=== PATIENT | female | born 1970 | race Caucasian/White ===

== ENCOUNTER 2023-01-17 09:27 | Emergency (ER) | payer OTHER, SELFPAY ==
--- NOTE | 2023-01-17 09:39 | ED_ITS ---
HPI - SOB/Dyspnea General Chief Complaint: Dyspnea Stated Complaint: SOB Time Seen by Provider: 01/17/23 09:38 Source: patient Mode of arrival: ambulatory Limitations: no limitations History of Present Illness HPI Narrative: Patient history of asthma ran out of her nebulizer medication and nebulizer is not working for last few days moved from [place] 4 months ago to [facility] does have a cat at home since she came to [place] she been having multiple episodes of asthma attacks last attack prior to coming to [place] was 1 year ago Related Data Previous Rx's Medication Instructions Recorded albuterol sulfate 2.5 mg/3 mL 2.5 mg (3 mL) inhalation Q4-6H PRN 01/17/23 (0.083 %) solution for nebulization shortness of breath or wheezing #90 mL albuterol sulfate 90 mcg/actuation 2 puff inhalation Q4-6H PRN 01/17/23 aerosol inhaler (ProAir HFA) shortness of breath or wheezing #8.5 grams benzonatate 200 mg capsule 200 mg PO TID PRN cough #30 caps 01/17/23 montelukast 10 mg tablet 10 mg PO BEDTIME #30 tabs 01/17/23 (Singulair) nebulizers (AeroEclipse II #1 ea 01/17/23 Nebulizer) prednisone 20 mg tablet 40 mg PO DAILY #10 tabs 01/17/23 Allergies Allergy/AdvReac Type Severity Reaction Status Date / Time naproxen AdvReac Vomiting Verified 01/17/23 09:34 Review of Systems Review of Systems: Yes all other systems are reviewed and are negative [facility] Past Medical History Medical History Asthma Social History Social History Advance Directives: No Advance Directives Information Provided: Yes Physical Exam Vital Signs: Vital Signs: Last Vital Signs Temp 97.6 F 01/17/23 09:50 Pulse 71 01/17/23 09:50 Resp 22 H 01/17/23 09:50 BP 139/77 01/17/23 09:50 Pulse Ox 99 01/17/23 09:50 O2 Del Method Room Air 01/17/23 09:50 BMI result Body Mass Index 31.2 Appearance: Alert. Oriented X3. No acute distress. Eyes: PERRLA, No Nystagmus ENT: Pharynx normal. Oral Mucosa moist Neck: Normal inspection. Neck supple. CVS: Normal heart rate and rhythm. Pulses normal. Respiratory: My respiratory distress. Equal air entry bilateral, bilateral wheezing and rhonchi with frequent dry cough Abdomen: Soft and nontender. Bowel sounds are present, no mass palpable, no CVA tenderness Skin: Skin warm and dry. Normal skin color. Normal skin turgor. Extremities: No lower extremity edema. No calf tenderness Neuro: Oriented X 3. No motor deficit. No sensory deficit.No cerebellar signs , cranial nerves II-XII intact Medications Administered Discontinued Medications Generic Name Dose Route Start Last Admin Trade Name Freq PRN Reason Stop Dose Admin Albuterol/Ipratropium 3 ml 01/17/23 09:40 01/17/23 09:53 Albuterol/Iprat 2.5/0.5mg 3 Ml Ampul.Neb INHALE 01/17/23 09:41 3 ml ONCE ONE Administration Benzonatate 200 mg 01/17/23 09:57 01/17/23 10:38 Benzonatate 100 Mg Capsule PO 01/17/23 09:58 200 mg ONCE ONE Administration Prednisone 60 mg 01/17/23 09:57 01/17/23 10:39 Prednisone 20 Mg Tablet PO 01/17/23 09:58 60 mg ONCE ONE Administration Medical Decision Making Medical Decision Making [facility] Narrative: Patient with asthma with increased attack likely from the cats at home and recent move from [place] to [facility]. Will discharge patient home on albuterol inhaler, steroids, Singulair patient is saturating 99% at room air Discharge Plan Discharge Clinical Impression: Asthma with exacerbation Patient Disposition: Home, Self-Care Instructions: Asthma (ED) Additional Instructions: Continue to use the inhaler/nebulizer treatment every 4-6 hours as needed Prednisone and Singulair as prescribed You might well allergic to Cats, take cautions as advised Prescriptions: New albuterol sulfate [ProAir HFA] 90 mcg/actuation HFA aerosol inhaler 2 puff inhalation Q4-6H PRN (Reason: shortness of breath or wheezing) Qty: 8.5 0RF prednisone 20 mg tablet 40 mg PO DAILY Qty: 10 0RF albuterol sulfate 2.5 mg /3 mL (0.083 %) solution for nebulization 2.5 mg inhalation Q4-6H PRN (Reason: shortness of breath or wheezing) Qty: 90 0RF montelukast [Singulair] 10 mg tablet 10 mg PO BEDTIME Qty: 30 0RF (DME) nebulizers [AeroEclipse II Nebulizer] Misc See Rx Instructions .Route Qty: 1 0RF Rx Instructions: As directed benzonatate 200 mg capsule 200 mg PO TID PRN (Reason: cough) Qty: 30 0RF Interventions: ED Discharge Assessment Last Done: 01/17/23 10:40 Discharge Date/Time: 01/17/23 10:40
[2023-01-17 09:50] VITALS: BP 139/77; PULSE 71; RESP 22; TEMP 36.4; O2SAT 99; BMI 31.2
[2023-01-17] MEDS: Albuterol/Iprat 2.5/0.5MG 3 ML AMPUL.NEB INHALE (09:53)
[2023-01-17] MEDS: Benzonatate 100 MG CAPSULE 200 MG PO (10:38)
[2023-01-17] MEDS: predniSONE 20 MG TABLET 60 MG PO (10:39)
--- NOTE | 2023-01-17 10:39 | PC.NURSE ---
meds not scanned, computer's down
== END 2023-01-17 10:40 | disposition home or self-care (01) ==
PROVIDERS: Emergency Provider Internal Medicine
DX: J45.901 Unspecified asthma with (acute) exacerbation (principal); Z79.899 Other long term (current) drug therapy
CPT/HCPCS: 99282; 99284

== ENCOUNTER 2023-01-19 12:09 | Emergency (ER) | payer OTHER, SELFPAY ==
--- NOTE | ~2023-01-19 | XR_ITS ---
EXAMINATION: XR KNEE, RIGHT CLINICAL INFORMATION: Fall COMPARISON: None available. TECHNIQUE: Four views of the right knee. FINDINGS: Bones and soft tissues are normal. No fracture or joint effusion. Alignment is anatomic. Joint spaces are well maintained. No abnormal soft tissue calcification. XR/XR knee RT 3V IMPRESSION: Normal right knee.
--- NOTE | ~2023-01-19 | XR_ITS ---
EXAMINATION: XR LUMBOSACRAL SPINE CLINICAL INFORMATION: Fall. Pain. COMPARISON: None available. TECHNIQUE: Three views of the lumbosacral spine. FINDINGS: The vertebral bodies and posterior elements are normal. The disc spaces are preserved and the vertebral alignment is normal. The paraspinal soft tissues are normal. XR/XR lumbar spine 2-3V IMPRESSION: Unremarkable examination.
--- NOTE | 2023-01-19 12:20 | ED.FALL ---
HPI - Fall General Chief Complaint: Fall Stated Complaint: Fall, R knee/hip pain per EMS Time Seen by Provider: 01/19/23 12:16 Source: patient, RN notes reviewed and old records reviewed Mode of arrival: EMS Limitations: no limitations History of Present Illness HPI Narrative: 52 year old female with a history of asthma, HTN, R hip bursitis presenting to the emergency department today via EMS complaining of R knee pain, R hip pain, and R lower back pain s/p slip and fall at [facility]. 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 States she has not been able to ambulate due to the knee pain. Denies head strike or LOC. Not on AC. Denies headache, fever, chills, neck pain, CP/SOB, N/V/D, numbness/ weakness/ tingling, saddle anesthesia. MD complaint: fall Related Data Previous Rx's Medication Instructions Recorded albuterol sulfate 2.5 mg/3 mL 2.5 mg (3 mL) inhalation Q4-6H PRN 01/17/23 (0.083 %) solution for nebulization shortness of breath or wheezing #90 mL albuterol sulfate 90 mcg/actuation 2 puff inhalation Q4-6H PRN 01/17/23 aerosol inhaler (ProAir HFA) shortness of breath or wheezing #8.5 grams benzonatate 200 mg capsule 200 mg PO TID PRN cough #30 caps 01/17/23 montelukast 10 mg tablet 10 mg PO BEDTIME #30 tabs 01/17/23 (Singulair) nebulizers (AeroEclipse II #1 ea 01/17/23 Nebulizer) prednisone 20 mg tablet 40 mg PO DAILY #10 tabs 01/17/23 acetaminophen 500 mg tablet 500 mg PO Q6H PRN fever or pain 01/19/23 (Tylenol Extra Strength) #14 tabs ketorolac 10 mg tablet 10 mg PO TID PRN pain 5 days #15 01/19/23 tabs Allergies Allergy/AdvReac Type Severity Reaction Status Date / Time naproxen AdvReac Vomiting Verified 01/17/23 09:34 Review of Systems Review of Systems: Constitutional: No Fever, No Chills ENT/Mouth: No Hearing loss, No Ear Pain, No Nasal Congestion Cardiovascular: No Chest Pain, No SOB, No Dyspnea on Exertion, No Orthopnea, No Edema, No Palpitations Respiratory: No Cough, No Sputum Gastrointestinal: No Nausea, No Vomiting,No Abdominal pain Genitourinary: No irregular bleeding, No Dysuria Musculoskeletal: + joint pain, + Myalgias, + Joint Swelling Skin: No Skin Lesions, No rash Neuro: No Weakness, No Numbness, No Paresthesias, No Loss of Consciousness, No Dizziness, No Headache Yes all other systems are reviewed and are negative Constitutional: Constitutional: Reports as per [facility] Past Medical History Attestation statement: The following information was validated with the patient. Source: old records reviewed Medical History Asthma Social History Social History Smoked in Last 30 Days: Yes Use of substances other than those prescribed or required for medical reasons: Yes Substance Use Type: Marijuana Substance Use Frequency: Occasionally Last Used Substance: Hours (ago) Advance Directives: No Advance Directives Information Provided: No Physical Exam Vital Signs: Vital Signs: Last Vital Signs Temp 98.2 F 01/19/23 12:25 Pulse 77 01/19/23 14:08 Resp 17 01/19/23 14:08 BP 140/77 H 01/19/23 14:08 Pulse Ox 98 01/19/23 14:08 O2 Del Method Room Air 01/19/23 14:08 BMI result Body Mass Index 36.9 Const: General: cooperative, healthy appearing and no acute distress Orientation/consciousness: patient oriented x3 Limitations: no limitations HEENT: Head: Yes normal to inspection and Yes atraumatic Ears: hearing grossly normal bilaterally General nose exam: Normal external nose present Face and sinus: Yes normal facial exam Eyes: General: appearance normal, both eyes and all related structures EOM: EOMs intact bilaterally Neck: Neck: Yes normal visual inspection and Yes no meningeal signs Resp: Effort & Inspection: normal respiratory effort and no respiratory distress Auscultation: clear to auscultation bilaterally Cardio: Rate: regular rate Heart sounds: S1 normal heart sound present and S2 normal heart sound present Peripheral pulses: Peripheral pulses 2+ throughout GI: Inspection: Yes normal to inspection Palpation (GI): Soft to palpation, nontender, no guarding and not rigid : General: Yes no CVA tenderness Back/Spine/Pelvis: Other: + right paraspinal lumbar and coccygeal tenderness. No midline spinous tenderness. No palpable step offs. Back: no CVA tenderness Thoracic/Lumbar Spine: thoracic and lumbar spine normal to inspection and straight leg raise negative bilaterally Sacrum: no ecchymosis and no erythema Coccyx: no swelling Skin: Rashes: no rashes Wounds: no wounds Neuro: Other: Strength intact throughout. No saddle anesthesia. Sensation intact to light touch. Neurovascular intact distally General: patient oriented x3, tone normal, moves all extremities, no meningeal signs and no focal motor deficits Motor exam (neuro): 5/5 motor strength present throughout Extrem: Other: + right knee with diffuse swelling, limited flexion 2/2 pain, pain with active flexion & extension, infrapatellar tenderness to palpation. NV intact distally, No erythema or warmth General: Yes normal to inspection Course Course Course Narrative: XR knee RT 3V IMPRESSION: Normal right knee. XR lumbar spine 2-3V IMPRESSION: Unremarkable examination. Results discussed with patient HF applied for comfort/ability, supplied with crutches as needed. Discussed worrisome signs and symptoms and strict return precautions, and when to return to the emergency department. They verbalized understanding and feel safe for discharge at this time. Medications Administered Discontinued Medications Generic Name Dose Route Start Last Admin Trade Name Freq PRN Reason Stop Dose Admin Cyclobenzaprine HCl 10 mg 01/19/23 12:20 01/19/23 13:34 Cyclobenzaprine Hcl 10 Mg Tablet PO 01/19/23 12:21 10 mg ONCE ONE Administration Ketorolac Tromethamine 30 mg 01/19/23 12:20 01/19/23 13:35 Ketorolac Tromethamine 30 Mg/Ml Vial IM 01/19/23 12:21 30 mg ONCE ONE Administration Medical Decision Making Medical Decision Making MDM Narrative: 52 year old female with a history of asthma, HTN, R hip bursitis presenting to the emergency department today via EMS complaining of R knee pain, R hip pain, and R lower back pain s/p slip and fall at [facility]. On exam VSS, NAD, physical exam significant for right paraspinal lumbar and coccygeal tenderness, right knee with diffuse swelling, pain with active flexion/extension, infrapatellar tenderness to palpation. Concern for sprain vs fx. Low suspicion for septic joint/arthritis or dislocation Plan: pain control, XR knee and L spine, reevaluate Please refer to course for remaining clinical decision making, interpretation of labs/imaging results, and discussions with consultants and/or family members. Differential Diagnosis Differential Diagnoses: The differential diagnosis associated with the presentation includes As above Admission/Observation Consideration of admission/observation: Escalation of care including admission/observation considered Lab Data MDM Lab Attestation statement: I reviewed the patient's lab results. Radiology Impression Discussion of test interpretation with radiology: I have reviewed the radiologist's reading. External Record Review External record reviewed: Inpatient record, Office record, Outpatient record, Prior outpatient labs, Prior outpatient radiology, Primary care record and Outside ED record Tests considered The following testing was considered but not selected: As above Discharge Plan Discharge Clinical Impression: Knee sprain, Low back pain Patient Disposition: Home, Self-Care Instructions: Knee Sprain (DC), Acute Low Back Pain (ED) Additional Instructions: Your x-rays are unremarkable Use Vikas wrap for comfort/stability, use crutches as needed Ice and elevate Follow-up with her doctor and Orthopedics as needed If symptoms persist or worsen, your unable to ambulate, develop weakness or numbness return to the ED Toradol as an anti-inflammatory/pain medication, take with food. In addition take Tylenol Prescriptions: New acetaminophen [Tylenol Extra Strength] 500 mg tablet 500 mg PO Q6H PRN (Reason: fever or pain) Qty: 14 0RF ketorolac 10 mg tablet 10 mg PO TID PRN (Reason: pain) 5 Days Qty: 15 0RF No Action albuterol sulfate [ProAir HFA] 90 mcg/actuation HFA aerosol inhaler 2 puff inhalation Q4-6H PRN (Reason: shortness of breath or wheezing) Qty: 8.5 0RF prednisone 20 mg tablet 40 mg PO DAILY Qty: 10 0RF albuterol sulfate 2.5 mg /3 mL (0.083 %) solution for nebulization 2.5 mg inhalation Q4-6H PRN (Reason: shortness of breath or wheezing) Qty: 90 0RF montelukast [Singulair] 10 mg tablet 10 mg PO BEDTIME Qty: 30 0RF (DME) nebulizers [AeroEclipse II Nebulizer] Misc See Rx Instructions .Route Qty: 1 0RF Rx Instructions: As directed benzonatate 200 mg capsule 200 mg PO TID PRN (Reason: cough) Qty: 30 0RF Referrals: [facility] [place] [facility] Orthopedic Surgeons [Provider Group] Physician,Unknown J [Primary Care Provider] - Interventions: ED Discharge Assessment Last Done: 01/19/23 14:08 Discharge Date/Time: 01/19/23 14:09
[2023-01-19 12:25] VITALS: BP 118/60; BP 149/77; PULSE 68; PULSE 72; RESP 16; TEMP 36.8; O2SAT 97; O2SAT 98; BMI 36.9
[2023-01-19] MEDS: Cyclobenzaprine HCl 10 MG TABLET PO (13:34)
[2023-01-19] MEDS: Ketorolac Tromethamine 30 MG/ML VIAL IM (13:35)
[2023-01-19 14:08] VITALS: BP 140/77; PULSE 77; RESP 17; O2SAT 98
== END 2023-01-19 14:09 | disposition home or self-care (01) ==
PROVIDERS: Emergency Provider Internal Medicine
DX: S83.91XA Sprain of unspecified site of right knee, initial encounter (principal); M54.50 Low back pain, unspecified; M25.561 Pain in right knee; W01.0XXA Fall on same level from slipping, tripping and stumbling without subsequent striking against object, initial encounter; Y93.9 Activity, unspecified; Y92.9 Unspecified place or not applicable; Y99.9 Unspecified external cause status; Z79.899 Other long term (current) drug therapy
CPT/HCPCS: 72100; 73562; 96372; 99284; J1885

== ENCOUNTER 2023-02-20 07:45 | Outpatient (AMB) | payer OTHER, SELFPAY ==
--- NOTE | 2023-02-20 08:11 | MHC.OFFVIS ---
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 Moran is a 52-year-old female who presents with complaints of progressively worsening right knee pain and giving way. The patient states that she injured her knee 2 years ago. She was evaluated by 2 orthopedic surgeons while living in [place]. The patient states that the 1st surgeon showed her an image from her right knee MRI and she states ?I could clearly see the tear in my knee?. That orthopedic surgeon told her that she should have arthroscopic surgery for her tear. She was then seen by another orthopedic surgeon who ?denied my surgery?. That surgeon gave her a cortisone shot and sent her to physical therapy, both of which gave her minimal relief. The patient states that she twisted her knee again approximately 1 month ago. Her symptoms have not improved over the last 2 years in spite of continued non operative treatments. She has done physical therapy which aggravated her pain. She has also tried Tylenol and anti-inflammatory medicines which gave her minimal relief. The cortisone injection gave her minimal relief. She states that her right knee will give out several times per day. Allergies naproxen Adverse Reaction (Verified 02/20/23 08:40) Vomiting Medication List - Last Reconciled 02/20/23 by Ricardo Root MD acetaminophen (Tylenol Extra Strength) 500 mg PO Q6H PRN albuterol sulfate 90 mcg/actuation (ProAir HFA) 2 puffs inhalation Q4-6H PRN albuterol sulfate 2.5 mg (3 mL) inhalation Q4-6H PRN ketorolac 10 mg PO TID PRN 5 days lisinopril 20 mg PO DAILY montelukast (Singulair) 10 mg PO BEDTIME nebulizers (AeroEclipse II Nebulizer) As directed nebulizers (AeroEclipse II Nebulizer) As directed [facility] Medical History Asthma Social History (Updated 02/20/23 @ 08:18 by Annabella Brewer CMA) Patient Tobacco Use Status: Current everyday Tobacco user Cigarettes Per Day: 3 Substance Use Type: Marijuana Physical Exam Const Other: Well-nourished well-developed very friendly female awake alert and oriented x3 in no acute distress Extrem Other: Bilateral lower extremity examination shows good capillary refill, no skin lesions noted, normal sensation light touch Right knee examination shows a minimal effusion, minimal crepitus with range of motion, tenderness along her medial joint line, positive Ketty's test, no instability Assessment & Plan Assessment & Plan (1) Right knee pain: Code(s): M25.561 - Pain in right knee Plan: Ms. Moran presents with progressively worsening right knee pain and mechanical symptoms most likely due to a medial meniscus tear which she has had since she lived in [place] 2 years ago. Thus, I will send her for an MRI of her right knee for further evaluation. I will see her back once the MRI is completed to discuss the findings and treatment options. The patient will continue with her activity modifications in the meantime. I spent 23 minutes in reviewing the patient's records and imaging studies, seeing the patient and documenting in the medical record. Orders: Orders XR knee RT 3V Today M17.11 - Unilateral primary osteoarthritis, right knee Coding Level of Care Code New Pt Level 2 (98647) Diagnoses Right knee pain M25.561
== END 2023-02-20 08:39 | disposition home or self-care (01) ==
PROVIDERS: Visit Provider Orthopaedic Surgery
DX: M25.561 Pain in right knee (principal)
CPT/HCPCS: 99202

== ENCOUNTER 2023-02-20 07:45 | Outpatient (REF) | payer OTHER, SELFPAY ==
--- NOTE | ~2023-02-20 | XR_ITS ---
EXAMINATION: XR KNEE, RIGHT CLINICAL INFORMATION: Primary osteoarthritis COMPARISON: 01/19/2023 TECHNIQUE: 3 of the right knee. FINDINGS: No significant joint effusion. Bones are normal anatomic alignment with no acute fracture or spondylolisthesis. Joint spaces are preserved with the most mild loss in the medial compartment. Surrounding soft tissues unremarkable XR/XR knee RT 3V IMPRESSION: Mild degenerative changes but no acute bony abnormality.
== END 2023-02-20 07:46 | disposition home or self-care (01) ==
LOC: HO.HOSX 07:45
PROVIDERS: Visit Provider Orthopaedic Surgery
DX: M25.561 Pain in right knee (principal)
CPT/HCPCS: 73562; 99202

== ENCOUNTER 2023-03-13 11:08 | Emergency (ER) | payer OTHER, SELFPAY ==
--- NOTE | 2023-03-13 | ECG_ITS ---
Test Reason : SYNCOPE Blood Pressure : / mmHG Vent. Rate : 064 BPM Atrial Rate : 064 BPM P-R Int : 146 ms QRS Dur : 094 ms QT Int : 430 ms P-R-T Axes : 071 068 034 degrees QTc Int : 443 ms Normal sinus rhythm Normal ECG When compared with ECG of 16-APR-2013 15:58, No significant change was found Referred By: Generic ED Physician Electronically Signed By:QUINCY CASTAÑEDA
[2023-03-13 11:36] VITALS: BP 160/72; PULSE 73; RESP 20; TEMP 36.6; O2SAT 98; BMI 31.2
[2023-03-13 11:59] LABS: MANUAL DIFF FLAG NO
[2023-03-13 12:05] LABS: Basophils Absolute Auto 0.1 X10*3/uL (0.0-0.2); Basophils Percent Auto 0.9 % (0-2); Eosinophils Absolute Auto 0.2 X10*3/uL (0.0-0.4); Eosinophils Percent Auto 2.7 % (0-4); Hematocrit 41.3 % (37.0-47.0); Hemoglobin 13.6 g/dl (12.0-16.0); Imm Gran Abs Auto 0.01 X10*3/uL (0.00-0.03); Imm Gran Pct Auto 0.2 % (0.0-0.4); Lymphocytes Absolute Auto 2.3 X10*3/uL (1.2-4.9); Lymphocytes Percent Auto 35.3 % (20-40); Mean Corpuscular HGB Conc 32.9 g/dl (31.0-35.0); Mean Corpuscular Hemoglobin 29.2 pg (27.0-33.0); Mean Corpuscular Volume 88.8 fL (80.0-98.0); Mean Platelet Volume 10.6 fL (9.4-12.3); Monocytes Absolute Auto 0.5 X10*3/uL (0.1-1.2); Monocytes Percent Auto 7.6 % (2-11); Neutrophils Absolute Auto 3.5 x10*3/uL (2.0-8.3); Neutrophils Percent Auto 53.3 % (45-73); Platelet Count 232 X10*3/uL (160-400); Red Blood Count 4.65 X10*6/uL (4.20-5.50); Red Cell Distribution Width 13.7 % (11.0-16.0); White Blood Count 6.6 X10*3/uL (4.8-10.8)
[2023-03-13 12:19] LABS: Anion Gap 16 (12-20); Blood Urea Nitrogen 17 mg/dL (9-16); Calcium 9.6 mg/dL (8.4-10.2); Carbon Dioxide 17 mmol/L (22-29); Chloride 109 mmol/L (96-108); Creatinine Clr Calc Pharmacy 86.4; Estimated Glomerular Filt Rate > 60; Glucose Random 98 mg/dL (60-115); Sodium 138 mmol/L (135-145)
[2023-03-13 12:20] LABS: COVID-19 Test Negative (Negative); IDNOW Serial# 08D9AD1C
[2023-03-13 12:21] LABS: Alanine Aminotransferase 14 U/L (0-31); Albumin Level 4.1 g/dL (3.5-5.0); Alkaline Phosphatase 79 U/L (39-117); Anion Gap 16 (12-20); Aspartate Amino Transferase 14 U/L (5-31); Bilirubin Total 0.2 mg/dL (0.0-1.0); Blood Urea Nitrogen 17 mg/dL (9-16); Calcium 9.8 mg/dL (8.4-10.2); Carbon Dioxide 18 mmol/L (22-29); Chloride 108 mmol/L (96-108); Creatinine Clr Calc Pharmacy 85.3; Estimated Glomerular Filt Rate > 60; Glucose Random 100 mg/dL (60-115); Potassium 4.3 mmol/L (3.3-5.1); Sodium 138 mmol/L (135-145); Total Protein 7.5 g/dL (6.5-8.0)
[2023-03-13 12:25] VITALS: BP 141/66; PULSE 66; RESP 16; O2SAT 98
[2023-03-13 12:27] LABS: Troponin-I High Sensitivity < 2.7 ng/L (<3.5-17.0)
[2023-03-13 12:40] LABS: Appearance Urine Hazy; Color Urine Yellow; Glucose Urine UA Negative (Negative); Leukocyte Esterase Urine Negative (Negative); Nitrite Urine Negative (Negative); UMIC TRIGGER UACC YES; Urine Blood Large (3+) (Negative); Urine Ketones Negative (Negative); Urine Protein Negative (Neg-Trace)
[2023-03-13 12:57] LABS: Bacteria Urine None Seen (None Seen); Hyaline Casts Urine 0-2 /LPF (0-2); RBC Urine >20 /HPF (0-2); Squamous Epithelial Cell Urine 0-2 /HPF (0-2); WBC Urine 0-5 /HPF (0-5)
[2023-03-13 13:42] LABS: Amphetamine Screen Urine Not Detected (Not Detect); Barbiturates, Urine Not Detected (Not Detect); Benzodiazepines Screen Urine Not Detected (Not Detect); Cannabinoid Screen Urine POSITIVE (Not Detect); Cocaine Screen Urine Not Detected (Not Detect); Fentanyl, urine Not Detected (Not Detect); Opiate Screen Urine Not Detected (Not Detect); Phencyclidine Screen Urine Not Detected (Not Detect)
--- NOTE | 2023-03-13 13:46 | ED_ITS ---
HPI - Syncope General Chief Complaint: Dizziness Stated Complaint: DIZZY W/SYNCOPAL EPISODE PER EMS Time Seen by Provider: 03/13/23 13:01 Source: patient and family Mode of arrival: EMS History of Present Illness HPI narrative: 52-year-old female with history of hypertension, anxiety, increased stressors in life and a current tactile can influence our with a large viewing audience presents via EMS for feeling very dizzy after bending over to empty the garbage and then standing up and feeling like she was going to pass out, she did not hit the ground as her significant other caught her and lowered her to the ground while calling 911. According to the significant other there were reduced number of respirations that prompted the pulverizing and sifting operator to instruct her to due to chest compressions. Patient states that she has had several episodes of feeling lightheaded and dizzy with tingling on bilateral upper extremities but denies any GI or symptoms and states that she otherwise feels very well. Her mother who is at bedside as well as significant other states that patient has had increased stressors due to a family member. Related Data Home Medications Medication Instructions Recorded Confirmed lisinopril 20 mg tablet 20 mg PO DAILY 02/20/23 02/20/23 Previous Rx's Medication Instructions Recorded albuterol sulfate 2.5 mg/3 mL 2.5 mg (3 mL) inhalation Q4-6H PRN 01/17/23 (0.083 %) solution for nebulization shortness of breath or wheezing #90 mL albuterol sulfate 90 mcg/actuation 2 puff inhalation Q4-6H PRN 01/17/23 aerosol inhaler (ProAir HFA) shortness of breath or wheezing #8.5 grams montelukast 10 mg tablet 10 mg PO BEDTIME #30 tabs 01/17/23 (Singulair) nebulizers (AeroEclipse II #1 ea 01/17/23 Nebulizer) acetaminophen 500 mg tablet 500 mg PO Q6H PRN fever or pain 01/19/23 (Tylenol Extra Strength) #14 tabs ketorolac 10 mg tablet 10 mg PO TID PRN pain 5 days #15 01/19/23 tabs nebulizers (AeroEclipse II #1 ea 02/08/23 Nebulizer) Allergies Allergy/AdvReac Type Severity Reaction Status Date / Time naproxen AdvReac Vomiting Verified 02/20/23 08:40 Review of Systems Review of Systems: Pertinent positives and negatives as stated in HPI [facility] Past Medical History Source: nursing notes reviewed Medical History Asthma Social History Social History Patient Tobacco Use Status: Current everyday Tobacco user Cigarettes Per Day: 3 Substance Use Type: Marijuana Advance Directives: No Advance Directives Information Provided: No Physical Exam 2 Vital Signs: Vital Signs: Last Vital Signs Temp 97.8 F 03/13/23 11:36 Pulse 68 03/13/23 13:55 Resp 16 03/13/23 12:25 BP 144/72 H 03/13/23 13:55 Pulse Ox 98 03/13/23 12:25 O2 Del Method Room Air 03/13/23 12:25 BMI result Body Mass Index 31.2 VITAL SIGNS: Reviewed. GENERAL: Well developed, well nourished, in no acute distress. HEAD: Normocephalic/atraumatic EYES: PERRLA, EOMI EARS: Ext canals without abnormality NOSE: Nares patent bilateral OROPHARYNX: no oral lesions noted, posterior pharynx clear NECK: Supple, no adenopathy LUNGS: Normal breath sounds. No adventitious sounds or accessory muscle use. SpO2<98> CARDIOVASCULAR: Regular rate and rhythm without noted murmurs ABDOMEN: Soft, non-tender, non-distended with bowel sounds. MUSCULOSKELETAL: No tenderness, deformities, or effusions noted on gross inspection. EXTREMITIES: No cyanosis, clubbing or edema. SKIN: Inspection of the skin reveals no rashes NEUROLOGIC: Alert and oriented x 4. Strength and sensation to light touch were grossly intact x 4, no facial asymmetry, no pronator drift, cranial nerves 2-12 are grossly intact.. Medical Decision Making Medical Decision Making MDM Narrative: 52-year-old female with history and clinical presentation, DDX: Infection, anemia, electrolyte abnormality, arrhythmia. 52-year-old female without focal symptoms I reviewed all investigations and hematologic indices are not significant for leukocytosis/left shift/anemia/thrombocytopenia. Chemistry indices are not significant for electrolytes derangements or liver enzyme abnormalities. There is no evidence of DARIO but patient does have a non-anion gap acidosis that despite patient's history stating that she drinks plenty of water I suspect may be a component of poor volume intake for the possibility of medication side effect, troponin is undetectable. On review of urinalysis there is hematuria noted however patient is currently perimenopausal and menstruating. She has no abdominal or flank pain to in any way suggest a renal colic etiology. UDS is significant for marijuana and counseled patient regarding the possible combination of various strains that may contribute to her symptoms. COVID-19 is negative. EKG is not significant for arrhythmia. Orthostatics are negative. My interpretation is that patient had a likely combination anxiety and vasovagal syncopal episode due to several external factors such as stress, anxiety, abrupt position change. Cautioned patient on remaining well hydrated, adjusting position change gradually and stress reduction. Differential Diagnosis Differential Diagnoses: The differential diagnosis associated with the presentation includes Please see the discussion above Admission/Observation Consideration of admission/observation: Escalation of care including admission/observation considered Please see discussion above Lab Data MDM Lab Attestation statement: I reviewed the patient's lab results. Please see discussion above 03/13/23 11:47 03/13/23 11:47 Labs: Lab Results 03/13/23 03/13/23 03/13/23 Range/Units 11:47 11:47 11:47 WBC 6.6 (4.8-10.8) X10*3/uL RBC 4.65 (4.20-5.50) X10*6/uL Hgb 13.6 (12.0-16.0) g/dl Hct 41.3 (37.0-47.0) % MCV 88.8 (80.0-98.0) fL MCH 29.2 (27.0-33.0) pg MCHC 32.9 (31.0-35.0) g/dl RDW 13.7 (11.0-16.0) % Plt Count 232 (160-400) X10*3/uL MPV 10.6 (9.4-12.3) fL Immature Gran % (Auto) 0.2 (0.0-0.4) % Neut % (Auto) 53.3 (45-73) % Lymph % (Auto) 35.3 (20-40) % [place] % (Auto) 7.6 (2-11) % Eos % (Auto) 2.7 (0-4) % Baso % (Auto) 0.9 (0-2) % Lymph # (Auto) 2.3 (1.2-4.9) X10*3/uL [place] # (Auto) 0.5 (0.1-1.2) X10*3/uL Eos # (Auto) 0.2 (0.0-0.4) X10*3/uL Baso # (Auto) 0.1 (0.0-0.2) X10*3/uL Abs Immat Gran (auto) 0.01 (0.00-0.03) X10*3/uL Absolute Neuts (auto) 3.5 (2.0-8.3) x10*3/uL Absolute Nucleated RBC 0.000 (0.0-0.012) X10*3/uL Nucleated RBC % (auto) 0.0 (0.0-0.2) /100WBC Sodium 138 (135-145) mmol/L Potassium 4.3 (3.3-5.1) mmol/L Chloride 108 (96-108) mmol/L Carbon Dioxide 18 L (22-29) mmol/L Anion Gap 16 (12-20) BUN 17 H (9-16) mg/dL Creatinine 0.81 (0.5-1.4) mg/dL Estim Creat Clear Calc 85.3 Estimated GFR > 60 Random Glucose 100 (60-115) mg/dL Calcium 9.8 (8.4-10.2) mg/dL Magnesium 2.0 (1.6-2.6) mg/dL Total Bilirubin 0.2 (0.0-1.0) mg/dL AST 14 (5-31) U/L ALT 14 (0-31) U/L Alkaline Phosphatase 79 (39-117) U/L Troponin I High Sens < 2.7 (<3.5-17.0) ng/L Total Protein 7.5 (6.5-8.0) g/dL Albumin 4.1 (3.5-5.0) g/dL Urine Color Urine Appearance Urine pH (5.0-9.0) Ur Specific [place] (1.005-1.025) Urine Protein (Neg-Trace) mg/dL Urine Glucose (UA) (Negative) mg/dL Urine Ketones (Negative) mg/dL Urine Blood (Negative) Urine Nitrite (Negative) Ur Leukocyte Esterase (Negative) Urine RBC (0-2) /HPF Urine WBC (0-5) /HPF Ur Squamous Epith Cells (0-2) /HPF Urine Bacteria (None Seen) Hyaline Casts (0-2) /LPF Urine Opiates Screen (Not Detect) Urine Fentanyl Screen (Not Detect) Ur Barbiturates Screen (Not Detect) Ur Phencyclidine Scrn (Not Detect) Ur Amphetamines Screen (Not Detect) U Benzodiazepines Scrn (Not Detect) Urine Cocaine Screen (Not Detect) U Marijuana (THC) Screen (Not Detect) COVID-19 (JOEY) (Negative) COVID-19 Clin Com 03/13/23 03/13/23 03/13/23 Range/Units 11:47 11:47 12:08 WBC (4.8-10.8) X10*3/uL RBC (4.20-5.50) X10*6/uL Hgb (12.0-16.0) g/dl Hct (37.0-47.0) % MCV (80.0-98.0) fL MCH (27.0-33.0) pg MCHC (31.0-35.0) g/dl RDW (11.0-16.0) % Plt Count (160-400) X10*3/uL MPV (9.4-12.3) fL Immature Gran % (Auto) (0.0-0.4) % Neut % (Auto) (45-73) % Lymph % (Auto) (20-40) % [place] % (Auto) (2-11) % Eos % (Auto) (0-4) % Baso % (Auto) (0-2) % Lymph # (Auto) (1.2-4.9) X10*3/uL [place] # (Auto) (0.1-1.2) X10*3/uL Eos # (Auto) (0.0-0.4) X10*3/uL Baso # (Auto) (0.0-0.2) X10*3/uL Abs Immat Gran (auto) (0.00-0.03) X10*3/uL Absolute Neuts (auto) (2.0-8.3) x10*3/uL Absolute Nucleated RBC (0.0-0.012) X10*3/uL Nucleated RBC % (auto) (0.0-0.2) /100WBC Sodium 138 (135-145) mmol/L Potassium 4.0 (3.3-5.1) mmol/L Chloride 109 H (96-108) mmol/L Carbon Dioxide 17 L (22-29) mmol/L Anion Gap 16 (12-20) BUN 17 H (9-16) mg/dL Creatinine 0.80 (0.5-1.4) mg/dL Estim Creat Clear Calc 86.4 Estimated GFR > 60 Random Glucose 98 (60-115) mg/dL Calcium 9.6 (8.4-10.2) mg/dL Magnesium (1.6-2.6) mg/dL Total Bilirubin (0.0-1.0) mg/dL AST (5-31) U/L ALT (0-31) U/L Alkaline Phosphatase (39-117) U/L Troponin I High Sens (<3.5-17.0) ng/L Total Protein (6.5-8.0) g/dL Albumin (3.5-5.0) g/dL Urine Color Yellow Urine Appearance Hazy Urine pH 7.0 (5.0-9.0) Ur Specific [place] 1.010 (1.005-1.025) Urine Protein Negative (Neg-Trace) mg/dL Urine Glucose (UA) Negative (Negative) mg/dL Urine Ketones Negative (Negative) mg/dL Urine Blood Large (3+) H (Negative) Urine Nitrite Negative (Negative) Ur Leukocyte Esterase Negative (Negative) Urine RBC >20 H (0-2) /HPF Urine WBC 0-5 (0-5) /HPF Ur Squamous Epith Cells 0-2 (0-2) /HPF Urine Bacteria None Seen (None Seen) Hyaline Casts 0-2 (0-2) /LPF Urine Opiates Screen (Not Detect) Urine Fentanyl Screen (Not Detect) Ur Barbiturates Screen (Not Detect) Ur Phencyclidine Scrn (Not Detect) Ur Amphetamines Screen (Not Detect) U Benzodiazepines Scrn (Not Detect) Urine Cocaine Screen (Not Detect) U Marijuana (THC) Screen (Not Detect) COVID-19 (JOEY) Negative (Negative) COVID-19 Clin Com See Note 08/01/23 Range/Units 12:08 WBC (4.8-10.8) X10*3/uL RBC (4.20-5.50) X10*6/uL Hgb (12.0-16.0) g/dl Hct (37.0-47.0) % MCV (80.0-98.0) fL MCH (27.0-33.0) pg MCHC (31.0-35.0) g/dl RDW (11.0-16.0) % Plt Count (160-400) X10*3/uL MPV (9.4-12.3) fL Immature Gran % (Auto) (0.0-0.4) % Neut % (Auto) (45-73) % Lymph % (Auto) (20-40) % [place] % (Auto) (2-11) % Eos % (Auto) (0-4) % Baso % (Auto) (0-2) % Lymph # (Auto) (1.2-4.9) X10*3/uL [place] # (Auto) (0.1-1.2) X10*3/uL Eos # (Auto) (0.0-0.4) X10*3/uL Baso # (Auto) (0.0-0.2) X10*3/uL Abs Immat Gran (auto) (0.00-0.03) X10*3/uL Absolute Neuts (auto) (2.0-8.3) x10*3/uL Absolute Nucleated RBC (0.0-0.012) X10*3/uL Nucleated RBC % (auto) (0.0-0.2) /100WBC Sodium (135-145) mmol/L Potassium (3.3-5.1) mmol/L Chloride (96-108) mmol/L Carbon Dioxide (22-29) mmol/L Anion Gap (12-20) BUN (9-16) mg/dL Creatinine (0.5-1.4) mg/dL Estim Creat Clear Calc Estimated GFR Random Glucose (60-115) mg/dL Calcium (8.4-10.2) mg/dL Magnesium (1.6-2.6) mg/dL Total Bilirubin (0.0-1.0) mg/dL AST (5-31) U/L ALT (0-31) U/L Alkaline Phosphatase (39-117) U/L Troponin I High Sens (<3.5-17.0) ng/L Total Protein (6.5-8.0) g/dL Albumin (3.5-5.0) g/dL Urine Color Urine Appearance Urine pH (5.0-9.0) Ur Specific [place] (1.005-1.025) Urine Protein (Neg-Trace) mg/dL Urine Glucose (UA) (Negative) mg/dL Urine Ketones (Negative) mg/dL Urine Blood (Negative) Urine Nitrite (Negative) Ur Leukocyte Esterase (Negative) Urine RBC (0-2) /HPF Urine WBC (0-5) /HPF Ur Squamous Epith Cells (0-2) /HPF Urine Bacteria (None Seen) Hyaline Casts (0-2) /LPF Urine Opiates Screen Not Detected (Not Detect) Urine Fentanyl Screen Not Detected (Not Detect) Ur Barbiturates Screen Not Detected (Not Detect) Ur Phencyclidine Scrn Not Detected (Not Detect) Ur Amphetamines Screen Not Detected (Not Detect) U Benzodiazepines Scrn Not Detected (Not Detect) Urine Cocaine Screen Not Detected (Not Detect) U Marijuana (THC) Screen POSITIVE H (Not Detect) COVID-19 (JOEY) (Negative) COVID-19 Clin Com Independent Interpretation I performed an independent interpretation of an: EKG Interpretation: Normal sinus rhythm, HR -64, no STEMI, FL/QRS/QTC is within normal limits. External Record Review External record reviewed: Outpatient record Chronic Conditions Patient?s care impacted by: Hypertension Discharge Plan Discharge Clinical Impression: Anxiety, Syncope, vasovagal, Stressful life event affecting family Patient Disposition: Home, Self-Care Instructions: Syncope (ED), Stress (ED), Anxiety (ED) Additional Instructions: 1. Please continue to take your blood pressure medication as prescribed. Please be aware that medications such as ibuprofen/Motrin/Aleve/Naprosyn can increase your blood pressure. 2. I feel that you suffered a vasovagal syncope episode today which can have several inciting factors such as volume status, stress, high emotions. 3. I am giving you a referral to follow-up with a primary care provider as well as Cardiology. Return to the ER for any worsening symptoms. Prescriptions: No Action albuterol sulfate [ProAir HFA] 90 mcg/actuation HFA aerosol inhaler 2 puff inhalation Q4-6H PRN (Reason: shortness of breath or wheezing) Qty: 8.5 0RF albuterol sulfate 2.5 mg /3 mL (0.083 %) solution for nebulization 2.5 mg inhalation Q4-6H PRN (Reason: shortness of breath or wheezing) Qty: 90 0RF montelukast [Singulair] 10 mg tablet 10 mg PO BEDTIME Qty: 30 0RF (DME) nebulizers [AeroEclipse II Nebulizer] Misc See Rx Instructions .Route Qty: 1 0RF Rx Instructions: As directed (DME) nebulizers [AeroEclipse II Nebulizer] Misc See Rx Instructions .Route Qty: 1 0RF Rx Instructions: As directed acetaminophen [Tylenol Extra Strength] 500 mg tablet 500 mg PO Q6H PRN (Reason: fever or pain) Qty: 14 0RF ketorolac 10 mg tablet 10 mg PO TID PRN (Reason: pain) 5 Days Qty: 15 0RF lisinopril 20 mg tablet 20 mg PO DAILY Referrals: Osorio Montiel MD [Physician] -
[2023-03-13 13:55] VITALS: BP 144/72; BP 153/75; BP 154/78; PULSE 68; PULSE 74
== END 2023-03-13 14:02 | disposition home or self-care (01) ==
PROVIDERS: Physician Assistant Medical; Emergency Provider Student in an Organized Health Care Education/Training Program
DX: R55 Syncope and collapse (principal); F41.9 Anxiety disorder, unspecified; Z20.822 Contact with and (suspected) exposure to COVID-19; I10 Essential (primary) hypertension; F17.210 Nicotine dependence, cigarettes, uncomplicated; F12.90 Cannabis use, unspecified, uncomplicated; Z72.89 Other problems related to lifestyle; Z63.79 Other stressful life events affecting family and household; Z79.899 Other long term (current) drug therapy
CPT/HCPCS: 36415; 80048; 80053; 80307; 81001; 83735; 84484; 85025; 87635; 93005; 99284

== ENCOUNTER → 2023-03-13 11:22 | Outpatient (BNV) | payer OTHER, SELFPAY | PROVIDERS: Emergency Provider Student in an Organized Health Care Education/Training Program; Visit Provider Internal Medicine | DX: R55 Syncope and collapse (principal) | CPT/HCPCS: 93010 ==

== ENCOUNTER 2023-04-17 08:35 | Outpatient (REF) | payer MEDICAID, SELFPAY ==
--- NOTE | ~2023-04-17 | MR_ITS ---
EXAMINATION: MR KNEE WITHOUT CONTRAST, RIGHT CLINICAL INFORMATION: Right knee pain and swelling. Meniscal tear. COMPARISON: Right knee radiographs dated 02/20/2023 and 01/19/2023. TECHNIQUE: MRI of the knee without contrast was performed using routine sequences on a high-field scanner. FINDINGS: MENISCI: Medial Meniscus: Intact Lateral Meniscus: Minimal inner margin fraying of the meniscal body. LIGAMENTS: Cruciate: Intact. Collateral: Intact. EXTENSOR MECHANISM: Intact. ARTICULAR CARTILAGE/BONE: Patellofemoral Compartment: Diffuse patellar articular cartilage signal heterogeneity with full-thickness fissuring at the lateral patellar facet. Inferomedial trochlea articular cartilage signal heterogeneity. Tiny marginal osteophytes. Medial Compartment: Weightbearing articular cartilage signal heterogeneity and surface irregularity with areas of [id number] fissuring at the medial femoral condyle. Tiny marginal osteophytes. Lateral Compartment: Intact articular cartilage. JOINT FLUID AND BURSAE: Trace joint effusion. MR/MR knee RT wo con IMPRESSION: 1. Minimal inner margin fraying of the lateral meniscal body. 2. Mild patellofemoral and medial compartment osteoarthritis. Trace joint effusion.
== END 2023-04-17 08:36 | disposition home or self-care (01) ==
LOC: HO.MRI 08:35
PROVIDERS: PCP General Practice; Visit Provider Orthopaedic Surgery
DX: S83.241A Other tear of medial meniscus, current injury, right knee, initial encounter (principal)
CPT/HCPCS: 73721

== ENCOUNTER 2023-04-18 08:22 | Outpatient (AMB) | payer MEDICAID, SELFPAY ==
--- NOTE | 2023-04-18 08:28 | A.OFFVIS_ITS ---
Intake Intake Visit Reasons: EP, MRI Review of R knee Intake Note: [place] a 52 year old female who presents today for an MRI review of right knee. She reports intermittent discomfort in both of her knees. She denies any locking or giving way. She has had cortisone injections in the past which gave her minimal relief. The patient states that she did do physical therapy in the past while living in [place]. She got fairly good relief from the therapy exercises. Allergies naproxen Adverse Reaction (Verified 04/18/23 08:30) Vomiting Medication List - Last Reconciled 04/18/23 by Ricardo Root MD acetaminophen (Tylenol Extra Strength) 500 mg PO Q6H PRN albuterol sulfate 90 mcg/actuation (ProAir HFA) 2 puffs inhalation Q4-6H PRN albuterol sulfate 2.5 mg (3 mL) inhalation Q4-6H PRN ketorolac 10 mg PO TID PRN 5 days lisinopril 20 mg PO DAILY montelukast (Singulair) 10 mg PO BEDTIME nebulizers (AeroEclipse II Nebulizer) As directed nebulizers (AeroEclipse II Nebulizer) As directed [facility] Medical History Asthma Social History Patient Tobacco Use Status: Current everyday Tobacco user Cigarettes Per Day: 3 Substance Use Type: Marijuana Physical Exam Const Other: Well-nourished well-developed very friendly female awake alert and oriented x3 in no acute distress Extrem Other: Bilateral lower extremity examination shows good capillary refill, no skin lesions noted, normal sensation light touch Bilateral knee examination shows minimal effusions, minimal crepitus with range of motion, negative Ketty's test, negative Brodie's test, mild tenderness to palpation over her iliotibial bands, no overlying skin lesions Results Reviewed Results Reviewed: MRI of the patient's right knee shows mild diffuse degenerative changes, no acute bony abnormalities, no meniscus tearing, no injury to her anterior cruciate ligament or posterior cruciate ligament Assessment & Plan Assessment & Plan (1) Iliotibial band syndrome affecting right lower leg: Code(s): M76.31 - Iliotibial band syndrome, right leg Plan: Ms. Moran presents with bilateral knee pains most likely due to iliotibial band syndrome and deconditioning. At this point she does not have any significant abnormality on her right knee MRI which would warrant surgical intervention. I had a lengthy discussion with the patient regarding the treatment options. I did put in a referral for formal physical therapy. She will follow-up as instructed. She will contact me should her symptoms not plateau at an acceptable level over the next few months. Feel free to call me at any time should questions regarding her orthopedic management arise. I spent 22 minutes in reviewing the patient's records and imaging studies, seeing the patient and documenting in the medical record. Orders: Orders PT Evaluation and Treatment Today M76.31 - Iliotibial band syndrome, right leg Coding Level of Care Code Est Pt Level 2 (92800) Diagnoses Iliotibial band syndrome affecting right lower leg M76.31
== END 2023-04-18 08:43 | disposition home or self-care (01) ==
PROVIDERS: PCP General Practice; Visit Provider Orthopaedic Surgery
DX: M76.31 Iliotibial band syndrome, right leg (principal)
CPT/HCPCS: 99212

== ENCOUNTER → 2023-04-18 08:22 | Outpatient (BNVA) | payer MEDICAID, SELFPAY | PROVIDERS: PCP General Practice; Visit Provider Orthopaedic Surgery | DX: M76.31 Iliotibial band syndrome, right leg (principal) | CPT/HCPCS: 99212 ==

== ENCOUNTER 2023-08-06 18:20 | Emergency (ER) | payer MEDICAID, SELFPAY ==
--- NOTE | ~2023-08-06 | XR_ITS ---
EXAMINATION: XR CHEST CLINICAL INFORMATION: Cough. COMPARISON: 09/30/2007. TECHNIQUE: Frontal view of the chest was obtained. FINDINGS: No significant abnormality is noted involving the heart, lungs, mediastinum, bony thorax or soft tissues. XR/XR chest 1V IMPRESSION: Unremarkable examination.
[2023-08-06 18:28] VITALS: BP 132/59; PULSE 76; RESP 22; TEMP 36.8; O2SAT 95; BMI 32.5
--- NOTE | 2023-08-06 18:30 | ED.URI ---
HPI - URI/Sore Throat General Chief Complaint: Upper Respiratory Symptoms Stated Complaint: Asthma Time Seen by Provider: 08/06/23 19:13 Source: patient, family, RN notes reviewed and old records reviewed Mode of arrival: ambulatory Limitations: no limitations History of Present Illness HPI Narrative: 52-year-old female with past medical history significant for asthma presents for evaluation of shortness of breath. Patient reports her symptoms started 5 days ago. She states that her 12-year-old son had symptoms prior to her She reports cough, body aches, congestion, weakness. She states that she has been coughing some worse that she has been vomiting Denies any chest pain No leg swelling or recent travel Related Data Home Medications Medication Instructions Recorded Confirmed lisinopril 20 mg tablet 20 mg PO DAILY 02/20/23 04/18/23 Previous Rx's Medication Instructions Recorded albuterol sulfate 2.5 mg/3 mL 2.5 mg (3 mL) inhalation Q4-6H PRN 01/17/23 (0.083 %) solution for nebulization shortness of breath or wheezing #90 mL albuterol sulfate 90 mcg/actuation 2 puff inhalation Q4-6H PRN 01/17/23 aerosol inhaler (ProAir HFA) shortness of breath or wheezing #8.5 grams montelukast 10 mg tablet 10 mg PO BEDTIME #30 tabs 01/17/23 (Singulair) nebulizers (AeroEclipse II #1 ea 01/17/23 Nebulizer) acetaminophen 500 mg tablet 500 mg PO Q6H PRN fever or pain 01/19/23 (Tylenol Extra Strength) #14 tabs ketorolac 10 mg tablet 10 mg PO TID PRN pain 5 days #15 01/19/23 tabs nebulizers (AeroEclipse II #1 ea 02/08/23 Nebulizer) Allergies Allergy/AdvReac Type Severity Reaction Status Date / Time naproxen AdvReac Vomiting Verified 08/06/23 18:27 Review of Systems Constitutional: Constitutional: Reports body ache(s), Reports chills, Reports fever(s), Reports malaise and Reports weakness Eyes: Eyes: Denies blurry vision ENT: Reports sore throat Cardiovascular: Cardiovascular: Denies chest pain, Denies palpitations and Reports dyspnea Respiratory: Respiratory: Reports cough and Reports dyspnea Gastrointestinal: Gastrointestinal: Denies abdominal pain, Denies nausea and Reports vomiting Musculoskeletal: Musculoskeletal: Denies back pain Integumentary/Breasts: Skin/Breast: Denies rash Neurologic: Reports weakness Endocrine: Endocrine: Denies palpitations PMF Past Medical History Medical History Asthma Social History Social History Patient Tobacco Use Status: Current everyday Tobacco user Cigarettes Per Day: 3 Substance Use Type: Marijuana Advance Directives: No Advance Directives Information Provided: Yes Physical Exam Vital Signs: Vital Signs: Last Vital Signs Temp 98.2 F 08/06/23 18:28 Pulse 76 08/06/23 18:28 Resp 22 H 08/06/23 18:28 BP 132/59 L 08/06/23 18:28 Pulse Ox 95 08/06/23 18:28 O2 Del Method Room Air 08/06/23 18:28 BMI result Body Mass Index 32.5 Const: General: healthy appearing, comfortable, no acute distress, alert and awake Nutritional Appearance: well nourished Orientation/consciousness: patient oriented x3 HEENT: Head: Yes normocephalic and Yes atraumatic Throat: Yes posterior oropharynx normal Eyes: Eyelids: Yes eyelids normal Conjunctivae: conjunctivae normal Sclerae: sclerae normal Corneas: corneas normal Pupils: Equal, round and reactive pupils present EOM: EOMs intact bilaterally Neck: Neck: Yes full ROM Resp: Effort & Inspection: normal respiratory effort, able to speak in complete sentences, no audible wheezes and not labored Auscultation: clear to auscultation bilaterally Cardio: Rate: regular rate Rhythm: regular rhythm GI: Inspection: No distended Palpation (GI): Soft to palpation, not firm, nontender, no guarding and not rigid Auscultation: normoactive bowel sounds Skin: General skin exam: no rashes or lesions noted and elasticity normal Neuro: General: patient oriented x3 Cranial nerves: Yes Equal, round and reactive pupils present and Yes Bilaterally intact EOM present Cognition (Neuro): normal cognition Course Course Course Narrative: This is an RME: Additional HPI, ROS, PE not included below will be deferred to primary provider. 52-year-old female presents with cough, fatigue, malaise, congestion, reports coughing fits are so bad she is having posttussive emesis. Reports sick contacts at home. Reports muscles are sore from coughing so badly Plan- labs, viral test Medical Decision Making Medical Decision Making [facility] Narrative: 52-year-old female presents for evaluation of shortness of breath, body aches. Her lungs are clear to auscultation, her vital signs are stable, she is not hypoxic or tachycardic. She tested positive for RSV which explains her symptoms. She was given return precautions and educated on symptomatic Differential Diagnosis Differential Diagnoses: The differential diagnosis associated with the presentation includes RSV Influenza COVID-19 Pneumonia Bronchitis Upper respiratory infection Lab Data Labs: Lab Results 08/06/23 Range/Units 18:42 Influenza Type A (PCR) NEGATIVE (Negative) Influenza Type B (PCR) NEGATIVE (Negative) RSV RNA Qual (PCR) POSITIVE A (Negative) SARS-CoV-2 RNA (RT-PCR) NEGATIVE (Negative) Discharge Plan Discharge Clinical Impression: RSV infection Patient Disposition: Home, Self-Care Instructions: Respiratory Syncytial Virus (ED) Additional Instructions: You tested positive for a virus called RSV The average period of possible transmission is 8-11 days. Use ibuprofen/Tylenol for fevers or body aches Drink lots of fluids Follow-up with your primary doctor Prescriptions: No Action albuterol sulfate [ProAir HFA] 90 mcg/actuation HFA aerosol inhaler 2 puff inhalation Q4-6H PRN (Reason: shortness of breath or wheezing) Qty: 8.5 0RF albuterol sulfate 2.5 mg /3 mL (0.083 %) solution for nebulization 2.5 mg inhalation Q4-6H PRN (Reason: shortness of breath or wheezing) Qty: 90 0RF montelukast [Singulair] 10 mg tablet 10 mg PO BEDTIME Qty: 30 0RF (DME) nebulizers [AeroEclipse II Nebulizer] Misc See Rx Instructions .Route Qty: 1 0RF Rx Instructions: As directed (DME) nebulizers [AeroEclipse II Nebulizer] Mis See Rx Instructions .Route Qty: 1 0RF Rx Instructions: As directed acetaminophen [Tylenol Extra Strength] 500 mg tablet 500 mg PO Q6H PRN (Reason: fever or pain) Qty: 14 0RF ketorolac 10 mg tablet 10 mg PO TID PRN (Reason: pain) 5 Days Qty: 15 0RF lisinopril 20 mg tablet 20 mg PO DAILY
--- NOTE | 2023-08-06 18:50 | MHC.EDTECH ---
This PCT attempted to draw this PT blood x1. PT states, I want to wait til im more calm . will reattempt later.
[2023-08-06 19:28] LABS: Influenza A PCR NEGATIVE (Negative); Influenza B PCR NEGATIVE (Negative); Resp Syncy Virus RNA Qual PCR POSITIVE (Negative); SARS COV2 PCR INHOUSE NEGATIVE (Negative)
[2023-08-06 20:24] VITALS: RESP 16
--- NOTE | 2023-08-06 20:25 | PC.NURSE ---
blood work not needed per PA, cancelled.
== END 2023-08-06 20:26 | disposition home or self-care (01) ==
PROVIDERS: Physician Assistant; Emergency Provider Emergency Medicine; PCP General Practice
DX: R06.02 Shortness of breath (principal); B97.4 Respiratory syncytial virus as the cause of diseases classified elsewhere; J45.909 Unspecified asthma, uncomplicated; Z20.822 Contact with and (suspected) exposure to COVID-19; Z20.828 Contact with and (suspected) exposure to other viral communicable diseases
CPT/HCPCS: 0241U; 71045; 99282; 99283

== ENCOUNTER 2023-09-03 16:49 | Outpatient (REF) | payer MEDICAID, SELFPAY ==
[2023-09-07 08:57] LABS: Alphahydroxymidazolam,GCMS Ur NEGATIVE; Alphahydroxytriazolam, GCMS Ur NEGATIVE; Alprazolam, GCMS Urine NEGATIVE; Flurazepam Metabolite,GCMS Ur NEGATIVE; Lorazepam GCMS Urine NEGATIVE; Nordiazepam, GCMS Urine NEGATIVE; Oxazepam, GCMS Urine NEGATIVE; Temazepam, GCMS Urine NEGATIVE
== END 2023-09-03 16:50 | disposition home or self-care (01) ==
LOC: HO.HHCLNP 16:49
PROVIDERS: Visit Provider General Practice
DX: F41.9 Anxiety disorder, unspecified (principal)
CPT/HCPCS: 80346

== ENCOUNTER 2024-04-21 09:23 | Inpatient (IN) | payer MEDICAID, SELFPAY ==
[2024-04-21] VITALS (10 sets, daily range): BP systolic 114–162; BP diastolic 47–109; PULSE 59–156; RESP 12–18; TEMP 36.4–36.8; O2SAT 97–100; BMI 32.7
--- NOTE | 2024-04-21 | ECG_ITS ---
Test Reason : TACHYCARDIA Blood Pressure : / mmHG Vent. Rate : 097 BPM Atrial Rate : 000 BPM P-R Int : 000 ms QRS Dur : 084 ms QT Int : 348 ms P-R-T Axes : 000 067 -03 degrees QTc Int : 441 ms Atrial fibrillation Abnormal QRS-T angle, consider primary T wave abnormality Abnormal ECG When compared with ECG of 21-APR-2024 21:42, No significant change was found Referred By: Angelita Mckenzie Electronically Signed By:JHONNY LÓPEZ
--- NOTE | ~2024-04-21 | CT_ITS ---
EXAMINATION: CT HEAD WITHOUT CONTRAST CLINICAL INFORMATION: Dizziness, headache. COMPARISON: None TECHNIQUE: Contiguous axial imaging was performed from the skull base to vertex without intravenous administration of contrast. This CT examination was performed using dose optimization techniques as appropriate, variously including the following: *Automated exposure control *Adjustment of mA and/or kV according to patient size (this includes techniques or standardized protocols for targeted exams where dose is matched to indication/reason for exam; i.e. extremities or head) *Use of iterative reconstruction technique DLP: 650 mGy-cm FINDINGS: There is no evidence of acute intracranial hemorrhage or edematous territorial infarction. There is no abnormal attenuation within the brain parenchyma. Merino-white matter differentiation is preserved. The ventricles are normal in size and configuration. No evidence for obstructive hydrocephalus. No abnormal mass effect or midline shift. No extra-axial fluid collections. Intermediate density mass measuring 3 x 2 cm abutting the right plumber gasfitter muscle, anterior to the right parotid gland (3:1). No acute osseous findings. The mastoid air cells and paranasal sinuses are clear. CT/CT head for stroke IMPRESSION: 1. No evidence of acute intracranial hemorrhage or edematous territorial infarction. 2. Indeterminate soft tissue density mass abutting the right plumber gasfitter muscle, anterior to the right parotid gland. Recommend further evaluation with an MR with and without intravenous contrast. A [employer] retail sales manager (Janie Bolden) confirmed receipt of these findings and recommendations with MARSHALL Damon MD, at 9:49 AM on 04/21/2024. Electronically signed by: Ines Felix MD 04/21/2024 09:55 AM EDT
--- NOTE | ~2024-04-21 | MR_ITS ---
EXAMINATION: MR BRAIN WITHOUT CONTRAST CLINICAL INFORMATION: Dizziness. Left-sided weakness. Stroke protocol. COMPARISON: CT angiogram of the head and neck 04/21/2024. TECHNIQUE: MRI of the brain was obtained using routine sequences without contrast. FINDINGS: There are a few scattered nonspecific foci of T2 FLAIR signal hyperintensity within the supratentorial white matter. No acute territorial infarct. No pathological magnetic susceptibility artifact. Intracranial vascular flow voids are maintained. There is no intracranial mass effect or midline shift. No abnormal extra-axial collection. Lateral and third ventricles are normal. No hydrocephalus. Midline structures including the cervicomedullary junction are normal. No acute bone marrow signal changes. There is a lobulated solid mass located within the right buccal tissues in the expected location of the accessory parotid tissue measuring 2.8 cm in axial transaxial dimension best visualized on axial image 4 of 28 series 11. 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 Visualized soft tissues are otherwise unremarkable. No mastoid or middle ear effusion. No active paranasal sinus disease. MR/MR head/brain wo con IMPRESSION: There is a 2.8 cm lobulated solid mass located within the right buccal tissues in the expected location of the accessory parotid tissue. 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 Surgical consultation with otolaryngology is recommended. Otherwise unremarkable examination. No evidence of acute territorial infarct or hemorrhage. Electronically signed by: Conrado Nolasco MD 04/21/2024 11:59 AM EDT
--- NOTE | ~2024-04-21 | CT_ITS ---
EXAMINATION: CT angio head neck stroke CLINICAL INFORMATION: Stroke protocol. Headache and dizziness. COMPARISON: CT head 05/01/2024. TECHNIQUE: Tying In Machine Operator images were obtained. A CT angiogram of the head and neck was performed in the arterial phase after the intravenous administration of 50 mL Omnipaque 350. Delayed postcontrast images of the head were also obtained. 3D images were processed on an independent workstation under concurrent supervision. Arterial stenoses are measured in accordance with NASCET criteria or similar method if applicable. This CT examination was performed using dose optimization techniques as appropriate, including one or more of the following: Automated exposure control, iterative reconstruction, and adjustment of technique factors (mA and/or kVp) according to patient size (this includes techniques or standardized protocols for targeted exams where dose is matched to indication/reason for exam). Fleischner Society criteria for the followup of incidental pulmonary nodules was implemented if appropriate. Total exam dose-length product 1409 mGy-cm FINDINGS: Head: Postcontrast images reveal no abnormal intracranial mass or enhancement. There is no intracranial mass effect or midline shift. Lateral and third ventricles are normal. No hydrocephalus. Merino-white matter differentiation is preserved and there is no evidence of an acute territorial infarct. The calvarium and skull base are intact. Mastoid air cells and middle ear cavities are well aerated. No active paranasal sinus disease. CT angiogram neck: The aortic arch apex is normal. Origins of the major aortic branches are patent. Common carotid arteries are normal.. Eccentric partially calcified atheromatous plaque at both carotid bifurcations. No stenosis of the extracranial internal carotid arteries. The cervical segments of the vertebral arteries are patent. CT angiogram head: The intracranial internal carotid arteries are patent. The intradural vertebral artery segments and basilar artery are patent. Anterior, middle, and posterior cerebral complexes are normal. No intracranial large vessel occlusion. No identifiable aneurysm or high flow vascular lesion. Other: Soft tissues of the neck including the thyroid gland are normal. No pathologically enlarged cervical lymph nodes. No mediastinal or axillary adenopathy is visualized within the [id number] of this examination. Lung apices are clear. No acute osseous finding. Specifically no worrisome lytic or blastic osseous lesion. CT/CT angio head neck stroke IMPRESSION: There is eccentric partially calcified atheromatous plaque at both carotid bifurcations. No stenosis of the cervical carotid or vertebral arteries. No intracranial large vessel occlusion. No evidence of acute territorial infarct or hemorrhage. No abnormal intracranial mass or enhancement. Electronically signed by: Conrado Nolasco MD 04/21/2024 11:00 AM EDT RP
--- NOTE | 2024-04-21 09:23 | ECG_ITS ---
Test Reason : STROKE Blood Pressure : / mmHG Vent. Rate : 062 BPM Atrial Rate : 062 BPM P-R Int : 138 ms QRS Dur : 094 ms QT Int : 412 ms P-R-T Axes : 057 060 032 degrees QTc Int : 418 ms Normal sinus rhythm Normal ECG When compared with ECG of 13-MAR-2023 11:22, No significant change was found Referred By: Zoie Khan Electronically Signed By:JHONNY LÓPEZ
--- NOTE | 2024-04-21 09:24 | ED_ITS ---
HPI - General Adult General Chief complaint: Stroke Stated complaint: ?STROKE,DIZZY,UNDERWOOD,L WEAK,PINS/NEEDLES PER EMS Time Seen by Provider: 04/21/24 09:23 Source: patient and EMS Mode of arrival: EMS Limitations: no limitations History of Present Illness ED Provider: Anurag EL HPI narrative: 53-year-old female history of iliotibial band syndrome, asthma, hypertension, axiety presents to the emergency department complaints of left-sided weakness, dizziness, blurred vision, headache ( diffuse) all of which started at approximately 08:45 this morning. She was at home, she went to get up she felt very dizzy like she was going to pass out, her family caught her. She reports her left side feels numb. Bilateral blurred vision described. She states she feels overall unwell. Denies any outdoor activities or camping or recent travel. She denies fevers, chills, nausea, , vomiting, abdominal pain, chest pain, shortness of breath Related Data Home Medications ?Medication ?Instructions ?Recorded ?Confirmed lisinopril 20 mg tablet 20 mg PO DAILY 02/20/23 04/18/23 Previous Rx's ?Medication ?Instructions ?Recorded albuterol sulfate 2.5 mg/3 mL 2.5 mg (3 mL) inhalation Q4-6H PRN 01/17/23 (0.083 %) solution for nebulization shortness of breath or wheezing #90 mL albuterol sulfate 90 mcg/actuation 2 puff inhalation Q4-6H PRN 01/17/23 aerosol inhaler (ProAir HFA) shortness of breath or wheezing #8.5 grams montelukast 10 mg tablet 10 mg PO BEDTIME #30 tabs 01/17/23 (Singulair) nebulizers (AeroEclipse II #1 ea 01/17/23 Nebulizer) acetaminophen 500 mg tablet 500 mg PO Q6H PRN fever or pain 01/19/23 (Tylenol Extra Strength) #14 tabs ketorolac 10 mg tablet 10 mg PO TID PRN pain 5 days #15 01/19/23 tabs nebulizers (AeroEclipse II #1 ea 02/08/23 Nebulizer) Allergies Allergy/AdvReac Type Severity Reaction Status Date / Time naproxen AdvReac Vomiting Verified 04/21/24 10:15 Review of Systems 2 Review of Systems: Yes all other systems are reviewed and are negative [facility] Past Medical History Attestation statement: The following information was validated with the patient. Source: old records reviewed and nursing notes reviewed Medical History Asthma Social History Social History Patient Tobacco Use Status: Current everyday Tobacco user Cigarettes Per Day: 3 Smoked in Last 30 Days: Yes Use of substances other than those prescribed or required for medical reasons: Yes Substance Use Type: Marijuana Substance Use Frequency: Occasionally Last Used Substance: Hours (ago) Advance Directives: No Advance Directives Information Provided: Yes Do you have a plan to hurt others: No Plan Patient : No Physical Exam ED Vital Signs: Vital Signs - 24 hr 04/21/24 11:22 04/21/24 11:49 04/21/24 11:50 Temperature 97.6 F Pulse Rate 62 63 59 Respiratory Rate 14 Blood Pressure 156/69 H 152/78 H 153/82 H Pulse Oximetry 97 Oxygen Delivery Method Room Air BMI result Body Mass Index 32.7 vss Appearance: Alert.? Oriented X3.? No acute distress.? Head: Normocephalic, atraumatic, no step-offs or deformities Eyes: Pupils equal, round and reactive to light.? CVS: Normal heart rate and rhythm.? Pulses normal.? Respiratory: No respiratory distress.? Breath sounds normal.? Abdomen: Soft and nontender.? Skin: Skin warm and dry.? Normal skin color.? Normal skin turgor.? Extremities: No lower extremity edema.? No calf ttp. Global weakness however L sided weakness to UE and LE 3/5 strength, RUE &RLE 5/5 strength Back: No midline tenderness, no C-spine tenderness, full range of motion, no CVA tenderness bilaterally Neuro: Oriented X 3.? No motor deficit.? No sensory deficit. CN 2-12 intact. Normal babinski b/l. Negative romberg and pronator drift. NIHSS-5 NIH Stroke Scale/Score (NIHSS) from [email or web address] on 04/21/2024 All calculations should be rechecked by clinician prior to use RESULT SUMMARY: 5 points NIH Stroke Scale INPUTS: 1A: Level of consciousness ?> 0 = Alert; keenly responsive 1B: Ask month and age ?> 0 = Both questions right 1C: 'Blink eyes' & 'squeeze hands' ?> 0 = Performs both tasks 2: Horizontal extraocular movements ?> 0 = Normal 3: Visual [place] ?> 0 = No visual loss 4: Facial palsy ?> 2 = Partial paralysis (lower face) 5A: Left arm motor drift ?> 1 = Drift, but doesn't hit bed 5B: Right arm motor drift ?> 0 = No drift for 10 seconds 6A: Left leg motor drift ?> 1 = Drift, but doesn't hit bed 6B: Right leg motor drift ?> 0 = No drift for 5 seconds 7: Limb Ataxia ?> 1 = Ataxia in 1 Limb 8: Sensation ?> 0 = Normal; no sensory loss 9: Language/aphasia ?> 0 = Normal; no aphasia 10: Dysarthria ?> 0 = Normal 11: Extinction/inattention ?> 0 = No abnormality Course Reevaluation(s) Reevaluation #1: Stroke protocol intiated NIHSS- 5 Discussed w/ Dr. Moore who agrees head MR w/o contrast Time: 09:44 Reevaluation #2: CBC unremarkable. Chemistry no acute findings meeting intervention. Coags unremarkable. CT head and neck with no acute bleeding or infarct. Brain MRI with no evidence of acute territorial infarct or hemorrhage. There is a 2.8 cm lobulated solid mass located within the renal buccal tissue patient made aware of this. Patient is still not feeling well still having left-sided weakness. I am concerned for conversion disorder versus complex migraine. Migraine cocktail given to patient. Pending re-evaluation and disposition. Sign out to Dr. Weber Time: 14:44 Reevaluation #3: DR. Weber's note, I assumed care for this patient at 15:00 from Mariella, patient is still feeling some weakness on the left side, tried to get her out of bed feeling very dizzy. Admitted to stress at home. Has negative MRI/CT/CT angio for acute stroke. Patient received treatment for migraine with no improvement of her dizziness, patient is complaining of a mild headache. TIA is also in the differential diagnosis, will admit the patient for further neurological evaluation. Time: 15:41 Medications Administered Discontinued Medications Generic Name Dose Route Start Last Admin Trade Name Freq PRN Reason Stop Dose Admin Diphenhydramine HCl 25 mg 04/21/24 14:16 04/21/24 15:24 Diphenhydramine Hcl 25 Mg Capsule PO 04/21/24 14:17 25 mg ONCE ONE Administration Iohexol 70 ml 04/21/24 09:41 04/21/24 09:41 Iohexol 350 Mg/Ml 75 Ml Infus..Btl IV 04/21/24 09:42 70 ml ONCE ONE Administration Lorazepam 0.5 mg 04/21/24 09:55 04/21/24 10:12 Lorazepam 2 Mg/Ml Vial IVPUSH 04/21/24 09:56 0.5 mg STAT STA Administration Metoclopramide HCl 10 mg 04/21/24 14:16 04/21/24 15:24 Metoclopramide Hcl 10 Mg/2 Ml Vial IVPUSH 04/21/24 14:17 10 mg ONCE ONE Administration Morphine Sulfate 2 mg 04/21/24 14:16 04/21/24 15:24 Morphine Sulfate 2 Mg/Ml Cartridge IVPUSH 04/21/24 14:17 2 mg ONCE ONE Administration Protocol Medical Decision Making Medical Decision Making [facility] Narrative: 929 53 year old female presents w/ sudden onset dizziness, headache, weakness to left side LKWT 0845 PE NISS- 5 Hx and pe concerning for BPPV vs Vertigo vs stroke. Will rule out orthostatic hypotension, electrolyte abnormalities, dysrhythmia Plan labs, imaging, neuro consult Differential Diagnosis Differential Diagnoses: The differential diagnosis associated with the presentation includes Hx and pe concerning for BPPV vs Vertigo vs stroke. Will rule out orthostatic hypotension, electrolyte abnormalities, dysrhythmia Admission/Observation Consideration of admission/observation: Escalation of care including admission/observation considered Likely Consult Healthcare Provider Management of the patient was discussed with: Electrician Deck (Neuro ) Lab Data [facility] Lab Attestation statement: I reviewed the patient's lab results. 04/21/24 11:08 04/21/24 11:08 Labs: Lab Results 04/21/24 04/21/24 04/21/24 Range/Units 09:56 09:57 11:08 WBC 6.5 (4.8-10.8) X10*3/uL RBC 4.20 (4.20-5.50) X10*6/uL Hgb 12.3 (12.0-16.0) g/dl Hct 37.7 (37.0-47.0) % MCV 89.8 (80.0-98.0) fL MCH 29.3 (27.0-33.0) pg MCHC 32.6 (31.0-35.0) g/dl RDW 12.9 (11.0-16.0) % Plt Count 240 (160-400) X10*3/uL MPV 10.5 (9.4-12.3) fL Immature Gran % (Auto) 0.2 (0.0-0.4) % Neut % (Auto) 56.0 (45-73) % Lymph % (Auto) 32.6 (20-40) % [place] % (Auto) 7.6 (2-11) % Eos % (Auto) 2.5 (0-4) % Baso % (Auto) 1.1 (0-2) % Lymph # (Auto) 2.1 (1.2-4.9) X10*3/uL [place] # (Auto) 0.5 (0.1-1.2) X10*3/uL Eos # (Auto) 0.2 (0.0-0.4) X10*3/uL Baso # (Auto) 0.1 (0.0-0.2) X10*3/uL Abs Immat Gran (auto) 0.01 (0.00-0.03) X10*3/uL Absolute Neuts (auto) 3.6 (2.0-8.3) x10*3/uL Absolute Nucleated RBC 0.000 (0.0-0.012) X10*3/uL Nucleated RBC % (auto) 0.0 (0.0-0.2) /100WBC PT 11.7 (11.1-13.3) SEC Whole Blood PT 12.9 (11.1-13.5) sec INR 1.0 (0.9-1.1) Whole Blood INR 1.1 (0.9-1.1) APTT 36.2 (26.0-36.8) SEC Sodium 139 (135-145) mmol/L Potassium 4.3 (3.3-5.1) mmol/L Chloride 108 (96-108) mmol/L Carbon Dioxide 24 (22-29) mmol/L Anion Gap 11 L (12-20) BUN 17 H (9-16) mg/dL Creatinine 0.82 (0.5-1.4) mg/dL Estim Creat Clear Calc 85.3 Estimated GFR > 60 POC Glucose 90 (60-115) mg/dL Random Glucose 88 (60-115) mg/dL Calcium 9.1 (8.4-10.2) mg/dL Troponin I High Sens < 2.7 (<3.5-17.0) ng/L Triglycerides 61 (<150) mg/dL Cholesterol 171 (<200) mg/dL LDL Cholesterol, Calc 110 H (<100) mg/dL HDL Cholesterol 49 (>40) mg/dL Independent Interpretation I performed an independent interpretation of an: CT Scan (CT/CT angio head neck stroke IMPRESSION: There is eccentric partially calcified atheromatous plaque at both carotid bifurcations. No stenosis of the cervical carotid or vertebral arteries. No intracranial large vessel occlusion. No evidence of acute territorial infarct or hemorrhage. No abnorma) Interpretation: MR/MR head/brain wo con IMPRESSION: There is a 2.8 cm lobulated solid mass located within the right buccal tissues in the expected location of the accessory parotid tissue. 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 Surgical consultation with otolaryngology is recommended. Otherwise unremarkable examination. No evidence of acute territorial infarct or hemorrhage. Radiology Impression Discussion of test interpretation with radiology: I have reviewed the radiologist's reading. Critical Care Time Critical Care Time Critical Care Time: Yes Total Critical Care Time: 45 Attestation: I attest to this time spent taking care of the patient, obtaining history, physical, reviewing labs, imaging, speaking to my attending, speaking to specialist. Discharge Plan Discharge Clinical Impression: Left-sided weakness, Parotid mass Patient Disposition: Admitted As Inpatient Print Language: Indonesian
--- NOTE | 2024-04-21 09:32 | ECG_ITS ---
Test Reason : weakness Blood Pressure : / mmHG Vent. Rate : 127 BPM Atrial Rate : 000 BPM P-R Int : 000 ms QRS Dur : 086 ms QT Int : 316 ms P-R-T Axes : 000 064 -42 degrees QTc Int : 459 ms Atrial fibrillation with rapid ventricular response Nonspecific ST abnormality Abnormal QRS-T angle, consider primary T wave abnormality Abnormal ECG When compared with ECG of 21-APR-2024 09:56, Atrial fibrillation has replaced Sinus rhythm Vent. rate has increased BY 65 BPM Non-specific change in ST segment in Lateral leads T wave inversion more evident in Inferior leads Referred By: Angelita Mckenzie Electronically Signed By:JHONNY LÓPEZ
[2024-04-21] MEDS: iohexoL 350 MG/ML 75 ML INFUS..BTL 70 ML IV (09:41)
[2024-04-21 10:07] LABS: Glucose, Whole Blood 90 mg/dL (60-115)
[2024-04-21] MEDS: LORazepam 2 MG/ML VIAL 0.5 MG IVPUSH (10:12)
[2024-04-21 10:16] LABS: Prothrombin Time Whole Bld POC 12.9 sec (11.1-13.5); ~PT, ~INR - Anti Coag Clinic 1.1 (0.9-1.1)
[2024-04-21 11:13] LABS: MANUAL DIFF FLAG NO
[2024-04-21 11:17] LABS: Basophils Absolute Auto 0.1 X10*3/uL (0.0-0.2); Basophils Percent Auto 1.1 % (0-2); Eosinophils Absolute Auto 0.2 X10*3/uL (0.0-0.4); Eosinophils Percent Auto 2.5 % (0-4); Hematocrit 37.7 % (37.0-47.0); Hemoglobin 12.3 g/dl (12.0-16.0); Imm Gran Abs Auto 0.01 X10*3/uL (0.00-0.03); Imm Gran Pct Auto 0.2 % (0.0-0.4); Lymphocytes Absolute Auto 2.1 X10*3/uL (1.2-4.9); Lymphocytes Percent Auto 32.6 % (20-40); Mean Corpuscular HGB Conc 32.6 g/dl (31.0-35.0); Mean Corpuscular Hemoglobin 29.3 pg (27.0-33.0); Mean Corpuscular Volume 89.8 fL (80.0-98.0); Mean Platelet Volume 10.5 fL (9.4-12.3); Monocytes Absolute Auto 0.5 X10*3/uL (0.1-1.2); Monocytes Percent Auto 7.6 % (2-11); Neutrophils Absolute Auto 3.6 x10*3/uL (2.0-8.3); Platelet Count 240 X10*3/uL (160-400); Red Cell Distribution Width 12.9 % (11.0-16.0); White Blood Count 6.5 X10*3/uL (4.8-10.8)
[2024-04-21 11:19] LABS: Prothrombin Time 11.7 SEC (11.1-13.3)
[2024-04-21 11:21] LABS: Partial Thromboplastin Time 36.2 SEC (26.0-36.8)
[2024-04-21 11:24] LABS: Stroke Lab Use COMPLETE
[2024-04-21 11:35] LABS: Anion Gap 11 (12-20); Blood Urea Nitrogen 17 mg/dL (9-16); Calcium 9.1 mg/dL (8.4-10.2); Carbon Dioxide 24 mmol/L (22-29); Chloride 108 mmol/L (96-108); Cholesterol 171 mg/dL (<200); Creatinine Clr Calc Pharmacy 85.3; Estimated Glomerular Filt Rate > 60; Glucose Random 88 mg/dL (60-115); HDL Cholesterol 49 mg/dL (>40); LDL Cholesterol Calculated 110 mg/dL (<100); Potassium 4.3 mmol/L (3.3-5.1); Sodium 139 mmol/L (135-145); Triglycerides 61 mg/dL (<150)
[2024-04-21 11:50] LABS: Troponin-I High Sensitivity < 2.7 ng/L (<3.5-17.0)
--- NOTE | 2024-04-21 11:50 | MHC.EDTECH ---
This pct attempted to do orthostatic vitals on patient but the patient states she is to dizzy to stand at this time will try again later. RN Aware
--- NOTE | 2024-04-21 12:13 | PC.NURSE ---
when doing the swallow test; this RN sat patient fully up and immed she got very dizzy.
[2024-04-21] MEDS: diphenhydrAMINE HCL 25 MG CAPSULE PO (15:24)
[2024-04-21] MEDS: Metoclopramide HCl 10 MG/2 ML VIAL IVPUSH (15:24)
[2024-04-21] MEDS: Morphine Sulfate 2 MG/ML CARTRIDGE IVPUSH (15:24)
--- NOTE | 2024-04-21 16:25 | P.HPHOSP_ITS ---
History of Present Illness Date of Service: 04/21/24 Chief Complaint: Weakness 53 year old woman with a history of asthma, hypertension presented to the ER with complaints of weakness and numbness to her left upper and lower extremity along with dizziness. She reports over the last year she has had these episodes of weakness and numbness to her left upper and lower extremity, these episodes last for few minutes and resolve. She was seen by her primary care doctor for this and she has been referred to Neurology but has yet to be seen. She reports that today she woke up around 830 and developed left upper and lower extremity weakness and numbness and her family called EMS. Patient denied any slurred speech, visual changes. She did report a headache and dizziness. In the ER, her vital signs have been fairly stable, labs all within acceptable limits, MRI was negative for infarction or hemorrhage incidental finding of parotid mass to the right cheek area which patient reports has been present for over 10 years. Plan will be to place the patient on observation for Neurology consultation. Review of Systems 2 Review of Systems: Denies any recent fever chills or decrease in appetite respiratory denies any shortness of breath coverage production cardiovascular is adjustment of any PND or edema gastrointestinal denies any dysphagia abdominal pain nausea vomiting or diarrhea genitourinary denies any dysuria frequency or hematuria musculoskeletal denies any joint pain or swelling neuropsych denies any weakness or seizures all other systems reviewed are negative [facility] Medical History Asthma Pertinent family history: no cardiac hx Social History Patient Tobacco Use Status: Current everyday Tobacco user Cigarettes Per Day: 3 Smoked in Last 30 Days: Yes Use of substances other than those prescribed or required for medical reasons: Yes Substance Use Type: Marijuana Substance Use Frequency: Occasionally Last Used Substance: Hours (ago) Advance Directives: No Advance Directives Information Provided: Yes Do you have a plan to hurt others: No Plan Patient : No Meds Allergies Allergy/AdvReac Type Severity Reaction Status Date / Time naproxen AdvReac Vomiting Verified 04/21/24 10:15 Home Medications ?Medication ?Instructions ?Recorded ?Confirmed ?Last Taken ?Type lisinopril 20 mg tablet 20 mg PO DAILY 02/20/23 04/21/24 04/21/24 History albuterol sulfate 90 mcg/actuation 2 puff inhalation Q4H PRN 04/21/24 04/21/24 Unknown History aerosol inhaler (Ventolin HFA) Shortness Of Breath Or Wheezing cholecalciferol (vitamin D3) 50 50 mcg PO DAILY 04/21/24 04/21/24 04/21/24 History mcg (2,000 unit) capsule (Vitamin D3) clonazepam 0.5 mg tablet 0.5 mg PO BEDTIME 04/21/24 04/21/24 04/20/24 History omeprazole 20 mg capsule,delayed 20 mg PO DAILY@0630 04/21/24 04/21/24 04/21/24 History release triamcinolone acetonide 0.1 % 1 appl topical BID PRN Rash 04/21/24 04/21/24 Unknown History topical cream Physical Exam 2 Vital Signs and Narrative: Vital Signs: Last Vital Signs Temp 97.6 F 04/21/24 11:22 Pulse 59 04/21/24 11:50 Resp 14 04/21/24 11:22 BP 153/82 H 04/21/24 11:50 Pulse Ox 97 04/21/24 11:22 O2 Del Method Room Air 04/21/24 11:22 BMI result Body Mass Index 32.7 Appearing in no acute distress head is normocephalic atraumatic eyes pupils are PERRLA sclera is anicteric mouth throat mucous membranes are intact and moist Right cheek hardened mass to parotid tissue neck is supple no lymphadenopathy, no JVD noted lung sounds are clear to auscultation heart regular rate rhythm, clear S1, S2 positive bowel sounds, abdomen is soft, nontender neuro patient is alert, 3-4/5 strength to left upper and lower extremity Results Labs 04/21/24 11:08 04/21/24 11:08 Labs: Laboratory Results - last 24 hr 04/21/24 04/21/24 04/21/24 09:56 09:57 11:08 MCV 89.8 MCH 29.3 MCHC 32.6 RDW 12.9 Plt Count 240 MPV 10.5 Immature Gran % (Auto) 0.2 Neut % (Auto) 56.0 Lymph % (Auto) 32.6 [place] % (Auto) 7.6 Eos % (Auto) 2.5 Baso % (Auto) 1.1 Lymph # (Auto) 2.1 [place] # (Auto) 0.5 Eos # (Auto) 0.2 Baso # (Auto) 0.1 Abs Immat Gran (auto) 0.01 Absolute Neuts (auto) 3.6 Absolute Nucleated RBC 0.000 Nucleated RBC % (auto) 0.0 PT 11.7 Whole Blood PT 12.9 INR 1.0 Whole Blood INR 1.1 APTT 36.2 Anion Gap 11 L Estim Creat Clear Calc 85.3 Estimated GFR > 60 POC Glucose 90 Random Glucose 88 Calcium 9.1 Troponin I High Sens < 2.7 Triglycerides 61 Cholesterol 171 LDL Cholesterol, Calc 110 H HDL Cholesterol 49 Imaging Radiologist's Impressions: Impressions Head CT 04/21/24 09:23 IMPRESSION: 1. No evidence of acute intracranial hemorrhage or edematous territorial infarction. 2. Indeterminate soft tissue density mass abutting the right patroller muscle, anterior to the right parotid gland. Recommend further evaluation with an MR with and without intravenous contrast. A [place] instructional facilitator (Janie Bolden) confirmed receipt of these findings and recommendations with MARSHALL Damon MD, at 9:49 AM on 04/21/2024. Electronically signed by: Ines Felix MD 04/21/2024 09:55 AM EDT Head/Neck CTA 04/21/24 09:29 IMPRESSION: There is eccentric partially calcified atheromatous plaque at both carotid bifurcations. No stenosis of the cervical carotid or vertebral arteries. No intracranial large vessel occlusion. No evidence of acute territorial infarct or hemorrhage. No abnormal intracranial mass or enhancement. Electronically signed by: Conrado Nolasco MD 04/21/2024 11:00 AM EDT Brain MRI 04/21/24 10:30 IMPRESSION: There is a 2.8 cm lobulated solid mass located within the right buccal tissues in the expected location of the accessory parotid tissue. 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 Surgical consultation with otolaryngology is recommended. Otherwise unremarkable examination. No evidence of acute territorial infarct or hemorrhage. 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 Blood pressure mildly elevated Continue lisinopril Asthma No exacerbation Continue inhalers as needed Anxiety Continue home medications GERD Continue PPI Morbid obesity class 1. BMI 32.7 Discussed importance of weight management as this may be contributing to worsening of other comorbidities DVT prophylaxis with Lovenox Full code Quality Stroke Does the patient have a stroke diagnosis?: No VTE Prior VTE?: No VTE Risk Level:: Medical - moderate - high VTE Device Contraindication: Treatment Not Indicated VTE Drug Contraindication: N/A - Med Ordered
--- NOTE | 2024-04-21 16:38 | PHA.MEDREC ---
Addendum entered by Aurelia Schroeder RPh 04/21/24 16:48: Med rec was reviewed by [facility]. Patient said she takes the clonazepam at bedtime due to drowsiness. Original Note: Pharmacy Consult ? Medication Reconciliation Pharmacy has completed the medication reconciliation. Spoke to patient to confirm med list. Patient was able to tell me what medications she takes. Patient stated she is no longer taking Tylenol 500 mg, and Escitalopram 20 mg.
[2024-04-21 16:47] LABS: Appearance Urine Clear; Color Urine Yellow; Glucose Urine UA Negative (Negative); Leukocyte Esterase Urine Negative (Negative); Nitrite Urine Negative (Negative); PH 5.5 (5.0-9.0); Specific Gravity - Urine >= 1.030 (1.005-1.025); Urine Blood Negative (Negative); Urine Ketones Negative (Negative); Urine Protein Negative (Neg-Trace)
[2024-04-21] MEDS: Enoxaparin Sodium 40 MG/0.4 ML SYRINGE SUBCUT (17:41)
--- NOTE | 2024-04-21 17:48 | MHC.EDTECH ---
Patient walked to bathroom
--- NOTE | 2024-04-21 18:35 | MHC.EDTECH ---
Patient given dinner tray
--- NOTE | 2024-04-21 20:36 | PC.NURSE ---
pt reporting she is feeling better. dizziness is at 25% , headache is gone, and pins/needles in arms and legs is gone. pt feels tired but better
[2024-04-21] MEDS: clonazePAM 0.5 MG TABLET PO (21:31)
--- NOTE | 2024-04-21 21:49 | PC.NURSE ---
HR elevated, rapidly fluctuating between 105-160. MD aware, EKG ordered. AFIB RVR
--- NOTE | 2024-04-21 21:51 | PM.EVENT ---
Event Note Date of Service: 04/21/24 Event Note: RN reported heart rate in the 140s. EKG with AFib with RVR, ?new onset. Obtaining TSH, echo and Cardiology consult. Chads Vasc score 2. Ordered IV rate controlling agents Time Spent With Patient Time: Total time managing care of this patient today ____ minutes.
[2024-04-21] MEDS: dilTIAZem HCL 50 MG/10 ML VIAL 10 MG IVPUSH (22:09)
--- NOTE | 2024-04-21 22:13 | PC.NURSE ---
medicated per OCT. HR now 100-120s. BP WNL
[2024-04-22] VITALS (16 sets, daily range): BP systolic 110–147; BP diastolic 64–97; PULSE 57–155; RESP 12–20; TEMP 36.5–37.1; O2SAT 97–99; BMI 32.7
[2024-04-22 04:51] LABS: MANUAL DIFF FLAG NO
[2024-04-22 04:53] LABS: Basophils Absolute Auto 0.1 X10*3/uL (0.0-0.2); Basophils Percent Auto 0.9 % (0-2); Eosinophils Absolute Auto 0.2 X10*3/uL (0.0-0.4); Eosinophils Percent Auto 2.7 % (0-4); Hematocrit 39.3 % (37.0-47.0); Hemoglobin 12.9 g/dl (12.0-16.0); Imm Gran Abs Auto 0.01 X10*3/uL (0.00-0.03); Imm Gran Pct Auto 0.1 % (0.0-0.4); Lymphocytes Absolute Auto 2.5 X10*3/uL (1.2-4.9); Lymphocytes Percent Auto 37.1 % (20-40); Mean Corpuscular HGB Conc 32.8 g/dl (31.0-35.0); Mean Corpuscular Hemoglobin 29.3 pg (27.0-33.0); Mean Corpuscular Volume 89.1 fL (80.0-98.0); Mean Platelet Volume 10.9 fL (9.4-12.3); Monocytes Absolute Auto 0.7 X10*3/uL (0.1-1.2); Monocytes Percent Auto 9.7 % (2-11); Neutrophils Absolute Auto 3.3 x10*3/uL (2.0-8.3); Neutrophils Percent Auto 49.5 % (45-73); Platelet Count 227 X10*3/uL (160-400); Red Blood Count 4.41 X10*6/uL (4.20-5.50); Red Cell Distribution Width 12.8 % (11.0-16.0); White Blood Count 6.7 X10*3/uL (4.8-10.8)
[2024-04-22 05:21] LABS: Alanine Aminotransferase 14 U/L (0-31); Albumin Level 3.7 g/dL (3.5-5.0); Alkaline Phosphatase 74 U/L (39-117); Anion Gap 12 (12-20); Aspartate Amino Transferase 14 U/L (5-31); Bilirubin Total 0.3 mg/dL (0.0-1.0); Blood Urea Nitrogen 15 mg/dL (9-16); Calcium 9.1 mg/dL (8.4-10.2); Carbon Dioxide 24 mmol/L (22-29); Chloride 108 mmol/L (96-108); Creatinine Clr Calc Pharmacy 77.8; Estimated Glomerular Filt Rate > 60; Glucose Random 91 mg/dL (60-115); Potassium 4.1 mmol/L (3.3-5.1); Sodium 140 mmol/L (135-145); Total Protein 6.8 g/dL (6.5-8.0)
[2024-04-22 05:36] LABS: Thyroid Stimulating Hormone 3.54 uIU/mL (0.32-4.0)
[2024-04-22] MEDS: Acetaminophen 325 MG TABLET 650 MG PO (06:49)
[2024-04-22] MEDS: Omeprazole 20 MG CAPSULE.DR PO (06:49)
--- NOTE | 2024-04-22 07:00 | CA_ITS ---
Transthoracic Echocardiogram Patient (Last, First, Middle): Socorro Moran L Gender: Female Date of : 1970 Age: 53 Procedure Date: 04/22/2024 Procedure Type: Transthoracic Echocardiogram Location: ER Height: 162.56 cm Weight: 86.18 kg BSA: 1.91 m2 Heart Rate: 108 bpm BP: 135 / 87 mmHg Television Engineering Teacher: PENNY Referring MD: Jaqueline Mckenzie MD Symptoms: afib with rvr Study Quality: Fair ECG Rhythm: Atrial Fibrillation Conclusions: - Normal left ventricular size and systolic function. There is mildly increased left ventricular wall thickness. The visually estimated ejection fraction is between 60-65%. - Normal right ventricular cavity size and systolic function. - There is mild to moderate aortic valve regurgitation. - There is mild dilatation of the ascending aorta measuring 3.60 cm. Findings Left Ventricle Normal left ventricular size and systolic function. There is mildly increased left ventricular wall thickness. The visually estimated ejection fraction is between 60-65%. There is no evidence of regional wall motion abnormalities. Diastolic function is indeterminate on the basis of available data. Right Ventricle Normal right ventricular cavity size and systolic function. Atria The left atrium is normal in size. The right atrium is normal in size. Aortic Valve Normal aortic valve structure and function. There is no aortic valve stenosis. There is mild to moderate aortic valve regurgitation. Mitral Valve The mitral valve appears normal. There is no mitral valve regurgitation. There is no mitral valve stenosis. Pulmonic Valve The pulmonic valve is likely normal. Tricuspid Valve Normal tricuspid valve structure. There is trace tricuspid valve regurgitation. Normal right atrial pressure. There is no evidence of pulmonary hypertension. Great Vessels There is mild dilatation of the ascending aorta measuring 3.60 cm. The visualized portions of the pulmonary artery and branches are normal. Venous The inferior vena cava is normal in size and collapses greater than 50% with inspiration. Pericardium/Pleural There is no evidence of pericardial effusion. Prior Study Comparison No prior study available for comparison. Measurements 2D Linear Measurements IVSd: 1.01 0.6-0.9/0.6-1.0 cm LVIDd: 3.75 3.9-5.3/4.2-5.9 cm LVIDd Index: 1.96 2.4-3.2/2.2-3.1 cm/m2 LVIDs: 2.04 2.0-3.6 cm LVPWd: 0.94 0.7-1.1 cm LA Diam: 3.30 2.7-3.8/3.0-4.0 cm LAIDs Index: 1.73 1.5-2.3 cm/m2 LV Mass: 137.45 67-162/88-224 g LV Mass Index: 71.96 43-95/49-115 g/m2 LVOT Diam: 1.80 3.0+(-)1.3 cm 2D Systolic Function EF 4C: 70.90 >55% EF 2C: 69.90 >55% EF BiP: 70.70 >55% Mitral Valve MV Pk E: 0.87 MV Decel Time: 120.00 E'Lateral: 14.10 E'Medial: 10.30 E/E' Med: 8.40 E/E' Lat: 6.10 PHT: 35.00 MVA PHT: 6.29 Decel Baxter: 8.87 Aortic Valve AoV Pk Sonny: 1.52 AoV Mn Sonny: 1.05 AoV VTI: 0.27 AoV Pk Grad: 9.00 Aov Mn Grad: 5.00 LIAM Cont.VTI: 1.69 LVOT LVOT Pk Sonny: 1.07 LVOT Mn Sonny: 0.71 LVOT VTI: 0.18 LVOT Pk Grad: 5.00 LVOT Mn Grad: 2.00 LVOT Diam: 1.80 LVOT Area: 2.54 Diastolic Function MV Pk E: 0.87 E'Medial: 10.30 E/E' Med: 8.40 E' Laterial: 14.10 E/E' Lat: 6.10 Right Ventricle TAPSE (mm): 18.80 TVS' Sonny: 13.85 Tricuspid Valve TR Pk Sonny: 2.33 TR Pk Grad: 22.00 RA Press: 3.00 RVSP: 25.00 Great Vessels Aorta Sinus of Valsalva: 2.70 2.0-3.5 cm Ao Asc: 3.60 2.1-3.4 cm Pulmonary Valve PV Pk Sonny: 1.02 Peak PV Grad: 4.00 Updated in Other Vendor System with Status of Final Ramos Ponce MD electronically signed on 04/22/2024 8:01:42 PM with status of Final
--- NOTE | 2024-04-22 07:06 | PC.NURSE ---
Addendum entered by Rosana Zhu 04/22/24 07:40: patient awake at this time, stating that every time her hr seems to elevate, she feels episodes of hot flashes and sweating and that this has been happening on and off since last night. denies any known history of afib. hr remains 110-150. denies any chest pain or shortness of breath. Original Note: upon report, hr noted to be between 120-160 afib. patient asleep in the room at this time, provider made aware.
[2024-04-22] MEDS: Cholecalciferol (Vitamin D3) 25 MCG TABLET 50 MCG PO (08:13)
[2024-04-22] MEDS: lisinopriL 20 MG TABLET PO (08:14)
[2024-04-22] MEDS: dilTIAZem HCL 30 MG TABLET PO ×5 (08:14→21:18)
[2024-04-22] MEDS: 0.9 % Sodium Chloride Flush 3 ML SYRINGE IVFLUSH ×2 (08:15→15:18)
--- NOTE | 2024-04-22 08:19 | PC.NURSE ---
patient sat up in bed to take medications, states her dizziness has improved from yesterday but is still present at this time. took pills whole with water. remains alert and oriented with the call walker within reach
--- NOTE | 2024-04-22 09:57 | P.PNIM_ITS ---
Subjective Subjective Date of Service: 04/22/24 Review of Systems Follow up weakness, afib rvr feeling better but now in afib rvr Physical Exam 2 Vital Signs: Vital Signs: Last Vital Signs Temp 98.7 F 04/22/24 08:00 Pulse 155 H 04/22/24 09:17 Resp 12 04/22/24 08:00 BP 135/87 04/22/24 09:17 Pulse Ox 98 04/22/24 08:00 O2 Del Method Room Air 04/22/24 08:00 BMI result Body Mass Index 32.7 Appearing in no acute distress lung sounds are clear to auscultation heart IRIR positive bowel sounds, abdomen is soft, nontender neuro patient is alert x3, no focal deficits Parotid mass to right cheek Objective Data Active Medications Acetaminophen (Acetaminophen 325 Mg Tablet) 650 mg PO Q6H PRN PRN Reason: Pain, Mild (Pain Scale 1-3), fever or headache Last Admin: 04/22/24 06:49 Dose: 650 mg Documented By: CINDY Albuterol Sulfate (Albuterol Sulfate (0.083%) 2.5 Mg/3 Ml Vial.Neb) 2.5 mg INHALE Q4H PRN PRN Reason: shortness of breath or wheezing Albuterol Sulfate (Albuterol Sulfate 90 Mcg 8 Gm Inhaler) 2 puff INHALE Q4H PRN PRN Reason: Shortness Of Breath Or Wheezing Calcium Carbonate (Calcium Carbonate 750 Mg Tab.Chew) 750 mg PO Q4H PRN PRN Reason: Heartburn Clonazepam (Clonazepam 0.5 Mg Tablet) 0.5 mg PO BEDTIME [facility] Last Admin: 04/21/24 21:31 Dose: 0.5 mg Documented By: CINDY Diltiazem HCl (Diltiazem Hcl 30 Mg Tablet) 30 mg PO QID [facility]; Protocol Last Admin: 04/22/24 09:17 Dose: 30 mg Documented By: MICK Enoxaparin Sodium (Enoxaparin Sodium 40 Mg/0.4 Ml Syringe) 40 mg SUBCUT Q24H [facility] Last Admin: 04/21/24 17:41 Dose: 40 mg Documented By: GIOVANNY Lisinopril (Lisinopril 20 Mg Tablet) 20 mg PO DAILY [facility]; Protocol Last Admin: 04/22/24 08:14 Dose: 20 mg Documented By: ABHIJEET Magnesium Hydroxide (Milk Of Magnesia 30 Ml Oral.Susp) 30 ml PO DAILY PRN PRN Reason: Constipation Melatonin (Melatonin 3 Mg Tablet) 6 mg PO BEDTIME PRN PRN Reason: Insomnia Nicotine Polacrilex (Nicotine Polacrilex Lozenge 2 Mg Lozenge) 2 mg BUCCAL Q2H PRN PRN Reason: Nicotine Cravings Omeprazole (Omeprazole 20 Mg Capsule.Dr) 20 mg PO DAILY@0630 [facility] Last Admin: 04/22/24 06:49 Dose: 20 mg Documented By: CINDY Sodium Chloride (0.9 % Sodium Chloride Flush 3 Ml Syringe) 3 ml IVFLUSH QSHIFT [facility] Last Admin: 04/22/24 08:15 Dose: 3 ml Documented By: ABHIJEET Vitamin D (Cholecalciferol (Vitamin D3) 25 Mcg Tablet) 50 mcg PO DAILY [facility] Last Admin: 04/22/24 08:13 Dose: 50 mcg Documented By: ABHIJEET Labs 04/22/24 04:20 04/22/24 04:20 Labs: Laboratory Results - last 24 hr 04/21/24 04/21/24 04/21/24 09:56 09:57 11:08 MCV 89.8 MCH 29.3 MCHC 32.6 RDW 12.9 Plt Count 240 MPV 10.5 Immature Gran % (Auto) 0.2 Neut % (Auto) 56.0 Lymph % (Auto) 32.6 [place] % (Auto) 7.6 Eos % (Auto) 2.5 Baso % (Auto) 1.1 Lymph # (Auto) 2.1 [place] # (Auto) 0.5 Eos # (Auto) 0.2 Baso # (Auto) 0.1 Abs Immat Gran (auto) 0.01 Absolute Neuts (auto) 3.6 Absolute Nucleated RBC 0.000 Nucleated RBC % (auto) 0.0 PT 11.7 Whole Blood PT 12.9 INR 1.0 Whole Blood INR 1.1 APTT 36.2 Anion Gap 11 L Estim Creat Clear Calc 85.3 Estimated GFR > 60 POC Glucose 90 Random Glucose 88 Calcium 9.1 Total Bilirubin AST ALT Alkaline Phosphatase Troponin I High Sens < 2.7 Total Protein Albumin Triglycerides 61 Cholesterol 171 LDL Cholesterol, Calc 110 H HDL Cholesterol 49 TSH Urine Color Urine Appearance Urine pH Ur Specific [place] Urine Protein Urine Glucose (UA) Urine Ketones Urine Blood Urine Nitrite Ur Leukocyte Esterase 04/21/24 04/22/24 16:39 04:20 MCV 89.1 MCH 29.3 MCHC 32.8 RDW 12.8 Plt Count 227 MPV 10.9 Immature Gran % (Auto) 0.1 Neut % (Auto) 49.5 Lymph % (Auto) 37.1 [place] % (Auto) 9.7 Eos % (Auto) 2.7 Baso % (Auto) 0.9 Lymph # (Auto) 2.5 [place] # (Auto) 0.7 Eos # (Auto) 0.2 Baso # (Auto) 0.1 Abs Immat Gran (auto) 0.01 Absolute Neuts (auto) 3.3 Absolute Nucleated RBC 0.000 Nucleated RBC % (auto) 0.0 PT Whole Blood PT INR Whole Blood INR APTT Anion Gap 12 Estim Creat Clear Calc 77.8 Estimated GFR > 60 POC Glucose Random Glucose 91 Calcium 9.1 Total Bilirubin 0.3 AST 14 ALT 14 Alkaline Phosphatase 74 Troponin I High Sens Total Protein 6.8 Albumin 3.7 Triglycerides Cholesterol LDL Cholesterol, Calc HDL Cholesterol TSH 3.54 Urine Color Yellow Urine Appearance Clear Urine pH 5.5 Ur Specific [place] >= 1.030 H Urine Protein Negative Urine Glucose (UA) Negative Urine Ketones Negative Urine Blood Negative Urine Nitrite Negative Ur Leukocyte Esterase Negative Assessment and Plan (1) PAF (paroxysmal atrial fibrillation): Status: Acute (2) Parotid mass: Status: Acute (3) Left-sided weakness: Status: Acute Plan 53-year-old woman admitted for weakness to her left upper lower extremity with dizziness upon standing Afib RVR, ? 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 Blood pressure mildly elevated Continue lisinopril Asthma No exacerbation Continue inhalers as needed Anxiety Continue home medications GERD Continue PPI Morbid obesity class 1. BMI 32.7 Discussed importance of weight management as this may be contributing to worsening of other comorbidities DVT prophylaxis with Lovenox Full code Quality Stroke Does the patient have a stroke diagnosis?: No VTE Prior VTE?: No VTE Risk Level:: Medical - moderate - high VTE Device Contraindication: Treatment Not Indicated VTE Drug Contraindication: N/A - Med Ordered
[2024-04-22] MEDS: dilTIAZem HCL 50 MG/10 ML VIAL 10 MG IVPUSH (10:11)
--- NOTE | 2024-04-22 11:03 | PM.NEUROCN ---
History of Present Illness Data of Consult Service Date: 04/22/24 Primary Care Provider: Emily Lang MD HPI This is a 53 year old woman with a history of asthma, hypertension presented to the ER with complaints of weakness and numbness of her left upper and lower extremity along with dizziness. She reports over the last year she has had these episodes of weakness and numbness to her left upper and lower extremity, Occurring 2/ wk for the last 6 months lasting for few minutes and resolve.Sometimes spots in vision as well, dizinessa nd confusion. Occasionally with [place]ER[place] She reports that she woke up around 830 and developed left upper and lower extremity weakness and numbness and her family called EMS. Patient denied any slurred speech, visual changes. She did report a headache and dizziness. In the ER, her vital signs were stable, labs all within acceptable limits, MRI was negative for infarction or hemorrhage incidental finding of parotid mass to the right cheek area which patient reports has been present for over 10 years. CTA of head and neck did not show any significant stenosis. [facility] Past Medical History Medical History Asthma Social History Social History Patient Tobacco Use Status: Current everyday Tobacco user Cigarettes Per Day: 3 Smoked in Last 30 Days: Yes Use of substances other than those prescribed or required for medical reasons: Yes Substance Use Type: Marijuana Substance Use Frequency: Occasionally Last Used Substance: Hours (ago) Advance Directives: No Advance Directives Information Provided: Yes Do you have a plan to hurt others: No Plan Patient : No service: No Meds Allergies Allergy/AdvReac Type Severity Reaction Status Date / Time naproxen AdvReac Vomiting Verified 04/21/24 10:15 Active Medications: Current Medications Acetaminophen (Acetaminophen 325 Mg Tablet) 650 mg PO Q6H PRN PRN Reason: Pain, Mild (Pain Scale 1-3), fever or headache Last Admin: 04/22/24 06:49 Dose: 650 mg Albuterol Sulfate (Albuterol Sulfate (0.083%) 2.5 Mg/3 Ml Vial.Neb) 2.5 mg INHALE Q4H PRN PRN Reason: shortness of breath or wheezing Albuterol Sulfate (Albuterol Sulfate 90 Mcg 8 Gm Inhaler) 2 puff INHALE Q4H PRN PRN Reason: Shortness Of Breath Or Wheezing Calcium Carbonate (Calcium Carbonate 750 Mg Tab.Chew) 750 mg PO Q4H PRN PRN Reason: Heartburn Clonazepam (Clonazepam 0.5 Mg Tablet) 0.5 mg PO BEDTIME [facility] Last Admin: 04/21/24 21:31 Dose: 0.5 mg Diltiazem HCl (Diltiazem Hcl 30 Mg Tablet) 30 mg PO QID [facility]; Protocol Last Admin: 04/22/24 09:17 Dose: 30 mg Enoxaparin Sodium (Enoxaparin Sodium 40 Mg/0.4 Ml Syringe) 40 mg SUBCUT Q24H [facility] Last Admin: 04/21/24 17:41 Dose: 40 mg Lisinopril (Lisinopril 20 Mg Tablet) 20 mg PO DAILY [facility]; Protocol Last Admin: 04/22/24 08:14 Dose: 20 mg Magnesium Hydroxide (Milk Of Magnesia 30 Ml Oral.Susp) 30 ml PO DAILY PRN PRN Reason: Constipation Melatonin (Melatonin 3 Mg Tablet) 6 mg PO BEDTIME PRN PRN Reason: Insomnia Nicotine Polacrilex (Nicotine Polacrilex Lozenge 2 Mg Lozenge) 2 mg BUCCAL Q2H PRN PRN Reason: Nicotine Cravings Omeprazole (Omeprazole 20 Mg Capsule.Dr) 20 mg PO DAILY@0630 [facility] Last Admin: 04/22/24 06:49 Dose: 20 mg Sodium Chloride (0.9 % Sodium Chloride Flush 3 Ml Syringe) 3 ml IVFLUSH QSHIFT [facility] Last Admin: 04/22/24 08:15 Dose: 3 ml Vitamin D (Cholecalciferol (Vitamin D3) 25 Mcg Tablet) 50 mcg PO DAILY [facility] Last Admin: 04/22/24 08:13 Dose: 50 mcg Home Medications ?Medication ?Instructions ?Recorded ?Confirmed ?Last Taken ?Type lisinopril 20 mg tablet 20 mg PO DAILY 02/20/23 04/21/24 04/21/24 History albuterol sulfate 90 mcg/actuation 2 puff inhalation Q4H PRN 04/21/24 04/21/24 Unknown History aerosol inhaler (Ventolin HFA) Shortness Of Breath Or Wheezing cholecalciferol (vitamin D3) 50 50 mcg PO DAILY 04/21/24 04/21/24 04/21/24 History mcg (2,000 unit) capsule (Vitamin D3) clonazepam 0.5 mg tablet 0.5 mg PO BEDTIME 04/21/24 04/21/24 04/20/24 History omeprazole 20 mg capsule,delayed 20 mg PO DAILY@0630 04/21/24 04/21/24 04/21/24 History release triamcinolone acetonide 0.1 % 1 appl topical BID PRN Rash 04/21/24 04/21/24 Unknown History topical cream Physical Exam Vital Signs: Vital Signs: Last Vital Signs Temp 98.7 F 04/22/24 08:00 Pulse 114 H 04/22/24 10:11 Resp 12 04/22/24 08:00 BP 135/87 04/22/24 10:11 Pulse Ox 98 04/22/24 08:00 O2 Del Method Room Air 04/22/24 08:00 BMI result Body Mass Index 32.7 Neuro: Other: Normal neurological examination Results Labs 04/22/24 04:20 04/22/24 04:20 Labs: Short CBC 04/21/24 04/22/24 Range/Units 11:08 04:20 WBC 6.5 6.7 (4.8-10.8) X10*3/uL Hgb 12.3 12.9 (12.0-16.0) g/dl Hct 37.7 39.3 (37.0-47.0) % Plt Count 240 227 (160-400) X10*3/uL BMP 04/21/24 04/22/24 11:08 04:20 Sodium 139 140 Potassium 4.3 4.1 Chloride 108 108 Carbon Dioxide 24 24 BUN 17 H 15 Creatinine 0.82 0.90 Calcium 9.1 9.1 Liver Function 04/22/24 Range/Units 04:20 Total Bilirubin 0.3 (0.0-1.0) mg/dL AST 14 (5-31) U/L ALT 14 (0-31) U/L Alkaline Phosphatase 74 (39-117) U/L Albumin 3.7 (3.5-5.0) g/dL Urine 04/21/24 Range/Units 16:39 Urine Color Yellow Urine Appearance Clear Urine pH 5.5 (5.0-9.0) Ur Specific [place] >= 1.030 H (1.005-1.025) Urine Protein Negative (Neg-Trace) mg/dL Urine Glucose (UA) Negative (Negative) mg/dL Assessment and Plan (1) Left-sided weakness: Status: Acute Weekly episodes of transient left-sided weakness, sometimes with visual disturbance most consistent with migraine equivalent occurring twice a week for the last 6 months. No evidence of vascular disease. Recommendation: Start migraine prophylaxis with topiramate 50 mg by mouth twice a day. Outpatient followup in a month Procedures Date of Service Date of Service: 04/22/24
--- NOTE | 2024-04-22 11:36 | P.CONCA_ITS ---
History of Present Illness History of Present Illness Date of Service: 04/22/24 Requesting physician: Eloina Small Chief complaint: weakness, Afib Narrative: [age] year female presenting for left-sided numbness off and on ongoing for 1 year. She randomly gets left-sided arm and leg numbness without significant weakness and continues to walk and mostly symptoms go away in 30 minutes. With these symptoms she presented to us and was noticed to be in AFib. She has no palpitations otherwise. No chest pain or shortness of breath. No symptoms/signs of heart failure. She has hypertension and has been on lisinopril previously. Chads Vasc is 2 for hypertension and female gender. [facility] Past Medical History Medical History Asthma Social History Social History Patient Tobacco Use Status: Current everyday Tobacco user Cigarettes Per Day: 3 Smoked in Last 30 Days: Yes Use of substances other than those prescribed or required for medical reasons: Yes Substance Use Type: Marijuana Substance Use Frequency: Occasionally Last Used Substance: Hours (ago) Advance Directives: No Advance Directives Information Provided: Yes Do you have a plan to hurt others: No Plan Patient : No Meds Allergies Allergy/AdvReac Type Severity Reaction Status Date / Time naproxen AdvReac Vomiting Verified 04/21/24 10:15 Active Medications: Current Medications Acetaminophen (Acetaminophen 325 Mg Tablet) 650 mg PO Q6H PRN PRN Reason: Pain, Mild (Pain Scale 1-3), fever or headache Last Admin: 04/22/24 06:49 Dose: 650 mg Albuterol Sulfate (Albuterol Sulfate (0.083%) 2.5 Mg/3 Ml Vial.Neb) 2.5 mg INHALE Q4H PRN PRN Reason: shortness of breath or wheezing Albuterol Sulfate (Albuterol Sulfate 90 Mcg 8 Gm Inhaler) 2 puff INHALE Q4H PRN PRN Reason: Shortness Of Breath Or Wheezing Calcium Carbonate (Calcium Carbonate 750 Mg Tab.Chew) 750 mg PO Q4H PRN PRN Reason: Heartburn Clonazepam (Clonazepam 0.5 Mg Tablet) 0.5 mg PO BEDTIME [facility] Last Admin: 04/21/24 21:31 Dose: 0.5 mg Diltiazem HCl (Diltiazem Hcl 30 Mg Tablet) 30 mg PO QID [facility]; Protocol Last Admin: 04/22/24 09:17 Dose: 30 mg Enoxaparin Sodium (Enoxaparin Sodium 40 Mg/0.4 Ml Syringe) 40 mg SUBCUT Q24H [facility] Last Admin: 04/21/24 17:41 Dose: 40 mg Lisinopril (Lisinopril 20 Mg Tablet) 20 mg PO DAILY [facility]; Protocol Last Admin: 04/22/24 08:14 Dose: 20 mg Magnesium Hydroxide (Milk Of Magnesia 30 Ml Oral.Susp) 30 ml PO DAILY PRN PRN Reason: Constipation Melatonin (Melatonin 3 Mg Tablet) 6 mg PO BEDTIME PRN PRN Reason: Insomnia Nicotine Polacrilex (Nicotine Polacrilex Lozenge 2 Mg Lozenge) 2 mg BUCCAL Q2H PRN PRN Reason: Nicotine Cravings Omeprazole (Omeprazole 20 Mg Capsule.Dr) 20 mg PO DAILY@06 [facility] Last Admin: 04/22/24 06:49 Dose: 20 mg Sodium Chloride (0.9 % Sodium Chloride Flush 3 Ml Syringe) 3 ml IVFLUSH QSHIFT [facility] Last Admin: 04/22/24 08:15 Dose: 3 ml Vitamin D (Cholecalciferol (Vitamin D3) 25 Mcg Tablet) 50 mcg PO DAILY [facility] Last Admin: 04/22/24 08:13 Dose: 50 mcg Home Medications ?Medication ?Instructions ?Recorded ?Confirmed ?Last Taken ?Type lisinopril 20 mg tablet 20 mg PO DAILY 02/20/23 04/21/24 04/21/24 History albuterol sulfate 90 mcg/actuation 2 puff inhalation Q4H PRN 04/21/24 04/21/24 Unknown History aerosol inhaler (Ventolin HFA) Shortness Of Breath Or Wheezing cholecalciferol (vitamin D3) 50 50 mcg PO DAILY 04/21/24 04/21/24 04/21/24 History mcg (2,000 unit) capsule (Vitamin D3) clonazepam 0.5 mg tablet 0.5 mg PO BEDTIME 04/21/24 04/21/24 04/20/24 History omeprazole 20 mg capsule,delayed 20 mg PO DAILY@0630 04/21/24 04/21/24 04/21/24 History release triamcinolone acetonide 0.1 % 1 appl topical BID PRN Rash 04/21/24 04/21/24 Unknown History topical cream Physical Exam 2 Vital Signs: Vital Signs: Last Vital Signs Temp 98.7 F 04/22/24 08:00 Pulse 114 H 04/22/24 10:11 Resp 12 04/22/24 08:00 BP 135/87 04/22/24 10:11 Pulse Ox 98 04/22/24 08:00 O2 Del Method Room Air 04/22/24 08:00 BMI result Body Mass Index 32.7 GENERAL APPEARANCE: in no acute distress, pleasant. NECK: no carotid bruit, no jugular venous distention. SKIN: no suspicious lesions, warm and dry. HEART: no murmurs, irregular rate and rhythm. LUNGS: clear to auscultation bilaterally. ABDOMEN: soft, nontender. EXTREMITIES: no edema. PERIPHERAL PULSES: equal. NEUROLOGIC: No gross deficits, AAO X 3 Objective Labs and Meds 04/22/24 04:20 04/22/24 04:20 Lab results: Laboratory Results - last 24 hr 04/21/24 04/21/24 04/22/24 11:08 16:39 04:20 WBC 6.7 RBC 4.41 Hgb 12.9 Hct 39.3 MCV 89.1 MCH 29.3 MCHC 32.8 RDW 12.8 Plt Count 227 MPV 10.9 Immature Gran % (Auto) 0.1 Neut % (Auto) 49.5 Lymph % (Auto) 37.1 [place] % (Auto) 9.7 Eos % (Auto) 2.7 Baso % (Auto) 0.9 Lymph # (Auto) 2.5 [place] # (Auto) 0.7 Eos # (Auto) 0.2 Baso # (Auto) 0.1 Abs Immat Gran (auto) 0.01 Absolute Neuts (auto) 3.3 Absolute Nucleated RBC 0.000 Nucleated RBC % (auto) 0.0 Sodium 140 Potassium 4.1 Chloride 108 Carbon Dioxide 24 Anion Gap 12 BUN 15 Creatinine 0.90 Estim Creat Clear Calc 77.8 Estimated GFR > 60 Random Glucose 91 Calcium 9.1 Total Bilirubin 0.3 AST 14 ALT 14 Alkaline Phosphatase 74 Troponin I High Sens < 2.7 Total Protein 6.8 Albumin 3.7 TSH 3.54 Urine Color Yellow Urine Appearance Clear Urine pH 5.5 Ur Specific [place] >= 1.030 H Urine Protein Negative Urine Glucose (UA) Negative Urine Ketones Negative Urine Blood Negative Urine Nitrite Negative Ur Leukocyte Esterase Negative Imaging Radiologist's impression: Impressions Head/Neck CTA 04/21/24 09:29 IMPRESSION: There is eccentric partially calcified atheromatous plaque at both carotid bifurcations. No stenosis of the cervical carotid or vertebral arteries. No intracranial large vessel occlusion. No evidence of acute territorial infarct or hemorrhage. No abnormal intracranial mass or enhancement. Electronically signed by: Conrado Nolasco MD 04/21/2024 11:00 AM EDT RP Brain MRI 04/21/24 10:30 IMPRESSION: There is a 2.8 cm lobulated solid mass located within the right buccal tissues in the expected location of the accessory parotid tissue. 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 Surgical consultation with otolaryngology is recommended. Otherwise unremarkable examination. No evidence of acute territorial infarct or hemorrhage. Electronically signed by: Conrado Nolasco MD 04/21/2024 11:59 AM EDT RP Assessment and Plan (1) Left-sided weakness: Status: Acute (2) PAF (paroxysmal atrial fibrillation): Status: Acute Plan [age] year female with off and on left-sided numbness going on for 1 year. She came to the ER for similar symptoms and was noted to have AFib. She had a brain MRI done which did not show any acute territorial infarct or hemorrhage but did show a right parotid lobulated mass 2.8 cm with concern of primary parotid neoplasm. She is asymptomatic from atrial fibrillation point of view. Her initial rhythm was sinus on presentation and she developed atrial fibrillation while she was in the emergency department. Would try rate control 1st with metoprolol 25 mg b.i.d.. Neurology input for symptoms. If Neurology is concerned that these symptoms are due to CVA then would consider anticoagulation with Eliquis or Xarelto. Otherwise would recommend baby aspirin. Thank you for allowing me to participate in the care of your patient. Please feel free to contact me if you have any questions. Procedures Date of Service Date of Service: 04/22/24
[2024-04-22] MEDS: Metoprolol Tartrate 25 MG TABLET PO ×2 (11:55→21:16)
--- NOTE | 2024-04-22 12:26 | MHC.CM.PN ---
CM met with Patient and her Partner at bedside, in the ED. Patient lives with her Partner in an apartment and she required no services nor DME [employer]. Home/self care is the goal and CM has initiated and will follow for dc planning. PCP is Dr. Emily Lang.
[2024-04-22] MEDS: Enoxaparin Sodium 40 MG/0.4 ML SYRINGE SUBCUT (16:20)
[2024-04-22] MEDS: Topiramate 25 MG TABLET 50 MG PO (21:18)
[2024-04-22] MEDS: clonazePAM 0.5 MG TABLET PO (21:18)
[2024-04-23] VITALS: BP 117/68; BP 125/72; PULSE 57; RESP 20; TEMP 36.5; O2SAT 97
[2024-04-23 00:01] VITALS: BP 120/64; PULSE 58
[2024-04-23 04:00] VITALS: BP 111/65; PULSE 59; RESP 20; TEMP 36.6; O2SAT 97
[2024-04-23 05:04] LABS: Lyme Abs Screen <0.90 index
[2024-04-23] MEDS: Omeprazole 20 MG CAPSULE.DR PO (05:36)
--- NOTE | 2024-04-23 07:29 | PM.DS ---
DS: Providers Provider Date of Service: 04/23/24 Date of admission: 04/22/24 08:55 Primary care physician: Emily Lang MD Consults: 04/21/24 16:40 Consult to Neurology Routine Consulting Provider: [facility] Reason for consultation: headache, weakness, dizziness 04/21/24 21:52 Consult to Cardiology Routine Consulting Provider: [facility] Reason for consultation: afib with rvr ?new onset Has provider been notified: Yes DS: Diagnosis Discharge Diagnosis (1) Left-sided weakness: Status: Acute DS: Summary Hospital Course Hospital Course: HP as per admitting provider. 53 year old woman with a history of asthma, hypertension presented to the ER with complaints of weakness and numbness to her left upper and lower extremity along with dizziness. She reports over the last year she has had these episodes of weakness and numbness to her left upper and lower extremity, these episodes last for few minutes and resolve. She was seen by her primary care doctor for this and she has been referred to Neurology but has yet to be seen. She reports that today she woke up around 830 and developed left upper and lower extremity weakness and numbness and her family called EMS. Patient denied any slurred speech, visual changes. She did report a headache and dizziness. In the ER, her vital signs have been fairly stable, labs all within acceptable limits, MRI was negative for infarction or hemorrhage incidental finding of parotid mass to the right cheek area which patient reports has been present for over 10 years. Plan will be to place the patient on observation for Neurology consultation. 53-year-old woman treated for left-sided weakness and atrial fibrillation with rapid ventricular response. Patient reports that she has been having this weakness off and on for over a year. She reports that she does get an aura prior with sometimes headache or a certain order. She has these episodes in the last a few minutes and resolve. She had an MRI which was negative for any infarction or abnormalities other than finding a parotid mass on her right cheek which has been present for 10 years. For that she needs to follow-up with an ear nose and throat provider. Regarding the weakness he was seen by Neurology who thought that her symptoms were related to migraines and recommended starting on Topamax 50 mg twice daily. She developed an episode of atrial fibrillation with rapid ventricular response, she has never been formally diagnosed but reports that for the last couple of years she has had palpitations flushing. She was started on metoprolol twice daily which has been effective in controlling her heart rate. She was seen and evaluated by Cardiology who recommended a baby aspirin daily. Echocardiogram showed normal EF with no evidence of regional wall motion abnormalities. Plan is for patient to be discharged home and she is in agreement with this. Time Attestation Discharge Coordination Time (in mins): 35 Quality: Safe Use of Opioids Does Pt have an Active Cancer Diagnosis on the Problem List?: No Quality: Stroke Does the patient have a stroke diagnosis?: No Physical Exam Vital Signs: Vital Signs: Last Vital Signs Temp 97.8 F 04/23/24 04:00 Pulse 59 04/23/24 04:00 Resp 20 04/23/24 04:00 BP 111/65 04/23/24 04:00 Pulse Ox 97 04/23/24 04:00 O2 Del Method Room Air 04/23/24 04:00 BMI result Body Mass Index 32.7 Appearing in no acute distress head is normocephalic atraumatic eyes pupils are PERRLA sclera is anicteric mouth throat mucous membranes are intact and moist neck is supple no lymphadenopathy, no JVD noted lung sounds are clear to auscultation heart regular rate rhythm, clear S1, S2 positive bowel sounds, abdomen is soft, nontender neuro patient is alert x3, no focal deficits DS: Data Data Completed and Pending Labs on day of discharge: Laboratory Results - last 24 hr 04/21/24 11:59 Lyme Screen IgG & IgM <0.90 Discharge Plan Discharge Anticipated Discharge Date/Time: 04/23/24 07:25 Patient Disposition: Home, Self-Care Discharge Diagnosis: Migraine headache Atrial fibrillation with rapid ventricular response Parotid mass Referrals: Emily Lang MD [Primary Care Provider] - 1 Week Myron Frey [Physician] - 1 Week (Parotid mass) Discharge Medications: New topiramate 25 mg Tablet 50 mg PO BID Qty: 120 0RF metoprolol tartrate 25 mg Tablet 25 mg PO BID Qty: 60 0RF Protocol: Hold for SBP/HR < HOLD for SBP < : 90 HOLD for HR < : 60 aspirin 81 mg tablet,chewable 81 mg PO DAILY Qty: 30 0RF Continued albuterol sulfate 2.5 mg /3 mL (0.083 %) solution for nebulization 2.5 mg inhalation Q4-6H PRN (Reason: shortness of breath or wheezing) Qty: 90 0RF (DME) nebulizers [AeroEclipse II Nebulizer] Misc See Rx Instructions .Route Qty: 1 0RF Rx Instructions: As directed (DME) nebulizers [AeroEclipse II Nebulizer] Mis See Rx Instructions .Route Qty: 1 0RF Rx Instructions: As directed clonazepam 0.5 mg tablet 0.5 mg PO BEDTIME triamcinolone acetonide 0.1 % cream 1 appl topical BID PRN (Reason: Rash) omeprazole 20 mg capsule,delayed release(DR/EC) 20 mg PO DAILY@0630 albuterol sulfate [Ventolin HFA] 90 mcg/actuation HFA aerosol inhaler 2 puff INHALATION Q4H PRN (Reason: Shortness Of Breath Or Wheezing) cholecalciferol (vitamin D3) [Vitamin D3] 50 mcg (2,000 unit) capsule 50 mcg PO DAILY lisinopril 20 mg tablet 20 mg PO DAILY Discharge Orders: Discharge Order (Routine); Ordered 04/23/24 Ordered By: Eloina Small Diet: Advance to usual diet Activity on Discharge: As tolerated Stand Alone Forms: Patient Portal Discharge page Print Language: [place] Care Plan Goals: You have been started on new medications -Topamax for migraines please take as prescribed -metoprolol for atrial fibrillation -aspirin for atrial fibrillation Health Concerns: Migraine headache Atrial fibrillation with rapid ventricular response Parotid mass Plan of Treatment: Follow-up with primary care provider as needed Follow-up with ENT provider for parotid mass Take all medications as prescribed Assessment: See discharge summary
[2024-04-23 07:53] VITALS: BP 138/88; PULSE 57; RESP 19; TEMP 36.3; O2SAT 95
[2024-04-23] MEDS: lisinopriL 20 MG TABLET PO (08:28)
[2024-04-23] MEDS: Metoprolol Tartrate 25 MG TABLET PO (08:29)
[2024-04-23] MEDS: Topiramate 25 MG TABLET 50 MG PO (08:29)
[2024-04-23] MEDS: dilTIAZem HCL 30 MG TABLET PO (08:29)
[2024-04-23] MEDS: 0.9 % Sodium Chloride Flush 3 ML SYRINGE IVFLUSH (08:29)
[2024-04-23] MEDS: Cholecalciferol (Vitamin D3) 25 MCG TABLET 50 MCG PO (08:29)
--- NOTE | 2024-04-23 10:12 | MHC.CM.PN ---
Pt is medically cleared for discharge home self-care today, pt has arranged her own transport home.
== END 2024-04-23 10:44 | disposition home or self-care (01) | DRG 201 ==
LOC: HO.ED 15:46 → HO.EDOVER 16:43 → HO.IMC 04-22 17:53
PROVIDERS: Physician Assistant; Admitting Provider Nurse Practitioner Acute Care; Emergency Provider Emergency Medicine Emergency Medical Services; PCP General Practice; Visit Provider Nurse Practitioner Acute Care
DX: I48.0 Paroxysmal atrial fibrillation (principal); G43.409 Hemiplegic migraine, not intractable, without status migrainosus; D37.030 Neoplasm of uncertain behavior of the parotid salivary glands; E66.01 Morbid (severe) obesity due to excess calories; Z68.32 Body mass index [BMI] 32.0-32.9, adult; J45.909 Unspecified asthma, uncomplicated; I10 Essential (primary) hypertension; K21.9 Gastro-esophageal reflux disease without esophagitis; Z71.3 Dietary counseling and surveillance; F17.210 Nicotine dependence, cigarettes, uncomplicated; Z71.6 Tobacco abuse counseling; Z79.82 Long term (current) use of aspirin; Z79.899 Other long term (current) drug therapy
CPT/HCPCS: 36415; 70450; 70496; 70498; 70551; 80048; 80053; 80061; 81003; 82947; 84443; 84484; 85025; 85610; 85730; 86617; 86618; 92950; 93005; 93306; 99285; J1650; J2060; J2270; J2765; Q9957; Q9967

== ENCOUNTER → 2024-04-21 16:40 | Outpatient (BNV) | payer MEDICAID, SELFPAY | PROVIDERS: Admitting Provider Nurse Practitioner Acute Care; Emergency Provider Emergency Medicine Emergency Medical Services; PCP General Practice; Visit Provider Nurse Practitioner Acute Care | DX: R53.1 Weakness (principal) | CPT/HCPCS: 99223; 99232; 99239 ==

== ENCOUNTER → 2024-04-22 08:55 | Outpatient (BNV) | payer MEDICAID, SELFPAY | PROVIDERS: Admitting Provider Nurse Practitioner Acute Care; Emergency Provider Emergency Medicine Emergency Medical Services; PCP General Practice; Visit Provider Internal Medicine Cardiovascular Disease | DX: I35.1 Nonrheumatic aortic (valve) insufficiency (principal); I48.0 Paroxysmal atrial fibrillation; R53.1 Weakness | CPT/HCPCS: 93306; 99223 ==

== ENCOUNTER → 2024-04-22 08:55 | Outpatient (BNV) | payer MEDICAID, SELFPAY | PROVIDERS: Admitting Provider Nurse Practitioner Acute Care; Emergency Provider Emergency Medicine Emergency Medical Services; PCP General Practice; Visit Provider Psychiatry & Neurology Neurology | DX: G81.94 Hemiplegia, unspecified affecting left nondominant side (principal) | CPT/HCPCS: 99222 ==

== ENCOUNTER 2024-05-13 07:40 | Outpatient (AMB) | payer MEDICAID, SELFPAY ==
[2024-05-13 08:16] VITALS: BP 154/80; PULSE 68; BMI 32.7
--- NOTE | 2024-05-13 08:16 | MHC.OFFVIS ---
Vital Signs 05/13/24 08:16 Height 5 ft 4 in Weight 190 lb 7.67 oz BMI 32.7 BP 154/80 H Blood Pressure Location Lt brachial Position Sitting Pulse 68 Pulse Source Monitor Intake Visit Reasons: follow up appt(KM) Learning Technologies Specialist: Learning Technologies Specialist Present Allergies naproxen Adverse Reaction (Verified 05/13/24 08:18) Vomiting Medication List - Last Reconciled 05/13/24 by KT Guthrie albuterol sulfate 90 mcg/actuation (Ventolin HFA) 2 puffs inhalation Q4H PRN albuterol sulfate 2.5 mg (3 mL) inhalation Q4-6H PRN aspirin 81 mg PO DAILY cholecalciferol (vitamin D3) (Vitamin D3) 50 mcg PO DAILY clonazepam 0.5 mg PO BID lisinopril 20 mg PO DAILY metoprolol tartrate 25 mg See Protocol PO BID nebulizers (AeroEclipse II Nebulizer) As directed nebulizers (AeroEclipse II Nebulizer) As directed omeprazole 20 mg PO DAILY@0630 triamcinolone acetonide 0.1% 1 appl topical BID PRN HPI HPI follow up appt(KM): Details: Socorro is a 53-year-old female with past medical history of hypertension, asthma who was recently admitted to [facility] with symptoms of left-sided weakness, headache, dizziness and blurred vision. CTA of the head and MRI of the brain showed no acute infarct or hemorrhage. She was evaluated by Neurology and thought to have migraine equivalent symptoms. EKG did show evidence of atrial fibrillation and she was started on metoprolol for heart rate control. An echocardiogram showed normal EF. She now presents for follow-up. Today she reports that she has not had issues with left-sided weakness since her hospital discharge. She has a mild headache today and is noticing some dizziness. She is anxious when she comes to office visits. She will feel occasional heart palpitations lasting seconds. No sustained rapid or irregular rates. No chest discomfort at rest or with activity. She does have some shortness of breath with exertion. No shortness of breath at rest, PND, orthopnea or edema. No presyncope, syncope, falls. No bleeding issues. Remains active each day. Is seeing the surgeon tomorrow for her parotid mass. She does not know if she will need a biopsy or surgery. [facility] Medical History PAF (paroxysmal atrial fibrillation) Asthma Social History Household Members: Significant Other and Children Housing: Apartment Do you presently have visiting nurse or other home services: No Patient Tobacco Use Status: Current everyday Tobacco user Tobacco use type: Cigarette Cigarettes Per Day: 0.5 Years Smoked: 20 e-Cigarette/Vaping Use: Never Used Second Hand Smoke Exposure: No Substance Use Type: Marijuana service: No Review of Systems Const All systems reviewed & are unremarkable except as noted in HPI and below ENT Reports dizziness Card Details: palpitation Denies chest pain, Denies chest pain at rest, Denies chest pain with activity, Denies rapid heart rate, Denies pedal edema, Denies edema, Denies leg edema, Denies lightheadedness, Denies palpitations, Denies dyspnea, Denies dyspnea on exertion and Denies orthopnea Resp Denies cough, Denies dyspnea and Denies dyspnea on exertion GI Denies hematochezia and Denies change in stool character Musc Denies abnormal gait, Denies limited range of motion, Denies muscle cramps, Denies muscle weakness, Denies numbness, Denies radiating pain into limb, Denies stiffness and Denies tingling Neuro Denies abnormal gait, Reports dizziness, Denies numbness and Denies tingling Endo Denies palpitations Physical Exam Vital Signs: Last Vital Signs Pulse 68 05/13/24 08:16 BP 154/80 H 05/13/24 08:16 BMI result Body Mass Index 32.7 Const General: cooperative, healthy appearing, comfortable and no acute distress Orientation/consciousness: patient oriented x3 Neck Neck: Yes normal visual inspection and Yes no JVD Resp Effort & Inspection: normal respiratory effort Auscultation: clear to auscultation bilaterally, no rales, no rhonchi and no wheezes Cardio Jugular venous distension: no JVD Rate: regular rate Rhythm: regular rhythm Heart sounds: S1 normal heart sound present, S2 normal heart sound present, no murmurs and no rubs Neuro General: patient oriented x3 Extrem General: Yes normal to inspection, No no pedal edema and No calf tenderness Psych Appearance: grossly normal Mental Status: mental status grossly normal Speech and movement: Normal speech and movement present Office Procedures EKG Details: Today, read by me, normal sinus rhythm, T-wave inversion lead 3, rate 68, QTC 433 milliseconds [id number], Complete Assessment & Plan Assessment & Plan (1) PAF (paroxysmal atrial fibrillation): Code(s): I48.0 - Paroxysmal atrial fibrillation Category: Medical Plan: Recent [facility] admit for symptoms of lightheadedness, blurred vision and left-sided weakness. She ruled out for CVA with no infarct or hemorrhage noted on head CT or brain MRI. She was seen by Neurology and thought to have symptoms of complex migraine. She was incidentally found to have paroxysmal atrial fibrillation during her hospital admission. She has no known history of PAF. She will feel occasional brief heart palpitations. She was put on metoprolol for heart rate control. EKG done today showing normal sinus rhythm, rate 68. Spent time reviewing the diagnosis of atrial fibrillation, treatment for AFib and stroke risk. Chads Vasc score of 2: Female, hypertension.. Anticoagulation would be indicated. No history of bleeding issues. Labs done 04/22/2024 showed hematocrit 39.3, creatinine 0.9. She is on daily aspirin, will have her stop. Will start Eliquis 5 mg b.i.d.. She will likely need a parotid mass biopsy and possible surgery in the near future. She is seeing the surgeon tomorrow. Instructed to not start Eliquis until treatment plan is known. For further cardiac evaluation will order a Holter monitor to assess for recurrent PAF and heart rate control. Will check a exercise nuclear stress test to evaluate for any ischemia. Cardiology follow-up 3 months, sooner if needed. (2) Left-sided weakness: Code(s): R53.1 - Weakness Category: Medical Plan: As above (3) Hospital discharge follow-up: Code(s): Z09 - Encounter for follow-up examination after completed treatment for conditions other than malignant neoplasm Category: Medical Plan: As above (4) Parotid mass: Code(s): K11.8 - Other diseases of salivary glands Category: Medical Plan: Incidental finding of a parotid mass during testing at recent admission. She tells me she has a visit with the surgeon tomorrow. She is currently on aspirin. Aspirin could be held and she can proceed with biopsy if it will be done in the next few weeks. If biopsy or surgery is going to be done in greater than 1 month I will have her stop the aspirin and start Eliquis. Eliquis could be held for 48 hours prior to her procedures. Nuclear stress test does not need to be completed prior to biopsy or surgery. She has known paroxysmal AFib and continues on metoprolol. She can proceed at present with a low to intermediate cardiac risk. Plan Time spent on chart review, documentation, interview and assessment Orders: Orders CA stress test Today I48.0 - Paroxysmal atrial fibrillation ECG 3 day holter monitor Today I48.0 - Paroxysmal atrial fibrillation NM cardiolite stress test Today I48.0 - Paroxysmal atrial fibrillation Coding Level of Care Code Est Pt Level 4 (69545) Diagnoses PAF (paroxysmal atrial fibrillation) I48.0 Left-sided weakness R53.1 Hospital discharge follow-up Z09 Parotid mass K11.8 CPT Codes EKG - CPT: 43955-[id number], Complete ([id number]) Time Spent (min) 36
== END 2024-05-13 08:57 | disposition home or self-care (01) ==
PROVIDERS: PCP General Practice; Visit Provider Nurse Practitioner Family
DX: I48.0 Paroxysmal atrial fibrillation (principal); R53.1 Weakness; Z09 Encounter for follow-up examination after completed treatment for conditions other than malignant neoplasm; K11.8 Other diseases of salivary glands
CPT/HCPCS: 93010; 99214

== ENCOUNTER → 2024-05-13 07:40 | Outpatient (BNVA) | payer MEDICAID, SELFPAY | PROVIDERS: PCP General Practice; Visit Provider Nurse Practitioner Family | DX: Z09 Encounter for follow-up examination after completed treatment for conditions other than malignant neoplasm (principal); I48.0 Paroxysmal atrial fibrillation; R53.1 Weakness; K11.8 Other diseases of salivary glands | CPT/HCPCS: 93005; 99212 ==

== ENCOUNTER 2024-05-14 08:18 | Outpatient (REF) | payer MEDICAID, SELFPAY | END 2024-05-14 08:19 | disposition home or self-care (01) | LOC: HO.LNP 08:18 | PROVIDERS: PCP General Practice; Visit Provider Surgery | DX: D11.7 Benign neoplasm of other major salivary glands (principal); K11.8 Other diseases of salivary glands; M79.89 Other specified soft tissue disorders | CPT/HCPCS: 10021; 88173; 88305; 99202 ==

== ENCOUNTER 2024-05-14 08:18 | Outpatient (AMB) | payer MEDICAID, SELFPAY ==
--- NOTE | 2024-05-14 08:46 | A.OFFVIS_ITS ---
Vital Signs 05/14/24 08:53 Height 5 ft 4 in Weight 191 lb BMI 32.8 BP 132/65 Blood Pressure Location Rt brachial Position Sitting Pulse 66 Intake Visit Reasons: Parotid mass Intake Note: Patient referred by Dr. Lang for mass on Rt cheek. Present for 10+yrs. Patient c/o: Painful with pressure. Enlarging. CT Head &neck: 04-21-2024. Air Sampling And Monitoring Required: No Accompanied by: Aunt Mena Raman Allergies naproxen Adverse Reaction (Verified 05/14/24 08:52) Vomiting Medication List - Last Reconciled 05/14/24 by Matt Lepe MD albuterol sulfate 90 mcg/actuation (Ventolin HFA) 2 puffs inhalation Q4H PRN albuterol sulfate 2.5 mg (3 mL) inhalation Q4-6H PRN apixaban (Eliquis) 5 mg PO BID cholecalciferol (vitamin D3) (Vitamin D3) 50 mcg PO DAILY clonazepam 0.5 mg PO BID escitalopram oxalate 20 mg PO QAM lisinopril 20 mg PO DAILY metoprolol tartrate 25 mg See Protocol PO BID nebulizers (AeroEclipse II Nebulizer) As directed nebulizers (AeroEclipse II Nebulizer) As directed omeprazole 20 mg PO DAILY@0630 triamcinolone acetonide 0.1% 1 appl topical BID PRN HPI Comments Details: Patient presents with her on. Patient has had a 10 year history of a soft tissue mass involving a right mid face. She had a workup for this finally and it is unclear whether this is of parotid etiology. She has no specific symptoms from this aside from it is increasing in size over the last few years. Denies any pain or other symptoms from this. She states that she was told this was from a dental source . She has not recall any trauma to the area. She has not had any dental issues that she recalls that would cause such a mass/swelling Patient has no other such lesions elsewhere. She has a collection of comorbidities including recently diagnosed atrial fibrillation. Patient was had a collection of brain and had CTs and MRIs. Chart was reviewed and patient evaluated [facility] Medical History PAF (paroxysmal atrial fibrillation) Asthma Social History (Updated 05/14/24 @ 08:53 by GLENNY Em) Household Members: Significant Other and Children Housing: Apartment Do you presently have visiting nurse or other home services: No Patient Tobacco Use Status: Current everyday Tobacco user Tobacco use type: Cigarette Cigarettes Per Day: 10 Years Smoked: 20 e-Cigarette/Vaping Use: Never Used Second Hand Smoke Exposure: No Substance Use Type: Marijuana service: No Physical Exam Vital Signs: Last Vital Signs Pulse 66 05/14/24 08:53 BP 132/65 05/14/24 08:53 BMI result Body Mass Index 32.8 HEENT Other: No obvious cervical periclavicular axillary adenopathy bilaterally. Patient has a soft tissue mass anterior to the right parotid gland measuring approximately 4 x 3 cm. Mass is firm, mobile, well-circumscribed, not attached to the overlying skin. Office Procedures FNA Biopsy FNA Biopsy Details: Under sterile technique 18 gauge needle was used to perform several passes of the right mid face soft tissue mass with good specimen retrieved. This was sent to pathology. Patient tolerated procedure well FNA Biopsy 1: [id number] Biopsy, 1st lesion w/o image All charges added?: Procedure code (CPT) selection complete Assessment & Plan Assessment & Plan (1) Mass of soft tissue of face: Code(s): M79.89 - Other specified soft tissue disorders Category: Surgical Plan The current recommendations for fine needle aspiration (FNA) of this process in the office. Risks, benefits, alternatives of procedure reviewed with the patient included but not limited to bleeding, infection, non diagnosis and the patient wished to proceed. All questions answered. Orders: Orders Surgical Today K11.8 - Other diseases of salivary glands Biopsy - Fine needle aspiration Today M79.89 - Other specified soft tissue disorders Patient Instructions: Patient was been given local instructions, and will see me as directed. This included Motrin and/or Tylenol p.r.n. pain, ice to the area, and no strenuous activities. Patient is to commence her anticoagulation tomorrow for recently diagnosed atrial fibrillation. Coding Level of Care Code New Pt Level 5 (98294) Diagnoses Mass of soft tissue of face M79.89 CPT Codes FNA Biopsy - FNA Biopsy 1: [id number] Biopsy, 1st lesion w/o image ([id number])
[2024-05-14 08:53] VITALS: BP 132/65; PULSE 66; BMI 32.8
== END 2024-05-14 09:03 | disposition home or self-care (01) ==
PROVIDERS: PCP General Practice; Visit Provider Surgery
DX: M79.89 Other specified soft tissue disorders (principal)
CPT/HCPCS: 10021; 99204

== ENCOUNTER 2024-05-20 08:47 | Outpatient (AMB) | payer MEDICAID, SELFPAY ==
--- NOTE | 2024-05-20 08:54 | A.OFFVIS_ITS ---
Vital Signs 05/20/24 08:55 Height 5 ft 4 in Weight 191 lb BMI 32.8 BP 145/64 H Blood Pressure Location Lt brachial Position Sitting Pulse 62 Intake Visit Reasons: s/p 1 wk FNA Intake Note: Patient here s/p 1wk FNA on Rt cheek. Reports bx site healing well. Patient c/o: no concerns. Vacuum Cleaner Operator Required: No Accompanied by: Friend Allergies naproxen Adverse Reaction (Verified 05/20/24 08:55) Vomiting HPI Comments Details: Patient presents with her friend. Status post FNA of right mid face mass consistent with parotid pleomorphic adenoma. These results were discussed with the patient. [facility] Medical History PAF (paroxysmal atrial fibrillation) Asthma Social History (Updated 05/14/24 @ 08:53 by GLENNY Em) Household Members: Significant Other and Children Housing: Apartment Do you presently have visiting nurse or other home services: No Patient Tobacco Use Status: Current everyday Tobacco user Tobacco use type: Cigarette Cigarettes Per Day: 10 Years Smoked: 20 e-Cigarette/Vaping Use: Never Used Second Hand Smoke Exposure: No Substance Use Type: Marijuana service: No Physical Exam Vital Signs: Last Vital Signs Pulse 62 05/20/24 08:55 BP 145/64 H 05/20/24 08:55 BMI result Body Mass Index 32.8 HEENT Other: Status quo Assessment & Plan Assessment & Plan (1) Pleomorphic adenoma of parotid gland: Code(s): D11.0 - Benign neoplasm of parotid gland Category: Surgical Plan Options are observation or excision. I personally recommend the latter since this parotid masses already of significant size and will only increase. I do not perform this type of surgery. I have discussed the case with Dr. Freddie Brothers of [facility] in [place] who has a surgical oncologist, who performed the surgeries and he is willing to accept the patient for evaluation and consideration for surgery. Patient understands and agrees with this. Arrangements were made for this. Coding Level of Care Code Est Pt Level 4 (51100) Diagnoses Pleomorphic adenoma of parotid gland D11.0
[2024-05-20 08:55] VITALS: BP 145/64; PULSE 62; BMI 32.8
== END 2024-05-20 09:21 | disposition home or self-care (01) ==
PROVIDERS: PCP General Practice; Referring Provider General Practice; Visit Provider Surgery
DX: D11.0 Benign neoplasm of parotid gland (principal)
CPT/HCPCS: 99214

== ENCOUNTER → 2024-05-20 08:47 | Outpatient (BNVA) | payer MEDICAID, SELFPAY | PROVIDERS: PCP General Practice; Visit Provider Surgery | DX: D11.0 Benign neoplasm of parotid gland (principal) | CPT/HCPCS: 99212 ==

== ENCOUNTER → 2024-05-27 07:07 | Outpatient (REF) | payer MEDICAID, SELFPAY ==
--- NOTE | 2024-05-27 07:10 | HM_ITS ---
* Total monitoring time 2 days. * Underlying rhythm is sinus with an average rate of 64/Min. * Rare supraventricular ectopy. * Rare ventricular ectopy. * No significant pauses or high-grade AV blocks. * Patient markers used in association with supraventricular ectopy. * Chest discomfort, sharp pain, dizziness correlates with sinus rhythm and supraventricular ectopy. MTDD
== END ==
LOC: HO.CARD 07:07
PROVIDERS: PCP General Practice; Visit Provider Nurse Practitioner Family
DX: I48.0 Paroxysmal atrial fibrillation (principal)
CPT/HCPCS: 93242

== ENCOUNTER 2024-05-27 21:31 | Emergency (ER) | payer MEDICAID, SELFPAY ==
--- NOTE | 2024-05-27 | ECG_ITS ---
Test Reason : DIZZINESS Blood Pressure : / mmHG Vent. Rate : 059 BPM Atrial Rate : 059 BPM P-R Int : 158 ms QRS Dur : 090 ms QT Int : 426 ms P-R-T Axes : 065 051 029 degrees QTc Int : 421 ms Sinus bradycardia Otherwise normal ECG When compared with ECG of 22-APR-2024 10:30, Sinus rhythm has replaced Atrial fibrillation Vent. rate has decreased BY 38 BPM Referred By: Generic ED Physician Electronically Signed By:QUINCY CASTAÑEDA
[2024-05-27 21:52] VITALS: BP 181/72; PULSE 86; RESP 18; TEMP 37; O2SAT 97; BMI 32.8
[2024-05-27 22:27] LABS: MANUAL DIFF FLAG NO
[2024-05-27 22:28] LABS: Basophils Absolute Auto 0.1 X10*3/uL (0.0-0.2); Basophils Percent Auto 1.1 % (0-2); Eosinophils Absolute Auto 0.3 X10*3/uL (0.0-0.4); Eosinophils Percent Auto 3.3 % (0-4); Hematocrit 39.2 % (37.0-47.0); Hemoglobin 13.1 g/dl (12.0-16.0); Imm Gran Abs Auto 0.02 X10*3/uL (0.00-0.03); Imm Gran Pct Auto 0.2 % (0.0-0.4); Lymphocytes Absolute Auto 3.4 X10*3/uL (1.2-4.9); Lymphocytes Percent Auto 41.3 % (20-40); Mean Corpuscular HGB Conc 33.4 g/dl (31.0-35.0); Mean Corpuscular Hemoglobin 29.8 pg (27.0-33.0); Mean Corpuscular Volume 89.3 fL (80.0-98.0); Mean Platelet Volume 10.3 fL (9.4-12.3); Monocytes Absolute Auto 0.6 X10*3/uL (0.1-1.2); Monocytes Percent Auto 7.7 % (2-11); Neutrophils Absolute Auto 3.8 x10*3/uL (2.0-8.3); Neutrophils Percent Auto 46.4 % (45-73); Platelet Count 242 X10*3/uL (160-400); Red Blood Count 4.39 X10*6/uL (4.20-5.50); Red Cell Distribution Width 13.3 % (11.0-16.0); White Blood Count 8.2 X10*3/uL (4.8-10.8)
[2024-05-27 22:43] LABS: Alanine Aminotransferase 25 U/L (0-31); Alkaline Phosphatase 82 U/L (39-117); Anion Gap 13 (12-20); Aspartate Amino Transferase 18 U/L (5-31); Bilirubin Total 0.2 mg/dL (0.0-1.0); Blood Urea Nitrogen 17 mg/dL (9-16); Calcium 9.2 mg/dL (8.4-10.2); Carbon Dioxide 21 mmol/L (22-29); Chloride 108 mmol/L (96-108); Creatinine Clr Calc Pharmacy 83.4; Estimated Glomerular Filt Rate > 60; Glucose Random 99 mg/dL (60-115); Sodium 138 mmol/L (135-145); Total Protein 6.9 g/dL (6.5-8.0)
[2024-05-27 22:52] LABS: Troponin-I High Sensitivity < 2.7 ng/L (<3.5-17.0)
[2024-05-28 00:20] VITALS: BP 156/53; PULSE 64; RESP 18; O2SAT 96
== END 2024-05-28 01:20 | disposition left against medical advice (07) ==
PROVIDERS: Emergency Provider Emergency Medicine; PCP General Practice
DX: R42 Dizziness and giddiness (principal); R00.1 Bradycardia, unspecified; Z79.899 Other long term (current) drug therapy
CPT/HCPCS: 36415; 80053; 84484; 85025; 93005; 99281; 99283

== ENCOUNTER → 2024-05-27 22:08 | Outpatient (BNV) | payer MEDICAID, SELFPAY | PROVIDERS: Emergency Provider Emergency Medicine; PCP General Practice; Visit Provider Internal Medicine | DX: I47.10 Supraventricular tachycardia, unspecified (principal) | CPT/HCPCS: 93010; 93227 ==

== ENCOUNTER 2024-06-16 16:57 | Outpatient (REF) | payer MEDICAID, SELFPAY ==
[2024-06-19 09:52] LABS: Alphahydroxymidazolam,GCMS Ur NEGATIVE; Alphahydroxytriazolam, GCMS Ur NEGATIVE; Alprazolam, GCMS Urine NEGATIVE; Aminoclonazepam, GCMS Urine 380 (H); Flurazepam Metabolite,GCMS Ur NEGATIVE; Lorazepam GCMS Urine NEGATIVE; Nordiazepam, GCMS Urine NEGATIVE; Oxazepam, GCMS Urine NEGATIVE; Temazepam, GCMS Urine NEGATIVE
== END 2024-06-16 16:58 | disposition home or self-care (01) ==
LOC: HO.HHCLNP 16:57
PROVIDERS: Visit Provider General Practice
DX: F41.9 Anxiety disorder, unspecified (principal)
CPT/HCPCS: 80346

== ENCOUNTER 2024-07-02 13:51 | Emergency (ER) | payer MEDICAID, SELFPAY ==
--- NOTE | ~2024-07-02 | CT_ITS ---
EXAMINATION: CT HEAD WITHOUT CONTRAST (STROKE PROTOCOL) CLINICAL INFORMATION: Stroke protocol. Left-sided deficit. On anticoagulation therapy. COMPARISON: CT dated April 21, 2024. TECHNIQUE: Contiguous axial imaging was performed from the skull base to vertex without intravenous administration of contrast. This CT examination was performed using dose optimization techniques as appropriate, variously including the following: *Automated exposure control *Adjustment of mA and/or kV according to patient size (this includes techniques or standardized protocols for targeted exams where dose is matched to indication/reason for exam; i.e. extremities or head) *Use of iterative reconstruction technique DLP: 642 mGy-cm FINDINGS: No acute intracranial hemorrhage, mass effect, midline shift, hydrocephalus or herniation. [place]-white matter differentiation is normal. Posterior cranial fossa contents demonstrated no acute intracranial hemorrhage or mass effect. Sellar/supersellar region demonstrated no gross masses. Craniocervical junction is intact. No air-fluid levels in the included paranasal sinuses. Unerupted tooth in the right maxilla. Tympanic cavities and mastoid cells are aerated CT/CT head for STROKE IMPRESSION: No acute intracranial hemorrhage or acute brain abnormality by CT. This critical result was discussed with Dr. Melissa Randolph at 2:55 PM hours on 07/02/2024. It was ascertained that the content and urgency of the report was understood at the time of direct communication. Electronically signed by: Shadi Pugh MD 07/02/2024 02:55 PM [facility]
--- NOTE | 2024-07-02 13:55 | ED_ITS ---
HPI - General Adult General Chief complaint: Stroke Stated complaint: l side numb-high bp Time Seen by Provider: 07/02/24 13:56 Source: patient, family and old records reviewed Mode of arrival: ambulatory Limitations: no limitations History of Present Illness ED Provider: WINSTON CAMARA narrative: 53 yo female with PMH of PAF on eliquis took dose this AM, asthma, R parotid mass pending excision, asthma, complex migraines just seen here for same complaint - L sided weakness, numbness, dizziness. This has been going on and off per one year. She just had CTA of head and neck - carotid plaques but no stenosis, MRI negative other than parotid mass - all this done for same illness and complaint on 04/21 with dx of complex migraines by Neurology. She presents again at 1pm started to feel her vision was fuzzy, dizziness and then L sided weakness and numbness this is the same complaint she just had full work up for. No trauma, has nausea, no recent fever or infection. MD complaint: L sided deficits, dizziness Onset (ago): hour(s) (1pm today) Location: head, left, upper extremity and lower extremity Radiation: non-radiation Severity: moderate Relieving factors: none Exacerbating factors: movement Associated symptoms: nausea/vomiting and other (dizziness) Treatments prior to arrival: none Related Data Home Medications ?Medication ?Instructions ?Recorded ?Confirmed lisinopril 20 mg tablet 20 mg PO DAILY 02/20/23 05/20/24 albuterol sulfate 90 mcg/actuation 2 puff inhalation Q4H PRN 04/21/24 05/20/24 aerosol inhaler (Ventolin HFA) Shortness Of Breath Or Wheezing cholecalciferol (vitamin D3) 50 50 mcg PO DAILY 04/21/24 05/20/24 mcg (2,000 unit) capsule (Vitamin D3) omeprazole 20 mg capsule,delayed 20 mg PO DAILY@0630 04/21/24 05/20/24 release triamcinolone acetonide 0.1 % 1 appl topical BID PRN Rash 04/21/24 05/20/24 topical cream clonazepam 0.5 mg tablet 0.5 mg PO BID 05/13/24 05/20/24 escitalopram oxalate 20 mg tablet 20 mg PO QAM 05/14/24 05/20/24 Previous Rx's ?Medication ?Instructions ?Recorded albuterol sulfate 2.5 mg/3 mL 2.5 mg (3 mL) inhalation Q4-6H PRN 01/17/23 (0.083 %) solution for nebulization shortness of breath or wheezing #90 mL nebulizers (AeroEclipse II #1 ea 01/17/23 Nebulizer) nebulizers (AeroEclipse II #1 ea 02/08/23 Nebulizer) metoprolol tartrate 25 mg tablet 25 mg PO BID #60 tabs 04/23/24 apixaban 5 mg tablet (Eliquis) 5 mg PO BID #60 tabs 05/13/24 [id number]-[id number] 1 cap PO Q8H PRN pain #14 caps 07/02/24 50 mg-300 mg-40 mg capsule (Fioricet) cyclobenzaprine 10 mg tablet 10 mg PO TID PRN muscle spasm #20 07/02/24 tabs Allergies Allergy/AdvReac Type Severity Reaction Status Date / Time naproxen AdvReac Vomiting Verified 07/02/24 14:01 Review of Systems 2 Review of Systems: Constitutional : No Fever, No Chills, No Fatigue ENT/Mouth : No sore throat, No Rhinorrhea Eyes: No Eye Pain, No Swelling, No Redness Cardiovascular : No Chest Pain, No SOB, No Dyspnea on Exertion Respiratory : No Cough, No Sputum Gastrointestinal : No Nausea, No Vomiting, No Diarrhea, No abdominal Pain Genitourinary : No Dysuria, No Urinary Frequency, No Hematuria, Musculoskeletal : No joint pain, No Myalgias, No Joint Swelling Skin : No Skin Lesions, No rash Neuro : pos Weakness, pos Numbness, pos Dizziness, no Headache Psych : No Anxiety/Panic, No Depression All other systems reviewed and are negative [facility] Past Medical History Attestation statement: The following information was validated with the patient. 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 Oriented X3. mild acute distress. flat affect Eyes: Pupils equal, round and reactive to light. ENT: Pharynx normal. Neck: Normal inspection. Neck supple. CVS: Normal heart rate and rhythm. Pulses normal. Respiratory: No respiratory distress. Breath sounds normal. Abdomen: Soft and nontender. Skin: Skin warm and dry. Normal skin color. Normal skin turgor. Extremities: No lower extremity edema. No calf ttp Neuro: Oriented X 3. no facial droop, speech normal, tongue midline, L arm 4/5, L leg 4/5 - reports numbness. very poor effort to move L side no compensatory feeling in R foot trying to raise L leg, she will not give full smile NIH Stroke Scale Internal: Initial- Upon Arrival Level of Consciousness: Alert Level of Consciousness Questions: Answers both questions correctly Level of Consciousness Commands: Performs both tasks correctly Best Gaze: Normal Visual: No visual loss Facial Palsy: Normal Motor Arm (Right): No drift Motor Arm (Left): Drift Motor Leg (Right): No drift Motor Leg (Left): Drift Limb Ataxia: Absent Sensory: Mild to moderate sensory loss Best Language: No aphasia Dysarthia: Normal Extinction and Inattention: No abnormality Score: 3 Medications Administered Discontinued Medications Generic Name Dose Route Start Last Admin Trade Name Tip PRN Reason Stop Dose Admin Lorazepam 1 mg 07/02/24 14:01 07/02/24 14:26 Lorazepam 2 Mg/Ml Vial IVPUSH 07/02/24 14:02 1 mg STAT STA Administration Ondansetron HCl 4 mg 07/02/24 14:01 07/02/24 14:26 Ondansetron Hcl 4 Mg/2 Ml Vial IVPUSH 07/02/24 14:02 4 mg ONCE ONE Administration Medical Decision Making Medical Decision Making [facility] Narrative: 53 yo female with PMH of PAF on eliquis took dose this AM, asthma, R parotid mass pending excision, asthma, complex migraines here with c/o L sided deficits - weakness/numbness and dizziness exact presentation as recent admit neg CTA and MRI - dx with complex migraines. At this time will repeat dry CT head for ICH, start labs and IV medications. I have low susp for stroke at this time given same presentation on and off for 1 year not a candidate for TNK on eliquis but also I suspect complex migraine Differential Diagnosis Differential Diagnoses: The differential diagnosis associated with the presentation includes stress reaction, complex migraine Admission/Observation Consideration of admission/observation: Escalation of care including admission/observation considered no acute findings back to baseline hx of same in past returning to baseline - this has been on and off x 1 year suspect complex migraine steady gait stable for DC Lab Data [facility] Lab Attestation statement: I reviewed the patient's lab results. 07/02/24 14:05 07/02/24 14:05 Labs: Lab Results 07/02/24 07/02/24 Range/Units 14:01 14:05 WBC 7.5 (4.8-10.8) X10*3/uL RBC 4.66 (4.20-5.50) X10*6/uL Hgb 14.1 (12.0-16.0) g/dl Hct 41.3 (37.0-47.0) % MCV 88.6 (80.0-98.0) fL MCH 30.3 (27.0-33.0) pg MCHC 34.1 (31.0-35.0) g/dl RDW 13.3 (11.0-16.0) % Plt Count 251 (160-400) X10*3/uL MPV 9.9 (9.4-12.3) fL Immature Gran % (Auto) 0.1 (0.0-0.4) % Neut % (Auto) 50.4 (45-73) % Lymph % (Auto) 39.5 (20-40) % [place] % (Auto) 6.8 (2-11) % Eos % (Auto) 2.3 (0-4) % Baso % (Auto) 0.9 (0-2) % Lymph # (Auto) 3.0 (1.2-4.9) X10*3/uL [place] # (Auto) 0.5 (0.1-1.2) X10*3/uL Eos # (Auto) 0.2 (0.0-0.4) X10*3/uL Baso # (Auto) 0.1 (0.0-0.2) X10*3/uL Abs Immat Gran (auto) 0.01 (0.00-0.03) X10*3/uL Absolute Neuts (auto) 3.8 (2.0-8.3) x10*3/uL Absolute Nucleated RBC 0.000 (0.0-0.012) X10*3/uL Nucleated RBC % (auto) 0.0 (0.0-0.2) /100WBC PT 13.4 H (10.9-12.4) SEC INR 1.2 H (0.9-1.1) Sodium 138 (135-145) mmol/L Potassium 4.0 (3.3-5.1) mmol/L Chloride 104 (96-108) mmol/L Carbon Dioxide 28 (22-29) mmol/L Anion Gap 10 L (12-20) BUN 13 (9-16) mg/dL Creatinine 0.81 (0.5-1.4) mg/dL Estim Creat Clear Calc 87.1 Estimated GFR > 60 POC Glucose 85 (60-115) mg/dL Random Glucose 92 (60-115) mg/dL Calcium 9.5 (8.4-10.2) mg/dL Magnesium 2.1 (1.6-2.6) mg/dL Total Bilirubin 0.3 (0.0-1.0) mg/dL Direct Bilirubin 0.1 (0.0-0.5) mg/dL AST 23 (5-31) U/L ALT 29 (0-31) U/L Alkaline Phosphatase 84 (39-117) U/L Troponin I High Sens < 2.7 (<3.5-17.0) ng/L Total Protein 7.6 (6.5-8.0) g/dL Albumin 4.3 (3.5-5.0) g/dL Lipase 11 (8-78) U/L Influenza Type A (PCR) NEGATIVE (Negative) Influenza Type B (PCR) NEGATIVE (Negative) RSV RNA Qual (PCR) NEGATIVE (Negative) SARS-CoV-2 RNA (RT-PCR) NEGATIVE (Negative) Independent Interpretation I performed an independent interpretation of an: EKG and CT Scan (no ICH) Interpretation: Rate: 58 Rhythm: sinus bradycardia [place]: normal Normal P waves. Normal NATALIE. Normal QRS complex. ST T wave : no SOHAIL inverted t waves V1 and III qTC:428 prior studies: no acute ischemia The study has been interpreted contemporaneously by me. . Radiology Impression Discussion of test interpretation with radiology: I have reviewed the radiologist's reading. Independent Historian Clinical information obtained from an independent historian. History obtained from or confirmed by: Spouse and Parent External Record Review External record reviewed: Inpatient record Prescription Management I considered prescription management with: Pain Medication and Other Discharge Plan Discharge Clinical Impression: Migraine aura without headache, Migraine equivalent syndrome Patient Disposition: Home, Self-Care Instructions: Migraine Headache (ED) Additional Instructions: labs reassuring, CT scan normal EKG reassuring given the chronicity and recurrence suspect complex migraines return for any worsening symptoms or change in feature talk to your doctor as we discussed about abortive migraine medications Prescriptions: New cyclobenzaprine 10 mg tablet 10 mg PO TID PRN (Reason: muscle spasm) Qty: 20 0RF iemtfekkba-tabflsppyjewz-ksem [Fioricet] 50-300-40 mg capsule 1 cap PO Q8H PRN (Reason: pain) Qty: 14 0RF No Action albuterol sulfate 2.5 mg /3 mL (0.083 %) solution for nebulization 2.5 mg inhalation Q4-6H PRN (Reason: shortness of breath or wheezing) Qty: 90 0RF (DME) nebulizers [AeroEclipse II Nebulizer] [facility] [place] See Rx Instructions .Route Qty: 1 0RF Rx Instructions: As directed (DME) nebulizers [AeroEclipse II Nebulizer] Misc See Rx Instructions .Route Qty: 1 0RF Rx Instructions: As directed triamcinolone acetonide 0.1 % cream 1 appl topical BID PRN (Reason: Rash) omeprazole 20 mg capsule,delayed release(DR/EC) 20 mg PO DAILY@0630 albuterol sulfate [Ventolin HFA] 90 mcg/actuation HFA aerosol inhaler 2 puff INHALATION Q4H PRN (Reason: Shortness Of Breath Or Wheezing) cholecalciferol (vitamin D3) [Vitamin D3] 50 mcg (2,000 unit) capsule 50 mcg PO DAILY metoprolol tartrate 25 mg Tablet 25 mg PO BID Qty: 60 0RF Protocol: Hold for SBP/HR < HOLD for SBP < : 90 HOLD for HR < : 60 clonazepam 0.5 mg tablet 0.5 mg PO BID lisinopril 20 mg tablet 20 mg PO DAILY Eliquis 5 mg tablet 5 mg PO BID Qty: 60 5RF Rx Instructions: Blood thinner escitalopram oxalate 20 mg tablet 20 mg PO QAM Print Language: Kiswahili
[2024-07-02 14:00] VITALS: BP 196/90; PULSE 70; RESP 16; TEMP 36.3; O2SAT 98; BMI 33.2
--- NOTE | 2024-07-02 14:01 | ECG_ITS ---
Test Reason : STROKE SYMPTOMS Blood Pressure : / mmHG Vent. Rate : 058 BPM Atrial Rate : 058 BPM P-R Int : 138 ms QRS Dur : 088 ms QT Int : 436 ms P-R-T Axes : 051 061 029 degrees QTc Int : 428 ms Sinus bradycardia Otherwise normal ECG When compared with ECG of 27-MAY-2024 22:08, No significant change was found Referred By: Melissa Randolph Electronically Signed By:HIMANSHU ZIMMERMAN MD
[2024-07-02 14:11] LABS: MANUAL DIFF FLAG NO
[2024-07-02 14:12] VITALS: BP 185/90; PULSE 66; RESP 20; O2SAT 98
[2024-07-02 14:12] LABS: Basophils Absolute Auto 0.1 X10*3/uL (0.0-0.2); Basophils Percent Auto 0.9 % (0-2); Eosinophils Absolute Auto 0.2 X10*3/uL (0.0-0.4); Eosinophils Percent Auto 2.3 % (0-4); Hematocrit 41.3 % (37.0-47.0); Hemoglobin 14.1 g/dl (12.0-16.0); Imm Gran Abs Auto 0.01 X10*3/uL (0.00-0.03); Imm Gran Pct Auto 0.1 % (0.0-0.4); Lymphocytes Percent Auto 39.5 % (20-40); Mean Corpuscular HGB Conc 34.1 g/dl (31.0-35.0); Mean Corpuscular Hemoglobin 30.3 pg (27.0-33.0); Mean Corpuscular Volume 88.6 fL (80.0-98.0); Mean Platelet Volume 9.9 fL (9.4-12.3); Monocytes Absolute Auto 0.5 X10*3/uL (0.1-1.2); Monocytes Percent Auto 6.8 % (2-11); Neutrophils Absolute Auto 3.8 x10*3/uL (2.0-8.3); Neutrophils Percent Auto 50.4 % (45-73); Platelet Count 251 X10*3/uL (160-400); Red Blood Count 4.66 X10*6/uL (4.20-5.50); Red Cell Distribution Width 13.3 % (11.0-16.0); White Blood Count 7.5 X10*3/uL (4.8-10.8)
[2024-07-02 14:15] LABS: Glucose, Whole Blood 85 mg/dL (60-115)
[2024-07-02 14:21] LABS: INTERNATIONAL NORM RATIO 1.2 (0.9-1.1); Prothrombin Time 13.4 SEC (10.9-12.4)
[2024-07-02 14:26] LABS: Alanine Aminotransferase 29 U/L (0-31); Albumin Level 4.3 g/dL (3.5-5.0); Alkaline Phosphatase 84 U/L (39-117); Anion Gap 10 (12-20); Aspartate Amino Transferase 23 U/L (5-31); Bilirubin Direct 0.1 mg/dL (0.0-0.5); Bilirubin Total 0.3 mg/dL (0.0-1.0); Blood Urea Nitrogen 13 mg/dL (9-16); Calcium 9.5 mg/dL (8.4-10.2); Carbon Dioxide 28 mmol/L (22-29); Chloride 104 mmol/L (96-108); Creatinine Clr Calc Pharmacy 87.1; Estimated Glomerular Filt Rate > 60; Glucose Random 92 mg/dL (60-115); Lipase 11 U/L (8-78); Magnesium 2.1 mg/dL (1.6-2.6); Sodium 138 mmol/L (135-145); Total Protein 7.6 g/dL (6.5-8.0)
[2024-07-02] MEDS: ondansetron HCL 4 MG/2 ML VIAL IVPUSH (14:26)
[2024-07-02] MEDS: LORazepam 2 MG/ML VIAL 1 MG IVPUSH (14:26)
[2024-07-02 14:34] LABS: Troponin-I High Sensitivity < 2.7 ng/L (<3.5-17.0)
[2024-07-02 14:53] LABS: Influenza A PCR NEGATIVE (Negative); Influenza B PCR NEGATIVE (Negative); Resp Syncy Virus RNA Qual PCR NEGATIVE (Negative); SARS COV2 PCR INHOUSE NEGATIVE (Negative)
[2024-07-02 16:07] VITALS: BP 144/75; PULSE 63; RESP 16; TEMP 36.5; O2SAT 97
--- NOTE | 2024-07-02 16:08 | PC.NURSE ---
Patient states feels much better can't wait to go home and take a nap.
== END 2024-07-02 16:15 | disposition home or self-care (01) ==
PROVIDERS: Emergency Provider Emergency Medicine; PCP General Practice
DX: G43.109 Migraine with aura, not intractable, without status migrainosus (principal); R29.703 NIHSS score 3; Z03.818 Encounter for observation for suspected exposure to other biological agents ruled out; J45.909 Unspecified asthma, uncomplicated; I48.0 Paroxysmal atrial fibrillation; Z79.01 Long term (current) use of anticoagulants
CPT/HCPCS: 0241U; 36415; 70450; 80048; 80076; 82947; 83690; 83735; 84484; 85025; 85610; 93005; 96374; 96375; 99284; 99285; J2060; J2405

== ENCOUNTER → 2024-07-02 14:01 | Outpatient (BNV) | payer MEDICAID, SELFPAY | PROVIDERS: Emergency Provider Emergency Medicine; PCP General Practice; Visit Provider Internal Medicine Cardiovascular Disease | DX: R00.1 Bradycardia, unspecified (principal) | CPT/HCPCS: 93010 ==

== ENCOUNTER → 2024-07-02 14:01 | Outpatient (BNV) | payer MEDICAID, SELFPAY | PROVIDERS: Emergency Provider Emergency Medicine; PCP General Practice; Visit Provider Radiology Diagnostic Radiology | DX: R53.1 Weakness (principal) | CPT/HCPCS: 70450 ==

== ENCOUNTER → 2024-07-15 07:42 | Outpatient (REF) | payer MEDICAID, SELFPAY ==
--- NOTE | ~2024-07-15 | NM_ITS ---
Lexiscan Myocardial perfusion study Indication: Paroxysmal atrial fibrillation to evaluate for myocardial ischemia Technique: The patient was brought in for a Lexiscan perfusion study on 07/15/2024 and was injected 0.4 mg of Lexiscan intravenously. Within a minute of this injection 30 mCi of sestamibi was given intravenously. Images were obtained using the SPECT gamma camera interlaced with the gating device. Images were obtained in supine position. Resting perfusion study was performed on 07/18/2024. Patient was administered 30 mCi of sestamibi intravenously at rest. Images were then obtained in supine position. Images obtained without without CT attenuation. Total DLP 97 mGy-cm. Images were processed with the software and compared side to side in short axis, horizontal long axis and vertical long axis views. Findings: The stress perfusion study showed nonattenuated images show minimal thinning of the anterior wall of the LV myocardium. Remainder of the LV myocardium is normally perfused. Attenuated corrected images show mildly reduced uptake in the distal anterior and apical wall of the LV myocardium.. The gated study shows normal LV systolic function with calculated LVEF of 60%. LV cavity is normal in size. The gated study shows normal systolic wall thickening and contraction of segments. Resting study shows no change in perfusion pattern compared to stress perfusion study. Gating at rest reveals normal systolic wall motion with ejection fraction at 67%. The findings are consistent with no clear reversible defect suggestive of ischemia.. NM/NM cardiolite stress test Impression: 1. Myocardial perfusion imaging study shows likely normal myocardial perfusion 2. Gated LVEF is 60% 3. Transient ischemic dilatation not present Nondiagnostic changes on EKG. Electronically signed by: Alex Holley MD 07/18/2024 01:22 PM [facility]
--- NOTE | 2024-07-15 07:46 | CA_ITS ---
Acquisition Time: 2024-07-15 08:09:24 Total Exercise Time: 00:02:58 Test Indications: Dyspnea Medications: Protocol: SHREYA Max HR: 114 BPM 67% of Pred: 168 BPM Max BP: 187/084 mmHG Max Work Load: 4.6 METS Exercise Stress Test with exercise 2 mins 58 secs of Shreya Protocol, achieving 67% MPHR, with strong cramping sensation abover the LUQ requesting to stop the test, without any arrythmias, with noromotensive response to exercise. Nondiagnostic EKG for ischemia. Test switched to Nuclear Pharm Stress. Pharmacologic Stress test with Lexiscan while pt kicks her legs in chair, with reports of dizziness, no chest discomfort, without any arrthmias, with normotensive response to injection. Nondiagnostic EKG for ischemia. In recovery, pt treated with IVP Aminophylline 75mg to reverse Lexiscan. After rest and IVF, feeling better. Nuclear images pending. Test reviewed with Dr. Ponce. Referred By: Erica Conklni Overread By: ERICA CONKLIN
== END ==
LOC: HO.CARD 07:42
PROVIDERS: PCP General Practice; Visit Provider Nurse Practitioner Family
DX: I48.0 Paroxysmal atrial fibrillation (principal)
CPT/HCPCS: 78452; 93017; A9500; J0280; J2785

== ENCOUNTER → 2024-07-15 07:46 | Outpatient (BNV) | payer MEDICAID, SELFPAY | PROVIDERS: PCP General Practice; Visit Provider Nurse Practitioner Family | DX: R07.2 Precordial pain (principal) | CPT/HCPCS: 78452; 93016; 93018 ==

== ENCOUNTER 2024-08-07 12:53 | Outpatient (AMB) | payer MEDICAID, SELFPAY ==
--- OUTSIDE RECORDS SUMMARY | 2024-08-07 12:55 | XMS_ITS | Continuity of Care Document ---
Author Organization [place] - [facility], [facility] Address [address] [place] [address] Care Team Providers Care Reclaimer Name Role Phone APOLONIA ANTON Referring Provider Assessment Encounter Date Assessment Date Assessment LastModified by Organization Details LastModified Time 06/12/2024 06/12/2024 Patient has a lesion of the parotid salivary gland. We have discussed treatment options including observation as well as surgical intervention to remove the lesion. Surgery is performed under general anesthesia at either [facility] or [facility]. The surgery is typically booked for approximately 3 hours but can take longer. Patient is expected to stay overnight and would likely be discharged the following morning. During the surgery special instrumentation to identify and protect the facial nerve will be used. Despite our best efforts there are risks to the surgery including temporary or permanent facial nerve paralysis. Gustatory sweating, first bite syndrome are also possible. I have outlined the surgical incision so the patient understands the size and location of the scar. As the incision is carried through the skin it is expected there will be some area of paresthesia that may improve somewhat over time. There is a risk of postoperative bleeding or sialocele which may require drainage. To help minimize this risk a surgical drain will be placed and removed in the office several days after surgery. I typically do not send the patient home with antibiotics but if they develop signs of infection they will contact the office for treatment. Previous tissue sampling with needle aspiration biopsy is helpful when planning the extent of surgery. Ultimately final pathology will determine if there is any additional treatment that is necessary such as further surgery or consultation with other parts of the care team such as radiation and medical oncology [email or web address] Not available 06/11/2024 17:11:43 Plan of Treatment Reminders Order Date Submit Date Provider Last Modified By Organization Details Last Modified Time Details Appointments SURGERY 210 2024 07:30A M KELSEY BURLESON MD Not available Not available Not available Post Op 2024 03:15P M ARBEN MCKEON PA-C Not available Not available Not available Post Op 2024 03:15P M APOLONIA ETIENNE PA-C Not available Not available Not available Post Op 2024 03:45P M KELSEY BURLESON MD Not available Not available Not available Lab None recorded. Referral None recorded. Procedures None recorded. Surgeries parotidec raul (SURG) 2023 024 [email or web address] Not available 06/12/2024 11:35:20 Imaging None recorded. Medication Orders None recorded. Patient TargetsNo targets recorded. Patient InstructionsNo instructions recorded. Reason for Referral None Reported. 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 Medical Equipment None Reported. Medications Name Sig Start Date Stop Date Status Note LastModified by Organization Details LastModified Time cerave moist crm 16oz MIX WITH triamcino lone AND APPLY TOPICALLY EVERY DAY NEEDED FOR RASH 06/12 completed Not Available Not Available Not Available albuterol sulfate 2.5 mg/3 mL (0.083 %) solution for nebulizatio n INHALE 1 AMPULE USING A NEBULIZER EVERY 4 HOURS NEEDED FOR WHEEZING OR SHORTNESS OF BREATH active Not Available Not Available No t Available lisinopril 20 mg tablet TAKE 1 TABLET BY MOUTH EVERY MORNING active Not Available Not Available No t Available prednisone 20 mg tablet TAKE 3 TABLETS BY MOUTH EVERY MORNING FOR 3 DAYS, THEN TAKE 2 TABLETS EVERY MORNING FOR 3 DAYS, THEN TAKE 1 TABLET EVERY MORNING FOR 2 DAYS 06/12 completed Not Available Not Available Not Available clonazepam 0.5 mg tablet TAKE 1 TABLET BY MOUTH TWICE DAILY 06/12 completed Not Available Not Available Not Available triamcinolo ne acetonide 0.1 % topical cream MIX WITH cerave AND APPLY TOPICALLY TWICE DAILY IN THE MORNING AND AT BEDTIME NEEDED FOR RASH 06/12 completed Not Available Not Available Not Available nortriptyli ne 25 mg capsule TAKE 1 CAPSULE BY MOUTH EVERY DAY AT BEDTIME 06/12 completed Not Available Not Available Not Available omeprazole 20 mg capsule,del ayed release TAKE 1 CAPSULE BY MOUTH EVERY DAY BEFORE BREAKFAST DO NOT BREAK, CRUSH, DISSOLVE OR CHEW active Not Available Not Available No t Available Ventolin HFA 90 mcg/actuati on aerosol inhaler INHALE 2 PUFFS BY MOUTH EVERY 4 HOURS NEEDED FOR WHEEZING OR SHORTNESS OF BREATH active Not Available Not Available No t Available escitalopra m 20 mg tablet TAKE 1 TABLET BY MOUTH DAILY IN THE MORNING 06/12 completed Not Available Not Available Not Available Vitamin D3 50 mcg (2,000 unit) capsule TAKE 1 CAPSULE BY MOUTH EVERY DAY IN THE MORNING active Not Available Not Available No t Available naloxone 4 mg/actuatio n nasal spray FOR SUSPECTED OPIOID OVERDOSE. SPRAY 0.1mL IN ONE NOSTRIL. REPEAT IN ALTERNATE NOSTRIL 2-3 MINUTES IF NEEDED. SEEK MEDICAL ATTENTION IMMEDIATE LY EVEN IF PATIENT RESPONDS. 06/12 completed Not Available Not Available Not Available Vitals Date Recorded Body height Body mass index (BMI) Body weight Provider Name and Address Organization Details Last Updated DateTime 06/12/2024 162.56 cm 31.9 kg/m2 37142.18 g Skyla Solis [place] - [facility] 06/12/2024 11:10:37 Social History None recorded. Functional Status None recorded. Mental Status None recorded. Family History Nothing Reported. Medical History No medical history recorded. Gynecological HistoryNo gynecological history recorded. 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 Health Concerns Section Related Observation LastModified by Organization Detai ls LastModified Time None Recorded Concern Status LastModified by Organization Details LastModified Time None Recorded Payers Encounter Date Sequence Insurance Name Policy Number Policy [place] Covered Member ID [place] Member ID Guarantor Name 06/12/2024 1 [place] Socorro Moran [id number] Socorro Moran Notes Date Note Type Note Provider Name and Address Organization Details Recorded Time 06/12/2024 text/html right parotid ma sshas been present over 10 yrs with progressive enlargementtender when lays on that spottobacco - stopped last month 04/21/2024 CTA head with and without contrast at [id number] mm lobulated solid mass within right buccal soft tissue, accessory parotid tissue 05/14/20[place] [facility] [facility] [facility], started on 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
[2024-08-07 13:05] VITALS: BP 134/72; PULSE 69; BMI 33.4
--- NOTE | 2024-08-07 13:05 | A.OFFVIS_ITS ---
Vital Signs 08/07/24 13:05 Height 5 ft 4 in Weight 194 lb 7.163 oz BMI 33.4 BP 134/72 Pulse 69 Pulse Source Pulse Oximeter Intake Visit Reasons: f/up stress holter pre-op Director Account Management Required: No Ecological Technical Officer: Ecological Technical Officer Present Allergies naproxen Adverse Reaction (Verified 08/07/24 13:07) Vomiting Medication List - Last Reconciled 08/07/24 by KT Guthrie albuterol sulfate 90 mcg/actuation (Ventolin HFA) 2 puffs inhalation Q4H PRN albuterol sulfate 2.5 mg (3 mL) inhalation Q4-6H PRN apixaban (Eliquis) 5 mg PO BID cholecalciferol (vitamin D3) (Vitamin D3) 50 mcg PO DAILY clonazepam 0.5 mg PO BID lisinopril 20 mg PO DAILY metoprolol tartrate 25 mg See Protocol PO BID nebulizers (AeroEclipse II Nebulizer) As directed nebulizers (AeroEclipse II Nebulizer) As directed nortriptyline 25 mg PO BEDTIME omeprazole 20 mg PO DAILY@0630 triamcinolone acetonide 0.1% 1 appl topical BID PRN HPI HPI f/up stress holter pre-op: Details: Socorro is a 53-year-old female with past medical history of hypertension, as thma who was admitted to [facility] 04/2024 with symptoms of left- sided weakness, headache, dizziness and blurred vision. CTA of the head and MRI of the brain showed no acute infarct or hemorrhage. She was evaluated by Neurology and thought to have migraine equivalent symptoms. EKG did show evidence of atrial fibrillation and she was started on metoprolol for heart rate control. An echocardiogram showed normal EF. On cardiology follow up she was started on Eliquis for anticoagulation for CHADSVASC 2. Today she reports that she has been noticing heart palpitations at times. She can feel her heart beating fast when she is walking. When she is sitting and resting at times she will notice brief fluttering. She is anxious about her condition and fearful of having a stroke. She is taking her Eliquis without interruption. No bleeding issues reported. No chest discomfort at rest or with activity. She does have some shortness of breath with exertion which is unchanged.. No shortness of breath at rest, PND, orthopnea or edema. No presyncope, syncope, falls. Remains active each day. Is scheduled to have her parotid mass removal surgery next month. [facility] Medical History PAF (paroxysmal atrial fibrillation) Asthma Social History Household Members: Significant Other and Children Housing: Apartment Do you presently have visiting nurse or other home services: No Patient Tobacco Use Status: Current everyday Tobacco user Tobacco use type: Cigarette Cigarettes Per Day: 10 Years Smoked: 20 e-Cigarette/Vaping Use: Never Used Second Hand Smoke Exposure: No Substance Use Type: Marijuana service: No Review of Systems Const All systems reviewed & are unremarkable except as noted in HPI and below ENT Denies dizziness Card Denies chest pain, Denies chest pain at rest, Denies chest pain with activity, Reports rapid heart rate, Denies pedal edema, Denies edema, Denies leg edema, Denies lightheadedness, Denies palpitations, Denies dyspnea, Denies dyspnea on exertion and Denies orthopnea Resp Denies cough, Denies dyspnea and Denies dyspnea on exertion GI Denies hematochezia and Denies change in stool character Musc Denies abnormal gait, Denies limited range of motion, Denies muscle cramps, Denies muscle weakness, Denies numbness, Denies radiating pain into limb, Denies stiffness and Denies tingling Neuro Denies abnormal gait, Denies dizziness, Denies numbness and Denies tingling Endo Denies palpitations Physical Exam Vital Signs: BMI result Body Mass Index 33.4 Const General: cooperative, healthy appearing, comfortable and no acute distress Orientation/consciousness: patient oriented x3 Neck Neck: Yes normal visual inspection and Yes no JVD Resp Effort & Inspection: normal respiratory effort Auscultation: clear to auscultation bilaterally, no rales, no rhonchi and no wheezes Cardio Jugular venous distension: no JVD Rate: regular rate Rhythm: regular rhythm Heart sounds: S1 normal heart sound present, S2 normal heart sound present, no murmurs and no rubs Neuro General: patient oriented x3 Extrem General: Yes normal to inspection, No no pedal edema and No calf tenderness Psych Appearance: grossly normal Mental Status: mental status grossly normal Speech and movement: Normal speech and movement present Assessment & Plan Assessment & Plan (1) PAF (paroxysmal atrial fibrillation): Code(s): I48.0 - Paroxysmal atrial fibrillation Category: Medical Plan: Recent [facility] [place] for symptoms of lightheadedness, blurred vision and left-sided weakness. She ruled out for CVA with no infarct or hemorrhage noted on head CT or brain MRI. She was seen by Neurology and thought to have symptoms of complex migraine. She was incidentally found to have paroxysmal atrial fibrillation during her hospital admission. She had no prior known history of PAF. She will feel occasional brief heart palpitations. She was put on metoprolol for heart rate control. Chads Vasc score of 2: Female, hypertension. She was put on Eliquis for anticoagulation. No bleeding issues reported. Labs done 07/02/2024 showed hematocrit 41.3, creatinine 0.81. Echocardiogram done 04/22/2024 showed EF 60-65%, [id number] aortic regurgitation. Pharmacological nuclear stress test done 07/15/2024 shows normal myocardial perfusion imaging. Holter monitor done 07/15/2024 shows sinus rhythm with average heart rate 64, heart rate range 49 to 87, no atrial fibrillation, brief atrial tachycardia, longest 25 beats, heart rate less than 60, 22.67% of time. Last EKG 07/02/2024 showing sinus bradycardia, rate 58. Today she does report intermittent heart palpitations lasting seconds. She continues to drink 2 or more caffeinated beverages per day. Instructed to decrease caffeine intake. Maintain good hydration, get adequate rest, no activity restrictions. For ease and compliance will change her metoprolol to XL. Continue Eliquis. Instructed to call if she has issues with increasing or prolonged palpitations. Emergency care if ever needed for symptoms. Cardiology follow-up 4 months, sooner if needed. (2) Left-sided weakness: Code(s): R53.1 - Weakness Category: Medical Plan: As above (3) Parotid mass: Code(s): K11.8 - Other diseases of salivary glands Category: Medical Plan: Surgical resection of parotid mass next month with Dr. Casper Ewing, ENT at [facility]. Patient is low cardiac risk. It is possible she has paroxysmal atrial fibrillation which can be treated with IV metoprolol or diltiazem as needed. Cardiac testing as above. Eliquis is being held 3 days prior to her surgery and can be restarted as soon as cleared by surgeon to do so. Call/consult Cardiology if needed Plan Time spent on chart review, documentation, interview and assessment Medications: New metoprolol succinate ER Changing to long-acting 25 mg PO DAILY 90 days 90 tabs 1RF Discontinued metoprolol tartrate Discontinued Reason: Doctor's Order 25 mg See Protocol PO BID 60 tabs 5RF Coding Level of Care Code Est Pt Level 4 (32426) Complex EM visit Add On G2211 Diagnoses PAF (paroxysmal atrial fibrillation) I48.0 Left-sided weakness R53.1 Parotid mass K11.8 Time Spent (min) 28
== END 2024-08-07 13:30 | disposition home or self-care (01) ==
PROVIDERS: PCP General Practice; Visit Provider Nurse Practitioner Family
DX: I48.0 Paroxysmal atrial fibrillation (principal); R53.1 Weakness; K11.8 Other diseases of salivary glands
CPT/HCPCS: 99214

== ENCOUNTER → 2024-08-07 12:53 | Outpatient (BNVA) | payer MEDICAID, SELFPAY | PROVIDERS: PCP General Practice; Visit Provider Nurse Practitioner Family | DX: I48.0 Paroxysmal atrial fibrillation (principal); I10 Essential (primary) hypertension; R00.2 Palpitations; R53.1 Weakness; K11.8 Other diseases of salivary glands; F17.210 Nicotine dependence, cigarettes, uncomplicated | CPT/HCPCS: 99212 ==

== ENCOUNTER 2024-08-27 12:02 | Emergency (ER) | payer MEDICAID, SELFPAY ==
--- NOTE | ~2024-08-27 | XR_ITS ---
CLINICAL HISTORY: chest pain 2 view chest x-ray Comparison: CR/SR - XR CHEST 1V - 08/06/23 18:33 EST Findings: There is central bronchial wall thickening. No consolidation, pleural effusion or pneumothorax. Normal size heart. No acute fracture. IMPRESSION: 1. Bronchial wall thickening, which can be seen with asthma, reactive airways process or viral illness. 2. No superimposed focal infiltrate or consolidation. This document has been electronically signed by: Rachell Eduardo DO on 08/27/2024 17:03:37
--- NOTE | 2024-08-27 12:04 | ECG_ITS ---
Test Reason : chest pain Blood Pressure : */* mmHG Vent. Rate : 58 BPM Atrial Rate : 58 BPM P-R Int : 156 ms QRS Dur : 86 ms QT Int : 414 ms P-R-T Axes : 59 48 30 degrees QTcB Int : 406 ms Sinus bradycardia Otherwise normal ECG When compared with ECG of 02-Jul-2024 14:15, No significant change was found Referred By: Casper Ta Electronically Signed By: Ramos Ponce
[2024-08-27 12:23] LABS: MANUAL DIFF FLAG NO
[2024-08-27 12:24] LABS: Basophils Absolute Auto 0.1 X10*3/uL (0.0-0.2); Basophils Percent Auto 0.9 % (0-2); Eosinophils Absolute Auto 0.2 X10*3/uL (0.0-0.4); Hematocrit 40.3 % (37.0-47.0); Hemoglobin 13.3 g/dl (12.0-16.0); Imm Gran Abs Auto 0.01 X10*3/uL (0.00-0.03); Imm Gran Pct Auto 0.2 % (0.0-0.4); Lymphocytes Absolute Auto 2.4 X10*3/uL (1.2-4.9); Lymphocytes Percent Auto 37.5 % (20-40); Mean Corpuscular Hemoglobin 29.7 pg (27.0-33.0); Mean Platelet Volume 10.6 fL (9.4-12.3); Monocytes Absolute Auto 0.4 X10*3/uL (0.1-1.2); Monocytes Percent Auto 6.8 % (2-11); Neutrophils Absolute Auto 3.3 x10*3/uL (2.0-8.3); Neutrophils Percent Auto 51.6 % (45-73); Platelet Count 217 X10*3/uL (160-400); Red Blood Count 4.48 X10*6/uL (4.20-5.50); Red Cell Distribution Width 12.6 % (11.0-16.0); White Blood Count 6.3 X10*3/uL (4.8-10.8)
[2024-08-27 12:37] LABS: Alanine Aminotransferase 24 U/L (0-31); Albumin Level 4.1 g/dL (3.5-5.0); Alkaline Phosphatase 83 U/L (39-117); Anion Gap 8 (12-20); Aspartate Amino Transferase 21 U/L (5-31); Bilirubin Total 0.2 mg/dL (0.0-1.0); Blood Urea Nitrogen 12 mg/dL (9-16); Calcium 9.1 mg/dL (8.4-10.2); Carbon Dioxide 25 mmol/L (22-29); Chloride 111 mmol/L (96-108); Estimated Glomerular Filt Rate > 60; Glucose Random 99 mg/dL (60-115); Lipase 11 U/L (8-78); Potassium 4.4 mmol/L (3.3-5.1); Sodium 140 mmol/L (135-145); Total Protein 7.3 g/dL (6.5-8.0)
[2024-08-27 12:38] VITALS: BP 146/59; PULSE 54; RESP 18; TEMP 36.8; O2SAT 98; BMI 31.2
[2024-08-27 12:44] LABS: Troponin-I High Sensitivity 9.4 ng/L (<3.5-17.0)
--- NOTE | 2024-08-27 12:45 | ED.CHESTPAIN ---
HPI - Chest Pain General Chief Complaint: Chest Pain Stated Complaint: Chest Pain Time Seen by Provider: 08/27/24 16:23 Source: patient Mode of arrival: ambulatory Limitations: no limitations History of Present Illness HPI narrative: This is a 53-year-old woman with a past medical history of asthma, hypertension, atrial fibrillation on Eliquis who presents for evaluation of chest pain. Patient states experiencing intermittent chest pain over the last day lasting minutes at a time. She states pain is not brought on with exertion and occurs only at rest. She states no associated vomiting, dyspnea or loss of consciousness. She states associated palpitations. She states no fevers, chills, cough or hemoptysis. She states no back pain or abdominal pain. She states no trauma. Related Data Home Medications ?Medication ?Instructions ?Recorded ?Confirmed lisinopril 20 mg tablet 20 mg PO DAILY 02/20/23 08/07/24 albuterol sulfate 90 mcg/actuation 2 puff inhalation Q4H PRN 04/21/24 08/07/24 aerosol inhaler (Ventolin HFA) Shortness Of Breath Or Wheezing cholecalciferol (vitamin D3) 50 50 mcg PO DAILY 04/21/24 08/07/24 mcg (2,000 unit) capsule (Vitamin D3) omeprazole 20 mg capsule,delayed 20 mg PO DAILY@0630 04/21/24 08/07/24 release triamcinolone acetonide 0.1 % 1 appl topical BID PRN Rash 04/21/24 08/07/24 topical cream clonazepam 0.5 mg tablet 0.5 mg PO BID 05/13/24 08/07/24 nortriptyline 25 mg capsule 25 mg PO BEDTIME 08/07/24 08/07/24 Previous Rx's ?Medication ?Instructions ?Recorded albuterol sulfate 2.5 mg/3 mL 2.5 mg (3 mL) inhalation Q4-6H PRN 01/17/23 (0.083 %) solution for nebulization shortness of breath or wheezing #90 mL nebulizers (AeroEclipse II #1 ea 01/17/23 Nebulizer) nebulizers (AeroEclipse II #1 ea 02/08/23 Nebulizer) apixaban 5 mg tablet (Eliquis) 5 mg PO BID #60 tabs 05/13/24 metoprolol succinate 25 mg 25 mg PO DAILY 90 days #90 tabs 08/07/24 tablet,extended release 24 hr Allergies Allergy/AdvReac Type Severity Reaction Status Date / Time naproxen AdvReac Vomiting Verified 08/27/24 12:40 Review of Systems Review of Systems: ROS as per HPI [facility] Past Medical History Medical History PAF (paroxysmal atrial fibrillation) Asthma Social History Social History Household Members: Significant Other and Children Housing: Apartment Do you presently have visiting nurse or other home services: No Patient Tobacco Use Status: Current everyday Tobacco user Tobacco use type: Cigarette Cigarettes Per Day: 10 Years Smoked: 20 e-Cigarette/Vaping Use: Never Used Second Hand Smoke Exposure: No Substance Use Type: Marijuana Advance Directives: No Advance Directives Information Provided: Yes Do you have a plan to hurt others: No Plan service: No Physical Exam Vital Signs: Vital Signs: Last Vital Signs Temp 97.7 F 08/27/24 17:13 Pulse 61 08/27/24 17:13 Resp 20 08/27/24 17:13 BP 148/72 H 08/27/24 17:13 Pulse Ox 96 08/27/24 17:13 O2 Del Method Room Air 08/27/24 17:13 BMI result Body Mass Index 31.2 Gen: NAD, AOx3 HEENT: NCAT, EOMI, normal conjunctiva CV: RRR Pulm: CTAB, no increased work of breathing GI: Soft, NTND, no rebound, guarding or rigidity Neuro: Grossly non focal Course Course Course Narrative: RME, this is a rapid medical exam performed by Kashif Ta please refer to primary provider for complete H&P- 53-year-old female presents for evaluation of chest pain and palpitations that started yesterday. Plan for labs, EKG already performed in triage. Medical Decision Making Medical Decision Making [facility] Narrative: Differential diagnosis includes, but is not limited to anxiety, palpitations, electrolyte abnormality, ACS, pneumothorax. Patient is afebrile and hemodynamically stable on room air. Exam is benign and reassuring. I reviewed the patient's labs, EKG and chest x-ray as below. Of note, Radiology read questions bronchial wall thickening, which can be seen with asthma, reactive airway process or viral illness. However, examined demonstrates no wheezing to suggest bronchospasm and so I do not suspect asthma exacerbation. Further, patient has no symptomatology suggestive of an viral illness such as an upper respiratory tract infection. So these etiologies are of very low clinical suspicion. On re-examination, patient is well-appearing and in no acute distress. ?Patient states symptoms have resolved. ?There is no indication for further emergent evaluation in this otherwise well-appearing patient as above. ?Patient is provided written and verbal instructions, educational materials, recommendations for outpatient follow-up, strict return precautions and teach back is performed. ?Patient states understanding and agreement with plan of care. ?Patient is discharged home in stable and improved condition. Admission/Observation Consideration of admission/observation: Escalation of care including admission/observation considered Lab Data MDM Lab Attestation statement: I reviewed the patient's lab results. I independently reviewed and interpreted patient's labs including CBC, metabolic panel, lipase and troponin, which are benign and reassuring. Troponin reassuring at 9.4 and 12.6 effectively ruling out ACS. 08/27/24 12:18 08/27/24 12:18 Labs: Lab Results 08/27/24 08/27/24 Range/Units 12:18 15:15 WBC 6.3 (4.8-10.8) X10*3/uL RBC 4.48 (4.20-5.50) X10*6/uL Hgb 13.3 (12.0-16.0) g/dl Hct 40.3 (37.0-47.0) % MCV 90.0 (80.0-98.0) fL MCH 29.7 (27.0-33.0) pg MCHC 33.0 (31.0-35.0) g/dl RDW 12.6 (11.0-16.0) % Plt Count 217 (160-400) X10*3/uL MPV 10.6 (9.4-12.3) fL Immature Gran % (Auto) 0.2 (0.0-0.4) % Neut % (Auto) 51.6 (45-73) % Lymph % (Auto) 37.5 (20-40) % Amelia % (Auto) 6.8 (2-11) % Eos % (Auto) 3.0 (0-4) % Baso % (Auto) 0.9 (0-2) % Lymph # (Auto) 2.4 (1.2-4.9) X10*3/uL Amelia # (Auto) 0.4 (0.1-1.2) X10*3/uL Eos # (Auto) 0.2 (0.0-0.4) X10*3/uL Baso # (Auto) 0.1 (0.0-0.2) X10*3/uL Abs Immat Gran (auto) 0.01 (0.00-0.03) X10*3/uL Absolute Neuts (auto) 3.3 (2.0-8.3) x10*3/uL Absolute Nucleated RBC 0.000 (0.0-0.012) X10*3/uL Nucleated RBC % (auto) 0.0 (0.0-0.2) /100WBC Sodium 140 (135-145) mmol/L Potassium 4.4 (3.3-5.1) mmol/L Chloride 111 H (96-108) mmol/L Carbon Dioxide 25 (22-29) mmol/L Anion Gap 8 L (12-20) BUN 12 (9-16) mg/dL Creatinine 0.76 (0.5-1.4) mg/dL Estim Creat Clear Calc TNP Estimated GFR > 60 Random Glucose 99 (60-115) mg/dL Calcium 9.1 (8.4-10.2) mg/dL Total Bilirubin 0.2 (0.0-1.0) mg/dL AST 21 (5-31) U/L ALT 24 (0-31) U/L Alkaline Phosphatase 83 (39-117) U/L Troponin I High Sens 9.4 D 12.6 (<3.5-17.0) ng/L Total Protein 7.3 (6.5-8.0) g/dL Albumin 4.1 (3.5-5.0) g/dL Lipase 11 (8-78) U/L Independent Interpretation I performed an independent interpretation of an: EKG and Plain X-Ray Interpretation: I independently reviewed and interpreted the patient's EKG, which demonstrates a sinus rhythm at 58 beats per minute, PA 156, QRS 86, QTC 4 6, no ST/T-wave changes, no STEMI (compared to prior EKG July 02, 2024 there are no diagnostic ischemic changes) I independently and interpreted the patient's chest x-ray, which demonstrates no focal consolidation, pleural effusion or pneumothorax. Radiology Impression Discussion of test interpretation with radiology: I have reviewed the radiologist's reading. Radiologist Impression: IMPRESSION: 1. Bronchial wall thickening, which can be seen with asthma, reactive airways process or viral illness. 2. No superimposed focal infiltrate or consolidation. This document has been electronically signed by: Rachell Eduardo DO on 08/27/2024 17:03:37 Dictated By: Rachell Eduardo MD Signed By: <Electronically signed by Rachell Eduardo MD in OV> 08/27/24 1704 External Record Review External record reviewed: Outpatient record I reviewed outside/non-ED record stress test July 15, 2024, which demonstrates patient had an exercise stress test without arrhythmia and nondiagnostic EKG for ischemia. Patient had pharmacologic stress test which demonstrates nondiagnostic EKG for ischemia. Discharge Plan Discharge Clinical Impression: Chest pain Patient Disposition: Home, Self-Care Instructions: Chest Pain (ED) Additional Instructions: You were seen and evaluated in the emergency room. Your vital signs were very reassuring. Your blood work, EKG and chest x-ray were normal. Please follow-up with your primary care doctor in the next 5-7 days. Please return to the emergency room if you develop any worsening symptoms. Prescriptions: No Action albuterol sulfate 2.5 mg /3 mL (0.083 %) solution for nebulization 2.5 mg inhalation Q4-6H PRN (Reason: shortness of breath or wheezing) Qty: 90 0RF (DME) nebulizers [AeroEclipse II Nebulizer] [facility] See Rx Instructions .Route Qty: 1 0RF Rx Instructions: As directed (DME) nebulizers [AeroEclipse II Nebulizer] [facility] See Rx Instructions .Route Qty: 1 0RF Rx Instructions: As directed triamcinolone acetonide 0.1 % cream 1 appl topical BID PRN (Reason: Rash) omeprazole 20 mg capsule,delayed release(DR/EC) 20 mg PO DAILY@0630 albuterol sulfate [Ventolin HFA] 90 mcg/actuation HFA aerosol inhaler 2 puff INHALATION Q4H PRN (Reason: Shortness Of Breath Or Wheezing) cholecalciferol (vitamin D3) [Vitamin D3] 50 mcg (2,000 unit) capsule 50 mcg PO DAILY clonazepam 0.5 mg tablet 0.5 mg PO BID lisinopril 20 mg tablet 20 mg PO DAILY Eliquis 5 mg tablet 5 mg PO BID Qty: 60 5RF Rx Instructions: Blood thinner nortriptyline 25 mg capsule 25 mg PO BEDTIME metoprolol succinate 25 mg tablet extended release 24 hr 25 mg PO DAILY 90 Days Qty: 90 1RF Rx Instructions: Changing to long-acting Print Language: Singaporean
--- OUTSIDE RECORDS SUMMARY | 2024-08-27 14:23 | XMS_ITS | Continuity of Care Document ---
Author Organization [place] - [facility], [facility] Address [address] [place] [address] Care Team Providers Care Commercial Manager Name Role Phone APOLONIA ANTON Referring Provider [phone] Assessment Encounter Date Assessment Date Assessment LastModified by Organization Details LastModified Time 06/12/2024 06/12/2024 Patient has a lesion of the parotid salivary gland. We have discussed treatment options including observation as well as surgical intervention to remove the lesion. Surgery is performed under general anesthesia at either [facility] or [facility]. The surgery is typically booked [...] recorded. Surgeries parotidec raul (SURG) 2023 024 [email or web address] Not available 06/12/2024 11:35:20 Imaging None recorded. Medication Orders None recorded. Patient TargetsNo targets recorded. Patient InstructionsNo instructions recorded. Reason for Referral None Reported. 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 Medical [...] Updated DateTime 06/12/2024 162.56 cm 31.9 kg/m2 81042.18 g Skyla Solis [place] - [facility] 06/12/2024 11:10:37 Social History None recorded. Functional Status None recorded. Mental Status None recorded. Family History Nothing Reported. Medical History No medical history recorded. Gynecological HistoryNo gynecological history recorded. 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 Discussed higher risk to the zygomatic branch of the facial nerve as well as salivary duct given the anterior location of the 3 cm lesion Health Concerns Section Related Observation LastModified by Organization Detai ls LastModified Time None Recorded Concern Status LastModified by Organization Details LastModified Time None Recorded Payers Encounter Date Sequence Insurance Name Policy Number Policy [place] Covered Member ID [place] Member ID Guarantor Name 06/12/2024 1 [place] Socorro Moran [id number] Socorro Moran Notes Date Note Type Note Provider Name and Address Organization Details Recorded Time 06/12/2024 text/html right parotid ma sshas been present over 10 yrs with progressive enlargementtender when lays on that spottobacco - stopped last month 04/21/2024 CTA head with and without contrast at [id number] mm lobulated solid mass within right buccal soft tissue, accessory parotid tissue 05/14/2024 [facility], 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
--- OUTSIDE RECORDS SUMMARY | 2024-08-27 14:23 | XMS_ITS | Data Portability ---
Author Organization [place] - [facility], Allergy Address [address] [address] Care Team Providers Care Groover Operator Name Role Phone APOLONIA ANTON Referring Provider Assessment Encounter Date Assessment Date Assessment LastModified by Organization Details LastModified Time 06/12/2024 06/12/2024 Patient has a lesion of the parotid salivary gland. We have discussed treatment options including observation as well as surgical intervention to remove the lesion. Surgery is performed under general anesthesia at either [facility] or [facility]. The surgery is typically booked for approximately [...] Time Details Appointments SURGERY 210 2024 07:30A Luis BURLESON MD Not available Not available Not [...] recorded. Surgeries parotidec raul (SURG) 2023 024 Not available 06/12/2024 11:35:20 Imaging None recorded. Medication Orders None recorded. Patient TargetsNo targets recorded. Patient InstructionsNo instructions recorded. Reason for Referral None Reported. Problems Name Problem SNOMED Code Status Onset Date Resolution Date Notes Provider Name and Address Organization Details Recorded Time Neoplasm of parotid gland 473847025 Active 024 KELSEY BURLESON MD [address] [place] [address],[place] [address], [place], [address] , [facility] 4 17:10:57 Benign neoplasm of parotid gland 84413363 Active 024 KELSEY BURLESON MD [address] [place] [address],[place] [address], [place], [address] , [facility] 4 17:11:15 Problem Notes None recorded. Medical [...] Updated DateTime 06/12/2024 162.56 cm 31.9 kg/m2 88121.18 g Skyla Solis [place] - [facility] 06/12/2024 11:10:37 Social History None recorded. Functional Status None recorded. Mental Status None recorded. Family History Nothing Reported. Medical History No medical history recorded. Gynecological HistoryNo gynecological history recorded. 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 Discussed higher risk to the zygomatic branch of the facial nerve as well as salivary duct given the anterior location of the 3 cm lesion Health Concerns Section Related Observation LastModified by Organization Detai ls LastModified Time None Recorded Concern Status LastModified by Organization Details LastModified Time None Recorded Advance Directives Directive None Recorded Payers Encounter Date Sequence Insurance Name Policy Number Policy [place] Covered Member ID [place] Member ID Guarantor Name 06/12/2024 1 [place] Socorro Moran [id number] Socorro Moran Notes Date Note Type Note Provider Name and Address Organization Details Recorded Time 06/12/2024 text/html right parotid ma sshas been present over 10 yrs with progressive enlargementtender when lays on that spottobacco - stopped last month 04/21/2024 CTA head with and without contrast at [id number] mm lobulated solid mass within right buccal soft tissue, accessory parotid tissue 05/14/2024 [facility], 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
[2024-08-27 15:42] LABS: Troponin-I High Sensitivity 12.6 ng/L (<3.5-17.0)
[2024-08-27 17:13] VITALS: BP 148/72; PULSE 61; RESP 20; TEMP 36.5; O2SAT 96
[2024-08-27 18:08] VITALS: BP 148/72; PULSE 61; RESP 20; TEMP 36.5; O2SAT 96
== END 2024-08-27 18:09 | disposition home or self-care (01) ==
PROVIDERS: Physician Assistant; Emergency Provider Emergency Medicine; PCP General Practice
DX: R07.89 Other chest pain (principal); I48.91 Unspecified atrial fibrillation; Z79.01 Long term (current) use of anticoagulants; Z79.899 Other long term (current) drug therapy
CPT/HCPCS: 36415; 71046; 80053; 83690; 84484; 85025; 93005; 99283; 99284

== ENCOUNTER → 2024-08-27 12:04 | Outpatient (BNV) | payer MEDICAID, SELFPAY | PROVIDERS: Emergency Provider Emergency Medicine; PCP General Practice; Visit Provider Internal Medicine Cardiovascular Disease | DX: R07.9 Chest pain, unspecified (principal) | CPT/HCPCS: 93010 ==

== ENCOUNTER → 2024-08-27 16:24 | Outpatient (BNV) | payer MEDICAID, SELFPAY | PROVIDERS: Emergency Provider Emergency Medicine; PCP General Practice; Visit Provider Radiology Diagnostic Radiology | DX: R07.9 Chest pain, unspecified (principal) | CPT/HCPCS: 71046 ==

== ENCOUNTER 2024-10-29 15:09 | Outpatient (REF) | payer MEDICAID, SELFPAY ==
[2024-11-04 10:59] LABS: Alphahydroxymidazolam,GCMS Ur NEGATIVE; Alphahydroxytriazolam, GCMS Ur NEGATIVE; Alprazolam, GCMS Urine NEGATIVE; Aminoclonazepam, GCMS Urine 514; Flurazepam Metabolite,GCMS Ur NEGATIVE; Lorazepam GCMS Urine NEGATIVE; Nordiazepam, GCMS Urine NEGATIVE; Oxazepam, GCMS Urine NEGATIVE; Temazepam, GCMS Urine NEGATIVE
== END 2024-10-29 15:10 | disposition home or self-care (01) ==
LOC: HO.HHCLNP 15:09
PROVIDERS: Visit Provider General Practice
DX: F41.1 Generalized anxiety disorder (principal)
CPT/HCPCS: 80346

== ENCOUNTER 2024-12-13 22:45 | Emergency (ER) | payer MEDICAID, SELFPAY ==
[2024-12-13 22:47] VITALS: BP 138/69; PULSE 81; RESP 18; TEMP 36.8; O2SAT 97; BMI 33.1
--- NOTE | 2024-12-13 22:55 | ECG_ITS ---
Test Reason : A-FIB Blood Pressure : */* mmHG Vent. Rate : 74 BPM Atrial Rate : 74 BPM P-R Int : 150 ms QRS Dur : 84 ms QT Int : 400 ms P-R-T Axes : 56 36 18 degrees QTcB Int : 444 ms Normal sinus rhythm Normal ECG When compared with ECG of 27-Aug-2024 12:13, No significant change was found Referred By: Generic ED Physician Electronically Signed By: QUINCY CASTAÑEDA
[2024-12-13 23:13] VITALS: BP 115/69; PULSE 75; RESP 20; TEMP 36.8; O2SAT 96
[2024-12-13 23:16] LABS: Basophils Absolute Auto 0.1 X10*3/uL (0.0-0.2); Basophils Percent Auto 0.7 % (0-2); Eosinophils Absolute Auto 0.3 X10*3/uL (0.0-0.4); Eosinophils Percent Auto 3.2 % (0-4); Hematocrit 37.5 % (37.0-47.0); Hemoglobin 12.8 g/dl (12.0-16.0); Imm Gran Abs Auto 0.01 X10*3/uL (0.00-0.03); Imm Gran Pct Auto 0.1 % (0.0-0.4); Lymphocytes Absolute Auto 3.1 X10*3/uL (1.2-4.9); Lymphocytes Percent Auto 37.7 % (20-40); MANUAL DIFF FLAG NO; Mean Corpuscular HGB Conc 34.1 g/dl (31.0-35.0); Mean Corpuscular Hemoglobin 30.2 pg (27.0-33.0); Mean Corpuscular Volume 88.4 fL (80.0-98.0); Mean Platelet Volume 10.4 fL (9.4-12.3); Monocytes Absolute Auto 0.5 X10*3/uL (0.1-1.2); Monocytes Percent Auto 5.9 % (2-11); Neutrophils Absolute Auto 4.3 x10*3/uL (2.0-8.3); Neutrophils Percent Auto 52.4 % (45-73); Platelet Count 247 X10*3/uL (160-400); Red Blood Count 4.24 X10*6/uL (4.20-5.50); Red Cell Distribution Width 13.2 % (11.0-16.0); White Blood Count 8.2 X10*3/uL (4.8-10.8)
[2024-12-13 23:22] LABS: INTERNATIONAL NORM RATIO 1.1 (0.9-1.1); Prothrombin Time 13.2 SEC (10.9-12.4)
[2024-12-13 23:26] VITALS: BP 109/60; PULSE 73; RESP 15; TEMP 36.7; O2SAT 96
[2024-12-13 23:31] LABS: Alanine Aminotransferase 28 U/L (0-31); Alkaline Phosphatase 98 U/L (39-117); Anion Gap 16 (12-20); Aspartate Amino Transferase 11 U/L (5-31); Bilirubin Total 0.2 mg/dL (0.0-1.0); Blood Urea Nitrogen 12 mg/dL (9-16); Calcium 8.8 mg/dL (8.4-10.2); Carbon Dioxide 21 mmol/L (22-29); Chloride 108 mmol/L (96-108); Creatinine Clr Calc Pharmacy 89.3; Estimated Glomerular Filt Rate > 60; Glucose Random 143 mg/dL (60-115); Potassium 3.9 mmol/L (3.3-5.1); Sodium 141 mmol/L (135-145)
[2024-12-13 23:35] LABS: B Type Natriuretic Peptide 17 pg/mL (<100)
--- NOTE | 2024-12-13 23:37 | ED_ITS ---
HPI - Arrhythmia/Palpitations General Chief Complaint: Arrhythmia/Palpitations Stated Complaint: elevated heart rate, nose bleed Time Seen by Provider: 12/13/24 23:29 Source: patient Mode of arrival: ambulatory Limitations: no limitations History of Present Illness ED Provider: DR. Weber HPI narrative: 54-year-old female history of paroxysmal atrial fibrillation on metoprolol and Eliquis to manage atrial fibrillation, patient had argument with her son this morning when she felt flutter on the left side of the heart, patient used her pulse oximetry and heart rate was 160s, no shortness of breath, no chest pain, then heart rate start to arrange from 70-90 shortly after and patient came to the emergency department for further evaluation. Currently no CP, no SOB, no palpitation. Related Data Home Medications ?Medication ?Instructions ?Recorded ?Confirmed lisinopril 20 mg tablet 20 mg PO DAILY 02/20/23 08/07/24 albuterol sulfate 90 mcg/actuation 2 puff inhalation Q4H PRN 04/21/24 08/07/24 aerosol inhaler (Ventolin HFA) Shortness Of Breath Or Wheezing cholecalciferol (vitamin D3) 50 50 mcg PO DAILY 04/21/24 08/07/24 mcg (2,000 unit) capsule (Vitamin D3) omeprazole 20 mg capsule,delayed 20 mg PO DAILY@0630 04/21/24 08/07/24 release triamcinolone acetonide 0.1 % 1 appl topical BID PRN Rash 04/21/24 08/07/24 topical cream clonazepam 0.5 mg tablet 0.5 mg PO BID 05/13/24 08/07/24 nortriptyline 25 mg capsule 25 mg PO BEDTIME 08/07/24 08/07/24 Previous Rx's ?Medication ?Instructions ?Recorded albuterol sulfate 2.5 mg/3 mL 2.5 mg (3 mL) inhalation Q4-6H PRN 01/17/23 (0.083 %) solution for nebulization shortness of breath or wheezing #90 mL nebulizers (AeroEclipse II #1 ea 01/17/23 Nebulizer) nebulizers (AeroEclipse II #1 ea 02/08/23 Nebulizer) metoprolol succinate 25 mg 25 mg PO DAILY #90 tabs 11/11/24 tablet,extended release 24 hr apixaban 5 mg tablet (Eliquis) 5 mg PO BID #60 tabs 11/13/24 Allergies Allergy/AdvReac Type Severity Reaction Status Date / Time naproxen AdvReac Vomiting Verified 12/13/24 22:50 Review of Systems 2 Review of Systems: All other systems are reviewed and are negative Constitutional: Reports as per HPI and Reports no additional constitutional complaints Eyes: Reports as per HPI and Reports no additional eye complaints Reports system reviewed and no additional complaints, except as documented Cardiovascular: Reports as per HPI and Reports no additional cardiovascular complaints Respiratory: Reports as per HPI and Reports no additional respiratory complaints Gastrointestinal: Reports as per HPI and Reports no additional gastrointestinal complaints Genitourinary: Reports no additional female genitourinary complaints Musculoskeletal: Reports no additional musculoskeletal complaints Skin/Breast: Reports system reviewed and no additional complaints, except as docu Psychiatric: Reports no additional psychiatric complaints Endocrine: Reports no additional endocrine complaints Hematologic/Lymphatic: Reports no additional hematologic/lymphatic complaints Allergic/Immunologic: Reports no additional allergic/immunologic complaints Reports system reviewed and no additional complaints, except as documented and Reports Abnormal speech present [facility] Past Medical History Medical History PAF (paroxysmal atrial fibrillation) Asthma Social History Social History Household Members: Significant Other and Children Housing: Apartment Do you presently have visiting nurse or other home services: No Patient Tobacco Use Status: Current everyday Tobacco user Tobacco use type: Cigarette Cigarettes Per Day: 10 Years Smoked: 20 e-Cigarette/Vaping Use: Never Used Second Hand Smoke Exposure: No Substance Use Type: Marijuana Do you have a plan to hurt others: No Plan service: No Physical Exam 2 Vital Signs: Vital Signs: Last Vital Signs Temp 98.1 F 12/13/24 23:26 Pulse 73 12/13/24 23:26 Resp 15 12/13/24 23:26 BP 109/60 12/13/24 23:26 Pulse Ox 96 12/13/24 23:26 O2 Del Method Room Air 12/13/24 23:26 BMI result Body Mass Index 33.1 Vital signs have been reviewed and appear to be correct. Blood pressure elevated. Heart rate normal. Respiratory rate normal. Temperature normal. Oxygen saturation normal. Appearance: Alert. Oriented X3. No acute distress. Head: Normal external exam. Normocephalic. Atraumatic. No Pickard signs noted. No raccoon eyes noted Eyes: PERRLA. EOMI. Conjunctiva and sclera normal. Eyelids normal. ENT: TM's Normal. Pharynx normal. Uvula midline. Moist mucous membranes. No trismus noted. No drooling noted. No muffled voice noted. Neck: Normal inspection. Neck supple. FROM. No adenopathy. Thyroid Normal. No meningeal signs. No neck mass noted. CVS: Normal heart rate and rhythm. Heart sound normal. No murmurs noted. Pulses normal throughout. Respiratory: No respiratory distress. Painless inspiration. Breath sounds normal. No wheezes/rales/rhonchi noted. Chest nontender. No accessory muscle usage noted or decreased air movement noted. Abdomen: Soft and nontender. Bowel sounds normal in all 4 quadrants. No distention noted. No organomegaly noted. No visible injury noted. Back: No CVA tenderness. Full range of motion noted. Skin: Skin warm and dry. Normal skin color. Normal skin turgor. No rashes/lesions/lacerations noted. Extremities: No lower extremity edema. Extremities exhibit normal range of motion. Extremities nontender. Neuro: Oriented X 3. Cranial nerve exam: II-XII are grossly intact No motor deficit. No sensory deficit. Reflexes normal. Course Reevaluation(s) Reevaluation #1: History of paroxysmal atrial fibrillation, currently patient is and normal sinus rhythm, no shortness of breath, no SOB. Labs are unremarkable. Time: 23:45 Medical Decision Making Differential Diagnosis Differential Diagnoses: The differential diagnosis associated with the presentation includes ( Paroxysmal atrial fibrillation, palpitation, dysrhythmia, ACS, CHF.) Admission/Observation Consideration of admission/observation: Escalation of care including admission/observation considered Lab Data MDM Lab Attestation statement: I reviewed the patient's lab results. 12/13/24 23:10 12/13/24 23:10 Labs: Lab Results 12/13/24 Range/Units 23:10 WBC 8.2 (4.8-10.8) X10*3/uL RBC 4.24 (4.20-5.50) X10*6/uL Hgb 12.8 (12.0-16.0) g/dl Hct 37.5 (37.0-47.0) % MCV 88.4 (80.0-98.0) fL MCH 30.2 (27.0-33.0) pg MCHC 34.1 (31.0-35.0) g/dl RDW 13.2 (11.0-16.0) % Plt Count 247 (160-400) X10*3/uL MPV 10.4 (9.4-12.3) fL Immature Gran % (Auto) 0.1 (0.0-0.4) % Neut % (Auto) 52.4 (45-73) % Lymph % (Auto) 37.7 (20-40) % [place] % (Auto) 5.9 (2-11) % Eos % (Auto) 3.2 (0-4) % Baso % (Auto) 0.7 (0-2) % Lymph # (Auto) 3.1 (1.2-4.9) X10*3/uL [place] # (Auto) 0.5 (0.1-1.2) X10*3/uL Eos # (Auto) 0.3 (0.0-0.4) X10*3/uL Baso # (Auto) 0.1 (0.0-0.2) X10*3/uL Abs Immat Gran (auto) 0.01 (0.00-0.03) X10*3/uL Absolute Neuts (auto) 4.3 (2.0-8.3) x10*3/uL Absolute Nucleated RBC 0.000 (0.0-0.012) X10*3/uL Nucleated RBC % (auto) 0.0 (0.0-0.2) /100WBC PT 13.2 H (10.9-12.4) SEC INR 1.1 (0.9-1.1) Sodium 141 (135-145) mmol/L Potassium 3.9 (3.3-5.1) mmol/L Chloride 108 (96-108) mmol/L Carbon Dioxide 21 L (22-29) mmol/L Anion Gap 16 (12-20) BUN 12 (9-16) mg/dL Creatinine 0.78 (0.5-1.4) mg/dL Estim Creat Clear Calc 89.3 Estimated GFR > 60 Random Glucose 143 H (60-115) mg/dL Calcium 8.8 (8.4-10.2) mg/dL Magnesium 2.0 (1.6-2.6) mg/dL Total Bilirubin 0.2 (0.0-1.0) mg/dL AST 11 (5-31) U/L ALT 28 (0-31) U/L Alkaline Phosphatase 98 (39-117) U/L B-Natriuretic Peptide 17 (<100) pg/mL Total Protein 7.0 (6.5-8.0) g/dL Albumin 4.0 (3.5-5.0) g/dL Independent Interpretation I performed an independent interpretation of an: EKG ( normal sinus rhythm at 74 beats per minutes, normal intervals, no ST-T changes) Radiology Impression Discussion of test interpretation with radiology: I have reviewed the radiologist's reading. Discharge Plan Discharge Clinical Impression: Palpitations Patient Disposition: Home, Self-Care Instructions: Heart Palpitations (ED) Prescriptions: No Action metoprolol succinate 25 mg tablet extended release 24 hr 25 mg PO DAILY Qty: 90 3RF Eliquis 5 mg tablet 5 mg PO BID Qty: 60 5RF albuterol sulfate 2.5 mg /3 mL (0.083 %) solution for nebulization 2.5 mg inhalation Q4-6H PRN (Reason: shortness of breath or wheezing) Qty: 90 0RF (DME) nebulizers [A[place]ul[place] [facility] [place] .Route Qty: 1 0RF Rx Instructions: As directed (DME) nebulizers [AeroEclipse II Nebulizer[place] [facility] [place] .Route Qty: 1 0RF Rx Instructions: As directed triamcinolone acetonide 0.1 % cream 1 appl topical BID PRN (Reason: Rash) omeprazole 20 mg capsule,delayed release(DR/EC) 20 mg PO DAILY@0630 albuterol sulfate [Ventolin HFA] 90 mcg/actuation HFA aerosol inhaler 2 puff INHALATION Q4H PRN (Reason: Shortness Of Breath Or Wheezing) cholecalciferol (vitamin D3) [Vitamin D3] 50 mcg (2,000 unit) capsule 50 mcg PO DAILY clonazepam 0.5 mg tablet 0.5 mg PO BID lisinopril 20 mg tablet 20 mg PO DAILY nortriptyline 25 mg capsule 25 mg PO BEDTIME Referrals: Emily Lang MD [Primary Care Provider] - Ramos Ponce MD [Physician] - Print Language: Egyptian
[2024-12-13 23:40] LABS: Troponin-I High Sensitivity < 2.7 ng/L (<3.5-17.0)
[2024-12-14 00:11] VITALS: BP 109/60; PULSE 73; RESP 15; TEMP 36.7; O2SAT 96
== END 2024-12-14 00:11 | disposition home or self-care (01) ==
LOC: HO.ED 23:58
PROVIDERS: Emergency Provider Emergency Medicine; PCP General Practice
DX: R00.2 Palpitations (principal); I48.0 Paroxysmal atrial fibrillation; J45.909 Unspecified asthma, uncomplicated; F17.210 Nicotine dependence, cigarettes, uncomplicated; Z79.899 Other long term (current) drug therapy; Z79.01 Long term (current) use of anticoagulants
CPT/HCPCS: 36415; 80053; 83735; 83880; 84484; 85025; 85610; 93005; 99283; 99284

== ENCOUNTER → 2024-12-13 22:55 | Outpatient (BNV) | payer MEDICAID, SELFPAY | PROVIDERS: Emergency Provider Emergency Medicine; PCP General Practice; Visit Provider Internal Medicine | DX: I48.91 Unspecified atrial fibrillation (principal) | CPT/HCPCS: 93010 ==

== ENCOUNTER 2025-01-02 08:00 | Outpatient (AMB) | payer MEDICAID, SELFPAY ==
--- OUTSIDE RECORDS SUMMARY | 2025-01-02 08:03 | XMS_ITS | Encounter Summary ---
Author Organization [employer] Address [address] [place] [address] Care Team Providers Care Photograph Enlarger Name Role Phone Emily Lang MD Primary Care Provider [phone] Reason for Referral * Consultation (Routine) - Authorized Specialty Diagnoses / Procedures Referred By Contac t Referred To Contact Pharmacy Diagnoses Tobacco dependence Emily Lang MD [address] [place] [address] Phone: tel: fax: Referral ID Status Reason Start Date Expiration Date Visits Requested Visits Authorized [id number] Authorized Consult and Treat 06/16/2024 06/16/2025 6 6 Encounter Details Date Type Department Care Team ([facility] st Contact Info) Description 06/16/2024 Orders Only [facility] [address] [place] [address] [phone] Emily Lang MD [address] [place] [address] [phone] Tobacco dependence (Primary Dx) Social History Tobacco Use Types Packs/Day Years Used Date Smoking Tobacco: Every Day Cigarettes Smokeless Tobacco: Never Alcohol Use Standard Drinks/Week Comments Never 0 (1 standard drink = 0.6 oz pur e alcohol) Depression Answer Date Recorded Patient Health Questionnaire-9 Score 17 04/30/2024 Patient Health Questionnaire-9 Score 17 04/30/2024 Last PHQ-9: Questionnaire Data Not on file 0 04/30/2024 Housing Stability Answer Date Recorded What is your housing situation today? I have margo freed 06/06/[address] you li ve. Do you have problems with any of the following? None of the above 06/06/2023 Food Insecurity Answer Date Recorded Within the past 12 months, y ou worried that your food would run out before you got money to buy more: Never True 06/06/2023 Within the past 12 months,th e food you bought just didn't last and you didn't have enough money to get more: Never True Transportation Answer Date Recorded In the past 12 months, has l ack of transportation kept you from medical appts, meetings, work or from getting things needed for daily living? Yes, it has kept me from medical appointments or getting medications. 12/24/2023 Utilities Answer Date Recorded In the past 12 months, has t he electric, gas, oil or water company threatened to shut off services in your home? No 06/06/2023 Depression Answer Date Recorded Patient Health Questionnaire-2 Score 6 04/30/2024 Comments Unknown Sex and Gender Information Value Date Recorded Sex Assigned at Female 03/19/2023 8:39 AM EDT Legal Sex Female 8:35 AM EDT Gender Identity Female 03/19/2023 8:39 AM EDT Sexual Orientation Lesbian 12/24/2023 8: 16 AM EDT documented as of this encounter Plan of Treatment Upcoming Encounters Date Type Department Care Team (Late st Contact Info) Description 02/02/2025 9:00 AM EDT Clinical Support [facility] [address] [place] [address] Bia Hopper RN Scheduled Referrals Name Type Priority Associated Diagnoses Orde r Schedule Referral to Pharmacy CDTM Outpatient Referral Routine Tobacco dependence Ordered: 06/16/2024 documented as of this encounter Visit Diagnoses Diagnosis Tobacco dependence- Primary Tobacco use disorder documented in this encounter Additional Health Concerns Assessment Noted Time PHQ-9 Depression Total Score: 17 024 9:55 AM EDT documented as of this encounter Care Teams Photograph Enlarger Relationship Specialty Start Date End Date Emily Lang MD [address] [place] [phone] PCP - General Family Medicine 03/23/23 documented as of this encounter
[2025-01-02 08:20] VITALS: BP 114/62; PULSE 75; BMI 33.2
--- NOTE | 2025-01-02 08:20 | MHC.OFFVIS ---
Vital Signs 01/02/25 08:20 Height 5 ft 4 in Weight 193 lb 9.054 oz BMI 33.2 BP 114/62 Blood Pressure Location Lt brachial Position Sitting Pulse 75 Pulse Source Pulse Oximeter Intake Visit Reasons: [facility] [place] Follow up- Nose Bleed Transportation Superintendent Required: No Ophthalmologist Retina Specialist: Ophthalmologist Retina Specialist Present Allergies naproxen Adverse Reaction (Verified 01/02/25 08:22) Vomiting Medication List - Last Reconciled 01/02/25 by KT Guthrie acetaminophen 500 - 1,000 mg PO Q6H PRN albuterol sulfate 90 mcg/actuation (Ventolin HFA) 2 puffs inhalation Q4H PRN albuterol sulfate 2.5 mg (3 mL) inhalation Q4-6H PRN apixaban (Eliquis) 5 mg PO BID cholecalciferol (vitamin D3) (Vitamin D3) 50 mcg PO DAILY clonazepam 0.5 mg PO BID lisinopril 20 mg PO DAILY metoprolol succinate ER 25 mg PO DAILY nebulizers (AeroEclipse II Nebulizer) As directed nebulizers (AeroEclipse II Nebulizer) As directed nortriptyline 25 mg PO BEDTIME omeprazole 20 mg PO DAILY@0630 triamcinolone acetonide 0.1% 1 appl topical BID PRN HPI HPI [facility] [place]- Follow up- Nose Bleed: Details: Socorro is a 54-year-old female with past medical history of hypertension, asthma who was admitted to [facility] 04/2024 with symptoms of left-sided weakness, headache, dizziness and blurred vision. CTA of the head and MRI of the brain showed no acute infarct or hemorrhage. She was evaluated by Neurology and thought to have migraine equivalent symptoms. EKG did show evidence of atrial fibrillation and she was started on metoprolol for heart rate control. An echocardiogram showed normal EF. On cardiology follow up she was started on Eliquis for anticoagulation for CHADSVASC 2. Today she reports that she has had 2 nosebleeds recently. The longest lasted for about 20 minutes before fully resolving. She has noticed only brief heart palpitations. No sustained rapid or irregular rates. No chest discomfort at rest or with activity. She does have some shortness of breath with exertion which is unchanged. No shortness of breath at rest, PND, orthopnea or edema. No presyncope, syncope, falls. Remains active each day. Underwent parotid mass removal without any complications. Mother is present. [facility] Medical History PAF (paroxysmal atrial fibrillation) Asthma Social History Household Members: Significant Other and Children Housing: Apartment Do you presently have visiting nurse or other home services: No Patient Tobacco Use Status: Current everyday Tobacco user Tobacco use type: Cigarette Cigarettes Per Day: 10 Years Smoked: 20 e-Cigarette/Vaping Use: Never Used Second Hand Smoke Exposure: No Substance Use Type: Marijuana service: No Review of Systems Const All systems reviewed & are unremarkable except as noted in HPI and below ENT Details: nose bleeds X2 Denies dizziness Card Denies chest pain, Denies chest pain at rest, Denies chest pain with activity, Denies rapid heart rate, Denies pedal edema, Denies edema, Denies leg edema, Denies lightheadedness, Denies palpitations, Denies dyspnea, Denies dyspnea on exertion and Denies orthopnea Resp Denies cough, Denies dyspnea and Denies dyspnea on exertion GI Denies hematochezia and Denies change in stool character Musc Denies abnormal gait, Denies limited range of motion, Denies muscle cramps, Denies muscle weakness, Denies numbness, Denies radiating pain into limb, Denies stiffness and Denies tingling Neuro Denies abnormal gait, Denies dizziness, Denies numbness and Denies tingling Endo Denies palpitations Physical Exam Vital Signs: Last Vital Signs Pulse 75 01/02/25 08:20 BP 114/62 01/02/25 08:20 BMI result Body Mass Index 33.2 Const General: cooperative, healthy appearing, comfortable and no acute distress Orientation/consciousness: patient oriented x3 Neck Neck: Yes normal visual inspection and Yes no JVD Resp Effort & Inspection: normal respiratory effort Auscultation: clear to auscultation bilaterally, no rales, no rhonchi and no wheezes Cardio Jugular venous distension: no JVD Rate: regular rate Rhythm: regular rhythm Heart sounds: S1 normal heart sound present, S2 normal heart sound present, no murmurs and no rubs Neuro General: patient oriented x3 Extrem General: Yes normal to inspection, No no pedal edema and No calf tenderness Psych Appearance: grossly normal Mental Status: mental status grossly normal Speech and movement: Normal speech and movement present Assessment & Plan Assessment & Plan (1) PAF (paroxysmal atrial fibrillation): Code(s): I48.0 - Paroxysmal atrial fibrillation Category: Medical Plan: Newer paroxysmal atrial fibrillation that is treated with rate control using metoprolol. She is on Eliquis for anticoagulation. Recent epistaxis, last episode 5 days ago. Instructed to notify her ENT provider and obtain an exam to see causes for epistaxis. Continue Eliquis as ordered unless bleeding requires ER evaluation then may need to hold. Echocardiogram done 04/22/2024 showed EF 60-65%, [id number] aortic regurgitation. Pharmacological nuclear stress test done 07/15/2024 shows normal myocardial perfusion imaging. Holter monitor done 07/15/2024 shows sinus rhythm with average heart rate 64, heart rate range 49 to 87, no atrial fibrillation, brief atrial tachycardia, longest 25 beats, heart rate less than 60, 22.67% of time. No med changes at this time. Cardiology follow-up 6 months, sooner if needed. (2) Left-sided weakness: Code(s): R53.1 - Weakness Category: Medical Plan: As above - thought to be migraine equivalent, no CVA. (3) Epistaxis: Code(s): R04.0 - Epistaxis Category: Medical Plan: As above, no bleeding at present. Plan Time spent on chart review, documentation, interview and assessment I explained the mechanism by which Eliquis contributes to prolonged bleeding, emphasizing its necessity for stroke prevention. The importance of addressing the underlying cause of epistaxis, such as using nasal saline sprays and consulting an ENT specialist, was noted. Continuous use of Eliquis was advised, unless severe uncontrollable bleeding occurs. I advised against drastic changes in existing medication without further consultation. For exertional dyspnea, I encouraged gradual physical exercise, discussing low-impact activities like swimming. I clarified that air travel poses no risk with her cardiac profile. Patient Instructions: - Continue taking Eliquis as prescribed. - Use saline nasal spray daily. - Follow up with ENT for nosebleeds. - Gradually increase physical activity. - Contact healthcare provider if nosebleeds last longer than usual. - No restrictions on air travel due to atrial fibrillation. - Return for evaluation in six months. Patient was informed and verbally consented to the use of an ambient scribe for clinic note documentation during this visit. Coding Level of Care Code Est Pt Level 4 (70427) Complex EM visit Add On G2211 Diagnoses PAF (paroxysmal atrial fibrillation) I48.0 Left-sided weakness R53.1 Epistaxis R04.0 Time Spent (min) 30
== END 2025-01-02 08:57 | disposition home or self-care (01) ==
LOC: HO.HCS 08:01
PROVIDERS: PCP General Practice; Visit Provider Nurse Practitioner Family
DX: I48.0 Paroxysmal atrial fibrillation (principal); R53.1 Weakness; R04.0 Epistaxis
CPT/HCPCS: 99214

== ENCOUNTER → 2025-01-02 08:00 | Outpatient (BNVA) | payer MEDICAID, SELFPAY | PROVIDERS: PCP General Practice; Visit Provider Nurse Practitioner Family | DX: I48.0 Paroxysmal atrial fibrillation (principal); R04.0 Epistaxis; R53.1 Weakness | CPT/HCPCS: 99212 ==

== ENCOUNTER 2025-01-29 10:38 | Emergency (ER) | payer MEDICAID, SELFPAY ==
--- NOTE | ~2025-01-29 | XR_ITS ---
EXAMINATION: XR CHEST CLINICAL INFORMATION: cp COMPARISON: 08/27/2024. TECHNIQUE: Frontal view of the chest was obtained. FINDINGS: The cardiac, hilar, and mediastinal contours are normal. The lungs are clear bilaterally. No pneumothorax or effusion. No focal osseous or soft tissue abnormality. XR/XR chest 1V IMPRESSION: No active pulmonary disease. Electronically signed by: Iker Riddle MD 01/29/2025 11:03 AM EDT
--- NOTE | 2025-01-29 10:41 | ECG_ITS ---
Test Reason : CHEST PAIN Blood Pressure : */* mmHG Vent. Rate : 65 BPM Atrial Rate : 65 BPM P-R Int : 140 ms QRS Dur : 96 ms QT Int : 424 ms P-R-T Axes : 59 63 34 degrees QTcB Int : 440 ms Normal sinus rhythm Normal ECG When compared with ECG of 13-Dec-2024 23:01, No significant change was found Referred By: Generic ED Physician Electronically Signed By: Ramos Ponce
[2025-01-29 10:42] VITALS: BP 115/75; PULSE 80
[2025-01-29 10:45] VITALS: BP 141/64; PULSE 65; RESP 10; TEMP 36.5; O2SAT 96; BMI 32.8
[2025-01-29 11:12] LABS: MANUAL DIFF FLAG NO
[2025-01-29 11:13] LABS: Basophils Absolute Auto 0.1 X10*3/uL (0.0-0.2); Basophils Percent Auto 1.2 % (0-2); Eosinophils Absolute Auto 0.2 X10*3/uL (0.0-0.4); Eosinophils Percent Auto 3.3 % (0-4); Hematocrit 39.1 % (37.0-47.0); Hemoglobin 13.1 g/dl (12.0-16.0); Imm Gran Abs Auto 0.02 X10*3/uL (0.00-0.03); Imm Gran Pct Auto 0.3 % (0.0-0.4); Lymphocytes Absolute Auto 2.4 X10*3/uL (1.2-4.9); Lymphocytes Percent Auto 35.8 % (20-40); Mean Corpuscular HGB Conc 33.5 g/dl (31.0-35.0); Mean Corpuscular Hemoglobin 29.8 pg (27.0-33.0); Mean Corpuscular Volume 89.1 fL (80.0-98.0); Mean Platelet Volume 10.1 fL (9.4-12.3); Monocytes Absolute Auto 0.5 X10*3/uL (0.1-1.2); Monocytes Percent Auto 7.3 % (2-11); Neutrophils Absolute Auto 3.5 x10*3/uL (2.0-8.3); Neutrophils Percent Auto 52.1 % (45-73); Platelet Count 236 X10*3/uL (160-400); Red Blood Count 4.39 X10*6/uL (4.20-5.50); Red Cell Distribution Width 13.1 % (11.0-16.0); White Blood Count 6.7 X10*3/uL (4.8-10.8)
--- NOTE | 2025-01-29 11:21 | ED.CHESTPAIN ---
HPI - Chest Pain General Chief Complaint: Chest Pain Stated Complaint: CHEST DISCOMFORT Time Seen by Provider: 01/29/25 11:08 Source: patient Mode of arrival: ambulatory Limitations: no limitations History of Present Illness ED Provider: DR. Weber HPI narrative: 54-year-old female history of anxiety, asthma, paroxysmal AFib on apixaban and metoprolol came in for evaluation of feeling palpitation started this morning. Patient woke up at 06:00 with feeling chest palpitation and chest pounding localized to the left side of the chest with no radiation, lasted for about 5 minutes then patient went back to sleep pain return in 2 hours as left-sided chest palpitation and bounding with no radiation, patient became anxious and hyperventilating when she had chest pain that lasted for about 10 minutes, no clear aggravating or relieving factor. Patient currently has no symptoms or complaints, no recent travel, no recent prolonged immobilization, no lower extremity swelling or tenderness, no shortness of breath. Related Data Home Medications ?Medication ?Instructions ?Recorded ?Confirmed lisinopril 20 mg tablet 20 mg PO DAILY 02/20/23 01/02/25 albuterol sulfate 90 mcg/actuation 2 puff inhalation Q4H PRN 04/21/24 01/02/25 aerosol inhaler (Ventolin HFA) Shortness Of Breath Or Wheezing cholecalciferol (vitamin D3) 50 50 mcg PO DAILY 04/21/24 01/02/25 mcg (2,000 unit) capsule (Vitamin D3) omeprazole 20 mg capsule,delayed 20 mg PO DAILY@0630 04/21/24 01/02/25 release triamcinolone acetonide 0.1 % 1 appl topical BID PRN Rash 04/21/24 01/02/25 topical cream clonazepam 0.5 mg tablet 0.5 mg PO BID 05/13/24 01/02/25 nortriptyline 25 mg capsule 25 mg PO BEDTIME 08/07/24 01/02/25 acetaminophen 500 mg tablet 500 - 1,000 mg PO Q6H PRN pain 01/02/25 01/02/25 Previous Rx's ?Medication ?Instructions ?Recorded albuterol sulfate 2.5 mg/3 mL 2.5 mg (3 mL) inhalation Q4-6H PRN 01/17/23 (0.083 %) solution for nebulization shortness of breath or wheezing #90 mL nebulizers (AeroEclipse II #1 ea 01/17/23 Nebulizer) nebulizers (AeroEclipse II #1 ea 02/08/23 Nebulizer) metoprolol succinate 25 mg 25 mg PO DAILY #90 tabs 11/11/24 tablet,extended release 24 hr apixaban 5 mg tablet (Eliquis) 5 mg PO BID #60 tabs 11/13/24 Allergies Allergy/AdvReac Type Severity Reaction Status Date / Time naproxen AdvReac Vomiting Verified 01/29/25 10:46 Review of Systems Review of Systems: All other systems are reviewed and are negative Constitutional: Reports as per HPI and Reports no additional constitutional complaints Eyes: Reports as per HPI and Reports no additional eye complaints Reports system reviewed and no additional complaints, except as documented Cardiovascular: Reports as per HPI and Reports no additional cardiovascular complaints Respiratory: Reports as per HPI and Reports no additional respiratory complaints Gastrointestinal: Reports as per HPI and Reports no additional gastrointestinal complaints Genitourinary: Reports no additional female genitourinary complaints Musculoskeletal: Reports no additional musculoskeletal complaints Skin/Breast: Reports system reviewed and no additional complaints, except as docu Psychiatric: Reports no additional psychiatric complaints Endocrine: Reports no additional endocrine complaints Hematologic/Lymphatic: Reports no additional hematologic/lymphatic complaints Allergic/Immunologic: Reports no additional allergic/immunologic complaints Reports system reviewed and no additional complaints, except as documented and Reports Abnormal speech present [facility] Past Medical History Medical History PAF (paroxysmal atrial fibrillation) Asthma Social History Social History Household Members: Significant Other and Children Housing: Apartment Do you presently have visiting nurse or other home services: No Patient Tobacco Use Status: Current everyday Tobacco user Tobacco use type: Cigarette Cigarettes Per Day: 10 Years Smoked: 20 Smoked in Last 30 Days: Yes e-Cigarette/Vaping Use: Never Used Second Hand Smoke Exposure: No Use of substances other than those prescribed or required for medical reasons: No Substance Use Type: Marijuana Advance Directives: No Advance Directives Information Provided: No Patient : No service: No Physical Exam Vital Signs: Vital Signs: Last Vital Signs Temp 97.7 F 01/29/25 10:45 Pulse 58 01/29/25 12:35 Resp 12 01/29/25 12:35 BP 130/68 01/29/25 12:35 Pulse Ox 97 01/29/25 12:35 O2 Del Method Room Air 01/29/25 12:35 BMI result Body Mass Index 32.8 Vital signs have been reviewed and appear to be correct. Blood pressure elevated. Heart rate normal. Respiratory rate normal. Temperature normal. Oxygen saturation normal. Appearance: Alert. Oriented X3. No acute distress. Head: Normal external exam. Normocephalic. Atraumatic. No Pickard signs noted. No raccoon eyes noted Eyes: PERRLA. EOMI. Conjunctiva and sclera normal. Eyelids normal. ENT: TM's Normal. Pharynx normal. Uvula midline. Moist mucous membranes. No trismus noted. No drooling noted. No muffled voice noted. Neck: Normal inspection. Neck supple. FROM. No adenopathy. Thyroid Normal. No meningeal signs. No neck mass noted. CVS: Normal heart rate and rhythm. Heart sound normal. No murmurs noted. Pulses normal throughout. Respiratory: No respiratory distress. Painless inspiration. Breath sounds normal. No wheezes/rales/rhonchi noted. Chest nontender. No accessory muscle usage noted or decreased air movement noted. Abdomen: Soft and nontender. Bowel sounds normal in all 4 quadrants. No distention noted. No organomegaly noted. No visible injury noted. Back: No CVA tenderness. Full range of motion noted. Skin: Skin warm and dry. Normal skin color. Normal skin turgor. No rashes/lesions/lacerations noted. Extremities: No lower extremity edema. Extremities exhibit normal range of motion. Extremities nontender. Neuro: Oriented X 3. Cranial nerve exam: II-XII are grossly intact No motor deficit. No sensory deficit. Reflexes normal. Course Reevaluation(s) Reevaluation #1: Chest pain-free now, EKG/high sensitivity troponin negative for ACS. No risk for DVT/pulmonary embolism, chest pain triggered patient's anxiety. Time: 14:04 Medical Decision Making Differential Diagnosis Differential Diagnoses: The differential diagnosis associated with the presentation includes (ACS, pulmonary embolism, pneumonia, pneumothorax, pleural effusion, electrolyte derangement, severe anemia.) Admission/Observation Consideration of admission/observation: Escalation of care including admission/observation considered Lab Data MDM Lab Attestation statement: I reviewed the patient's lab results. 01/29/25 11:07 01/29/25 11:07 Labs: Lab Results 01/29/25 01/29/25 Range/Units 11:07 13:07 WBC 6.7 (4.8-10.8) X10*3/uL RBC 4.39 (4.20-5.50) X10*6/uL Hgb 13.1 (12.0-16.0) g/dl Hct 39.1 (37.0-47.0) % MCV 89.1 (80.0-98.0) fL MCH 29.8 (27.0-33.0) pg MCHC 33.5 (31.0-35.0) g/dl RDW 13.1 (11.0-16.0) % Plt Count 236 (160-400) X10*3/uL MPV 10.1 (9.4-12.3) fL Immature Gran % (Auto) 0.3 (0.0-0.4) % Neut % (Auto) 52.1 (45-73) % Lymph % (Auto) 35.8 (20-40) % [place] % (Auto) 7.3 (2-11) % Eos % (Auto) 3.3 (0-4) % Baso % (Auto) 1.2 (0-2) % Lymph # (Auto) 2.4 (1.2-4.9) X10*3/uL [place] # (Auto) 0.5 (0.1-1.2) X10*3/uL Eos # (Auto) 0.2 (0.0-0.4) X10*3/uL Baso # (Auto) 0.1 (0.0-0.2) X10*3/uL Abs Immat Gran (auto) 0.02 (0.00-0.03) X10*3/uL Absolute Neuts (auto) 3.5 (2.0-8.3) x10*3/uL Absolute Nucleated RBC 0.000 (0.0-0.012) X10*3/uL Nucleated RBC % (auto) 0.0 (0.0-0.2) /100WBC Sodium 137 (135-145) mmol/L Potassium 4.0 (3.3-5.1) mmol/L Chloride 107 (96-108) mmol/L Carbon Dioxide 24 (22-29) mmol/L Anion Gap 10 L (12-20) BUN 17 H (9-16) mg/dL Creatinine 0.65 (0.5-1.4) mg/dL Estim Creat Clear Calc 106.7 Estimated GFR > 60 Random Glucose 101 (60-115) mg/dL Calcium 9.6 D (8.4-10.2) mg/dL Total Bilirubin 0.3 (0.0-1.0) mg/dL AST 18 (5-31) U/L ALT 17 (0-31) U/L Alkaline Phosphatase 80 (39-117) U/L Troponin I High Sens < 2.7 < 2.7 (<3.5-17.0) ng/L Total Protein 6.9 (6.5-8.0) g/dL Albumin 4.0 (3.5-5.0) g/dL Independent Interpretation I performed an independent interpretation of an: EKG (Normal sinus rhythm at 65 beats per minutes, normal intervals, no ST-T changes, no change from prior EKG.) and Plain X-Ray (Chest: No acute intrathoracic pathology.) Radiology Impression Discussion of test interpretation with radiology: I have reviewed the radiologist's reading. Discharge Plan Discharge Clinical Impression: Atypical chest pain Patient Disposition: Home, Self-Care Instructions: Chest Pain (ED) Prescriptions: No Action metoprolol succinate 25 mg tablet extended release 24 hr 25 mg PO DAILY Qty: 90 3RF Eliquis 5 mg tablet 5 mg PO BID Qty: 60 5RF albuterol sulfate 2.5 mg /3 mL (0.083 %) solution for nebulization 2.5 mg inhalation Q4-6H PRN (Reason: shortness of breath or wheezing) Qty: 90 0RF (DME) nebulizers [AeroEclipse II Nebulizer] Misc See Rx Instructions .Route Qty: 1 0RF Rx Instructions: As directed (DME) nebulizers [AeroEclipse II Nebulizer] Misc See Rx Instructions .Route Qty: 1 0RF Rx Instructions: As directed triamcinolone acetonide 0.1 % cream 1 appl topical BID PRN (Reason: Rash) omeprazole 20 mg capsule,delayed release(DR/EC) 20 mg PO DAILY@0630 albuterol sulfate [Ventolin HFA] 90 mcg/actuation HFA aerosol inhaler 2 puff INHALATION Q4H PRN (Reason: Shortness Of Breath Or Wheezing) cholecalciferol (vitamin D3) [Vitamin D3] 50 mcg (2,000 unit) capsule 50 mcg PO DAILY clonazepam 0.5 mg tablet 0.5 mg PO BID lisinopril 20 mg tablet 20 mg PO DAILY acetaminophen 500 mg tablet 500 - 1,000 mg PO Q6H PRN (Reason: pain) nortriptyline 25 mg capsule 25 mg PO BEDTIME Referrals: Emily Lang MD [Primary Care Provider, Internal Medicine] Print Language: Sinhala
[2025-01-29 11:27] LABS: Alanine Aminotransferase 17 U/L (0-31); Alkaline Phosphatase 80 U/L (39-117); Anion Gap 10 (12-20); Aspartate Amino Transferase 18 U/L (5-31); Bilirubin Total 0.3 mg/dL (0.0-1.0); Blood Urea Nitrogen 17 mg/dL (9-16); Calcium 9.6 mg/dL (8.4-10.2); Carbon Dioxide 24 mmol/L (22-29); Chloride 107 mmol/L (96-108); Creatinine Clr Calc Pharmacy 106.7; Estimated Glomerular Filt Rate > 60; Glucose Random 101 mg/dL (60-115); Sodium 137 mmol/L (135-145); Total Protein 6.9 g/dL (6.5-8.0)
[2025-01-29 11:32] LABS: Troponin-I High Sensitivity < 2.7 ng/L (<3.5-17.0)
[2025-01-29 12:35] VITALS: BP 130/68; PULSE 58; RESP 12; O2SAT 97
--- OUTSIDE RECORDS SUMMARY | 2025-01-29 12:44 | XMS_ITS | Encounter Summary ---
Author Organization [employer] Address [address] [facility] [address] [place] [address] Care Team Providers Care Solid Glass Rod Dowel Machine Operator Name Role Phone Emily Lang MD Primary Care Provider [phone] Reason for Referral * Consultation (Routine) - Authorized Specialty Diagnoses / Procedures Referred By Contac t Referred To Contact Pharmacy Diagnoses Tobacco dependence Emily Lang MD [address] [place] [address] Phone: tel: fax: Referral ID Status Reason Start Date Expiration Date Visits Requested Visits Authorized [id number] Authorized Consult and Treat 06/16/2024 06/16/2025 6 6 Encounter Details Date Type Department Care Team (Late st Contact Info) Description 06/16/2024 Orders Only [facility] [address] [place] [address] [phone] Emily Lang MD [address] [place] [address] [phone] Tobacco dependence (Primary Dx) Social History Tobacco [...] Description 02/02/2025 9:00 AM EDT Clinical Support [facility] [address] [place] [address] Bia Hopper RN Scheduled Referrals Name Type [...] documented as of this encounter Care Teams Solid Glass Rod Dowel Machine Operator Relationship Specialty Start Date End Date Emily Lang MD [address] [place] [id number] PCP - General Family Medicine 03/23/23 documented as of this encounter
[2025-01-29 13:49] LABS: Troponin-I High Sensitivity < 2.7 ng/L (<3.5-17.0)
[2025-01-29 14:16] VITALS: BP 139/70; PULSE 65; RESP 15; TEMP -17.7; TEMP 0; O2SAT 97
== END 2025-01-29 14:25 | disposition home or self-care (01) ==
PROVIDERS: Emergency Provider Emergency Medicine; PCP General Practice
DX: R07.89 Other chest pain (principal); I48.0 Paroxysmal atrial fibrillation; Z79.01 Long term (current) use of anticoagulants; Z79.899 Other long term (current) drug therapy
CPT/HCPCS: 36415; 71045; 80053; 84484; 85025; 93005; 99283; 99285

== ENCOUNTER → 2025-01-29 10:41 | Outpatient (BNV) | payer MEDICAID, SELFPAY | PROVIDERS: Emergency Provider Emergency Medicine; PCP General Practice; Visit Provider Internal Medicine Cardiovascular Disease | DX: R07.9 Chest pain, unspecified (principal) | CPT/HCPCS: 93010 ==

== ENCOUNTER → 2025-01-29 10:51 | Outpatient (BNV) | payer MEDICAID, SELFPAY | PROVIDERS: Emergency Provider Emergency Medicine; PCP General Practice; Visit Provider Radiology Diagnostic Radiology | DX: R52 Pain, unspecified (principal) | CPT/HCPCS: 71045 ==

== ENCOUNTER 2025-02-02 12:44 | Outpatient (REF) | payer MEDICAID, SELFPAY ==
--- OUTSIDE RECORDS SUMMARY | 2025-02-02 14:05 | XMS_ITS | Encounter Summary ---
Author Organization [employer] Address [address] [facility] [address] [place] [address] Care Team Providers Care Store Sales Manager Name Role Phone Emily Lang MD Primary Care Provider [phone] Reason for Referral * Consultation (Routine) - Authorized Specialty Diagnoses / Procedures Referred By Contac t Referred To Contact Pharmacy Diagnoses Tobacco dependence Emily Lang MD [address] [place] [address] Phone: tel: fax: Referral ID Status Reason Start Date Expiration Date Visits Requested Visits Authorized [id number] Authorized Consult and Treat 06/16/2024 06/16/2025 6 6 Encounter Details Date Type Department Care Team (Late st Contact Info) Description 06/16/[address] Orders [address] [facility] [address] [place] [address] [phone] Emily Lang MD [address] [place] [address] [phone] Tobacco dependence (Primary Dx) Social History Tobacco [...] Care Team (Late st Contact Info) Description 05/06/2025 9:00 AM EDT Clinical Support [facility] [address] [place] [address] Bia Hopper, IRASEMA Scheduled Referrals Name Type Priority Associated Diagnoses Orde r Schedule Referral to Pharmacy CDTM Outpatient Referral Routine Tobacco dependence Ordered: 06/16/2024 documented as of this encounter Visit Diagnoses Diagnosis Tobacco dependence- Primary Tobacco use disorder documented in this encounter Additional Health Concerns Assessment Noted Time PHQ-9 Depression Total Score: 17 024 9:55 AM EDT documented as of this encounter Care Teams Store Sales Manager Relationship Specialty Start Date End Date Emily Lang MD [address] [place] [phone] PCP - General Family Medicine 03/23/23 documented as of this encounter
[2025-02-05 11:29] LABS: Nordiazepam, GCMS Urine NEGATIVE; Oxazepam, GCMS Urine NEGATIVE
[2025-02-05 11:30] LABS: Lorazepam GCMS Urine NEGATIVE
[2025-02-05 11:31] LABS: Temazepam, GCMS Urine NEGATIVE
[2025-02-05 11:33] LABS: Aminoclonazepam, GCMS Urine 529
[2025-02-05 11:35] LABS: Alphahydroxymidazolam,GCMS Ur NEGATIVE; Alprazolam, GCMS Urine NEGATIVE
[2025-02-05 11:36] LABS: Alphahydroxytriazolam, GCMS Ur NEGATIVE; Flurazepam Metabolite,GCMS Ur NEGATIVE
== END 2025-02-02 12:45 | disposition home or self-care (01) ==
LOC: HO.HHCLNP 12:44
PROVIDERS: Visit Provider General Practice
DX: Z79.899 Other long term (current) drug therapy (principal)
CPT/HCPCS: 80346

== ENCOUNTER 2025-02-11 16:39 | Emergency (ER) | payer MEDICAID, SELFPAY ==
--- NOTE | 2025-02-11 16:50 | ECG_ITS ---
Test Reason : AFIB Blood Pressure : */* mmHG Vent. Rate : 135 BPM Atrial Rate : * BPM P-R Int : * ms QRS Dur : 92 ms QT Int : 306 ms P-R-T Axes : * 67 -66 degrees QTcB Int : 459 ms Atrial fibrillation with rapid ventricular response ST & T wave abnormality, consider inferolateral ischemia Abnormal ECG When compared with ECG of 29-Jan-2025 10:42, Atrial fibrillation has replaced Sinus rhythm Vent. rate has increased by [address] now depressed in Inferior leads ST now depressed in Anterolateral leads T wave inversion now evident in Inferior leads T wave inversion now evident in Anterolateral leads Referred By: Alisson Mix Electronically Signed By: HIMANSHU ZIMMERMAN MD
--- NOTE | 2025-02-11 16:55 | ED_ITS ---
HPI - Arrhythmia/Palpitations General Chief Complaint: Arrhythmia/Palpitations Stated Complaint: PER EMS PALPITATIONS, AFIB, HTN Time Seen by Provider: 02/11/25 16:55 Source: patient Mode of arrival: EMS Limitations: no limitations History of Present Illness ED Provider: HPI narrative: Patient's history of paroxysmal AFib last episode was 05/06 when she had left- sided weakness on Eliquis and metoprolol just 30 minutes prior to arrival patient noticed palpitation patient took extra metoprolol when EMS arrived patient's heart rate was 170 EMS gave her 69 cc of normal saline and 5 mg of IVP metoprolol and heart rate brought to 140 still AFib. Patient does smoke marijuana, no cocaine use Related Data Home Medications ?Medication ?Instructions ?Recorded ?Confirmed lisinopril 20 mg tablet 20 mg PO DAILY 02/20/2312/12 albuterol sulfate 90 mcg/actuation 2 puff inhalation Q 4H PRN 04/21/24 01/02/25 aerosol inhaler (Ventolin HFA) Shortness Of Breath Or Wheezing cholecalciferol (vitamin D3) 50 50 mcg PO DAILY 01/02/25 mcg (2,000 unit) capsule (Vitamin D3) omeprazole 20 mg capsule,delayed 20 mg PO DAILY@0630 0 04/21/24 01/02/25 release triamcinolone acetonide 0.1 % 1 appl topical BID PRN R wolfgang 04/21/24 01/02/25 topical cream clonazepam 0.5 mg tablet 0.5 mg PO BID 05/13/2401/02 nortriptyline 25 mg capsule 25 mg PO BEDTIME 08/07/24 01/02/25 acetaminophen 500 mg tablet 500 - 1,000 mg PO Q6H PRN pain 01/02/25 01/02/25 Previous Rx's ?Medication ?Instructions ?Recorded albuterol sulfate 2.5 mg/3 mL 2.5 mg (3 mL) inhalation Q4-6H PRN 01/17/23 (0.083 %) solution for nebulization shortness of breat h or wheezing #90 mL nebulizers (AeroEclipse II #1 ea 01/17/23 Nebulizer) nebulizers (AeroEclipse II #1 ea 02/08/23 Nebulizer) metoprolol succinate 25 mg 25 mg PO DAILY #90 tabs 09/06 tablet,extended release 24 hr apixaban 5 mg tablet (Eliquis) 5 mg PO BID #60 tabs Allergies Allergy/AdvReac Type Severity Reaction Status Date / Time naproxen AdvReac Vomiting Verified 02/11/25 17:13 Review of Systems 2 Review of Systems: Yes all other systems are reviewed and are negative [facility] Past Medical History Medical History PAF (paroxysmal atrial fibrillation) Asthma Social History Social History Household Members: Significant Other and Children Housing: Apartment Do you presently have visiting nurse or other home services: No Patient Tobacco Use Status: Current everyday Tobacco user Tobacco use type: Cigarette Cigarettes Per Day: 10 Years Smoked: 20 Smoked in Last 30 Days: Yes e-Cigarette/Vaping Use: Never Used Second Hand Smoke Exposure: No Use of substances other than those prescribed or required for medical reasons: Yes Substance Use Type: Marijuana Substance Use Frequency: Occasionally Last Used Substance: Unknown Any prior treatment program specific to substance use: No Advance Directives: No Advance Directives Information Provided: No Do you have a plan to hurt others: No Plan Patient : No service: No Physical Exam 2 Vital Signs: Vital Signs: Last Vital Signs Temp 98.0 F 02/11/25 22:15 Pulse 73 02/11/25 22:15 Resp 18 02/11/25 22:15 BP 152/62 H 02/11/25 22:15 Pulse Ox 98 02/11/25 22:15 O2 Del Method Room Air 02/11/25 22:15 BMI result Body Mass Index 32.4 Appearance: Alert. Oriented X3. No acute distress. Anxious Eyes: PERRLA, No Nystagmus ENT: Pharynx normal. Oral Mucosa moist Neck: Normal inspection. Neck supple. CVS: Irregularly irregular heart rate ranging in 140s-160 Pulses normal. Respiratory: No respiratory distress. Equal air entry bilateral, no wheezing/rales/rhonchi Abdomen: Soft and nontender. Bowel sounds are present, no mass palpable, no CVA tenderness Skin: Skin warm and dry. Normal skin color. Normal skin turgor. Extremities: No lower extremity edema. No calf tenderness Neuro: Oriented X 3. No motor deficit. Medications Administered Discontinued Medications Generic Name Dose Route Start Last Admin Trade Name Freq PRN Reason Stop Dose Admin Diltiazem HCl 20 mg 02/11/25 16:56 02/11/25 16:59 Diltiazem Hcl 50 Mg/10 Ml Vial IVPUSH 02/11/25 16:57 20 mg ONCE ONE Administration Flecainide Acetate 150 mg 02/11/25 17:54 02/11/25 18:18 Flecainide Acetate 50 Mg Tablet PO 02/11/25 17:55 150 mg ONCE ONE Administration Midazolam HCl 1 mg 02/11/25 17:54 02/11/25 18:02 Midazolam Hcl 2 Mg/2 Ml Vial IVPUSH 02/11/25 17:55 1 mg ONCE ONE Administration Ondansetron HCl 4 mg 02/11/25 18:08 02/11/25 18:18 Ondansetron Hcl 4 Mg/2 Ml Vial IVPUSH 02/11/25 18:09 4 mg ONCE ONE Administration Medical Decision Making Medical Decision Making [facility] Narrative: Patient has paroxysmal AFib on Eliquis metoprolol came with rapid RVR was given Cardizem 20 mg IV with partial response was given flecainide 150 mg patient responded to this and broken to normal sinus rhythm at 21:[address] Holley lockstitch pocket setter okay will discharge patient home follow up with lockstitch pocket setter Differential Diagnosis Differential Diagnoses: The differential diagnosis associated with the presentation includes Admission/Observation Consideration of admission/observation: Escalation of care including admission/observation considered Consult Healthcare Provider Management of the patient was discussed with: Conduit Worker Mechatronics Technologist Dr. Holley agreed to the plan Lab Data [facility] Lab Attestation statement: I reviewed the patient's lab results. 02/11/25 17:13 02/11/25 17:13 Labs: Lab Results 02/11/25 Range/Units 17:13 WBC 8.8 (4.8-10.8) X10*3/uL RBC 4.47 (4.20-5.50) X10*6/uL Hgb 13.1 (12.0-16.0) g/dl Hct 39.6 (37.0-47.0) % MCV 88.6 (80.0-98.0) fL MCH 29.3 (27.0-33.0) pg MCHC 33.1 (31.0-35.0) g/dl RDW 13.3 (11.0-16.0) % Plt Count 223 (160-400) X10*3/uL MPV 10.3 (9.4-12.3) fL Immature Gran % (Auto) 0.3 (0.0-0.4) % Neut % (Auto) 63.1 (45-73) % Lymph % (Auto) 26.2 (20-40) % [place] % (Auto) 7.8 (2-11) % Eos % (Auto) 2.0 (0-4) % Baso % (Auto) 0.6 (0-2) % Lymph # (Auto) 2.3 (1.2-4.9) X10*3/uL [place] # (Auto) 0.7 (0.1-1.2) X10*3/uL Eos # (Auto) 0.2 (0.0-0.4) X10*3/uL Baso # (Auto) 0.1 (0.0-0.2) X10*3/uL Abs Immat Gran (auto) 0.03 (0.00-0.03) X10*3/uL Absolute Neuts (auto) 5.5 (2.0-8.3) x10*3/uL Absolute Nucleated RBC 0.000 (0.0-0.012) X10*3/uL Nucleated RBC % (auto) 0.0 (0.0-0.2) /100WBC PT 13.6 H (10.9-12.4) SEC INR 1.2 H (0.9-1.1) APTT 41.2 H (26.0-36.8) SEC Sodium 140 (135-145) mmol/L Potassium 3.6 (3.3-5.1) mmol/L Chloride 109 H (96-108) mmol/L Carbon Dioxide 23 (22-29) mmol/L Anion Gap 12 (12-20) BUN 16 (9-16) mg/dL Creatinine 0.78 (0.5-1.4) mg/dL Estim Creat Clear Calc 88.3 Estimated GFR > 60 Random Glucose 134 H (60-115) mg/dL Calcium 8.9 D (8.4-10.2) mg/dL Magnesium 1.9 (1.6-2.6) mg/dL Total Bilirubin 0.3 (0.0-1.0) mg/dL AST 10 (5-31) U/L ALT 21 (0-31) U/L Alkaline Phosphatase 87 (39-117) U/L Troponin I High Sens < 2.7 (<3.5-17.0) ng/L Total Protein 7.4 (6.5-8.0) g/dL Albumin 4.4 (3.5-5.0) g/dL Independent Interpretation I performed an independent interpretation of an: EKG Interpretation: Atrial fibrillation with rapid ventricular rate of 135 beats per minute no acute STT wave changes no acute ST elevation no acute ischemia Repeat EKG at 2136 showed normal sinus rhythm heart rate of 71 beats per minute normal intervals normal axis no acute ST-T changes no acute ischemia External Record Review External record reviewed: Inpatient record Critical Care Time Critical Care Time Critical Care Time: Yes Total Critical Care Time: 60 Attestation: Time is exclusive of separately billable procedures. Time includes: direct patient care, patient reassessment, coordination of patient care, interpretation of data (laboratory data, pulse oximetry, arterial blood gases and chest xrays), review of patient's medical records, medical consultation and documentation of patient care. Procedures excluded from critical care time: central intravenous line placement and electrocardiography. Discharge Plan Discharge Clinical Impression: Atrial fibrillation Patient Disposition: Home, Self-Care Instructions: A-fib (Atrial Fibrillation) (ED) Additional Instructions: Continue take your medication as prescribed by your lockstitch pocket setter and follow up with them next week Prescriptions: No Action metoprolol succinate 25 mg tablet extended release 24 hr 25 mg PO DAILY Qty: 90 3RF Eliquis 5 mg tablet 5 mg PO BID Qty: 60 5RF albuterol sulfate 2.5 mg /3 mL (0.083 %) solution for nebulization 2.5 mg inhalation Q4-6H PRN (Reason: shortness of breath or wheezing) Qty: 90 0RF (DME) nebulizers [AeroEclipse II Nebulizer] Misc See Rx Instructions .Route Qty: 1 0RF Rx Instructions: As directed (DME) nebulizers [AeroEclipse II Nebulizer] Misc See Rx Instructions .Route Qty: 1 0RF Rx Instructions: As directed triamcinolone acetonide 0.1 % cream 1 appl topical BID PRN (Reason: Rash) omeprazole 20 mg capsule,delayed release(DR/EC) 20 mg PO DAILY@0630 albuterol sulfate [Ventolin HFA] 90 mcg/actuation HFA aerosol inhaler 2 puff INHALATION Q4H PRN (Reason: Shortness Of Breath Or Wheezing) cholecalciferol (vitamin D3) [Vitamin D3] 50 mcg (2,000 unit) capsule 50 mcg PO DAILY clonazepam 0.5 mg tablet 0.5 mg PO BID lisinopril 20 mg tablet 20 mg PO DAILY acetaminophen 500 mg tablet 500 - 1,000 mg PO Q6H PRN (Reason: pain) nortriptyline 25 mg capsule 25 mg PO BEDTIME Interventions: ED Discharge Assessment Last Done: 02/11/25 22:15 Discharge Date/Time: 02/11/25 22:16 Print Language: Estonian
[2025-02-11 16:59] VITALS: BP 139/84; PULSE 152
[2025-02-11 17:10] VITALS: BP 134/81; BP 139/84; PULSE 148; PULSE 157; RESP 19; TEMP 36.8; O2SAT 100; O2SAT 98; BMI 32.4
[2025-02-11 17:14] VITALS: BP 139/76; PULSE 105; RESP 16; TEMP 36.6; O2SAT 95
[2025-02-11 17:19] LABS: MANUAL DIFF FLAG NO
[2025-02-11 17:22] LABS: Hematocrit 39.6 % (37.0-47.0); Hemoglobin 13.1 g/dl (12.0-16.0); Imm Gran Abs Auto 0.03 X10*3/uL (0.00-0.03); Imm Gran Pct Auto 0.3 % (0.0-0.4); Lymphocytes Absolute Auto 2.3 X10*3/uL (1.2-4.9); Mean Corpuscular HGB Conc 33.1 g/dl (31.0-35.0); Mean Corpuscular Hemoglobin 29.3 pg (27.0-33.0); Mean Corpuscular Volume 88.6 fL (80.0-98.0); NRBC Abs Auto 0.000 X10*3/uL (0.0-0.012); NRBC Pct Auto 0.0 /100WBC (0.0-0.2); Platelet Count 223 X10*3/uL (160-400); Red Blood Count 4.47 X10*6/uL (4.20-5.50); White Blood Count 8.8 X10*3/uL (4.8-10.8)
[2025-02-11 17:25] LABS: INTERNATIONAL NORM RATIO 1.2 (0.9-1.1); Prothrombin Time 13.6 SEC (10.9-12.4)
[2025-02-11 17:28] LABS: Partial Thromboplastin Time 41.2 SEC (26.0-36.8)
[2025-02-11 17:33] LABS: Alanine Aminotransferase 21 U/L (0-31); Albumin Level 4.4 g/dL (3.5-5.0); Alkaline Phosphatase 87 U/L (39-117); Anion Gap 12 (12-20); Aspartate Amino Transferase 10 U/L (5-31); Blood Urea Nitrogen 16 mg/dL (9-16); Calcium 8.9 mg/dL (8.4-10.2); Carbon Dioxide 23 mmol/L (22-29); Chloride 109 mmol/L (96-108); Creatinine Clr Calc Pharmacy 88.3; Estimated Glomerular Filt Rate > 60; Magnesium 1.9 mg/dL (1.6-2.6); Potassium 3.6 mmol/L (3.3-5.1); Sodium 140 mmol/L (135-145); Total Protein 7.4 g/dL (6.5-8.0)
[2025-02-11 17:46] LABS: Troponin-I High Sensitivity < 2.7 ng/L (<3.5-17.0)
[2025-02-11 18:42] VITALS: BP 107/64; PULSE 96; RESP 16; TEMP 36.9; O2SAT 96
--- NOTE | 2025-02-11 19:53 | PC.NURSE ---
Pt is still in Afib. HR fluctuating from 90-140s. No chest pain no SOB. Dr. Marshall is aware. Will continue to monitor.
--- NOTE | 2025-02-11 20:30 | PC.NURSE ---
pts HR went into the 160s. Provider made aware.
--- NOTE | 2025-02-11 21:35 | ECG_ITS ---
Test Reason : RHYTHM CONFIRMATION Blood Pressure : */* mmHG Vent. Rate : 71 BPM Atrial Rate : 71 BPM P-R Int : 152 ms QRS Dur : 88 ms QT Int : 382 ms P-R-T Axes : 51 54 24 degrees QTcB Int : 415 ms Normal sinus rhythm Normal ECG When compared with ECG of 11-Feb-2025 16:55, Sinus rhythm has replaced Atrial fibrillation Vent. rate has decreased by [address] no longer depressed in Inferior leads ST no longer depressed in Anterolateral leads T wave inversion no longer evident in Inferior leads T wave inversion no longer evident in Anterolateral leads Referred By: Bert Tolbert Electronically Signed By: HIMANSHU ZIMMERMAN MD
--- NOTE | 2025-02-11 21:37 | PC.NURSE ---
pts HR is currently Normal sinus rhythm on traffic monitor specialist. Talked to provider Rolando at bedside. Per provider- stat EKG.
[2025-02-11 21:57] VITALS: BP 152/62; PULSE 73; RESP 18; TEMP 36.7; O2SAT 98
--- NOTE | 2025-02-11 22:00 | PC.NURSE ---
Pt ambulated with RN with the portable biazzi nitrator operator. Pts HR was stable in the 80s NSR.
[2025-02-11 22:15] VITALS: BP 152/62; PULSE 73; RESP 18; TEMP 36.7; O2SAT 98
== END 2025-02-11 22:16 | disposition home or self-care (01) ==
PROVIDERS: Physician Assistant Medical; Emergency Provider Internal Medicine
DX: I48.0 Paroxysmal atrial fibrillation (principal); R00.2 Palpitations; J45.909 Unspecified asthma, uncomplicated; F17.210 Nicotine dependence, cigarettes, uncomplicated; F12.90 Cannabis use, unspecified, uncomplicated; Z79.01 Long term (current) use of anticoagulants; Z79.899 Other long term (current) drug therapy
CPT/HCPCS: 36415; 80053; 83735; 84484; 85025; 85610; 85730; 93005; 96374; 96375; 99285; 99291; J1163; J2250; J2405

== ENCOUNTER → 2025-02-11 16:50 | Outpatient (BNV) | payer MEDICAID, SELFPAY | PROVIDERS: Emergency Provider Internal Medicine; Visit Provider Internal Medicine Cardiovascular Disease | DX: I48.91 Unspecified atrial fibrillation (principal) | CPT/HCPCS: 93010 ==

== ENCOUNTER 2025-02-14 10:51 | Emergency (ER) | payer MEDICAID, SELFPAY ==
--- NOTE | ~2025-02-14 | XR_ITS ---
CLINICAL HISTORY: chest p ain 2 view chest x-ray. Comparison: CR/SR - XR CHEST 1V - 01/29/25 10:52 EDT CR - XR CHEST 2V - 08/27/24 16:56 EST Findings: Normal lung volumes. Lungs are clear. No pneumothorax or pleural effusion. Heart size normal. No passive venous congestion. No midline shift or tracheal deviation. No acute fracture. Impression: 1. No acute cardiopulmonary disease. This document has been electronically signed by: Abdiaziz Carballo MD on 02/14/2025 11:34:56
--- NOTE | ~2025-02-14 | CT_ITS ---
CLINICAL HISTORY: headache, dizziness, blurred vision CT head without contrast. CT angiography head with IV contrast. 3-D postprocessing Comparison: CT/MT/SR - CT HEAD FOR STROKE - 07/02/24 14:06 EST Findings: CT head showed no space-occupying lesion. No midline shift or mass-effect. Ventricles and sulci are age appropriate. Calvarium intact. Imaged portion of the paranasal sinuses are clear. No mastoid effusions. Angiographic images of the head: The terminal portion of both internal carotid arteries are patent. The anterior and middle cerebral arteries are patent along their proximal aspects. Posteriorly within the head, the intradural vertebral arteries, basilar artery and machine heel builder are patent. PCOM circulation on the right no aneurysm or arteriovenous shunting lesion is appreciated. Impression: 1. Wide patency of the intracranial arterial circulation. 2. No intracranial aneurysm or AVM. 3. Unremarkable CT enhancement of the brain parenchyma. 4. Consider MRI correlation CT angiography neck with contrast. 3-D postprocessing Comparison: CT/MT/SR - CT HEAD FOR STROKE - 07/02/24 14:06 EST Findings: Angiographic images of the neck: The bilateral common carotid arteries are patent. Both carotid bulbs are widely patent. Both ICAs follow normal course and caliber through their distal cervical segments. Shallow calcified plaque proximal internal carotid arteries. Posteriorly within the neck, the vertebral arteries are codominant with patent origins. Both vessels follow normal course and caliber through their suboccipital segments. Mild mucoperiosteal thickening both maxillary sinuses. Unerupted tooth is seen floor of the right maxillary sinus. No mastoid effusions. Adenoids are not enlarged. Normal Fossa of Rosenmuller. Epiglottis and palatine tonsils are not enlarged. No subglottic masses. Normal thyroid gland. Osseous structures intact. Lung apices unremarkable. Impression: 1. There is less than 50% stenosis of the right common carotid artery bifurcation and proximal right internal carotid artery based on NASCET criteria. 2. There is less than 50% stenosis of the left common carotid artey bifurcation and proximal left internal carotid artery based on NASCET criteria. 3. Wide patency of the cervical vertebral arteries. This document has been electronically signed by: Abdiaziz Carballo MD on 02/14/2025 13:08:42
[2025-02-14 10:53] VITALS: BP 146/63; PULSE 72; RESP 18; TEMP 37.1; O2SAT 99; BMI 32.1
--- NOTE | 2025-02-14 10:56 | ECG_ITS ---
Test Reason : CHEST PAIN Blood Pressure : */* mmHG Vent. Rate : 65 BPM Atrial Rate : 65 BPM P-R Int : 154 ms QRS Dur : 82 ms QT Int : 418 ms P-R-T Axes : 66 48 24 degrees QTcB Int : 434 ms Normal sinus rhythm Normal ECG When compared with ECG of 11-Feb-2025 21:36, No significant change was found Referred By: Generic ED Physician Electronically Signed By: HIMANSHU ZIMMERMAN MD
--- NOTE | 2025-02-14 10:59 | ED.CHESTPAIN ---
HPI - Chest Pain General Chief Complaint: Chest Pain Stated Complaint: afib Time Seen by Provider: 02/14/25 10:58 Source: patient, RN notes reviewed and old records reviewed Mode of arrival: ambulatory Limitations: no limitations History of Present Illness ED Provider: Elda HPI narrative: Patient is a 54-year-old female with reported history of asthma, paroxysmal afib on Eliqus and metoprolol, HTN, parotid mass presenting to the emergency department with complaint of LUQ abdominal/L rib pain, dizziness, and an episode of palptations this morning. States I feel like how I did before I went into afib the other day. Seen in this ED for afib RVR on 02/11, treated with cardizem and flecainide and discharged home. Describes dizziness as similar to alcohol intoxication. Complains of headache and vision changes to both eyes which she describes as a white screen over her vision. States palpitations occurred around 9am and lasted approximately one minute. Related Data Home Medications ?Medication ?Instructions ?Recorded ?Confirmed lisinopril 20 mg tablet 20 mg PO DAILY 02/20/23 01/02/25 albuterol sulfate 90 mcg/actuation 2 puff inhalation Q4H PRN 04/21/24 01/02/25 aerosol inhaler (Ventolin HFA) Shortness Of Breath Or Wheezing cholecalciferol (vitamin D3) 50 50 mcg PO DAILY 04/21/24 01/02/25 mcg (2,000 unit) capsule (Vitamin D3) omeprazole 20 mg capsule,delayed 20 mg PO DAILY@0630 04/21/24 01/02/25 release triamcinolone acetonide 0.1 % 1 appl topical BID PRN Rash 04/21/24 01/02/25 topical cream clonazepam 0.5 mg tablet 0.5 mg PO BID 05/13/24 01/02/25 nortriptyline 25 mg capsule 25 mg PO BEDTIME 08/07/24 01/02/25 acetaminophen 500 mg tablet 500 - 1,000 mg PO Q6H PRN pain 01/02/25 01/02/25 Previous Rx's ?Medication ?Instructions ?Recorded albuterol sulfate 2.5 mg/3 mL 2.5 mg (3 mL) inhalation Q4-6H PRN 01/17/23 (0.083 %) solution for nebulization shortness of breath or wheezing #90 mL nebulizers (AeroEclipse II #1 ea 01/17/23 Nebulizer) nebulizers (AeroEclipse II #1 ea 02/08/23 Nebulizer) metoprolol succinate 25 mg 25 mg PO DAILY #90 tabs 11/11/24 tablet,extended release 24 hr apixaban 5 mg tablet (Eliquis) 5 mg PO BID #60 tabs 11/13/24 Allergies Allergy/AdvReac Type Severity Reaction Status Date / Time naproxen AdvReac Vomiting Verified 02/14/25 10:55 Review of Systems Review of Systems: As per HPI Yes all other systems are reviewed and are negative Constitutional: Constitutional: Reports as per HPI [facility] [place] Past Medical History Medical History PAF (paroxysmal atrial fibrillation) Asthma Social History Social History Household Members: Significant Other and Children Housing: Apartment Do you presently have visiting nurse or other home services: No Patient Tobacco Use Status: Current everyday Tobacco user Tobacco use type: Cigarette Cigarettes Per Day: 10 Years Smoked: 20 Smoked in Last 30 Days: No e-Cigarette/Vaping Use: Never Used Second Hand Smoke Exposure: No Use of substances other than those prescribed or required for medical reasons: No Substance Use Type: Marijuana Advance Directives: No Advance Directives Information Provided: No Patient : No service: No Physical Exam Vital Signs: Vital Signs: Last Vital Signs Temp 98.7 F 02/14/25 10:53 Pulse 60 02/14/25 13:13 Resp 12 02/14/25 13:13 BP 159/73 H 02/14/25 13:13 Pulse Ox 100 02/14/25 13:13 O2 Del Method Room Air 02/14/25 13:13 BMI result Body Mass Index 32.1 Vital signs have been reviewed and appear to be correct. Blood pressure normal. Heart rate normal. Respiratory rate normal. Temperature normal. Oxygen saturation normal. Const: General: cooperative, healthy appearing and no acute distress Orientation/consciousness: oriented to person, oriented to place, oriented to time and patient oriented x3 Limitations: no limitations HEENT: Head: Yes normocephalic and Yes atraumatic Ears: external ears normal General nose exam: Normal external nose present Face and sinus: Yes face symmetric Mouth: oropharynx normal and moist mucous membranes Throat: Yes uvula midline Eyes: Pupils: Equal, round and reactive pupils present EOM: EOMs intact bilaterally and No Nystagmus present Neck: Neck: Yes normal visual inspection and Yes supple Resp: Effort & Inspection: normal respiratory effort and able to speak in complete sentences Auscultation: clear to auscultation bilaterally Cardio: Rate: regular rate Rhythm: regular rhythm Heart sounds: S1 normal heart sound present and S2 normal heart sound present GI: Palpation (GI): Soft to palpation and nontender Auscultation: normoactive bowel sounds : General: Yes no CVA tenderness Back/Spine/Pelvis: Back: no CVA tenderness Skin: General skin exam: elasticity normal and turgor normal Neuro: General: oriented to person, oriented to place, oriented to time, patient oriented x3, gait normal, tone normal, moves all extremities, Normal light touch and pain sensation, no focal motor deficits, CN's II-XI intact bilaterally and deep tendon reflexes 2+ bilaterally Cranial nerves: Yes Equal, round and reactive pupils present and No Nystagmus present Cognition (Neuro): normal cognition Motor exam (neuro): 5/5 motor strength present throughout, Normal motor muscle tone present throughout and Motor abnormalities not present Coordination: [id number] test normal and Romberg test negative Extrem: General: Yes full ROM, Yes no pedal edema and Yes no calf tenderness Psych: Mental Status: mental status grossly normal Affect: normal affect Thought process: Normal thought process present NIH Stroke Scale Internal: Initial- Upon Arrival Time: 11:18 Level of Consciousness: Alert Level of Consciousness Questions: Answers both questions correctly Level of Consciousness Commands: Performs both tasks correctly Best Gaze: Normal Visual: No visual loss Facial Palsy: Normal Motor Arm (Right): No drift Motor Arm (Left): No drift Motor Leg (Right): No drift Motor Leg (Left): No drift Limb Ataxia: Absent Sensory: Normal Best Language: No aphasia Dysarthia: Normal Extinction and Inattention: No abnormality Score: 0 Medications Administered Discontinued Medications Generic Name Dose Route Start Last Admin Trade Name Freq PRN Reason Stop Dose Admin Diphenhydramine HCl 25 mg 02/14/25 11:12 02/14/25 11:21 Diphenhydramine Hcl 50 Mg/Ml Vial IVPUSH 02/14/25 11:13 25 mg ONCE ONE Administration Sodium Chloride 1,000 mls @ 999 mls/hr 02/14/25 11:15 02/14/25 12:59 Ns IV 02/14/25 12:15 Infused .Q1H1M NICOLE Infusion Iohexol 70 ml 02/14/25 12:28 02/14/25 12:29 Iohexol 350 Mg/Ml 100 Ml Infus..Btl IV 02/14/25 12:29 70 ml ONCE ONE Administration Metoclopramide HCl 10 mg 02/14/25 11:12 02/14/25 11:21 Metoclopramide Hcl 10 Mg/2 Ml Vial IVPUSH 02/14/25 11:13 10 mg ONCE ONE Administration Medical Decision Making Medical Decision Making MDM Narrative: Patient is a 54-year-old female with reported history of asthma, paroxysmal afib on Eliqus and metoprolol, HTN, parotid mass presenting to the emergency department with complaint of LUQ abdominal/L rib pain, dizziness, and an episode of palptations this morning. On exam patient is awake, A+Ox3, VS WNL, afebrile, normal neurological exam without focal deficits, physical exam findings as above. Given reported symptoms and physical exam findings, initial differential includes but is not limited to cardiac arrhythmia, CVA/ICH, migraine, electrolyte abnormality, pancreatitis, anemia. Labs notable for no leukocytosis, no anemia, negative troponin, normal transaminases. EKG shows normal sinus rhythm. X-ray chest notable for no pneumothorax or pneumonia. CTA head and neck without evidence of ICH, mass, LVO My interpretation is in agreement with the radiologist's interpretation. Patient abruptly stating that she is going to leave, removed monitoring specialist herself and removed IV. Attempted to discuss results with patient, would have repeated troponin. Patient walked out of the department without discharge paperwork, refusign to sign AMA paperwork. The patient has decided to leave against medical advice because she did not want to wait any longer. They have normal mental status and adequate capacity to make medical decisions. The patient refuses full ED evaluation and wants to be discharged. The risks have been explained to the patient, including cardiac arrhythmia, stroke, worsening illness, chronic pain, permanent disability and . The benefits of ED evaluation have also been explained, including the availability and proximity of nurses, physicians, monitoring, diagnostic testing, treatment and pain control. The patient was able to understand and state the risks and benefits of ED evaluation. This was witnessed by nurse Emily and me. They had the opportunity to ask questions about their medical condition. The patient was treated to the extent that they would allow and knows that they may return for care at any time. Differential Diagnosis Differential Diagnoses: The differential diagnosis associated with the presentation includes as per [facility] Admission/Observation Consideration of admission/observation: Escalation of care including admission/observation considered Patient would have been admitted to the hospital had their work up had any findings where hospital admission was appropriate and their clinical presentation warranted hospital admission. Lab Data [facility] Lab Attestation statement: I reviewed the patient's lab results. as per [facility] 02/14/25 11:17 02/14/25 11:17 Labs: Lab Results 02/14/25 Range/Units 11:17 WBC 7.0 (4.8-10.8) X10*3/uL RBC 4.64 (4.20-5.50) X10*6/uL Hgb 13.7 (12.0-16.0) g/dl Hct 40.6 (37.0-47.0) % MCV 87.5 (80.0-98.0) fL MCH 29.5 (27.0-33.0) pg MCHC 33.7 (31.0-35.0) g/dl RDW 13.2 (11.0-16.0) % Plt Count 252 (160-400) X10*3/uL MPV 10.2 (9.4-12.3) fL Immature Gran % (Auto) 0.3 (0.0-0.4) % Neut % (Auto) 56.1 (45-73) % Lymph % (Auto) 33.2 (20-40) % [place] % (Auto) 7.8 (2-11) % Eos % (Auto) 1.7 (0-4) % Baso % (Auto) 0.9 (0-2) % Lymph # (Auto) 2.3 (1.2-4.9) X10*3/uL [place] # (Auto) 0.6 (0.1-1.2) X10*3/uL Eos # (Auto) 0.1 (0.0-0.4) X10*3/uL Baso # (Auto) 0.1 (0.0-0.2) X10*3/uL Abs Immat Gran (auto) 0.02 (0.00-0.03) X10*3/uL Absolute Neuts (auto) 4.0 (2.0-8.3) x10*3/uL Absolute Nucleated RBC 0.000 (0.0-0.012) X10*3/uL Nucleated RBC % (auto) 0.0 (0.0-0.2) /100WBC PT 13.8 H (10.9-12.4) SEC INR 1.2 H (0.9-1.1) Sodium 140 (135-145) mmol/L Potassium 4.1 (3.3-5.1) mmol/L Chloride 107 (96-108) mmol/L Carbon Dioxide 24 (22-29) mmol/L Anion Gap 13 (12-20) BUN 11 (9-16) mg/dL Creatinine 0.73 (0.5-1.4) mg/dL Estim Creat Clear Calc 93.8 Estimated GFR > 60 Random Glucose 98 (60-115) mg/dL Calcium 9.3 (8.4-10.2) mg/dL Magnesium 2.0 (1.6-2.6) mg/dL Total Bilirubin 0.3 (0.0-1.0) mg/dL AST 18 (5-31) U/L ALT 20 (0-31) U/L Alkaline Phosphatase 85 (39-117) U/L Troponin I High Sens < 2.7 (<3.5-17.0) ng/L B-Natriuretic Peptide 69 (<100) pg/mL Total Protein 7.6 (6.5-8.0) g/dL Albumin 4.6 (3.5-5.0) g/dL Triglycerides 98 (<150) mg/dL Independent Interpretation I performed an independent interpretation of an: EKG (normal sinus rhythm, rate 65 bpm, normal OH interval and QTc, no ST elevation), Plain X-Ray and CT Scan Interpretation: X-ray chest notable for no pneumothorax or pneumonia. CTA head and neck without evidence of ICH, mass, LVO Radiology Impression Discussion of test interpretation with radiology: I have reviewed the radiologist's reading. Radiologist Impression: 2 view chest x-ray. Comparison: CR/SR - XR CHEST 1V - 6/19/25 10:52 EDT CR - XR CHEST 2V - 08/27/24 16:56 EST Findings: Normal lung volumes. Lungs are clear. No pneumothorax or pleural effusion. Heart size normal. No passive venous congestion. No midline shift or tracheal deviation. No acute fracture. Impression: 1. No acute cardiopulmonary disease. Impression: 1. Wide patency of the intracranial arterial circulation. 2. No intracranial aneurysm or AVM. 3. Unremarkable CT enhancement of the brain parenchyma. 4. Consider MRI correlation Impression: 1. There is less than 50% stenosis of the right common carotid artery bifurcation and proximal right internal carotid artery based on NASCET criteria. 2. There is less than 50% stenosis of the left common carotid artey bifurcation and proximal left internal carotid artery based on NASCET criteria. 3. Wide patency of the cervical vertebral arteries. External Record Review External record reviewed: Inpatient record, Office record and Outpatient record Discharge Plan Discharge Clinical Impression: Heart palpitations, Chest pain Patient Disposition: Left Against Medical Advice Instructions: Chest Pain (DC), Heart Palpitations (DC), A-fib (Atrial Fibrillation) (ED) Additional Instructions: You were evaluated in the emergency department today for chest pain and palpitations. You chose to leave against medical advice prior to completion of your evaluation. You can return to this or any other emergency department if you should change your mind. We recommend that you follow up with your primary care provider and client technical professional as soon as possible for further evaluation of your symptoms. Prescriptions: No Action metoprolol succinate 25 mg tablet extended release 24 hr 25 mg PO DAILY Qty: 90 3RF Eliquis 5 mg tablet 5 mg PO BID Qty: 60 5RF albuterol sulfate 2.5 mg /3 mL (0.083 %) solution for nebulization 2.5 mg inhalation Q4-6H PRN (Reason: shortness of breath or wheezing) Qty: 90 0RF (DME) nebulizers [AeroEclipse II Nebulizer[place] [facility] [place] .Route Qty: 1 0RF Rx Instructions: As directed (DME) nebulizers [AeroEclipse II Nebulizer[place] [facility] [place] .Route Qty: 1 0RF Rx Instructions: As directed triamcinolone acetonide 0.1 % cream 1 appl topical BID PRN (Reason: Rash) omeprazole 20 mg capsule,delayed release(DR/EC) 20 mg PO DAILY@0630 albuterol sulfate [Ventolin HFA] 90 mcg/actuation HFA aerosol inhaler 2 puff INHALATION Q4H PRN (Reason: Shortness Of Breath Or Wheezing) cholecalciferol (vitamin D3) [Vitamin D3] 50 mcg (2,000 unit) capsule 50 mcg PO DAILY clonazepam 0.5 mg tablet 0.5 mg PO BID lisinopril 20 mg tablet 20 mg PO DAILY acetaminophen 500 mg tablet 500 - 1,000 mg PO Q6H PRN (Reason: pain) nortriptyline 25 mg capsule 25 mg PO BEDTIME Stand Alone Forms: Against Medical Advice Print Language: Luxembourgish
--- NOTE | 2025-02-14 11:20 | PC.NURSE ---
a&ox4. vss and up to date. nsr on the groundwater monitoring technician. pt represents to the ED after coming in on 02/11 for afib RVR. pt verbalizing increase in chest palpitations/dizziness. pt placed on groundwater monitoring technician - nsr. vitals otherwise stable/up to date. on RA w/o difficulty. no sob/wob noted. respirations even/unlabored. 20gIV placed in the right AC - labs obtained/sent to lab. medication/IVF administered per provider order. pt waiting for CXR/CT to be completed at this time. family bedside for support. plan of care ongoing. call walker placed within reach.
[2025-02-14 11:21] LABS: MANUAL DIFF FLAG NO
[2025-02-14 11:23] LABS: Hematocrit 40.6 % (37.0-47.0); Hemoglobin 13.7 g/dl (12.0-16.0); Imm Gran Abs Auto 0.02 X10*3/uL (0.00-0.03); Imm Gran Pct Auto 0.3 % (0.0-0.4); Lymphocytes Absolute Auto 2.3 X10*3/uL (1.2-4.9); Mean Corpuscular HGB Conc 33.7 g/dl (31.0-35.0); Mean Corpuscular Hemoglobin 29.5 pg (27.0-33.0); Mean Corpuscular Volume 87.5 fL (80.0-98.0); NRBC Abs Auto 0.000 X10*3/uL (0.0-0.012); NRBC Pct Auto 0.0 /100WBC (0.0-0.2); Platelet Count 252 X10*3/uL (160-400); Red Blood Count 4.64 X10*6/uL (4.20-5.50); White Blood Count 7.0 X10*3/uL (4.8-10.8)
[2025-02-14 11:32] LABS: Triglycerides 98 mg/dL (<150)
[2025-02-14 11:33] LABS: INTERNATIONAL NORM RATIO 1.2 (0.9-1.1); Prothrombin Time 13.8 SEC (10.9-12.4)
[2025-02-14 11:38] LABS: Alanine Aminotransferase 20 U/L (0-31); Albumin Level 4.6 g/dL (3.5-5.0); Alkaline Phosphatase 85 U/L (39-117); Anion Gap 13 (12-20); Aspartate Amino Transferase 18 U/L (5-31); Blood Urea Nitrogen 11 mg/dL (9-16); Calcium 9.3 mg/dL (8.4-10.2); Carbon Dioxide 24 mmol/L (22-29); Chloride 107 mmol/L (96-108); Creatinine Clr Calc Pharmacy 93.8; Estimated Glomerular Filt Rate > 60; Magnesium 2.0 mg/dL (1.6-2.6); Potassium 4.1 mmol/L (3.3-5.1); Sodium 140 mmol/L (135-145); Total Protein 7.6 g/dL (6.5-8.0)
[2025-02-14 11:43] LABS: B Type Natriuretic Peptide 69 pg/mL (<100)
[2025-02-14 11:46] LABS: Troponin-I High Sensitivity < 2.7 ng/L (<3.5-17.0)
[2025-02-14] MEDS: iohexoL 350 MG/ML 100 ML INFUS..BTL 70 ML IV (12:29)
[2025-02-14 13:13] VITALS: BP 159/73; PULSE 60; RESP 12; O2SAT 100
--- NOTE | 2025-02-14 13:30 | PC.NURSE ---
patient noted to become increasingly agitated/upset about scan results not being completed/waiting for provider to go over results. patient reassured that updates will be provided shortly/when available.
--- NOTE | 2025-02-14 15:25 | PC.NURSE ---
patient remains agitated/requesting to leave despite cardiac workup not being completed. provider notified/aware. patient asking for IV access to be discontinued. IV access removed. patient removed herself from monitor technician/hospital attire. patient left AMA.
[2025-02-14 15:26] VITALS: BP 0/0; PULSE 0; RESP 0; TEMP -17.7; TEMP 0; O2SAT 0
== END 2025-02-14 15:27 | disposition left against medical advice (07) ==
PROVIDERS: Registered Nurse Emergency; Emergency Provider Emergency Medicine; PCP General Practice
DX: R00.2 Palpitations (principal); R07.9 Chest pain, unspecified; I48.0 Paroxysmal atrial fibrillation; Z79.01 Long term (current) use of anticoagulants; I10 Essential (primary) hypertension; R10.12 Left upper quadrant pain
CPT/HCPCS: 36415; 70496; 70498; 71046; 80053; 83735; 83880; 84478; 84484; 85025; 85610; 93005; 96361; 96374; 96375; 99284; 99285; J1200; J2765; Q9967

== ENCOUNTER → 2025-02-14 10:56 | Outpatient (BNV) | payer MEDICAID, SELFPAY | PROVIDERS: Emergency Provider Emergency Medicine; PCP General Practice; Visit Provider Internal Medicine Cardiovascular Disease | DX: R07.9 Chest pain, unspecified (principal) | CPT/HCPCS: 93010 ==

== ENCOUNTER → 2025-02-14 11:00 | Outpatient (BNV) | payer MEDICAID, SELFPAY | PROVIDERS: Emergency Provider Emergency Medicine; PCP General Practice; Visit Provider Radiology Diagnostic Radiology | DX: R42 Dizziness and giddiness (principal); R07.9 Chest pain, unspecified | CPT/HCPCS: 70496; 70498; 71046 ==

== ENCOUNTER 2025-02-23 13:37 | Outpatient (AMB) | payer MEDICAID, SELFPAY ==
--- NOTE | 2025-02-23 13:50 | MHC.OFFVIS ---
Vital Signs 02/23/25 13:54 Height 5 ft 4 in Weight 191 lb 5.78 oz BMI 32.8 BP 130/70 Blood Pressure Location Lt brachial Position Sitting Pulse 62 Pulse Source Monitor Intake Visit Reasons: [facility] Community Administrator Required: No Accompanied by: Self / Same As Patient Allergies naproxen Adverse Reaction (Verified 02/14/25 10:55) Vomiting Medication List - Last Reconciled 02/23/25 by Ramos Ponce MD acetaminophen 500 - 1,000 mg PO Q6H PRN albuterol sulfate 90 mcg/actuation (Ventolin HFA) 2 puffs inhalation Q4H PRN albuterol sulfate 2.5 mg (3 mL) inhalation Q4-6H PRN apixaban (Eliquis) 5 mg PO BID cholecalciferol (vitamin D3) (Vitamin D3) 50 mcg PO DAILY clonazepam 0.5 mg PO ONCE lisinopril 20 mg PO DAILY metoprolol succinate ER 25 mg PO DAILY nebulizers (AeroEclipse II Nebulizer) As directed nebulizers (AeroEclipse II Nebulizer) As directed nortriptyline 25 mg PO BEDTIME omeprazole 20 mg PO DAILY@0630 triamcinolone acetonide 0.1% 1 appl topical BID PRN HPI Comments Details: 54-year-old female who is here for follow-up. She was seen in April 2024 in the hospital when she presented with atrial fibrillation and left-sided weakness. This was thought to be a complex migraine. She reverted to sinus rhythm and was doing fine until recently when she had significant palpitations and atypical chest pains. She called EMS and was noted to be in AFib and was given IV metoprolol and taken to emergency department. It appears in the ER she went back into sinus rhythm. She is very anxious and quite distressed by this event. She thinks that she is going to . She was reassured. She is smoking currently which is a trigger for atrial fibrillation. She does not drink , she does smoke marijuana. [facility] Medical History PAF (paroxysmal atrial fibrillation) Asthma Social History Household Members: Significant Other and Children Housing: Apartment Do you presently have visiting nurse or other home services: No Patient Tobacco Use Status: Current everyday Tobacco user Tobacco use type: Cigarette Cigarettes Per Day: 10 Years Smoked: 20 e-Cigarette/Vaping Use: Never Used Second Hand Smoke Exposure: No Substance Use Type: Marijuana service: No Review of Systems Const Denies chills, Denies fatigue, Denies fever(s), Denies frequent falls, Denies weakness, Denies weight gain and Denies weight loss ENT Denies dizziness Card Reports chest pain, Reports chest pain at rest, Reports chest pain with activity, Denies leg edema, Denies lightheadedness, Denies palpitations, Denies dyspnea and Denies dyspnea on exertion Resp Denies cough, Denies dyspnea and Denies dyspnea on exertion GI Denies hematochezia Musc Denies abnormal gait, Denies muscle weakness, Denies numbness, Denies radiating pain into limb and Denies tingling Neuro Denies abnormal gait, Denies dizziness, Denies frequent falls, Denies numbness, Denies tingling and Denies weakness Endo Denies fatigue and Denies palpitations Physical Exam Vital Signs: Last Vital Signs Pulse 62 02/23/25 13:54 BP 130/70 02/23/25 13:54 BMI result Body Mass Index 32.8 GENERAL APPEARANCE: in no acute distress, anxious appearing. NECK: no carotid bruit, no jugular venous distention. SKIN: no suspicious lesions, warm and dry. HEART: no murmurs, regular rate and rhythm. LUNGS: clear to auscultation bilaterally. ABDOMEN: soft, nontender. EXTREMITIES: no edema. PERIPHERAL PULSES: equal. NEUROLOGIC: No gross deficits, AAO X 3 Office Procedures EKG Details: Sinus rhythm 62 beats per minute, normal axis, inferior T-wave inversions, QTC 434 milliseconds. 19705-Yoxztjlfmedjbctum, Complete Assessment & Plan Assessment & Plan (1) PAF (paroxysmal atrial fibrillation): Code(s): I48.0 - Paroxysmal atrial fibrillation Category: Medical Plan 54-year-old lady who is here for follow-up. She had episode of atrial fibrillation in April 2024. Recent episode of AFib for which she went to emergency department. Extremely anxious and has been distress since this event. She is saying she has stopped going out of the house. We discussed in detail about atrial fibrillation. I have advised her to stop smoking because there is a link between nicotine use and atrial fibrillation. Continue metoprolol and lisinopril. Continue apixaban 5 mg twice a day. No more nosebleeds since December. Adding dronedarone 400 mg twice a day. She will check the cost to see if she can afford it long-term. Referring her for electrophysiology assessment with Dr. Maixmo Calix. I have sent him a message to see her soon because she is very anxious. Thank you for allowing me to participate in the care of your patient. Please feel free to contact me if you have any questions. Medications: New dronedarone must administer with a meal/food 400 mg PO BID 60 tabs 3RF I48.0 - Paroxysmal atrial fibrillation Coding Level of Care Code Est Pt Level 4 (24085) Diagnoses PAF (paroxysmal atrial fibrillation) I48.0 CPT Codes EKG - CPT: 66568-Uajmbksbgxjyoqqyw, Complete ([id number])
[2025-02-23 13:54] VITALS: BP 130/70; PULSE 62; BMI 32.8
--- OUTSIDE RECORDS SUMMARY | 2025-02-23 14:48 | XMS_ITS | Data Portability ---
Author Organization [place] - [facility], Allergy Address [address] [address] Care Team Providers Care International Sales Representative Name Role Phone APOLONIA ANTON Referring Provider [phone] Assessment Encounter Date Assessment Date Assessment LastModified by Organization Details LastModified Time 06/12/2024 06/12/2024 Patient has a lesion of the parotid salivary gland. We have discussed treatment options including observation as well as surgical intervention to remove the lesion. Surgery is performed under general anesthesia at either [facility] or [facility]. The surgery is typically booked for [...] medical oncology [email or web address] Not available 06/11/2024 17:11:43 10/10/2024 10/10/2024 53-year-old fema le presents following right parotidectomy. On examination Steri-Strips remain intact and incision seems to be healing well. Given there is been less than 10 cc of drainage from the VICENTE drain this was removed today without difficulty. The neck is flat without sign of seroma or hematoma. She will call for reevaluation if she has any swelling or redness. Otherwise follow-up next week for wound check and review of pathology which is not available as of today. All questions were answered. [email or web address] Not available 10/10/2024 14:59:45 10/16/2024 10/16/2024 The patient continues to do well following parotidectomy. Pathology consistent with pleomorphic adenoma. Follow up 1 month post operatively for reevaluation, or sooner with concerns. Patient with right sided ear popping and hearing loss since surgery. Dried blood gently removed from right EAC. Right TM with dried bloody scab that was unable to be debrided. Lai lateralized to the left and Rinne AC>BC on the left and BC>AC on the right. Recommended audiometric testing today, which patient declined. Patient subjectively reports hearing felt improved following debridement. Patient will call back for audiometric testing if no improvement in a few days. [email or web address] Not available 10/16/2024 15:07:35 11/03/2024 11/03/2024 Patient is heale d well from her right parotidectomy. Facial nerve is intact. Discussed the numbness will gradually decrease in area over time. She may now follow-up as needed [email or web address] Not available 11/03/2024 15:44:18 12/04/2024 12/04/2024 54yo female is healed well from her right parotidectomy. Facial nerve is intact. Physical exam reveals no identifiable source of aural pressure involving the auricle, external auditory canal, or tympanic membrane. Examination was positive for tenderness and popping of the jaw joint and jose-TMJ musculature bilaterally. Audiometry demonstrated. normal hearing and tympanometry. The patient's auricular discomfort is most likely consistent with intermittent inflammation of the jaw joint or spasm of the surrounding musculature. I recommended the patient use light massage, warm compresses and anti-inflammatorie s for symptomatic management. Stressed chewing evenly on both sides of the mouth to keep from overworking the jaw joint. Use soft food diet as needed. Jaw Joint Program information sheet was shared. Recommend considering medical-grade mouth guard through their dentist if symptoms persist despite supportive management. [email or web address] Not available 12/04/2024 09:51:11 Plan of Treatment Reminders Order Date Submit Date Provider Last Modified By Organization Details Last Modified Time Details Appointments None recorded. Lab None recorded. Referral None recorded. Procedures None recorded. Surgeries parotidecto my (SURG) 2023 024 [email or web address] Not available 11:35:20 Imaging None recorded. Medication Orders None recorded. Patient TargetsNo targets recorded. Patient InstructionsNo instructions recorded. Reason for Referral None Reported. Results Created Date Observation Date Name Description Value Unit Range Abnormal Flag Note LastModifiedBy Organization Detail LastModifiedTime 12/05/19 25 audio gram No observ ation record ed. BARCODE Not Available 2024 11:51:04 Result Notes None recorded. 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 Active 2023 KELSEY BURLESON MD [address] [place] [address], [address], [facility] - [facility] 4 17:11:15 Hearing loss 89043191 Active 2024 APOLONIA ETIENNE PA-C [address] [place] [address], [address], [facility] 5 15:08:17 Abnormal auditory perception 31297904 Active 2024 ZENAIDA SCHUSTER [address], [address], [facility] - [facility] 5 09:15:49 Bilateral referred otalgia of ears 2389523258490 106 Active 2024 AICHA ROSE PA-C [address] [place] [address], [place], [address], [facility] - [facility] 09:43:07 Bilateral temporomand ibular joint pain 7245382636978 9105 Active 2024 AICHA ROSE PA-C [address] [address], [place], [address], [facility] 09:43:17 Problem Notes None recorded. Procedures Surgical History Date Name Laterality Status Provider Name and Address Organization Details Recorded Time 12/05/19 25 Comp Audio with Tymps - 98107 & 05064 completed ZENAIDA SCHUSTER [address], [address], [facility] 12/04/2024 09:15:42 10/08/19 25 Excise parotid gland/lesion completed KELSEY BURLESON MD [address], [address], [facility] 10/08/2024 14:42:15 10/08/19 25 PAROTIDECTOMY (SURG) completed Rocky Nunn [facility] 10/13/2024 13:22:50 Imaging Results None recorded. Procedure Notes None recorded. Medical Equipment None Reported. Allergies Allergen ID Allergen Name Allergen Category Reaction Reaction Severity Criticality Documentation Date Start Date Code Code System Note Provider Name and Address Organization Details Recorded Time 350225 naproxen medicatio n Not available Not available Not available 11/03/2024 7258 RxNorm MELVIN singleton [facility] 15:37:27 Medications Name Sig Start Date Stop Date [...] tablet TAKE 1 TABLET BY MOUTH EVERY DAY IF NEEDED FOR ANXIETY active Not Available Not Available No t Available acetaminoph en 500 mg tablet TAKE 1 TO 2 TABLETS BY MOUTH EVERY 6 HOURS NEEDED FOR PAIN active Not Available Not Available No t Available triamcinolo ne acetonide 0.1 % topical cream MIX WITH cerave AND APPLY TOPICALLY TWICE DAILY IN THE MORNING AND AT BEDTIME NEEDED FOR RASH 06/12 completed Not Available Not Available Not Available nortriptyli ne 25 mg capsule TAKE 1 CAPSULE BY MOUTH EVERY DAY AT BEDTIME active Not Available Not Available No t Available omeprazole 20 mg capsule,del ayed release [...] completed Not Available Not Available Not Available metoprolol succinate active Not Available Not Available No t Available Vitamin D3 50 mcg (2,000 unit) capsule TAKE 1 CAPSULE BY MOUTH EVERY MORNING active Not Available Not Available No t Available Eliquis active Not Available Not Avail able Not Available naloxone 4 mg/actuatio n nasal spray FOR SUSPECTED OPIOID OVERDOSE. SPRAY 0.1mL IN ONE NOSTRIL. REPEAT IN ALTERNATE NOSTRIL 2-3 MINUTES IF NEEDED. SEEK MEDICAL ATTENTION IMMEDIATE LY EVEN IF PATIENT RESPONDS. 06/12 completed Not Available Not Available Not Available Vitals Date Recorded Body height Body mass index (BMI) Body weight Provider Name and Address Organization Details Last Updated DateTime 10/10/2024 162.56 cm 33.3 kg/m2 81386.92 g Randi Dennison [place] - [facility] 10/10/2024 14:36:54 Date Recorded Body height Body mass index (BMI) Body weight Provider Name and Address Organization Details Last Updated DateTime 10/16/2024 162.56 cm 33.6 kg/m2 73675.1 g Randi Samuelkalebmaryana [place] - [facility] 10/16/2024 14:33:23 Date Recorded Body height Provider Name an d Address Organization Details Last Updated DateTime 11/03/2024 162.56 cm MELVIN COMI [place] - [facility] 11/03/2024 15:34:50 Date Recorded Body height Provider Name an d Address Organization Details Last Updated DateTime 12/04/2024 162.56 cm MELVIN COMI [place] - [facility] 12/04/2024 09:09:15 Date Recorded Body height Body mass index (BMI) Body weight Provider Name and Address Organization Details Last Updated DateTime 06/12/2024 162.56 cm 31.9 kg/m2 73074.18 g Skyla Irma [place] - [facility] 06/12/2024 11:10:37 Social History None recorded. Functional Status None recorded. Mental Status None recorded. Family History Nothing Reported. Medical History No medical history recorded. Gynecological HistoryNo gynecological history recorded. Obstetrics History GPAL:G 0 P 0 0 0 0 Past Encounters Encounter ID Performer Location Encounter Start Date Encounter Closed Date Diagnosis/Indication Diagnosis SNOMED-CT Code Diagnosis ICD10 Code Diagnosis Note [id number] KELSEY BURLESON MD [facility] [address] [address] 06/12/2024 10:28:16 06/12/2024 11:31:11 Benign neoplasm of parotid gland 11769894 D11.0 right accessory parotid mass, 28mm pleomorphi c adenoma. Discussed higher risk to the zygomatic branch of the facial nerve as well as salivary duct given the anterior location of the 3 cm lesion [id number] ARBEN MCKEON PA-C [facility] [address] [address] 10/10/2024 14:27:50 10/13/2024 07:06:40 Benign neoplasm of parotid gland 87387352 D11.0 [id number] APOLONIA ETIENNE PA-C [facility] [address] [address] 10/16/2024 14:26:01 10/16/2024 14:57:24 Benign neoplasm of parotid gland 99338795 D11.0 Hearing loss 85836005 H9 1.91 [id number] KELSEY BURLESON MD [facility] [address] [address] 11/03/2024 14:33:29 11/03/2024 16:26:20 Benign neoplasm of parotid gland 85722973 D11.0 [id number] AICHA ROSE PA-C [facility] [address] [address] 12/04/2024 09:04:41 12/04/2024 12:32:25 Abnormal auditory perception 71868414 H93.299 Right Ear:Normal hearing with excellent speech discrimina tion.Type As tympanogra m, rounded.Le ft Ear:Normal hearing with excellent speech discrimina tion.Type As tympanogra m, rounded. Bilateral temporomandibular joint pain 8277737426 2565873 M26.623 Health Concerns Section Related Observation LastModified by Organization Detai ls LastModified Time None Recorded Concern Status LastModified by Organization Details LastModified Time None Recorded Advance Directives Directive None Recorded Payers Insurance Date Sequence Insurance Name Policy Number Policy [place] Covered Member ID Igllette Member ID Guarantor Name 12/25/2024 1 [place] [facility] PL[facility] Socorro L Moran [id number] Socorro L Moran Notes Date Note Type Note Provider Name and Address Organization Details Recorded Time 06/12/2024 text/html right parotid ma sshas been present over 10 yrs with progressive enlargementtender when lays on that spottobacco - stopped last month 04/21/2024 CTA head with and without contrast at [facility] mm lobulated solid mass within right buccal soft tissue, accessory parotid tissue 05/14/20[place] [facility], started on 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 She is sore but recovering well. Has had less than 10 cc of output on her VICENTE drain in the last 24 hours. KELSEY BURLESON MD [address] [facility] [place], [address], [place] - [facility] 10/10/2024 16:37:40 10/16/2024 text/html 53-year-old anupama olivia presents for second postop visit status post right parotidectomy with Dr. Burleson on 10/08/2024. VICENTE drain was removed 2 days following the surgery. She has been doing well postoperatively. Continues to have numbness and pain that is improving. Has been alternating Tylenol and Ibuprofen. Reports decreased hearing and popping sensation in the right ear that is gradually improving. Denies tinnitus. KELSEY BURLESON MD 100 [facility],[address], [address], [place] - [facility] 10/16/2024 16:44:33 11/03/2024 text/html 10/08/24 [facility], Ana keller, Right parotidectomy. 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 This started 2 weeks ago with associated aural pressure. She describes occasional 'thumping' sound. She continues to have pain that radiates down her parotid scar and neck as well as sensation that she is sweating since surgery. Minimal improvement with ibuprofen. No recent illness. No history of seasonal allergies or migraine. Denies prior ear infections or ear surgeries. No history of loud noise exposure. JHONNY LINCOLN MD [address] [facility] [facility] [place], [address], [place] - [facility] 12/04/2024 10:29:10 OBGyn Episode No OBEpisode recorded.
--- OUTSIDE RECORDS SUMMARY | 2025-02-23 14:48 | XMS_ITS | Encounter Summary ---
Author Organization [employer] Address [address] [facility] [address] [place] [address] Care Team Providers Care Actuarial Assistant Name Role Phone Emily Lang MD Primary Care Provider [phone] Reason for Referral * Consultation (Routine) - Authorized Specialty Diagnoses / Procedures Referred By Contac t Referred To Contact Pharmacy Diagnoses Tobacco dependence Emily Lang MD [address] [place] [address] Phone: tel: fax: Referral ID Status Reason Start Date Expiration Date Visits Requested Visits Authorized [id number] Authorized Consult and Treat 06/16/2024 06/16/2025 6 6 Encounter Details Date Type Department Care Team (Late st Contact Info) Description 06/16/2024 Orders Only [facility] [address] [place] [address] [phone] Emily Lang MD [address] [place] [address] [phone] Tobacco dependence (Primary Dx) Social History Tobacco [...] Description 05/06/2025 9:00 AM EDT Clinical Support [facility] [address] [place] [address] Bia Hopper, IRASEMA Scheduled Referrals Name Type [...] documented as of this encounter Care Teams Actuarial Assistant Relationship Specialty Start Date End Date Emily Lang MD [address] [place] [id number] PCP - General Family Medicine 03/23/23 documented as of this encounter
== END 2025-02-23 14:21 | disposition home or self-care (01) ==
LOC: HO.HCS 13:37
PROVIDERS: PCP General Practice; Visit Provider Internal Medicine Cardiovascular Disease
DX: I48.0 Paroxysmal atrial fibrillation (principal)
CPT/HCPCS: 93010; 99214

== ENCOUNTER → 2025-02-23 13:37 | Outpatient (BNVA) | payer MEDICAID, SELFPAY | PROVIDERS: PCP General Practice; Visit Provider Internal Medicine Cardiovascular Disease | DX: I48.0 Paroxysmal atrial fibrillation (principal) | CPT/HCPCS: 93005; 99212 ==

== ENCOUNTER 2025-03-01 22:48 | Emergency (ER) | payer MEDICAID, SELFPAY ==
--- NOTE | 2025-03-01 | ECG_ITS ---
Test Reason : afib Blood Pressure : */* mmHG Vent. Rate : 83 BPM Atrial Rate : 83 BPM P-R Int : 152 ms QRS Dur : 86 ms QT Int : 384 ms P-R-T Axes : 64 40 -15 degrees QTcB Int : 451 ms Normal sinus rhythm [address] & T wave abnormality, consider inferior ischemia Abnormal ECG When compared with ECG of 14-Feb-2025 10:56, Nonspecific T wave abnormality now evident in Lateral leads Referred By: Generic ED Physician Electronically Signed By: Ramos Ponce
[2025-03-01 23:01] VITALS: BP 147/75; PULSE 74; RESP 18; TEMP 36.6; O2SAT 97; BMI 32.4
[2025-03-01 23:06] LABS: MANUAL DIFF FLAG NO
[2025-03-01 23:07] LABS: Hematocrit 40.0 % (37.0-47.0); Hemoglobin 13.2 g/dl (12.0-16.0); Imm Gran Abs Auto 0.01 X10*3/uL (0.00-0.03); Imm Gran Pct Auto 0.1 % (0.0-0.4); Lymphocytes Absolute Auto 3.5 X10*3/uL (1.2-4.9); Mean Corpuscular HGB Conc 33.0 g/dl (31.0-35.0); Mean Corpuscular Hemoglobin 29.9 pg (27.0-33.0); Mean Corpuscular Volume 90.5 fL (80.0-98.0); NRBC Abs Auto 0.000 X10*3/uL (0.0-0.012); NRBC Pct Auto 0.0 /100WBC (0.0-0.2); Platelet Count 264 X10*3/uL (160-400); Red Blood Count 4.42 X10*6/uL (4.20-5.50); White Blood Count 9.1 X10*3/uL (4.8-10.8)
[2025-03-01 23:30] LABS: Alanine Aminotransferase 18 U/L (0-31); Albumin Level 4.3 g/dL (3.5-5.0); Alkaline Phosphatase 83 U/L (39-117); Anion Gap 12 (12-20); Aspartate Amino Transferase 10 U/L (5-31); Blood Urea Nitrogen 17 mg/dL (9-16); Calcium 8.8 mg/dL (8.4-10.2); Carbon Dioxide 23 mmol/L (22-29); Chloride 108 mmol/L (96-108); Creatinine Clr Calc Pharmacy 76.6; Estimated Glomerular Filt Rate > 60; Potassium 3.8 mmol/L (3.3-5.1); Sodium 139 mmol/L (135-145); Total Protein 7.4 g/dL (6.5-8.0); Troponin-I High Sensitivity < 2.7 ng/L (<3.5-17.0)
--- NOTE | 2025-03-02 00:06 | PC.NURSE ---
Pt reported to registration that she was going to move her car. Attempt made to contact patient cellphone, no answer x 2, t/w left Voicemail. Pt LWBS.
== END 2025-03-02 00:10 | disposition left against medical advice (07) ==
PROVIDERS: Emergency Provider Emergency Medicine; PCP General Practice
DX: I48.91 Unspecified atrial fibrillation (principal); Z79.899 Other long term (current) drug therapy
CPT/HCPCS: 36415; 80053; 84484; 84702; 85025; 93005; 99281; 99283

== ENCOUNTER → 2025-03-01 22:50 | Outpatient (BNV) | payer MEDICAID, SELFPAY | PROVIDERS: Emergency Provider Emergency Medicine; PCP General Practice; Visit Provider Internal Medicine Cardiovascular Disease | DX: R94.31 Abnormal electrocardiogram [ECG] [EKG] (principal); I48.91 Unspecified atrial fibrillation | CPT/HCPCS: 93010 ==

== ENCOUNTER → 2025-05-11 10:40 | Outpatient (REF) | payer MEDICAID, SELFPAY ==
--- OUTSIDE RECORDS SUMMARY | 2025-05-06 14:30 | XMS_ITS | Encounter Summary ---
Author Organization [employer] Address [address] [facility] [address] [place] [address] Care Team Providers Care Director Learning Services Name Role Phone Emily Lang MD Primary Care Provider Reason for Visit * Reason Comments [facility] Encounter Details Date Type Department Care Team (Latest Contact Info) Description 05/06/2025 2:30 PM EDT Telemedicine [facility] MEDICINE [address] [place] [address] Bia Hopper RN Long-term current use of benzodiazepine Social History Tobacco Use Types Packs/Day Years [...] AM EDT documented as of this encounter Functional Status * Over the last 2 weeks, how often have you been bothered by any of the following problems? Question Answer Date of Assessment Author Feeling nervous, anxious, or on edge 2 04/14 12:01 PM EDT Bia Hopper RN Not being able to stop or co ntrol worrying 2 05/06/2025 12:01 PM EDT Bia Hopper R N Worrying too much about diff erent things 3 05/06/2025 12:01 PM EDT Bia Hopper R N Trouble relaxing 2 05/06/2025 12:01 PM EDT Bia Hopper RN Being so restless that it is hard to sit still 3 05/06/2025 12:01 PM EDT Bia Hopper R N Becoming easily annoyed or irritable 0 04/14 12:01 PM EDT Bia Hopper RN Feeling afraid as if somethi ng awful might happen 3 05/06/2025 12:01 PM EDT Bia Hopper R N MOISES-7 Total Score 15 05/06/2025 12:01 PM EDT Bia Hopper RN documented as of this encounter Progress Notes * Bia Hopper RN - 05/06/2025 2:30 PM EDT SUBJECTIVE: Socorro Moran is a 54 y.o. year old female who presents for [facility] Preferred language for medical information: Vincentian Socorro Moran does report adherence to Clonazepam (Klonopin) 0.5 mg, take 1 tablet every 24 hours PRN, last refilled 04/06/2025. States she doesn't use it every day, she takes between 0-1 doses a day. The patient last took Clonazepam (Klonopin) on: 05/04/2025 Medication effective: Yes Sleep habits: ok Therapist: Yes Pt stated she's currently having an Afib episode, heart rate in 120's. She is working with her electric motor control assembler actively about this and taking Metoprolol Q3hr. Stated her electric motor control assembler also recommended she use her Clonazepam for her anxiety feelings. She further stated cardiology advised her not to makechanges to her Clonazepam until her cardiac issue is resolved. Pt stated she's expecting to have tohave an ablation done for her Afib. She said she feels quite anxious about her afib. She recently needed her partner and her partners child move out to help lessen her stress. Per conversation with PCP, ok for patient to have a Tele [facility] appointment today. OBJECTIVE: PATTERNATOR checked: 05/06/2025 Pill count completed for Clonazepam (Klonopin), count today is 2 , anticipated count should be 0, this is as expected. Last PCP visit: 04/30/2024 MOISES-7 Total Score: 15 (05/06/2025 12:01 PM) Previous MOISES-7 done: , score: 7 Controlled substance agreement signed: Controlled Substance Agreement 10/29/2024 MICA BUILDER Tier: 2 Current Medications[1] Smoking status: No. Stated she quit 1.5 months ago. ETOH use: Denies Illicit substances: Denies Marijuana use: No. Stated she's trying to 'clean up' her body before she has to have surgery Lab Results Component Value Date POCTHC Positive 02/02/2025 POCCOCAINEUR Negative 02/02/2025 POCOPIATEUR Negative 02/02/2025 DOAUR Negative 02/02/2025 POCAMPHETAMI Negative 02/02/2025 POCBENZODIUR Negative 02/02/2025 POCBARBSCRN Negative 02/02/2025 POCMETHADOUR Negative 02/02/2025 POCBUPSCRN Negative 02/02/2025 POCTCAUR Positive 02/02/2025 POCMDMAUR Negative 02/02/2025 POCOXYCODONE Negative 02/02/2025 POCPHENCYCUR Negative 02/02/2025 PROPOXUR Negative 02/02/2025 FENTANYLURIN Negative 02/02/2025 ASSESSMENT: Encounter Diagnosis Name Primary? Long-term current use of benzodiazepine PLAN: Information on acupuncture given: Previously discussed Narcan education provided: Previously discussed Narcan prescription: active Will update PCP on MOISES scoring, pts feelings of needing to continue with Clonazepam as is. Clonazepam refill request was sent to PCP. Socorro Moran will continue taking medication as prescribed and follow up at the next MICA BUILDER visitor sooner if needed. Socorro Moran has verbalized understanding of care plan. Future Appointments Date Time Provider Department Center 05/06/2025 2:30 PM Bia Hopper RN MEDICINE [facility] 08/10/2025 9:00 AM Bia Hopper RN MEDICINE [facility] Bia Hopper RN [1] Current Outpatient Medications: clonazePAM (KlonoPIN) 0.5 MG tablet, Take 1 tablet (0.5 mg) by mouth if needed each day for anxietyfor up to 28 days. Do not start before April 06, 2025., Disp: 28 tablet, Rfl: 0 acetaminophen (Tylenol Extra Strength) 500 MG tablet, Take 1-2 tablets every 6 hours as needed for pain, Disp: 90 tablet, Rfl: 0 albuterol (2.5 MG/3ML) 0.083% nebulizer solution, Take 3 mL (2.5 mg) by nebulization every 4 (four)hours if needed for wheezing or shortness of breath., Disp: 150 mL, Rfl: 1 albuterol 108 (90 Base) MCG/ACT inhaler, INHALE 2 PUFFS BY MOUTH EVERY 4 HOURS IF NEEDED FOR SHORTNESS OF BREATH OR WHEEZING, Disp: 18 g, Rfl: 11 apixaban (Eliquis) 5 MG tablet, Take 5 mg by mouth., Disp: , Rfl: ceramides (CeraVe) moisturizing cream, Apply 1 Application. topically if needed (rash). Mix with triamcinolone and apply together, Disp: 340 g, Rfl: 3 cholecalciferol (Vitamin D-3) 50 MCG (2000 UT) capsule, TAKE 1 CAPSULE BY MOUTH EVERY MORNING, Disp: 90 capsule, Rfl: 3 escitalopram (Lexapro) 20 MG tablet, TAKE 1 TABLET BY MOUTH DAILY IN THE MORNING, Disp: 90 tablet, Rfl: 3 ibuprofen 400 MG tablet, TAKE 1 TABLET BY MOUTH EVERY 6 HOURS NEEDED FOR MODERATE PAIN OR FOR FEVER, Disp: 90 tablet, Rfl: 0 lisinopril 20 MG tablet, TAKE 1 TABLET BY MOUTH DAILY IN THE MORNING, Disp: 90 tablet, Rfl: 3 metoprolol succinate XL (Toprol-XL) 25 MG 24 hr tablet, Take 25 mg by mouth., Disp: , Rfl: nortriptyline (Pamelor) 25 MG capsule, Take 1 capsule (25 mg) by mouth at bedtime., Disp: 90 capsule, Rfl: 3 omeprazole (PriLOSEC) [address] capsule, TAKE 1 CAPSULE BY MOUTH EVERY DAY BEFORE BREAKFAST DO NOT BREAK, CRUSH, DISSOLVE OR CHEW, Disp: , Rfl: triamcinolone (Kenalog) 0.1 % cream, Apply topically if needed in the morning and at bedtime for rash (pain and swelling). Mix in with cerave and apply all together, Disp: 80 g, Rfl: 3 documented in this encounter Plan of Treatment Upcoming Encounters Date Type Department Care Team (Late st Contact Info) Description 08/10/2025 9:00 AM EST Clinical Support [facility] MEDICINE [address] [place] [address] Bia Hopper, RN documented as of this encounter Visit Diagnoses Diagnosis Long-term current use of benzodiazepine documented in this encounter Additional Health Concerns Assessment Noted Time PHQ-9 Depression Total Score: 17 024 9:55 AM EDT documented as of this encounter Care Teams Director Learning Services Relationship Specialty Start Date End Date Emily Lang MD [address] [place] [phone] PCP - General Family Medicine 03/23/23 documented as of this encounter
--- NOTE | 2025-05-11 10:43 | HM_ITS ---
Cardiac event monitor Indication: Paroxysmal atrial fibrillation Technique: Patient was hooked up to cardiac event monitor from 05/11/2025 to 06/15/2025 although this was discontinued early. Total wear time was 6.7 days. Findings: Baseline was normal sinus rhythm 99.83% of the time. Average heart rate in sinus rhythm is 73 beats per minute. Lowest heart rate of 51 beats per minute in sinus bradycardia and maximum heart rate 120 beats per minute sinus tachycardia. There were no significant pauses or av conduction abnormality noted Rare PACs noted. One episode of short run of SVE, lasting about 9 beats at 180 beats per minute noted. No ventricular arrhythmias noted. Patient triggered 12 strip with 1 symptom of fast heart rate correlating with sinus tachycardia. The other symptoms not specified correlated with sinus rhythm of PACs. Conclusion: 1. Baseline was normal sinus rhythm with no pauses 2. Rare PACs noted 3. No episodes of atrial fibrillation, sustained were noted 4. Most of the patient reported symptoms correlated with sinus rhythm. [facility]
--- OUTSIDE RECORDS SUMMARY | 2025-05-11 11:59 | XMS_ITS | Encounter Summary ---
Author Organization [employer] Address [address] [facility] [address] [place] [address] Care Team Providers Care Proteomics Scientist Name Role Phone Emily Lang MD Primary Care Provider [phone] Reason for Visit * Reason Onset Date Comments Med Refill 05/27/2024 Encounter Details Date Type Department Care Team ([facility] st Contact Info) Description 05/27/2024 Refill [facility] MEDICINE [address] [place] [phone] Emily Lang MD [address] [place] [address] Social History Tobacco Use Types Packs/Day Years [...] is your housing situation today? I have mrago freed 06/06/[address] you [...] Description 08/10/2025 9:00 AM EST Clinical Support [facility] MEDICINE [address] [place] [address] Bia Hopper RN documented as of this encounter Visit Diagnoses Not on filedocumented in this encounter Additional Health Concerns Assessment Noted Time PHQ-9 Depression Total Score: 17 024 9:55 AM EDT documented as of this encounter Care Teams Proteomics Scientist Relationship Specialty Start Date End Date Emily Lang MD [address] [place] [address] PCP - General Family Medicine 03/23/23 documented as of this encounter
--- OUTSIDE RECORDS SUMMARY | 2025-05-11 11:59 | XMS_ITS | Encounter Summary ---
Author Organization [employer] Address [address] [facility] [address] [place] [address] Care Team Providers Care Weight Control Lecturer Name Role Phone Emily Lang MD Primary Care Provider [phone] Reason for Visit * Reason Comments Med Change Request Encounter Details Date Type Department Care Team (Late Contact Info) Description 03/26/2023 Refill [facility] MEDICINE [address] [place] [address] [phone] Emily Lang MD [address] [place] [address] [phone] Neurogenic pruritus Social History Tobacco Use Types Packs/Day Years Used Date Smoking Tobacco: Every Day Cigarettes Smokeless Tobacco: Never Alcohol Use Standard Drinks/Week Comments Never 0 (1 standard drink = 0.6 oz pur e alcohol) Depression Answer Date Recorded Patient Health Questionnaire-2 Score 2 03/23/2023 Comments Unknown Sex and Gender Information Value Date Recorded Sex Assigned at Female 03/19/2023 8:39 AM EDT Legal Sex Female 8:35 AM EDT Gender Identity Female 03/19/2023 8:39 AM EDT Sexual Orientation Lesbian 12/24/2023 8: 16 AM EDT documented as of this encounter Plan of Treatment Upcoming Encounters Date Type Department Care Team (Late Contact Info) Description 08/10/2025 9:00 AM EST Clinical Support [facility] MEDICINE [address] [place] [address] [phone] Bia Hopper RN documented as of this encounter Visit Diagnoses Diagnosis Neurogenic pruritus documented in this encounter Care Teams Weight Control Lecturer Relationship Specialty Start Date End Date Emily Lang MD [address] [place] [address] PCP - General Family Medicine 03/23/23 documented as of this encounter
--- OUTSIDE RECORDS SUMMARY | 2025-05-11 11:59 | XMS_ITS | Clinical Summary ---
Author Organization [employer] Address [address] [place] [address] Care Team Providers Care Child Protective Investigator Name Role Phone Emily Lang MD Primary Care Provider [phone] Allergies Active Allergy Reactions Criticality Noted Date Comments Naproxen Other 03/19/2023 Vomiting Medications * This document contains information received from the source organization and may not represent a complete record from that organization. ceramides (CeraVe) moisturizing cream Apply 1 Application. topically if needed (rash). Mix with triamcinolone and apply together 340 g 3 023 Active triamcinolone (Kenalog) 0.1 % cream Apply topically if needed in the morning and at bedtime for rash (pain and swelling). Mix in with cerave and apply all together 80 g 3 023 Active albuterol (2.5 MG/3ML) 0.083% nebulizer solution Take 3 mL (2.5 mg) by nebulization every 4 (four) hours if needed for wheezing or shortness of breath. 150 mL 1 023 Active albuterol 108 (90 Base) MCG/ACT inhaler INHALE 2 PUFFS BY MOUTH EVERY 4 HOURS IF NEEDED FOR SHORTNESS OF BREATH OR WHEEZING 18 g 11 024 Active omeprazole (PriLOSEC) [address] capsule TAKE 1 CAPSULE BY MOUTH EVERY DAY BEFORE BREAKFAST DO NOT BREAK, CRUSH, DISSOLVE OR CHEW 024 Active nortriptyline (Pamelor) 25 MG capsule Take 1 capsule (25 mg) by mouth at bedtime. 90 capsule 3 024 Active lisinopril 20 MG tablet TAKE 1 TABLET BY MOUTH DAILY IN THE MORNING 90 tablet 3 024 Active escitalopram (Lexapro) 20 MG tablet TAKE 1 TABLET BY MOUTH DAILY IN THE MORNING 90 tablet 3 024 Active ibuprofen 400 MG tablet TAKE 1 TABLET BY MOUTH EVERY 6 HOURS NEEDED FOR MODERATE PAIN OR FOR FEVER 90 tablet Active cholecalciferol (Vitamin D-3) 50 MCG (2000 UT) capsule TAKE 1 CAPSULE BY MOUTH EVERY MORNING 90 capsule 3 Active acetaminophen (Tylenol Extra Strength) 500 MG tablet Take 1-2 tablets every 6 hours as needed for pain 90 tablet 025 Active metoprolol succinate XL (Toprol-XL) 25 MG 24 hr tablet Take 25 mg by mouth. Active apixaban (Eliquis) 5 MG tablet Take 5 mg by mouth. Active clonazePAM (KlonoPIN) 0.5 MG tabletIndicatio ns:Anxiety Take 1 tablet (0.5 mg) by mouth if needed each day for anxiety for up to 28 days. 28 tablet 025 2024 Active omeprazole OTC (PriLOSEC OTC) 20 MG EC tablet Take 1 tablet (20 mg) by mouth before breakfast. Do not crush, chew, or split. 90 tablet 3 023 2024 Discontinued(D uplicate order (will not trigger notification to Pharmacy)) clonazePAM (KlonoPIN) 0.5 MG tabletIndicatio ns:Anxiety Take 1 tablet (0.5 mg) by mouth if needed each day for anxiety for up to 28 days. Do not start before April 06, 2025. 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 Surgical consultation with otolaryngology is recommended. 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 Assessment & Plan (12/24/2023 2:11 PM EDT): Stable, on steroid cream Assessment & Plan (08/01/2023 8:49 AM EST): Steroid cream and Cerave STOP Minocycline 100mg BID and Niacin 100mg BID, could not tolerate Assessment & Plan (03/26/2023 6:39 AM EDT): Steroid cream and Cerave Minocycline 100mg BID Niacin 100mg BID All for 1-3 months Adult general medical exam 03/26/2023 HTN (hypertension) 03/19/2023 Assessment & Plan (12/24/2023 2:11 PM EDT): Maintenance: Lisinopril 20mg BMP: Cr normal, eGFR> 60 Lipid Panel: today ASCVD Risk: Calculate pending updated labs EKG: Obtain baseline at f/u - Aerobic exercise to reduce BP. Initial goal of 30 min walk 3-5x/week. Increase as tolerated. - low-sodium diet (goal: <2g/day) and heart healthy diet such as DASH to reduce BP and prevent ASCVD. - Home BP monitoring 1-2 x day with goal of <140/90. - Seek immediate medical attention for chest pain, palpitations, SOB, syncope, or sudden changes in mental status. - Do not change or discontinue current prescriptions without first consulting health care provider Assessment & Plan (03/26/2023 6:35 AM EDT): Maintenance: Lisinopril 20mg BMP: Cr normal, eGFR> 60 Lipid Panel: ASCVD Risk: Calculate pending updated labs EKG: Obtain baseline at f/u - Aerobic exercise to reduce BP. Initial goal of 30 min walk 3-5x/week. Increase as tolerated. - low-sodium diet (goal: <2g/day) and heart healthy diet such as DASH to reduce BP and prevent ASCVD. - Home BP monitoring 1-2 x day with goal of <140/90. - Seek immediate medical attention for chest pain, palpitations, SOB, syncope, or sudden changes in mental status. - Do not change or discontinue current prescriptions without first consulting health care provider Severe episode of recurrent major depressive disorder, without psychotic features ([facility]) 03/19/2023 Assessment & Plan (03/30/2023 9:54 AM EDT): Assessment: Patient with Depression (depressed mood, decreased interest in activities, increased sleeping, increased appetite, guilt, trouble concentrating, fatigue, increased fidgeting,) and Anxiety (difficult to control worry, nervousness, fearfulness, restlessness, irritability, and difficulty relaxing ). Symptoms are in the context biopsychosocial stressors of a recent move and family conflicts. Patient will benefit from OP therapy, boundary setting (phone on do not disturb 2 hours a day, locked door), and family communication. At this time Socorro Moran meets criteria for Visit Diagnoses: Problem List Items Addressed This Visit None Patient ready to address current needs Yes Fish Quintanilla has a supportive partner and is in the preparation stage of change. PLAN: 1. Follow up with [facility]: Recommended for follow-up: As needed 2. Patient goal is to work towards placing boundaries so that she can engage in therapy and explore coping mechanisms 3. Behavioral Recommendations a. [place] setting b. Lock door/do not disturb on phone c. OP therapy Assessment & Plan (03/26/2023 6:36 AM EDT): Continue Lexapro BHN referral in place for OP therapy MOISES (generalized anxiety disorder) 03/19/2023 Assessment & Plan (04/30/2024 12:46 PM EDT): Will continue Klonopin 0.5mg at BID for the time being, reevaluate in one month Assessment & Plan (12/24/2023 2:14 PM EDT): Continue Klonopin 0.5mg daily prn Continue therapy at [facility] [address] Assessment & Plan (03/30/2023 9:54 AM EDT): Assessment: Patient with Depression (depressed mood, decreased interest in activities, increased sleeping, increased appetite, guilt, trouble concentrating, fatigue, increased fidgeting,) and Anxiety (difficult to control worry, nervousness, fearfulness, restlessness, irritability, and difficulty relaxing ). Symptoms are in the context biopsychosocial stressors of a recent move and family conflicts. Patient will benefit from OP therapy, boundary setting (phone on do not disturb 2 hours a day, locked door), and family communication. At this time Socorro Moran meets criteria for Visit Diagnoses: Problem List Items Addressed This Visit None Patient ready to address current needs Yes Fish Quintanilla has a supportive partner and is in the preparation stage of change. PLAN: 1. Follow up with [facility]: Recommended for follow-up: As needed 2. Patient goal is to work towards placing boundaries so that she can engage in therapy and explore coping mechanisms 3. Behavioral Recommendations a. [place] setting b. Lock door/do not disturb on phone c. OP therapy Assessment & Plan (03/26/2023 6:36 AM EDT): Continue Klonopin 0.5mg daily Goal is to wean this year, per pt Chronic pain of both knees 03/19/2023 Assessment & Plan (12/24/2023 2:12 PM EDT): PT referral Assessment & Plan (03/26/2023 6:36 AM EDT): Referral to [facility] Ortho in place Known meniscal tear from previous PCP Gastroesophageal reflux disease 03/19/2023 Assessment & Plan (03/26/2023 6:35 AM EDT): hold Prilosec for 2 weeks, take Famotadine H pylori testing Vitamin D deficiency 03/19/2023 Mild intermittent asthma without complication Assessment & Plan (12/24/2023 2:11 PM EDT): Stable currently Continue Montelukast and CULLEN prn Assessment & Plan (08/15/2023 10:21 AM EST): Her RSV infection has given her an asthma exacerbation Steroid taper CULLEN continued prn If not improving in 1-2 days with steroids to ER Continue quarantine, masking at home, hand washing Focus on drinking fluids Resolved Problems Problem Noted Date Diagnosed Date Resolved Date RSV bronchiolitis 08/15/2023 04/30/2024 Screening mammogram for breast cancer 03/26/2023 12/16/2024 Assessment & Plan (12/24/2023 2:10 PM EDT): Needs to call [facility] and schedule mammo Tobacco dependence 03/19/2023 Assessment & Plan (03/26/2023 6:37 AM EDT): Quitting with patches She has strange dreams with them on at night, recommend daytime use only Encounters Date Type Department Care Team Description 05/06/2025 2:30 PM EDT Telemedicine [facility] [address] [place] [address] Bia Hopper, RN Long-term current use of benzodiazepine 05/06/2025 Travel 05/05/2025 Refill [facility] [address] [place] [address] Emily Lang MD Anxiety 05/01/2025 Telephone [facility] [address] [place] [address] Emily Lang MD Appointment Request 04/21/2025 Telephone [facility] [address] [place] [address] Autumn Palafox PharmD 04/21/2025 Travel 04/01/2025 Refill [facility] [address] [place] [address] Emily Lang MD Anxiety 03/05/2025 Telephone [facility] [address] [place], [place] [phone] Domi Coto, TACTICAL [employer] PARTY MANAGER Follow-up 03/04/2025 Refill [facility] [address] [place] [address] Name, MD Tremayne Anxiety 03/01/2025 Orders Only GENERIC EXTERNAL DATA DEPARTMENT Provider, Generic External Data 02/14/2025 Orders Only [facility] External Provider, [facility] from Last 3 Months Immunizations Immunization Administration Dates Next Due Hep B, adult 03/23/2023 Influenza injectable quadrivalent preservative f ree 05/22/2023 Influenza, IIV3, injectable 08/15/2013 Influenza, seasonal, injectable, preservative fr ee 04/23/2016 Moderna Covid-19 Vaccine 6+ Bivalent 03/23/2023 Pfizer Covid-19 Vaccine 12+ 05/22/2023 Pneumococcal Conjugate PCV 13 09/09/2013 Pneumococcal Conjugate PCV 20 12/24/2023 Td (adult) 08/13/2018 Social History Tobacco Use Types Packs/Day Years Used Date Smoking Tobacco: Every Day Cigarettes Smokeless Tobacco: Never Tobacco Cessation:Ready to Q uit: Not Asked; Counseling Given: Not Answered Alcohol Use Standard Drinks/Week Comments Never 0 [...] Orientation Lesbian 12/24/2023 8: 16 AM EDT Last Filed Vital Signs Vital Sign Reading Time Taken Comments Blood Pressure 119/74 04/30/2024 8:59 AM EDT Pulse 54 04/30/2024 8:59 AM EDT Temperature 36.5 C (97.7 F) 04/30/2024 8:59 AM EDT Respiratory Rate 20 04/30/2024 8:59 AM EDT Oxygen Saturation 99% 04/30/2024 8:59 AM EDT Inhaled Oxygen Concentration - - Weight 84.5 kg (186 lb 3.2 oz) 04/30/2024 8:59 A M EDT Height 162.6 cm (5' 4 ) 04/30/2024 8:59 AM EDT Body Mass Index 31.96 04/30/2024 8:59 AM EDT Plan of Treatment Upcoming Encounters Date Type Department Care Team (Late st Contact Info) Description 08/10/2025 9:00 AM EST Clinical Support [facility] [address] [place] [address] Bia Hopper, RN Health Maintenance Due Date Last Done Comments CT Colonography 1970 Colonoscopy 1971 Colorectal Cancer Screening 1970 FIT DNA/Cologuard 1971 FIT 1971 FOBT 1970 HIV Screening 1970 Lipid Panel 1970 Sigmoidoscopy 1971 Alcohol/Substance Use Screening 1983 Hepatitis C Screening 11/28/1989 Pap Smear 11/28/1992 Cervical Cancer Screening 11/28/2001 HPV/Cotest 11/28/2001 Mammogram 2011 Zoster Vaccines (1 of 2) 11/28/2021 Hepatitis B Vaccines (2 of 3 - 19+ 3-dose series) 04/20/2023 03/23/2023 Depression Monitoring 10/28/2024 04/30/2024 , 04/30/2024 SDOH Screening 12/23/2024 12/24/2023 COVID-19 Vaccine (3 - 2024-2 6 season) 2025 05/22/2023, 03/23/2023 Influenza Vaccine (#1) 2025 , 04/23/2016, 08/15/2013 Tobacco Screening 04/30/2025 04/30/2024 Disability Screening 04/21/2026 04/21/2025 DTaP/Tdap/Td Vaccines (1 - Tdap) 08/13/2028 08/13/2018 Postponed from 08/14 (Other Medical Reasons) RSV Patients and Patients Aged 60 years or older (1 - 1-dose 75+ series) 11/28/2046 Pneumococcal Vaccine: 50+ Years Completed 12/24/2023, 09/09/2013 HIB Vaccines Aged Out No longer eligi ble based on patient's age to complete this topic HPV Vaccines Aged Out No longer eligi ble based on patient's age to complete this topic Hepatitis A Vaccines Aged Out No long er eligible based on patient's age to complete this topic IPV Vaccines Aged Out No longer eligi ble based on patient's age to complete this topic Meningococcal B Vaccine Aged Out No l onger eligible based on patient's age to complete this topic Meningococcal Vaccine Aged Out No esteban marcelo eligible based on patient's age to complete this topic RSV under 20 months Aged Out No longe r eligible based on patient's age to complete this topic Rotavirus Vaccines Aged Out No longer eligible based on patient's age to complete this topic Procedures Procedure Name Priority Date/Time Associated Diagnosis Comments HIGH SENSITIVITY TROPONIN I Routine 03/01/2025 11:00 PM EDT HCG, TOTAL, QN Routine 03/01/2025 11:00 PM EDT COMPREHENSIVE METABOLIC PANEL Routine 03/01/2025 11:00 PM EDT CBC WITH AUTO DIFFERENTIAL Routine 03/01/2025 11:00 PM EDT CTA HEAD NECK W AND WO CONTRAST Routine 02/14/2025 1:08 PM EDT XR CHEST 2 VIEWS Routine 02/14/2025 11:3 4 AM EDT from Last 3 Months Results * High Sensitivity Troponin I (03/01/2025 11:00 PM EDT) TROPONIN I HIGH SENSITIVITY <2.7 <3.5 - 17.0 ng/L [facility] Comment:The Maria high sens itivity Troponin-I results should beused in conjunction with other diagnostic information suchas ECG, clinical observations and information, and patientsymptoms to aid in the diagnosis of MO. 03/01/2025 11:0 0 PM EDT 03/01/2025 11:05 PM EDT us Generic External Data Provider LAB BLOOD ORDERAB LES Final Result [facility] [address] [place] [phone] * CBC auto differential (03/01/2025 11:00 PM EDT) White Blood Count 9.1 4.8 - 10.8 X10*3/uL [facility] Red Blood Count 4.42 4.20 - 5.50 X10*6/uL [facility] Hemoglobin 13.2 12.0 - 16.0 g/dl [facility] Hematocrit 40.0 37.0 - 47.0 % [facility] Mean Corpuscular Volume 90.5 80.0 - 98.0 fL [facility] Mean Corpuscular Hemoglobin 29.9 27.0 - 33.0 pg [facility] Mean Corpuscular HGB Conc 33.0 31.0 - 35.0 g/dl [facility] Red Cell Distribution Width 13.6 11.0 - 16.0 % [facility] Platelet Count 264 160 - 400 X10*3/uL [facility] Mean Platelet Volume 10.5 9.4 - 12.3 fL [facility] Neutrophils Percent Auto 51.4 45 - 73 % [facility] Imm Gran Pct Auto 0.1 0.0 - 0.4 % [facility] Lymphocytes Percent Auto 38.5 20 - 40 % [facility] Monocytes Percent Auto 7.4 2 - 11 % [facility] Eosinophils Percent Auto 1.9 0 - 4 % [facility] Basophils Percent Auto 0.7 0 - 2 % [facility] NRBC Pct Auto 0.0 0.0 - 0.2 /100WBC [facility] Neutrophils Absolute Auto 4.7 2.0 - 8.3 x10*3/uL [facility] Imm Gran Abs Auto 0.01 0.00 - 0.03 X10*3/uL [facility] Lymphocytes Absolute Auto 3.5 1.2 - 4.9 X10*3/uL [facility] Monocytes Absolute Auto 0.7 0.1 - 1.2 X10*3/uL [facility] Eosinophils Absolute Auto 0.2 0.0 - 0.4 X10*3/uL [facility] Basophils Absolute Auto 0.1 0.0 - 0.2 X10*3/uL [facility] NRBC Abs Auto 0.000 0.0 - 0.012 X10*3/uL [facility] 03/01/2025 11:0 0 PM EDT 03/01/2025 11:05 PM EDT Generic External Data Provider LAB BLOOD ORDERAB LES Final Result Performing Organization Address [facility] Co de Phone Number [facility] [address] [place] [phone] * hCG, Total, Quantitative (03/01/2025 11:00 PM EDT) HCG Quantitative <2 mIU/mL [facility] Comment:Weeks post LMP Appro ximate hCG(Last Menstrual Period) Range (mIU/ml)3 - 4 weeks 9 - 1304 - 5 weeks 75 - 2,6005 - 6 weeks 850 - 20,8006 - 7 weeks 4000 - 100,2007 - 12 weeks 11,500 - 289,70289 - 16 weeks 18,300 - 137,72403 - 29 weeks (2nd trimester) 1,400 - 53,91239 - 41 weeks (3rd trimester) 940 - 60,000The Maria B- hCG assay is used for the early detection ofpregnancy; it cannot be used to diagnose any conditionunrelated to . If a B-hCG level is not supportedby the clinical evidence, results should be confirmed by analternative method (qualitative urine hCG, for example). 03/01/2025 11:0 0 PM EDT 03/01/2025 11:05 PM EDT Generic External Data Provider LAB BLOOD ORDERAB LES Final Result Performing Organization Address [facility] Co de Phone Number [facility] [address] [place] [phone] * (ABNORMAL) Comprehensive Metabolic Panel (03/01/2025 11:00 PM EDT) Sodium 139 135 - 145 mmol/L [facility] Potassium 3.8 3.3 - 5.1 mmol/L [facility] Chloride 108 96 - 108 mmol/L [facility] Carbon Dioxide 23 22 - 29 mmol/L [facility] Anion Gap 12 12 - 20 [facility] Urea Nitrogen (BUN) 17(H) 9 - 16 mg/dL [facility] Creatinine, Serum 0.90 0.5 - 1.4 mg/dL [facility] Creatinine Clr Calc Pharmacy 76.6 [facility] Comment:Provided height and weight: 162.56 cm,85.729 kg.eGFR (calculated from the MDRD study equation) and eCrCl(calculated from the Cockcroft-Gault equation) are based ondifferent parameters and may not yield comparable results.If eCrCl result is absurd, please check patient'sheight/weight. Estimated Glomerular Filt Rate >60 [facility] Comment:Chronic Kidney Disea se: Estimated GFR < 60 mL/min/[id number] Kidney Disease: Estimated GFR < 15 mL/min/1.73m2 Glucose 88 60 - 115 mg/dL [facility] Calcium 8.8 8.4 - 10.2 mg/dL [facility] Bilirubin, Total 0.2 0.0 - 1.0 mg/dL [facility] Aspartate Amino Transferase 10 5 - 31 U/L [facility] Alanine Aminotransferase 18 0 - 31 U/L [facility] Total Protein 7.4 6.5 - 8.0 g/dL [facility] Albumin Level 4.3 3.5 - 5.0 g/dL [facility] Alkaline Phosphatase 83 39 - 117 U/L [facility] 03/01/2025 11:0 0 PM EDT 03/01/2025 11:05 PM EDT us Generic External Data Provider LAB BLOOD ORDERAB LES Final Result [facility] [address] [place] [phone] * CTA Head Neck w/ and w/o Contrast (02/14/2025 1:08 PM EDT) Anatomical Region Laterality Modality Head, Neck Computed Tomogra phy 02/14/2025 1:08 PM EDT Narrative 02/14/2025 1:[address] [address] [address] Scan Report Signed Patient: Socorro Moran MR#: [id number] : 1970 Acct:[id number] Age/Sex: 54 / F ADM Date: 02/14/25 Loc: HO.ED Attending Dr: Ordering Physician: Aliyah Schroeder NP Date of Service: 02/14/25 Procedure(s): CT angio head neck Accession Number(s): [id number] cc: Emily Lang; Aliyah Schroeder NP Report Number: [id number]: Total DLP = 1388.00 mGy-cm CLINICAL HISTORY: headache, dizziness, blurred vision CT head without contrast. CT angiography head with IV contrast. 3-D postprocessing Comparison: CT/[place]/SR - CT HEAD FOR STROKE - 07/02/24 14:06 EST Findings: CT head showed no space-occupying lesion. No midline shift or mass-effect. Ventricles and sulci are age appropriate. Calvarium intact. Imaged portion of the paranasal sinuses are clear. No mastoid effusions. Angiographic images of the head: The terminal portion of both internal carotid arteries are patent. The anterior and middle cerebral arteries are patent along their proximal aspects. Posteriorly within the head, the intradural vertebral arteries, basilar artery and apprentice photographer are patent. PCOM circulation on the right no aneurysm or arteriovenous shunting lesion is appreciated. Impression: 1. Wide patency of the intracranial arterial circulation. 2. No intracranial aneurysm or AVM. 3. Unremarkable CT enhancement of the brain parenchyma. 4. Consider MRI correlation CT angiography neck with contrast. 3-D postprocessing Comparison: CT/[place]/SR - CT HEAD FOR STROKE - 07/02/24 14:06 EST Findings: Angiographic images of the neck: The bilateral common carotid arteries are patent. Both carotid bulbs are widely patent. Both ICAs follow normal course and caliber through their distal cervical segments. Shallow calcified plaque proximal internal carotid arteries. Posteriorly within the neck, the vertebral arteries are codominant with patent origins. Both vessels follow normal course and caliber through their suboccipital segments. Mild mucoperiosteal thickening both maxillary sinuses. Unerupted tooth is seen floor of the right maxillary sinus. No mastoid effusions. Adenoids are not enlarged. Normal Fossa of Rosenmuller. Epiglottis and palatine tonsils are not enlarged. No subglottic masses. Normal thyroid gland. Osseous structures intact. Lung apices unremarkable. Impression: 1. There is less than 50% stenosis of the right common carotid artery bifurcation and proximal right internal carotid artery based on NASCET criteria. 2. There is less than 50% stenosis of the left common carotid artey bifurcation and proximal left internal carotid artery based on NASCET criteria. 3. Wide patency of the cervical vertebral arteries. This document has been electronically signed by: Abdiaziz Carballo MD on 02/14/2025 13:08:42 Dictated By: Abdiaziz Carballo MD Signed By: <Electronically signed by Abdiaziz Carballo MD in [place]> 02/14/25 1309 DD/ 1308 TD/TT: 02/14/25 1308 Nuclear Monitoring Technician: Procedure Note Donotuseinterpreter, Image - 02/14/[address] [address] [address] Scan Report Signed Patient: Socorro Moran LMR#: [id number] : 1970Acct:[id number] Age/Sex: 54 / FADM Date: 02/14/25 Loc: HO.ED Attending Dr: Ordering Physician: Aliyah Schroeder NP Date of Service: 02/14/25 Procedure(s): CT angio head neck Accession Number(s): [id number] cc: Emily Lang; Aliyah Schroeder CONTINUITY WRITER Report Number: [id number]: Total DLP = 1388.00 mGy-cm CLINICAL HISTORY: headache, dizziness, blurred vision CT head without contrast. CT angiography head with IV contrast. 3-D postprocessing Comparison: CT/[place]/SR - CT HEAD FOR STROKE - 07/02/24 14:06 EST Findings: CT head showed no space-occupying lesion. No midline shift or mass-effect. Ventricles and sulci are age appropriate. Calvarium intact. Imaged portion of the paranasal sinuses are clear. No mastoid effusions. Angiographic images of the head: The terminal portion of both internal carotid arteries are patent. The anterior and middle cerebral arteries are patent along their proximal aspects. Posteriorly within the head, the intradural vertebral arteries, basilar artery and apprentice photographer are patent. PCOM circulation on the right no aneurysm or arteriovenous shunting lesion is appreciated. Impression: 1. Wide patency of the intracranial arterial circulation. 2. No intracranial aneurysm or AVM. 3. Unremarkable CT enhancement of the brain parenchyma. 4. Consider MRI correlation CT angiography neck with contrast. 3-D postprocessing Comparison: CT/WV/SR - CT HEAD FOR STROKE - 07/02/24 14:06 EST Findings: Angiographic images of the neck: The bilateral common carotid arteries are patent. Both carotid bulbs are widely patent. Both ICAs follow normal course and caliber through their distal cervical segments. Shallow calcified plaque proximal internal carotid arteries. Posteriorly within the neck, the vertebral arteries are codominant with patent origins. Both vessels follow normal course and caliber through their suboccipital segments. Mild mucoperiosteal thickening both maxillary sinuses. Unerupted tooth is seen floor of the right maxillary sinus. No mastoid effusions. Adenoids are not enlarged. Normal Fossa of Rosenmuller. Epiglottis and palatine tonsils are not enlarged. No subglottic masses. Normal thyroid gland. Osseous structures intact. Lung apices unremarkable. Impression: 1. There is less than 50% stenosis of the right common carotid artery bifurcation and proximal right internal carotid artery based on NASCET criteria. 2. There is less than 50% stenosis of the left common carotid artey bifurcation and proximal left internal carotid artery based on NASCET criteria. 3. Wide patency of the cervical vertebral arteries. This document has been electronically signed by: Abdiaziz Carballo MD on 02/14/2025 13:08:42 Dictated By: Abdiaziz Carballo MD Signed By: <Electronically signed by Abdiaziz Carballo MD in OV> 02/14/25 1309 DD/ 1308 TD/TT: 02/14/25 1308 Nuclear Monitoring Technician: [facility] External Provider IMG CT PROCEDURES Edited Result - Final * XR Chest 2 Views (02/14/2025 11:34 AM EDT) Anatomical Region Laterality Modality Chest Radiographic Nolvia ging 02/14/2025 11:3 4 AM EDT Narrative 02/14/2025 11:36 AM EDT [place] [id number] XRay Report Signed Patient: Socorro Moran MR#: [id number] : 1970 Acct:[id number] Age/Sex: 54 / F ADM Date: 02/14/25 Loc: .ED Attending Dr: Ordering Physician: Aliyah Schroeder NP Date of Service: 02/14/25 Procedure(s): XR chest 2V Accession Number(s): [id number] cc: Emily Lang; Aliyah Schroeder NP CLINICAL HISTORY: chest p ain 2 view chest x-ray. Comparison: CR/SR - XR CHEST 1V - 01/29/25 10:52 EDT CR - XR CHEST 2V - 08/27/24 16:56 EST Findings: Normal lung volumes. Lungs are clear. No pneumothorax or pleural effusion. Heart size normal. No passive venous congestion. No midline shift or tracheal deviation. No acute fracture. Impression: 1. No acute cardiopulmonary disease. This document has been electronically signed by: Abdiaziz Carballo MD on 02/14/2025 11:34:56 Dictated By: Abdiaziz Carballo MD Signed By: <Electronically signed by Abdiaziz Carballo MD in OV> 02/14/25 1136 DD/ 1134 TD/TT: 02/14/25 113 Nuclear Monitoring Technician: Procedure Note Donotmartinezinterpreter, Image - 02/14/2025 [facility] [address] [place] [id number] XRay Report Signed Patient: Socorro Moran R#: [id number] : 1970Acct:[id number] Age/Sex: 54 / FADM Date: 02/14/25 Loc: HO.ED Attending Dr: Ordering Physician: Aliyah Schroeder NP Date of Service: 02/14/25 Procedure(s): XR chest 2V Accession Number(s): [id number] cc: Emily Lang; Aliyah Schroeder NP CLINICAL HISTORY: chest p ain 2 view chest x-ray. Comparison: CR/SR - XR CHEST 1V - 01/29/25 10:52 EDT CR - XR CHEST 2V - 08/27/24 16:56 EST Findings: Normal lung volumes. Lungs are clear. No pneumothorax or pleural effusion. Heart size normal. No passive venous congestion. No midline shift or tracheal deviation. No acute fracture. Impression: 1. No acute cardiopulmonary disease. This document has been electronically signed by: Abdiaziz Carballo MD on 02/14/2025 11:34:56 Dictated By: Abdiaziz Carballo MD Signed By: <Electronically signed by Abdiaziz Carballo MD in OV> 02/14/25 1136 DD/ 1134 TD/TT: 02/14/25 113 Nuclear Monitoring Technician: [facility] External Provider IMG XR PROCEDURES Edited Result - Final from Last 3 Months Insurance [facility] C3 Care Teams Child Protective Investigator Relationship Specialty Start Date End Date Emily Lang MD [address] [place] [address] PCP - General Family Medicine 03/23/23
--- OUTSIDE RECORDS SUMMARY | 2025-05-11 11:59 | XMS_ITS | Encounter Summary ---
Author Organization [employer] Address [address] [facility] [address]t [place] [address] Care Team Providers Care Gunner'S Mate G Name Role Phone Emily Lang MD Primary Care Provider [phone] Reason for Visit * Reason Onset Date Comments Med Refill 10/19/2024 Encounter Details Date Type Department Care Team ([facility] st Contact Info) Description 10/19/2024 Refill [facility] [address] [place] [address] Emily Lang MD [address] [place] [address] Social History Tobacco Use Types Packs/Day Years [...] Description 08/10/2025 9:00 AM EST Clinical Support [facility] [address] [place] [address] Bia Hopper RN documented as of this encounter Visit Diagnoses Not on filedocumented in this encounter Additional Health Concerns Assessment Noted Time PHQ-9 Depression Total Score: 17 024 9:55 AM EDT documented as of this encounter Care Teams Gunner'S Mate G Relationship Specialty Start Date End Date Emily Lang MD [address] [place] [address] PCP - General Family Medicine 03/23/23 documented as of this encounter
--- OUTSIDE RECORDS SUMMARY | 2025-05-11 11:59 | XMS_ITS | Encounter Summary ---
Author Organization [employer] Address [address] [facility] [address] [place] [address] Care Team Providers Care Construction Operations Manager Name Role Phone Emily Lang MD Primary Care Provider [phone] Encounter Details Date Type Department Care Team (Latest Contact Info) Description 05/06/2025 Travel Social History Tobacco Use Types Packs/Day Years [...] Hopper RN documented as of this encounter Plan of Treatment Upcoming Encounters Date Type Department Care Team (Late st Contact Info) Description 08/10/2025 9:00 AM EST Clinical Support [facility] [address] [place] [address] Bia Hopper, RN documented as of this encounter Visit Diagnoses Not on filedocumented in this encounter Additional Health Concerns Assessment Noted Time PHQ-9 Depression Total Score: 17 024 9:55 AM EDT documented as of this encounter Care Teams Construction Operations Manager Relationship Specialty Start Date End Date Emily Lang MD [address] [place] [address] PCP - General Family Medicine 03/23/23 documented as of this encounter
--- OUTSIDE RECORDS SUMMARY | 2025-05-11 11:59 | XMS_ITS | Encounter Summary ---
Author Organization [employer] Address [address] [facility] 7t [place] [address] Care Team Providers Care Corporate Tutor Name Role Phone Emily Lang MD Primary Care Provider Reason for Visit * Reason Onset Date Comments Med Refill 11/26/2023 Encounter Details Date Type Department Care Team ([facility] st Contact Info) Description 11/26/2023 Refill [facility] [address] [place] [address] Moises Thompson MD [address] [place] [address] Social History Tobacco Use Types Packs/Day Years Used Date Smoking Tobacco: Every Day Cigarettes Smokeless Tobacco: Never Alcohol Use Standard Drinks/Week Comments Never 0 (1 standard drink = 0.6 oz pur e alcohol) Housing Stability Answer Date Recorded What is [...] from getting things needed for daily living? No 06/06/2023 Utilities Answer Date Recorded In the past 12 months, has t he [employer], gas, oil or water company threatened to [...] Description 08/10/2025 9:00 AM EST Clinical Support [facility] [address] [place] [address] Bia Hopper RN documented as of this encounter Visit Diagnoses Not on filedocumented in this encounter Care Teams Corporate Tutor Relationship Specialty Start Date End Date Emily Lang MD [address] [place] [address] PCP - General Family Medicine 03/23/23 documented as of this encounter
--- OUTSIDE RECORDS SUMMARY | 2025-05-11 11:59 | XMS_ITS | Encounter Summary ---
Author Organization [employer] Address [address] [facility] 7t [place] [address] Care Team Providers Care Yacht Rigger Name Role Phone Emily Lagn MD Primary Care Provider [phone] Reason for Visit * Reason Onset Date Comments Med Refill 11/26/2023 Encounter Details Date Type Department Care Team ([facility] st Contact Info) Description 11/26/2023 Refill [facility] [address] [place] [address] Emily Lang MD [address] [place] [address] Social History Tobacco Use Types Packs/Day Years [...] t he electric, gas, oil or water [employer] threatened to shut off services in your [...] Description 08/10/2025 9:00 AM EST Clinical Support [facility] [address] [place] [address] Bia Hopper RN documented as of this encounter Visit Diagnoses Not on filedocumented in this encounter Care Teams Yacht Rigger Relationship Specialty Start Date End Date Emily Lang MD [address] [place] [address] PCP - General Family Medicine 03/23/23 documented as of this encounter
--- OUTSIDE RECORDS SUMMARY | 2025-05-11 11:59 | XMS_ITS | Encounter Summary ---
Author Organization [employer] Address [address] [facility] [address] [place] [address] Care Team Providers Care Computer Repair Instructor Name Role Phone Emily Lang MD Primary Care Provider [phone] Reason for Visit * Reason Onset Date Comments Med Refill 10/29/2024 Encounter Details Date Type Department Care Team ([facility] st Contact Info) Description 10/29/2024 Refill [facility] [address] [place] [address] Emily Lang MD [address] [place] [address] Anxiety Social History Tobacco Use Types Packs/Day Years [...] Feeling nervous, anxious, or on edge 2 10/11 9:58 AM EDT Bia Hopper RN Not being able to stop or co ntrol worrying 2 10/29/2024 9:58 AM EDT Bia Hopper RN Worrying too much about diff erent things 0 10/29/2024 9:58 AM Bia Jimenez RN Trouble relaxing 0 10/29/2024 9:58 AM EDT Bia Martinez ae, RN Being so restless that it is hard to sit still 0 10/29/2024 9:58 AM Bia Jimenez RN Becoming easily annoyed or irritable 2 10/11 9:58 AM EDT Bia Hopper RN Feeling afraid as if somethi ng awful might happen 1 10/29/2024 9:58 AM NURYST Bia Hopper RN MOISES-7 Total Score 7 10/29/2024 9:58 AM Bia Jimenez RN documented as of this encounter Plan of Treatment Upcoming Encounters Date Type Department Care Team (Late st Contact Info) Description 08/10/2025 9:00 AM EST Clinical Support [address] [address] Ruchi, Bia, RN documented as of this encounter Visit Diagnoses Diagnosis Anxiety Anxiety state, unspecified documented in this encounter Additional Health Concerns Assessment Noted Time PHQ-9 Depression Total Score: 17 024 9:55 AM EDT documented as of this encounter Care Teams Computer Repair Instructor Relationship Specialty Start Date End Date Emily Lang MD [address] [place] [address] PCP - General Family Medicine 03/23/23 documented as of this encounter
--- OUTSIDE RECORDS SUMMARY | 2025-05-11 11:59 | XMS_ITS | Encounter Summary ---
Author Organization [email or web address] Address [address] [facility] [address] [place] [address] Care Team Providers Care Glass Production Machine Operator Name Role Phone Emily Lang MD Primary Care Provider [phone] Reason for Visit * Reason Onset Date Comments Med Refill 09/04/2024 Encounter Details Date Type Department Care Team ([facility] st Contact Info) Description 09/04/2024 Refill [facility] [address] [place] [address] Emily Lang MD [address] [place] [address] Social History Tobacco Use Types Packs/Day Years [...] Description 08/10/2025 9:00 AM EST Clinical Support [facility] [address] [place] [address] Bia Hopper RN documented as of this encounter Visit Diagnoses Not on filedocumented in this encounter Additional Health Concerns Assessment Noted Time PHQ-9 Depression Total Score: 17 024 9:55 AM EDT documented as of this encounter Care Teams Glass Production Machine Operator Relationship Specialty Start Date End Date Emily Lang MD [address] [place] [address] PCP - General Family Medicine 03/23/23 documented as of this encounter
--- OUTSIDE RECORDS SUMMARY | 2025-05-11 11:59 | XMS_ITS | Encounter Summary ---
Author Organization [employer] Address [address] [facility] 7t [place] [address] Care Team Providers Care Hoop Machine Operator Name Role Phone Emily Lang MD Primary Care Provider [phone] Reason for Visit * Reason Onset Date Comments Med Refill 05/05/2025 MOISES scoring 05/05/2025 Clonazepam use 05/05/2025 Encounter Details Date Type Department Care Team (Late st Contact Info) Description 05/05/2025 Refill [facility] [address] [place] [address] Emily Lang MD [address] [place] [address] Anxiety Social History Tobacco Use Types Packs/Day [...] N Trouble relaxing 2 05/06/2025 12:01 PM NURYST Bia Hopper RN Being so restless that [...] Hopper RN documented as of this encounter Miscellaneous Notes * Telephone Encounter - Bia Hopper RN - 05/06/2025 12:09 PM EDT Per our discussion, todays WIRE WHEELER appointment was a Televisit. Pt stated she's currently having an Afib episode, heart rate in 120's. She is working with her criminal justice department chair actively about this and taking Metoprolol Q3hr. Stated her criminal justice department chair also recommended she use her Clonazepam for [...] move out to help lessen her stress. MOISES-7 Total Score: 15 (05/06/2025 12:01 PM) Previous MOISES-7 done: , score: 7 FYI, pt quit smoking 1.5 months ago. documented in this encounter Plan of Treatment Upcoming Encounters Date Type Department Care Team (Late st Contact Info) Description 08/10/2025 9:00 AM EST Clinical Support [facility] [address] [place] [address] Bia Hopper, IRASEMA documented as of this encounter Visit Diagnoses Diagnosis Anxiety Anxiety state, unspecified documented in this encounter Additional Health Concerns Assessment Noted Time PHQ-9 Depression Total Score: 17 024 9:55 AM EDT documented as of this encounter Care Teams Hoop Machine Operator Relationship Specialty Start Date End Date Emily Lang MD [address] [place] [address] PCP - General Family Medicine 03/23/23 documented as of this encounter
--- OUTSIDE RECORDS SUMMARY | 2025-05-11 11:59 | XMS_ITS | Encounter Summary ---
Author Organization [employer] Address [address] [facility] 7[address] [place] [address] Care Team Providers Care Reducing Machine Operator Name Role Phone Emily Lang MD Primary Care Provider [phone] Reason for Visit * Reason Onset Date Comments Med Refill 05/19/2024 Encounter Details Date Type Department Care Team ([facility] st Contact Info) Description 05/19/2024 Refill [facility] [address] [place] [address] Emily Lang MD [address] [place] [address] Social History Tobacco Use Types Packs/Day Years [...] Description 08/10/2025 9:00 AM EST Clinical Support [facility] [address] [place] [address] Bia Hopper RN documented as of this encounter Visit Diagnoses Not on filedocumented in this encounter Additional Health Concerns Assessment Noted Time PHQ-9 Depression Total Score: 17 024 9:55 AM EDT documented as of this encounter Care Teams Reducing Machine Operator Relationship Specialty Start Date End Date Emily Lang MD [address] [place] [address] PCP - General Family Medicine 03/23/23 documented as of this encounter
--- OUTSIDE RECORDS SUMMARY | 2025-05-11 11:59 | XMS_ITS | Encounter Summary ---
Author Organization [employer] Address [address] [facility] [address] [place] [address] Care Team Providers Care Wind Science And Planning Name Role Phone Emily Lang MD Primary Care Provider [phone] Reason for Visit * Reason Onset Date Comments Med Refill 10/22/2024 Encounter Details Date Type Department Care Team ([facility] st Contact Info) Description 10/22/2024 Refill [facility] [address] [place] [address] Emily Lang MD [address] [place] [address] Social History Tobacco Use Types Packs/Day Years [...] Description 08/10/2025 9:00 AM EST Clinical Support [facility] [address] [place] [address] Bia Hopper RN documented as of this encounter Visit Diagnoses Not on filedocumented in this encounter Additional Health Concerns Assessment Noted Time PHQ-9 Depression Total Score: 17 024 9:55 AM EDT documented as of this encounter Care Teams Wind Science And Planning Relationship Specialty Start Date End Date Emily Lang MD [address] [place] [address] PCP - General Family Medicine 03/23/23 documented as of this encounter
--- OUTSIDE RECORDS SUMMARY | 2025-05-11 11:59 | XMS_ITS | Data Portability ---
Author Organization [place] - [facility], Allergy Address [address] [address] Care Team Providers Care Devops Developer Name Role Phone APOLONIA ANTON Referring Provider Assessment Encounter Date Assessment Date Assessment LastModified by Organization Details LastModified Time 06/12/2024 06/12/2024 Patient has a lesion of the parotid salivary gland. We have discussed treatment options including observation as well as surgical intervention to remove the lesion. Surgery is performed under general anesthesia at either [facility] or [facility]. The surgery is typically booked for [...] as of today. All questions were answered. [email or web address] Not available 10/10/2024 14:59:45 10/16/2024 10/16/2024 The [...] if no improvement in a few days. [email or web address] Not available 10/16/2024 15:07:35 11/03/2024 11/03/2024 Patient [...] recorded. Surgeries parotidecto my (SURG) 2023 024 9 Not available 11:35:20 Imaging None recorded. 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 - [facility] 4 17:11:15 Hearing loss 44097228 Active 2024 APOLONIA ETIENNE PA-C [address] [place] [address], [address], [facility] 5 15:08:17 Abnormal auditory perception 03313646 Active 2024 ZENAIDA SCHUSTER [address], [address], [facility] - [facility] 5 09:15:49 Bilateral referred otalgia of ears 6802347671083 106 Active 2024 AICHA ROSE PA-C [address] [place] [address], [place], [address], [facility] - [facility] 09:43:07 Bilateral temporomand ibular joint pain 1534164671850 9105 Active 2024 AICHA ROSE PA-C [address] [address], [place], [address], [facility] 09:43:17 Problem Notes None recorded. Procedures Surgical History Date Name Laterality Status Provider Name and Address Organization Details Recorded Time 12/05/19 25 Comp Audio with Tymps - 07148 & 43897 completed ZENAIDA SCHUSTER [address], [address], [facility] 12/04/2024 09:15:42 10/08/19 25 Excise parotid gland/lesion completed KELSEY BURLESON MD [address], [address], [facility] 10/08/2024 14:42:15 10/08/19 25 PAROTIDECTOMY (SURG) completed Rocky Nunn [facility] 10/13/2024 13:22:50 Imaging Results None recorded. Procedure Notes None recorded. Medical Equipment None Reported. Allergies Allergen ID Allergen Name Allergen Category Reaction Reaction Severity Criticality Documentation Date Start Date Code Code System Note Provider Name and Address Organization Details Recorded Time 803009 naproxen medicatio n Not available Not available Not available 11/03/2024 7258 RxNorm MELVIN singleton [facility] 15:37:27 Medications Name Sig Start Date Stop [...] Updated DateTime 10/10/2024 162.56 cm 33.3 kg/m2 59054.92 g Randi Dennison [place] - [facility] 10/10/2024 14:36:54 Date Recorded Body height Body mass index (BMI) Body weight Provider Name and Address Organization Details Last Updated DateTime 10/16/2024 162.56 cm 33.6 kg/m2 75423.1 g Randi Samuelkalebmaryana [place] - [facility] [place] 10/16/2024 14:33:23 Date Recorded Body height Provider Name an d Address Organization Details Last Updated DateTime 11/03/2024 162.56 cm MELVIN COMI [place] - [facility] [place] 11/03/2024 15:34:50 Date Recorded Body height Provider Name an d Address Organization Details Last Updated DateTime 12/04/2024 162.56 cm MELVIN COMI [place] - [facility] [place] 12/04/2024 09:09:15 Date Recorded Body height Body mass index (BMI) Body weight Provider Name and Address Organization Details Last Updated DateTime 06/12/2024 162.56 cm 31.9 kg/m2 29099.18 g Skyla Irma [place] - [facility] 06/12/2024 11:10:37 Social History None recorded. Functional Status None recorded. Mental Status None recorded. Family History Nothing Reported. Medical History No medical history recorded. Gynecological HistoryNo gynecological history recorded. 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 Discussed higher risk to the zygomatic branch of the facial nerve as well as salivary duct given the anterior location of the 3 cm lesion [id number] ARBEN MCKEON PA-C [facility] [address] [address] 10/10/2024 14:27:50 10/13/2024 07:06:40 Benign neoplasm of parotid gland 33245272 D11.0 [id number] APOLONIA ETIENNE PA-C [facility] [address] [address] 10/16/2024 14:26:01 10/16/2024 14:57:24 Benign neoplasm of parotid gland 86342085 D11.0 Hearing loss 29704634 H9 1.91 [id number] KELSEY BURLESON MD [facility] [address] [address] 11/03/2024 14:33:29 11/03/2024 16:26:20 Benign neoplasm of parotid gland 84758867 D11.0 [id number] AICHA ROSE PA-C [facility] [address] [place] [address] 12/04/2024 09:04:41 12/04/2024 12:32:25 Abnormal auditory perception 06516256 H93.299 Right Ear:Normal hearing with excellent speech discrimina tion.Type As tympanogra m, rounded.Le ft Ear:Normal hearing with excellent speech discrimina tion.Type As tympanogra m, rounded. Bilateral temporomandibular joint pain 2289566632 4509181 M26.623 Health Concerns Section Related Observation LastModified by Organization Detai ls LastModified Time None Recorded Concern Status LastModified by Organization Details LastModified Time None Recorded Advance Directives Directive None Recorded Payers Insurance Date Sequence Insurance Name Policy Number Policy Gil[place] Covered Member ID [place] Member ID Guarantor Name 12/25/2024 1 [place] [facility] PLAN Socorro L Moran [id number] Socorro L Moran Notes Date Note Type Note Provider Name and Address Organization Details Recorded Time 06/12/2024 text/html ROS as noted in the HPI right parotid masshas been present over 10 yrs with progressive enlargementtender when lays on that spottobacco - stopped last month 04/21/2024 CTA head with and without contrast at [facility] mm lobulated solid mass within right buccal soft tissue, accessory parotid tissue 05/14/2024 [place]ib, started on 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 She is sore but recovering well. Has had less than 10 cc of output on her VICENTE drain in the last 24 hours. KELSEY BURLESON MD 100 [facility],[address], [address], [facility] - [facility] 10/10/2024 16:37:40 10/16/2024 text/html ROS as noted in the HPI 53-year-old female presents for second postop visit status post [...] improving. Denies tinnitus. KELSEY BURLESON MD 100 [facility],[address], [address], [facility] - [facility] 10/16/2024 16:44:33 11/03/2024 text/html ROS as noted in the HPI 10/08/24 Gildardo MOSER, Right parotidectomy. 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 - [facility] 11/03/2024 15:44:27 12/04/2024 text/html ROS as noted in the HPI 54yo female presents for evaluation of right-sided hearing loss. This [...] loud noise exposure. JHONNY LINCOLN MD 100 [facility],[address], [address], [facility] - [facility] 12/04/2024 10:29:10 OBGyn Episode No OBEpisode recorded.
--- OUTSIDE RECORDS SUMMARY | 2025-05-11 11:59 | XMS_ITS | Encounter Summary ---
Author Organization [employer] Address 75 [facility] 7t [place] [address] Care Team Providers Care Application Tester Name Role Phone Emily Lang MD Primary Care Provider [phone] Reason for Visit * Reason Onset Date Comments Med Refill 09/04/2024 Encounter Details Date Type Department Care Team ([facility] st Contact Info) Description 09/04/2024 Refill [facility] MEDICINE [address] [place] [address] Emily Lang MD [address] [place] [address] Social History Tobacco Use Types Packs/Day Years [...] Description 08/10/2025 9:00 AM EST Clinical Support [facility] MEDICINE [address] [place] [address] Bia Hopper RN documented as of this encounter Visit Diagnoses Not on filedocumented in this encounter Additional Health Concerns Assessment Noted Time PHQ-9 Depression Total Score: 17 024 9:55 AM EDT documented as of this encounter Care Teams Application Tester Relationship Specialty Start Date End Date Emily Lang MD [address] [place] [address] PCP - General Family Medicine 03/23/23 documented as of this encounter
--- OUTSIDE RECORDS SUMMARY | 2025-05-11 11:59 | XMS_ITS | Encounter Summary ---
Author Organization [employer] Address 75 [facility] 7t [place] [address] Care Team Providers Care Quality Assurance Tech Name Role Phone Emily Lang MD Primary Care Provider [phone] Reason for Visit * Reason Onset Date Comments Med Refill 10/22/2024 Encounter Details Date Type Department Care Team ([facility] st Contact Info) Description 10/22/2024 Refill [facility] MEDICINE [address] [place] [address] Emily Lang MD [address] [place] [address] Social History Tobacco Use Types Packs/Day Years [...] Description 08/10/2025 9:00 AM EST Clinical Support [facility] MEDICINE [address] [place] [address] Bia Hopper RN documented as of this encounter Visit Diagnoses Not on filedocumented in this encounter Additional Health Concerns Assessment Noted Time PHQ-9 Depression Total Score: 17 024 9:55 AM EDT documented as of this encounter Care Teams Quality Assurance Tech Relationship Specialty Start Date End Date Emily Lang MD [address] [place] [address] PCP - General Family Medicine 03/23/23 documented as of this encounter
--- OUTSIDE RECORDS SUMMARY | 2025-05-11 11:59 | XMS_ITS | Encounter Summary ---
Author Organization [employer] Address 75 [facility] 7t [place] [address] Care Team Providers Care Compliance Review Specialist Name Role Phone Emily Lang MD Primary Care Provider [phone] Reason for Referral * Consultation (Routine) - Authorized Specialty Diagnoses / Procedures Referred By Contac t Referred To Contact Pharmacy Diagnoses Tobacco dependence Emily Lang MD [address] [place] [address] Phone: tel: fax: Referral ID Status Reason Start Date Expiration Date Visits Requested Visits Authorized [id number] Authorized Consult and Treat 06/16/2024 06/16/2025 6 6 Encounter Details Date Type Department Care Team ([facility] st Contact Info) Description 06/16/2024 Orders Only [facility] MEDICINE [address] [place] [address] [phone] Emily Lang MD [address] [place] [address] [phone] Tobacco dependence (Primary Dx) Social History Tobacco [...] Description 08/10/2025 9:00 AM EST Clinical Support [facility] MEDICINE [address] [place] [address] Bia Hopper, IRASEMA Scheduled Referrals Name Type [...] documented as of this encounter Care Teams Compliance Review Specialist Relationship Specialty Start Date End Date Emily Lang MD [address] [place] [address] PCP - General Family Medicine 03/23/23 documented as of this encounter
--- OUTSIDE RECORDS SUMMARY | 2025-05-11 11:59 | XMS_ITS | Encounter Summary ---
Author Organization [employer] Address 75 [facility] 7t [place] [address] Care Team Providers Care Toll Test Worker Name Role Phone Emily Lang MD Primary Care Provider [phone] Reason for Visit * Reason Onset Date Comments Med Refill 10/19/2024 Encounter Details Date Type Department Care Team ([facility] st Contact Info) Description 10/19/2024 Refill [facility] MEDICINE [address] [place] [address] Emily Lang MD [address] [place] [address] Social History Tobacco Use Types Packs/Day Years [...] Description 08/10/2025 9:00 AM EST Clinical Support [facility] MEDICINE [address] [place] [address] Bia Hopper RN documented as of this encounter Visit Diagnoses Not on filedocumented in this encounter Additional Health Concerns Assessment Noted Time PHQ-9 Depression Total Score: 17 024 9:55 AM EDT documented as of this encounter Care Teams Toll Test Worker Relationship Specialty Start Date End Date Emily Lang MD [address] [place] [address] PCP - General Family Medicine 03/23/23 documented as of this encounter
--- OUTSIDE RECORDS SUMMARY | 2025-05-11 11:59 | XMS_ITS | Encounter Summary ---
Author Organization [employer] Address 75 [facility] 7t [place] [address] Care Team Providers Care Special Education Superintendent Name Role Phone Emily Lang MD Primary Care Provider [phone] Reason for Visit * Reason Comments Med Refill Encounter Details Date Type Department Care Team ([facility] st Contact Info) Description 06/19/[address] 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 So I ordered her clonazepam separately, had to refuse both of these orders together documented in this encounter Plan of Treatment Upcoming Encounters Date Type Department Care Team (Late st Contact Info) Description 08/10/2025 9:00 AM EST Clinical Support [facility] MEDICINE [address] [place] [address] Bia Hopper RN documented as of this encounter Visit Diagnoses Diagnosis Vitamin D deficiency Anxiety Anxiety state, unspecified documented in this encounter Care Teams Special Education Superintendent Relationship Specialty Start Date End Date Emily Lang MD [address] [place] [address] PCP - General Family Medicine 03/23/23 documented as of this encounter
--- OUTSIDE RECORDS SUMMARY | 2025-05-11 11:59 | XMS_ITS | Encounter Summary ---
Author Organization [employer] Address [address] [facility] [address] 7[address] [place] [address] Care Team Providers Care Propulsion Machinery Service Engineer Name Role Phone Emily Lang MD Primary Care Provider [phone] Encounter Details Date Type Department Care Team ([facility] st Contact Info) Description 06/20/2023 Orders Only [facility] MEDICINE [address] [place] [address] Emily Lang MD [address] [place] [address] Anxiety Social History Tobacco Use Types Packs/Day Years Used Date Smoking Tobacco: Every Day Cigarettes Smokeless Tobacco: Never Alcohol Use Standard Drinks/Week Comments Never 0 (1 standard drink = 0.6 oz pur e alcohol) Housing Stability Answer Date Recorded What is your housing situation today? I have margoalden freed 06/06/[address] you [...] 08/10/2025 9:00 AM EST Clinical Support [facility] MEDICINE [address] [place] [address] Bia Hopper RN documented as of this encounter Visit Diagnoses Diagnosis Anxiety Anxiety state, unspecified documented in this encounter Care Teams Propulsion Machinery Service Engineer Relationship Specialty Start Date End Date Emily Lang MD [address] [place] [address] PCP - General Family Medicine 03/23/23 documented as of this encounter
--- OUTSIDE RECORDS SUMMARY | 2025-05-11 11:59 | XMS_ITS | Encounter Summary ---
Author Organization [employer] Address 75 [facility] 7t [place] [address] Care Team Providers Care Seismic Prospecting Observer Name Role Phone Emily Lang MD Primary Care Provider [phone] Reason for Visit * Reason Onset Date Comments Med Refill 07/23/2024 Encounter Details Date Type Department Care Team ([facility] st Contact Info) Description 07/23/2024 Refill [facility] MEDICINE [address] [place] [address] Emily Lang MD [address] [place] [address] Social History Tobacco Use Types Packs/Day Years [...] Description 08/10/2025 9:00 AM EST Clinical Support [facility] MEDICINE [address] [place] [address] Bia Hopper RN documented as of this encounter Visit Diagnoses Not on filedocumented in this encounter Additional Health Concerns Assessment Noted Time PHQ-9 Depression Total Score: 17 024 9:55 AM EDT documented as of this encounter Care Teams Seismic Prospecting Observer Relationship Specialty Start Date End Date Emily Lang MD [address] [place] [address] PCP - General Family Medicine 03/23/23 documented as of this encounter
--- OUTSIDE RECORDS SUMMARY | 2025-05-11 11:59 | XMS_ITS | Encounter Summary ---
Author Organization [employer] Address 75 [facility] 7t [place] [address] Care Team Providers Care Referral Rn Name Role Phone Emily Lang MD Primary Care Provider [phone] Reason for Visit * Reason Onset Date Comments Med Refill 05/13/2024 Encounter Details Date Type Department Care Team ([facility] st Contact Info) Description 05/13/2024 Refill [facility] MEDICINE [address] [place] [address] Emily Lang MD [address] [place] [address] Social History Tobacco Use Types Packs/Day Years [...] Description 08/10/2025 9:00 AM EST Clinical Support [facility] MEDICINE [address] [place] [address] Bia Hopper RN documented as of this encounter Visit Diagnoses Not on filedocumented in this encounter Additional Health Concerns Assessment Noted Time PHQ-9 Depression Total Score: 17 024 9:55 AM EDT documented as of this encounter Care Teams Referral Rn Relationship Specialty Start Date End Date Emily Lang MD [address] [place] [address] PCP - General Family Medicine 03/23/23 documented as of this encounter
--- OUTSIDE RECORDS SUMMARY | 2025-05-11 11:59 | XMS_ITS | Encounter Summary ---
Author Organization [employer] Address 75 [facility] 7t [place] [address] Care Team Providers Care [employer] Assistant Manager Name Role Phone Emily Lang MD Primary Care Provider [phone] Reason for Visit * Reason Onset Date Comments Med Refill 06/28/2024 Encounter Details Date Type Department Care Team ([facility] st Contact Info) Description 06/28/2024 Refill [facility] MEDICINE [address] [place] [address] Emily Lang MD [address] [place] [address] Social History Tobacco Use Types Packs/Day Years [...] Description 08/10/2025 9:00 AM EST Clinical Support [facility] MEDICINE [address] [place] [address] Bia Hopper RN documented as of this encounter Visit Diagnoses Not on filedocumented in this encounter Additional Health Concerns Assessment Noted Time PHQ-9 Depression Total Score: 17 024 9:55 AM EDT documented as of this encounter Care Teams [employer] Assistant Manager Relationship Specialty Start Date End Date Emily Lang MD [address] [place] [address] PCP - General Family Medicine 03/23/23 documented as of this encounter
--- OUTSIDE RECORDS SUMMARY | 2025-05-11 11:59 | XMS_ITS | Encounter Summary ---
Author Organization [employer] Address [address] [facility] 7t [place] [address] Care Team Providers Care Blogs Manager Name Role Phone Emiyl Lang MD Primary Care Provider [phone] Encounter Details Date Type Department Care Team (Late Contact Info) Description 04/06/2023 Orders Only [facility] [address] [place] [phone] Emily Lang MD [address] [place] [address] [phone] Screening for colon cancer (Primary Dx) Social History Tobacco Use Types [...] Description 08/10/2025 9:00 AM EST Clinical Support [facility] [address] [place] [address] [phone] Bia Hopper RN documented as of this encounter Procedures Procedure Name Priority Date/Time Associated Diagnosis Comments MR KNEE WO CONTRAST RIGHT Routine 04/17/2023 9:25 AM EDT documented in this encounter Results * MR Knee w/o Contrast Right (04/17/2023 9:25 AM EDT) Anatomical Region Laterality Modality Magnetic Resonan ce 04/17/2023 9:25 AM EDT Narrative 04/18/2023 12:57 PM EDT [place] [address] Magnetic Resonance Report Signed Patient: Socorro Moran MR#: [id number] : 1970 Acct:[id number] Age/Sex: 52 / F ADM Date: 04/17/23 Loc: HO.MRI Attending Dr: Ricardo Root MD Ordering Physician: Ricardo Root MD Date of Service: 04/17/23 Procedure(s): MR knee RT wo con Accession Number(s): [id number] cc: Emily Lang; Ricardo Root MD EXAMINATION: MR KNEE WITHOUT CONTRAST, RIGHT CLINICAL INFORMATION: Right knee pain and swelling. Meniscal tear. COMPARISON: Right knee radiographs dated 02/20/2023 and 01/19/2023. TECHNIQUE: MRI of the knee without contrast was performed using routine sequences on a high-field scanner. FINDINGS: MENISCI: Medial Meniscus: Intact Lateral Meniscus: Minimal inner margin fraying of the meniscal body. LIGAMENTS: Cruciate: Intact. Collateral: Intact. EXTENSOR MECHANISM: Intact. ARTICULAR CARTILAGE/BONE: Patellofemoral Compartment: Diffuse patellar articular cartilage signal heterogeneity with full-thickness fissuring at the lateral patellar facet. Inferomedial trochlea articular cartilage signal heterogeneity. Tiny marginal osteophytes. Medial Compartment: Weightbearing articular cartilage signal heterogeneity and surface irregularity with areas of opis-stws-tibbjjnwm fissuring at the medial femoral condyle. Tiny marginal osteophytes. Lateral Compartment: Intact articular cartilage. JOINT FLUID AND BURSAE: Trace joint effusion. MR/MR knee RT wo con IMPRESSION: 1. Minimal inner margin fraying of the lateral meniscal body. 2. Mild patellofemoral and medial compartment osteoarthritis. Trace joint effusion. Dictated By: Baudilio Buchanan MD Signed By: <Electronically signed by Baudilio Buchanan MD in OV> 04/18/23 1253 DD/ 4 TD/TT: Right Of Way Agent: Procedure Note Donotuseinterpreter, Image - 04/18/[address] [address] Magnetic Resonance Report Signed Patient: Socorro Moran LMR#: [id number] : 1970Acct:[id number] Age/Sex: 52 / FADM Date: 04/17/23 Loc: HO.MRI Attending Dr: Ricardo Root MD Ordering Physician: Ricardo Root MD Date of Service: 04/17/23 Procedure(s): MR knee RT wo con Accession Number(s): [id number] cc: Emily Lang; Ricardo Root MD EXAMINATION: MR KNEE WITHOUT CONTRAST, RIGHT CLINICAL INFORMATION: Right knee pain and swelling. Meniscal tear. COMPARISON: Right knee radiographs dated 02/20/2023 and 01/19/2023. TECHNIQUE: MRI of the knee without contrast was performed using routine sequences on a high-field scanner. FINDINGS: MENISCI: Medial Meniscus: Intact Lateral Meniscus: Minimal inner margin fraying of the meniscal body. LIGAMENTS: Cruciate: Intact. Collateral: Intact. EXTENSOR MECHANISM: Intact. ARTICULAR CARTILAGE/BONE: Patellofemoral Compartment: Diffuse patellar articular cartilage signal heterogeneity with full-thickness fissuring at the lateral patellar facet. Inferomedial trochlea articular cartilage signal heterogeneity. Tiny marginal osteophytes. Medial Compartment: Weightbearing articular cartilage signal heterogeneity and surface irregularity with areas of uxfg-wfnu-pfvidoxsu fissuring at the medial femoral condyle. Tiny marginal osteophytes. Lateral Compartment: Intact articular cartilage. JOINT FLUID AND BURSAE: Trace joint effusion. MR/MR knee RT wo con IMPRESSION: 1. Minimal inner margin fraying of the lateral meniscal body. 2. Mild patellofemoral and medial compartment osteoarthritis. Trace joint effusion. Dictated By: Baudilio Buchanan MD Signed By: <Electronically signed by Baudilio Buchanan MD in OV> 04/18/23 1253 DD/ 4 TD/TT: Right Of Way Agent: [facility] External Provider IMG MRI PROCEDURES Final Result documented in this encounter Visit Diagnoses Diagnosis Screening for colon cancer- Primary Special screening for malignant neoplasms, colon documented in this encounter Care Teams Blogs Manager Relationship Specialty Start Date End Date Emily Lang MD [address] [place] [address] PCP - General Family Medicine 03/23/23 documented as of this encounter
== END ==
LOC: HO.CARD 10:40
PROVIDERS: PCP General Practice; Visit Provider Internal Medicine Cardiovascular Disease
DX: I48.0 Paroxysmal atrial fibrillation (principal)
CPT/HCPCS: 93270

== ENCOUNTER → 2025-05-11 10:43 | Outpatient (BNV) | payer MEDICAID, SELFPAY | PROVIDERS: PCP General Practice; Visit Provider Internal Medicine Cardiovascular Disease | DX: I49.1 Atrial premature depolarization (principal) | CPT/HCPCS: 93272 ==

== ENCOUNTER 2025-06-02 11:59 | Emergency (ER) | payer MEDICAID, SELFPAY ==
--- NOTE | ~2025-06-02 | XR_ITS ---
EXAMINATION: XR RIBS 3 VIEWS MINIMUM WITH CHEST LEFT HISTORY: Left chest wall pain COMPARISON: Comparison is made with the prior examination of the chest dated 02/14/2025. FINDINGS: A single PA view of the chest and 3 views of the left ribs are submitted. The lungs are expanded and clear. There is no pleural effusion, pneumothorax, or pulmonary vascular congestion. The heart is normal in size. The left ribs are intact. No fracture is seen. XR/XR ribs LT min 3V w CXR1V IMPRESSION: No acute cardiopulmonary abnormality. No evidence of left rib fracture. Electronically signed by: Conrado Tejeda MD 06/02/2025 01:03 PM EDT
--- NOTE | 2025-06-02 12:03 | ECG_ITS ---
Test Reason : CP Blood Pressure : */* mmHG Vent. Rate : 71 BPM Atrial Rate : 71 BPM P-R Int : 138 ms QRS Dur : 92 ms QT Int : 402 ms P-R-T Axes : 63 63 34 degrees QTcB Int : 436 ms Normal sinus rhythm Normal ECG When compared with ECG of 01-Mar-2025 22:50, T wave inversion no longer evident in Inferior leads Nonspecific T wave abnormality no longer evident in Lateral leads Referred By: Generic ED Physician Electronically Signed By: HIMANSHU ZIMMERMAN MD
[2025-06-02 12:05] VITALS: BP 122/76; PULSE 96; O2SAT 98
[2025-06-02 12:06] VITALS: BMI 33.0
[2025-06-02 12:18] VITALS: BP 110/47; PULSE 74; RESP 18; TEMP 36.7; O2SAT 98; BMI 32.5
--- NOTE | 2025-06-02 12:20 | ED_ITS ---
HPI - Chest Pain General Chief Complaint: Chest Pain Stated Complaint: lt side chest pain Time Seen by Provider: 06/02/25 12:08 Source: patient Mode of arrival: ambulatory Limitations: no limitations History of Present Illness ED Provider: DR. Weber HPI narrative: 54-year-old female history of asthma, HTN, paroxysmal AFib on apixaban came in for evaluation of left-sided chest pain since yesterday, pain is intermittent comes in waves on and off, mostly felt under the left breast, no trauma, no injury to the chest. No recent travel, no recent prolonged immobilization, no lower extremity tenderness or swelling. No fever, no chills, no cough. Patient had Holter monitor hanging on her chest for the past couple weeks she thinks hurt her chest wall with the monitor while she was sleeping. No fall, no trauma to the chest. Related Data Home Medications ?Medication ?Instructions ?Recorded ?Confirmed lisinopril 20 mg tablet 20 mg PO DAILY 02/20/2302/10 albuterol sulfate 90 mcg/actuation 2 puff inhalation Q 4H PRN 04/21/24 02/23/25 aerosol inhaler (Ventolin HFA) Shortness Of Breath Or Wheezing cholecalciferol (vitamin D3) 50 50 mcg PO DAILY 02/23/25 mcg (2,000 unit) capsule (Vitamin D3) omeprazole 20 mg capsule,delayed 20 mg PO DAILY@0630 0 04/21/24 02/23/25 release triamcinolone acetonide 0.1 % 1 appl topical BID PRN R wolfgang 04/21/24 02/23/25 topical cream nortriptyline 25 mg capsule 25 mg PO BEDTIME 08/07/24 02/23/25 acetaminophen 500 mg tablet 500 - 1,000 mg PO Q6H PRN pain 01/02/25 02/23/25 clonazepam 0.5 mg tablet 0.5 mg PO ONCE 02/23/2502/10 Previous Rx's ?Medication ?Instructions ?Recorded albuterol sulfate 2.5 mg/3 mL 2.5 mg (3 mL) inhalation Q4-6H PRN 01/17/23 (0.083 %) solution for nebulization shortness of breat h or wheezing #90 mL nebulizers (AeroEclipse II #1 ea 01/17/23 Nebulizer) nebulizers (AeroEclipse II #1 ea 02/08/23 Nebulizer) metoprolol succinate 25 mg 25 mg PO DAILY #90 tabs 09/06 tablet,extended release 24 hr dronedarone 400 mg tablet 400 mg PO BID #60 tabs 02/23 apixaban 5 mg tablet (Eliquis) 5 mg PO BID #180 tabs 0 04/06/25 Allergies Allergy/AdvReac Type Severity Reaction Status Date / Time naproxen AdvReac Vomiting Verified 06/02/25 12:20 Review of Systems 2 Review of Systems: All other systems are reviewed and are negative Constitutional: Reports as per HPI and Reports no additional constitutional complaints Eyes: Reports as per HPI and Reports no additional eye complaints Reports system reviewed and no additional complaints, except as documented Cardiovascular: Reports as per HPI and Reports no additional cardiovascular complaints Respiratory: Reports as per HPI and Reports no additional respiratory complaints Gastrointestinal: Reports as per HPI and Reports no additional gastrointestinal complaints Genitourinary: Reports no additional female genitourinary complaints Musculoskeletal: Reports no additional musculoskeletal complaints Skin/Breast: Reports system reviewed and no additional complaints, except as docu Psychiatric: Reports no additional psychiatric complaints Endocrine: Reports no additional endocrine complaints Hematologic/Lymphatic: Reports no additional hematologic/lymphatic complaints Allergic/Immunologic: Reports no additional allergic/immunologic complaints Reports system reviewed and no additional complaints, except as documented and Reports Abnormal speech present [facility] Past Medical History Medical History PAF (paroxysmal atrial fibrillation) Asthma Social History Social History Household Members: Significant Other and Children Housing: Apartment Do you presently have visiting nurse or other home services: No Patient Tobacco Use Status: Current everyday Tobacco user Tobacco use type: Cigarette Cigarettes Per Day: 10 Years Smoked: 20 Smoked in Last 30 Days: Yes e-Cigarette/Vaping Use: Never Used Second Hand Smoke Exposure: No Substance Use Type: Marijuana Substance Use Frequency: Daily Advance Directives: No Advance Directives Information Provided: No Do you have a plan to hurt others: No Plan Patient : No service: No Physical Exam 2 Vital Signs: Vital Signs: Last Vital Signs Temp 98.1 F 06/02/25 14:15 Pulse 80 06/02/25 14:15 Resp 16 10/21/25 14:15 BP 102/50 L 06/02/25 14:15 Pulse Ox 97 06/02/25 14:15 O2 Del Method Room Air 06/02/25 14:15 BMI result Body Mass Index 32.5 Vital signs have been reviewed and appear to be correct. Blood pressure elevated. Heart rate normal. Respiratory rate normal. Temperature normal. Oxygen saturation normal. Appearance: Alert. Oriented X3. No acute distress. Head: Normal external exam. Normocephalic. Atraumatic. No Pickard signs noted. No raccoon eyes noted Eyes: PERRLA. EOMI. Conjunctiva and sclera normal. Eyelids normal. ENT: TM's Normal. Pharynx normal. Uvula midline. Moist mucous membranes. No trismus noted. No drooling noted. No muffled voice noted. Neck: Normal inspection. Neck supple. FROM. No adenopathy. Thyroid Normal. No meningeal signs. No neck mass noted. CVS: Normal heart rate and rhythm. Heart sound normal. No murmurs noted. Pulses normal throughout. Respiratory: No respiratory distress. Painless inspiration. Breath sounds normal. No wheezes/rales/rhonchi noted. Reproducible tenderness to the left chest under the left breast with no step-off or deformity, no sign of trauma to the left chest. No accessory muscle usage noted or decreased air movement noted. Abdomen: Soft and nontender. Bowel sounds normal in all 4 quadrants. No distention noted. No organomegaly noted. No visible injury noted. Back: No CVA tenderness. Full range of motion noted. Skin: Skin warm and dry. Normal skin color. Normal skin turgor. No rashes/lesions/lacerations noted. Extremities: No lower extremity edema. Extremities exhibit normal range of motion. Extremities nontender. Neuro: Oriented X 3. Cranial nerve exam: II-XII are grossly intact No motor deficit. No sensory deficit. Reflexes normal. Course Reevaluation(s) Reevaluation #1: Left-sided chest wall pain likely secondary to holding Holter monitor for past few weeks and sleeping face down caused bruising to the chest. Labs are unremarkable including troponin x2, D-dimer is negative. Finding on the physical exam is consistent with chest wall pain. Time: 14:49 Medications Administered Discontinued Medications Generic Name Dose Route Start Last Admin Trade Name Freq PRN Reason Stop Dose Admin Acetaminophen 1,000 mg in 100 mls @ 400 mls/hr 06/02/25 12:17 06/02/25 12:52 Ofirmev IV 06/02/25 12:31 400 mls/hr ONCE ONE Administration Medical Decision Making Differential Diagnosis Differential Diagnoses: The differential diagnosis associated with the presentation includes (ACS, pulmonary embolism, chest wall pain, ribs fracture, pneumonia, pneumothorax, pleural effusion, electrolyte derangement, severe anemia) Admission/Observation Consideration of admission/observation: Escalation of care including admission/observation considered Lab Data [facility] Lab Attestation statement: I reviewed the patient's lab results. 06/02/25 12:57 06/02/25 12:57 Labs: Lab Results 06/02/25 06/02/25 Range/Units 12:56 12:57 WBC 6.4 (4.8-10.8) X10*3/uL RBC 4.45 (4.20-5.50) X10*6/uL Hgb 12.9 (12.0-16.0) g/dl Hct 39.1 (37.0-47.0) % MCV 87.9 (80.0-98.0) fL MCH 29.0 (27.0-33.0) pg MCHC 33.0 (31.0-35.0) g/dl RDW 13.2 (11.0-16.0) % Plt Count 242 (160-400) X10*3/uL MPV 10.5 (9.4-12.3) fL Immature Gran % (Auto) 0.2 (0.0-0.4) % Neut % (Auto) 49.7 (45-73) % Lymph % (Auto) 37.4 (20-40) % Dane % (Auto) 9.0 (2-11) % Eos % (Auto) 2.8 (0-4) % Baso % (Auto) 0.9 (0-2) % Lymph # (Auto) 2.4 (1.2-4.9) X10*3/uL Dane # (Auto) 0.6 (0.1-1.2) X10*3/uL Eos # (Auto) 0.2 (0.0-0.4) X10*3/uL Baso # (Auto) 0.1 (0.0-0.2) X10*3/uL Abs Immat Gran (auto) 0.01 (0.00-0.03) X10*3/uL Absolute Neuts (auto) 3.2 (2.0-8.3) x10*3/uL Absolute Nucleated RBC 0.000 (0.0-0.012) X10*3/uL Nucleated RBC % (auto) 0.0 (0.0-0.2) /100WBC D-Dimer High Sensitivty < 150 NG/ML Sodium 140 (135-145) mmol/L Potassium 4.2 (3.3-5.1) mmol/L Chloride 109 H (96-108) mmol/L Carbon Dioxide 25 (22-29) mmol/L Anion Gap 10 L (12-20) BUN 11 (9-16) mg/dL Creatinine 0.76 (0.5-1.4) mg/dL Estim Creat Clear Calc 90.8 Estimated GFR > 60 Random Glucose 97 (60-115) mg/dL Calcium 9.3 (8.4-10.2) mg/dL Total Bilirubin 0.3 (0.0-1.0) mg/dL Direct Bilirubin 0.1 (0.0-0.5) mg/dL AST 22 (5-31) U/L ALT 26 (0-31) U/L Alkaline Phosphatase 101 (39-117) U/L Troponin I High Sens < 2.7 (<3.5-17.0) ng/L Total Protein 7.5 (6.5-8.0) g/dL Albumin 4.3 (3.5-5.0) g/dL Lipase 14 (8-78) U/L Independent Interpretation I performed an independent interpretation of an: EKG (Normal sinus rhythm at 71 beats per minutes, normal intervals, no ST-T changes.) Radiology Impression Discussion of test interpretation with radiology: I have reviewed the radiologist's reading. Discharge Plan Discharge Clinical Impression: Chest wall pain Patient Disposition: Home, Self-Care Instructions: Chest Wall Pain (ED) Additional Instructions: Take ibuprofen 200 mg tablet [id number] every 6 hours if needed for pain. Prescriptions: No Action metoprolol succinate 25 mg tablet extended release 24 hr 25 mg PO DAILY Qty: 90 3RF Eliquis 5 mg tablet 5 mg PO BID Qty: 180 3RF albuterol sulfate 2.5 mg /3 mL (0.083 %) solution for nebulization 2.5 mg inhalation Q4-6H PRN (Reason: shortness of breath or wheezing) Qty: 90 0RF (DME) nebulizers [AeroEclipse II Nebulizer] [facility] See Rx Instructions .Route Qty: 1 0RF Rx Instructions: As directed (DME) nebulizers [AeroEclipse II Nebulizer] Mis See Rx Instructions .Route Qty: 1 0RF Rx Instructions: As directed triamcinolone acetonide 0.1 % cream 1 appl topical BID PRN (Reason: Rash) omeprazole 20 mg capsule,delayed release(DR/EC) 20 mg PO DAILY@0630 albuterol sulfate [Ventolin HFA] 90 mcg/actuation HFA aerosol inhaler 2 puff INHALATION Q4H PRN (Reason: Shortness Of Breath Or Wheezing) cholecalciferol (vitamin D3) [Vitamin D3] 50 mcg (2,000 unit) capsule 50 mcg PO DAILY clonazepam 0.5 mg tablet 0.5 mg PO ONCE lisinopril 20 mg tablet 20 mg PO DAILY acetaminophen 500 mg tablet 500 - 1,000 mg PO Q6H PRN (Reason: pain) dronedarone 400 mg tablet 400 mg PO BID Qty: 60 3RF Rx Instructions: must administer with a meal/food nortriptyline 25 mg capsule 25 mg PO BEDTIME Referrals: Emily Lang MD [Primary Care Provider, Internal Medicine] Print Language: Solomon Islander
[2025-06-02 12:26] VITALS: PULSE 74
[2025-06-02 13:02] LABS: MANUAL DIFF FLAG NO
[2025-06-02 13:03] LABS: Hematocrit 39.1 % (37.0-47.0); Hemoglobin 12.9 g/dl (12.0-16.0); Imm Gran Abs Auto 0.01 X10*3/uL (0.00-0.03); Imm Gran Pct Auto 0.2 % (0.0-0.4); Lymphocytes Absolute Auto 2.4 X10*3/uL (1.2-4.9); Mean Corpuscular HGB Conc 33.0 g/dl (31.0-35.0); Mean Corpuscular Hemoglobin 29.0 pg (27.0-33.0); Mean Corpuscular Volume 87.9 fL (80.0-98.0); NRBC Abs Auto 0.000 X10*3/uL (0.0-0.012); NRBC Pct Auto 0.0 /100WBC (0.0-0.2); Platelet Count 242 X10*3/uL (160-400); Red Blood Count 4.45 X10*6/uL (4.20-5.50); White Blood Count 6.4 X10*3/uL (4.8-10.8)
[2025-06-02 13:19] LABS: Alanine Aminotransferase 26 U/L (0-31); Albumin Level 4.3 g/dL (3.5-5.0); Alkaline Phosphatase 101 U/L (39-117); Anion Gap 10 (12-20); Aspartate Amino Transferase 22 U/L (5-31); Blood Urea Nitrogen 11 mg/dL (9-16); Calcium 9.3 mg/dL (8.4-10.2); Carbon Dioxide 25 mmol/L (22-29); Chloride 109 mmol/L (96-108); Creatinine Clr Calc Pharmacy 90.8; Estimated Glomerular Filt Rate > 60; Lipase 14 U/L (8-78); Potassium 4.2 mmol/L (3.3-5.1); Sodium 140 mmol/L (135-145); Total Protein 7.5 g/dL (6.5-8.0)
[2025-06-02 13:25] LABS: Troponin-I High Sensitivity < 2.7 ng/L (<3.5-17.0)
[2025-06-02 14:15] VITALS: BP 102/50; PULSE 80; RESP 16; TEMP 36.7; O2SAT 97
[2025-06-02 14:23] LABS: D Dimer High Sensitivity < 150 NG/ML
[2025-06-02 15:34] LABS: Troponin-I High Sensitivity < 2.7 ng/L (<3.5-17.0)
[2025-06-02 15:46] VITALS: BP 102/50; PULSE 80; RESP 16; TEMP 36.7; O2SAT 97
--- OUTSIDE RECORDS SUMMARY | 2025-06-02 16:52 | XMS_ITS | Encounter Summary ---
Author Organization [employer] Address [address] [facility] 7t [place] [address] Care Team Providers Care Ballistic Expert Name Role Phone Emily Lang MD Primary Care Provider [phone] Reason for Visit * Reason Onset Date Comments Med Refill 05/19/2024 Encounter Details Date Type Department Care Team ([facility] st Contact Info) Description 05/19/2024 Refill [facility] [address] [place] [address] Emily Lang MD [address] [place] [address] Social History Tobacco Use Types Packs/Day Years [...] Care Team (Late st Contact Info) Description 06/12/2025 9:00 AM EDT Telemedicine [facility] [address] [place] [phone] Autumn Palafox, LindaD [address] [place] [address] 08/10/2025 9:00 AM EST Clinical Support [address] [address] Bia Hopper, RN documented as of this encounter Visit Diagnoses Not on filedocumented in this encounter Additional Health Concerns Assessment Noted Time PHQ-9 Depression Total Score: 17 024 9:55 AM EDT documented as of this encounter Care Teams Ballistic Expert Relationship Specialty Start Date End Date Emily Lang MD [address] [place] [phone] PCP - General Family Medicine 03/23/23 documented as of this encounter
--- OUTSIDE RECORDS SUMMARY | 2025-06-02 16:52 | XMS_ITS | Encounter Summary ---
Author Organization [employer] Address 75 [facility] 7t [place] [address] Care Team Providers Care Customer Logistics Manager Name Role Phone Emily Lang MD Primary Care Provider [phone] Reason for Visit * Reason Onset Date Comments Med Refill 05/27/2024 Encounter Details Date Type Department Care Team ([facility] st Contact Info) Description 05/27/2024 Refill [facility] MED[facility]INE [address] [place] [address] Emily Lang MD [address] [place] [address] Social History Tobacco Use Types Packs/Day Years [...] Info) Description 06/12/2025 9:00 AM EDT Telemedicine [facility] MEDICINE [address] [place] [phone] Autumn Palafox, LindaD [address] [place] [address] 08/10/2025 9:00 AM EST Clinical Support [address] [address] Bia Hopper, RN documented as of this encounter Visit Diagnoses Not on filedocumented in this encounter Additional Health Concerns Assessment Noted Time PHQ-9 Depression Total Score: 17 024 9:55 AM EDT documented as of this encounter Care Teams Customer Logistics Manager Relationship Specialty Start Date End Date Emily Lang MD [address] [place] [phone] PCP - General Family Medicine 03/23/23 documented as of this encounter
--- OUTSIDE RECORDS SUMMARY | 2025-06-02 16:52 | XMS_ITS | Encounter Summary ---
Author Organization [employer] Address [address] [facility] 7t [place] [address] Care Team Providers Care Retail And Restaurant Name Role Phone Emily Lang MD Primary Care Provider [phone] Reason for Visit * Reason Comments Med Refill Encounter Details Date Type Department Care Team ([facility] st Contact Info) Description 06/19/2023 Refill [facility] MED[facility] [address] [place], [place] [phone] Emily Lang MD [address] [place], [place] [phone] Vitamin D deficiency; Anxiety Social History Tobacco [...] the past 12 months, has t he Prescreen, [employer], oil or water Conjectur threatened to shut off services in your [...] Info) Description 06/12/2025 9:00 AM EDT Telemedicine [address] [address] Autumn Palafox, PharmD [address] [place] [address] 08/10/2025 9:00 AM EST Clinical Support [address] [address] Bia Hopper, IRASEMA documented as of this encounter Visit Diagnoses Diagnosis Vitamin D deficiency Anxiety Anxiety state, unspecified documented in this encounter Care Teams Retail And Restaurant Relationship Specialty Start Date End Date Emily Lang MD [address] [place] [phone] PCP - General Family Medicine 03/23/23 documented as of this encounter
--- OUTSIDE RECORDS SUMMARY | 2025-06-02 16:52 | XMS_ITS | Encounter Summary ---
Author Organization [employer] Address [address] [facility] 7t [place] [address] Care Team Providers Care Shortage Worker Name Role Phone Emily Lang MD Primary Care Provider [phone] Reason for Visit * Reason Onset Date Comments Med Refill 07/23/2024 Encounter Details Date Type Department Care Team ([facility] st Contact Info) Description 07/23/2024 Refill [facility]INE [address] [place] [address] Emily Lang MD [address] [place] [address] Social History Tobacco Use Types Packs/Day Years [...] Info) Description 06/12/2025 9:00 AM EDT Telemedicine [facility] [address] [place] [address] Autumn Palafox, LindaD [address] [place] [address] 08/10/2025 9:00 AM EST Clinical Support [address] [address] Bia Hopper, RN documented as of this encounter Visit Diagnoses Not on filedocumented in this encounter Additional Health Concerns Assessment Noted Time PHQ-9 Depression Total Score: 17 024 9:55 AM EDT documented as of this encounter Care Teams Shortage Worker Relationship Specialty Start Date End Date Emily Lang MD [address] [place] [phone] PCP - General Family Medicine 03/23/23 documented as of this encounter
--- OUTSIDE RECORDS SUMMARY | 2025-06-02 16:52 | XMS_ITS | Encounter Summary ---
Author Organization [employer] Address [address] [facility] 7t [place] [address] Care Team Providers Care Senior Cytogenetics Laboratory Director Name Role Phone Emily Lang MD Primary Care Provider [phone] Reason for Visit * Reason Onset Date Comments Med Refill 09/04/2024 Encounter Details Date Type Department Care Team ([facility] st Contact Info) Description 09/04/2024 Refill [facility] MEDICINE [address] [place] [address] Emily Lang MD [address] [place] [address] Social History Tobacco Use Types Packs/Day Years [...] Info) Description 06/12/2025 9:00 AM EDT Telemedicine [facility] MEDICINE [address] [place] [address] Autumn Palafox, LindaD [address] [place] [address] 08/10/2025 9:00 AM EST Clinical Support [address] [address] Bia Hopper, RN documented as of this encounter Visit Diagnoses Not on filedocumented in this encounter Additional Health Concerns Assessment Noted Time PHQ-9 Depression Total Score: 17 024 9:55 AM EDT documented as of this encounter Care Teams Senior Cytogenetics Laboratory Director Relationship Specialty Start Date End Date Emily Lang MD [address] [place] [phone] PCP - General Family Medicine 03/23/23 documented as of this encounter
--- OUTSIDE RECORDS SUMMARY | 2025-06-02 16:52 | XMS_ITS | Encounter Summary ---
Author Organization [employer] Address [address] [facility] 7t [place] [address] Care Team Providers Care Agriculture Engineer Name Role Phone Emily Lang MD Primary Care Provider [phone] Reason for Visit * Reason Onset Date Comments Med Refill 10/19/2024 Encounter Details Date Type Department Care Team ([facility] st Contact Info) Description 10/19/2024 Refill [facility] MED[facility]INE [address] [place] [address] Emily Lang MD [address] [place] [address] Social History Tobacco Use Types Packs/Day Years [...] Info) Description 06/12/2025 9:00 AM EDT Telemedicine [facility] MEDICINE [address] [place] [phone] Autumn Palafox, LindaD [address] [place] [address] 08/10/2025 9:00 AM EST Clinical Support [address] [address] Bia Hopper, RN documented as of this encounter Visit Diagnoses Not on filedocumented in this encounter Additional Health Concerns Assessment Noted Time PHQ-9 Depression Total Score: 17 024 9:55 AM EDT documented as of this encounter Care Teams Agriculture Engineer Relationship Specialty Start Date End Date Emily Lang MD [address] [place] [phone] PCP - General Family Medicine 03/23/23 documented as of this encounter
--- OUTSIDE RECORDS SUMMARY | 2025-06-02 16:52 | XMS_ITS | Encounter Summary ---
Author Organization [employer] Address 75 [facility] 7t [place] [address] Care Team Providers Care Osd Clerk Name Role Phone Emily Lang MD Primary Care Provider [phone] Reason for Visit * Reason Onset Date Comments Med Refill 10/19/2024 Encounter Details Date Type Department Care Team ([facility] st Contact Info) Description 10/19/2024 Refill [facility] [address] [place] [address] Emily Lang MD 230 [place] [address] Social History Tobacco Use Types Packs/Day Years [...] Info) Description 06/12/2025 9:00 AM EDT Telemedicine [facility] [address] [place] [address] Autumn Palafox, LindaD 230 [place] [address] 08/10/2025 9:00 AM EST Clinical Support [address] [address] Bia Hopper, RN documented as of this encounter Visit Diagnoses Not on filedocumented in this encounter Additional Health Concerns Assessment Noted Time PHQ-9 Depression Total Score: 17 024 9:55 AM EDT documented as of this encounter Care Teams Osd Clerk Relationship Specialty Start Date End Date Emily Lang MD [address] [place] [address] PCP - General Family Medicine 03/23/23 documented as of this encounter
--- OUTSIDE RECORDS SUMMARY | 2025-06-02 16:52 | XMS_ITS | Encounter Summary ---
Author Organization [employer] Address 75 [facility] 7t [place] [address] Care Team Providers Care Ammonium Sulfate Operator Name Role Phone Emily Lang MD Primary Care Provider [phone] Reason for Visit * Reason Onset Date Comments Med Refill 10/29/2024 Encounter Details Date Type Department Care Team ([facility] st Contact Info) Description 10/29/2024 Refill [facility] [address] [place] [address] Emily Lang MD 230 [place] [address] Anxiety Social History Tobacco Use Types Packs/Day [...] awful might happen 1 10/29/2024 9:58 AM EDT Bia Hopper RN MOISES-7 Total Score 7 10/29/2024 9:58 AM EDBia Betts RN documented as of this encounter Plan of Treatment Upcoming Encounters Date Type Department Care Team (Late st Contact Info) Description 06/12/2025 9:00 AM EDT Telemedicine [facility] [address] [place] [address] Autumn Palafox, PharmD [address] [place] [address] 08/10/2025 9:00 AM EST Clinical Support [facility] [address] [place] [address] Bia Hopper, RN documented as of this encounter Visit Diagnoses Diagnosis Anxiety Anxiety state, unspecified documented in this encounter Additional Health Concerns Assessment Noted Time PHQ-9 Depression Total Score: 17 024 9:55 AM EDT documented as of this encounter Care Teams Ammonium Sulfate Operator Relationship Specialty Start Date End Date Emily Lang MD 230 [place] [address] PCP - General Family Medicine 03/23/23 documented as of this encounter
--- OUTSIDE RECORDS SUMMARY | 2025-06-02 16:52 | XMS_ITS | Encounter Summary ---
Author Organization [employer] Address 75 [facility] 7t [place] [address] Care Team Providers Care Train Electronic Technician Name Role Phone Emily Lang MD Primary Care Provider [phone] Reason for Visit * Reason Onset Date Comments Med Refill 06/28/2024 Encounter Details Date Type Department Care Team ([facility] st Contact Info) Description 06/28/2024 Refill [facility] [address] [place] [address] Emily Lang MD 230 [place] [address] Social History Tobacco Use Types Packs/Day Years [...] Info) Description 06/12/2025 9:00 AM EDT Telemedicine [facility] [address] [place] [address] Autumn Palafox, LindaD 230 [place] [address] 08/10/2025 9:00 AM EST Clinical Support [address] [address] Bia Hopper, RN documented as of this encounter Visit Diagnoses Not on filedocumented in this encounter Additional Health Concerns Assessment Noted Time PHQ-9 Depression Total Score: 17 024 9:55 AM EDT documented as of this encounter Care Teams Train Electronic Technician Relationship Specialty Start Date End Date Emily Lang MD [address] [place] [address] PCP - General Family Medicine 03/23/23 documented as of this encounter
--- OUTSIDE RECORDS SUMMARY | 2025-06-02 16:52 | XMS_ITS | Encounter Summary ---
Author Organization [employer] Address 75 [facility] 7t [place] [address] Care Team Providers Care Sand Mill Grinder Name Role Phone Emily Lang MD Primary Care Provider [phone] Reason for Visit * Reason Onset Date Comments Med Refill 11/26/2023 Encounter Details Date Type Department Care Team ([facility] st Contact Info) Description 11/26/2023 Refill [facility] [address] [place] [address] Emily Lang MD 230 [place] [address] Social History Tobacco Use Types Packs/Day Years [...] t he electric, gas, oil or water [employer] threatened to shut off services in your [...] 06/12/2025 9:00 AM EDT Telemedicine [facility] [address] [place] [address] Autumn Palafox PharmD [address] [place] [address] 08/10/2025 9:00 AM EST Clinical Support [facility] [address] [place] [address] Bia Hopper, IRASEMA documented as of this encounter Visit Diagnoses Not on filedocumented in this encounter Care Teams Sand Mill Grinder Relationship Specialty Start Date End Date Emily Lang MD [address] [place] [address] PCP - General Family Medicine 03/23/23 documented as of this encounter
--- OUTSIDE RECORDS SUMMARY | 2025-06-02 16:52 | XMS_ITS | Encounter Summary ---
Author Organization [employer] Address 75 [facility] 7t [place] [address] Care Team Providers Care Import/Export Agent Name Role Phone Emily Lang MD Primary Care Provider [phone] Reason for Referral * Consultation (Routine) - Authorized Specialty Diagnoses / Procedures Referred By Contac t Referred To Contact Pharmacy Diagnoses Tobacco dependence Emily Lang MD 230 [place] [address] Phone: tel: fax: Referral ID Status Reason Start Date Expiration Date Visits Requested Visits Authorized [id number] Authorized Consult and Treat 06/16/2024 06/16/2025 6 6 Encounter Details Date Type Department Care Team (Late st Contact Info) Description 06/16/2024 Orders Only [facility] [address] [place] [address] [phone] Emily Lang MD [address] [place] [address] [phone] Tobacco dependence (Primary Dx) Social History Tobacco [...] Info) Description 06/12/2025 9:00 AM EDT Telemedicine [facility] [address] [place] [address] Autumn Palafox PharmD [address] [place] [address] 08/10/2025 9:00 AM EST Clinical Support [facility] [address] [place] [address] Bia Hopper, IRASEMA Scheduled Referrals Name Type [...] documented as of this encounter Care Teams Import/Export Agent Relationship Specialty Start Date End Date Emily Lang MD 230 [place] [address] PCP - General Family Medicine 03/23/23 documented as of this encounter
--- OUTSIDE RECORDS SUMMARY | 2025-06-02 16:52 | XMS_ITS | Encounter Summary ---
Author Organization [employer] Address [address] [facility] 7t [place] [address] Care Team Providers Care Dry Finisher Name Role Phone Emily Lang MD Primary Care Provider Encounter Details Date Type Department Care Team ([facility] st Contact Info) Description 06/20/2023 Orders Only [facility] 230 [place] [address] Emily Lang MD 230 [place] [address] Anxiety Social History Tobacco Use Types Packs/Day [...] Info) Description 06/12/2025 9:00 AM EDT Telemedicine [address] [address] Autumn Palafox PharmD [address] [place] [address] 08/10/2025 9:00 AM EST Clinical Support [address] [address] Bia Hopper, IRASEMA documented as of this encounter Visit Diagnoses Diagnosis Anxiety Anxiety state, unspecified documented in this encounter Care Teams Dry Finisher Relationship Specialty Start Date End Date Emily Lang MD [address] [place] [address] PCP - General Family Medicine 03/23/23 documented as of this encounter
--- OUTSIDE RECORDS SUMMARY | 2025-06-02 16:52 | XMS_ITS | Clinical Summary ---
Author Organization [employer] Address 75 [facility] 7t [place] [address] Care Team Providers Care Insurance Clerk Name Role Phone Emily Lang MD Primary Care Provider [phone] Allergies Active Allergy Reactions Criticality Noted Date [...] DAILY IN THE MORNING 90 tablet 3 Active escitalopram (Lexapro) 20 MG tablet TAKE 1 TABLET BY MOUTH DAILY IN THE MORNING 90 tablet 3 Active ibuprofen 400 MG tablet TAKE 1 TABLET BY MOUTH EVERY 6 HOURS NEEDED FOR MODERATE PAIN OR FOR FEVER 90 tablet Active cholecalciferol (Vitamin D-3) 50 MCG (2000 UT) capsule TAKE 1 CAPSULE BY MOUTH EVERY MORNING 90 capsule 3 Active acetaminophen (Tylenol Extra Strength) 500 MG tablet Take 1-2 tablets every 6 hours as needed for pain 90 tablet Active metoprolol succinate XL (Toprol-XL) 25 MG 24 hr tablet Take 25 mg by mouth. Active apixaban (Eliquis) 5 MG tablet Take 5 mg by mouth. Active clonazePAM (KlonoPIN) 0.5 MG tabletIndicatio ns:Anxiety Take 1 tablet (0.5 mg) by mouth if needed each day for anxiety for up to 28 days. 28 tablet 025 2024 Active clonazePAM (KlonoPIN) 0.5 MG tabletIndicatio ns:Anxiety [...] parotid gland 06/11/2024 Paroxysmal atrial fibrillation (CMS/HCC) Overview (04/30/2024): Dx during hospital stay at [facility] 04/21-04/23/2024 On Metoprolol BID with hold parameters [...] PM EDT): Refer to [facility] for biopsy Migraine with aura and witho ut status migrainosus, not intractable 04/30/2024 Overview (04/30/2024): Dx 04/2024 at [facility] during admission for stroke rule out Assessment [...] recurrent major depressive disorder, without psychotic features ([facility]) 03/19/2023 Assessment & Plan (03/30/2023 [...] of change. PLAN: 1. Follow up with [facility]: Recommended for follow-up: As needed 2. Patient goal is to work towards placing boundaries so that she can engage in therapy and explore coping mechanisms 3. Behavioral Recommendations a. [place] setting b. Lock door/do not disturb on phone c. OP therapy Assessment & Plan (03/26/2023 6:36 AM EDT): Continue Lexapro N referral in place for OP therapy MOISES (generalized anxiety disorder) 03/19/2023 Assessment & Plan (04/30/2024 12:46 PM EDT): Will continue Klonopin 0.5mg at BID for the time being, reevaluate in one month Assessment & Plan (12/24/2023 2:14 PM EDT): Continue Klonopin 0.5mg daily prn Continue therapy at [facility] Assessment & Plan (03/30/2023 9:54 AM EDT): [...] of change. PLAN: 1. Follow up with [facility]: Recommended for follow-up: As needed 2. Patient goal is to work towards placing boundaries so that she can engage in therapy and explore coping mechanisms 3. Behavioral Recommendations a. [place] setting b. Lock door/do not disturb on phone c. OP therapy Assessment & Plan (03/26/2023 6:36 AM EDT): Continue Klonopin 0.5mg daily Goal is to wean this year, per pt Chronic pain of both knees 03/19/2023 Assessment & Plan (12/24/2023 2:12 PM EDT): PT referral Assessment & Plan (03/26/2023 6:36 AM EDT): Referral to [facility] Ortho in place Known meniscal tear from [...] (12/24/2023 2:10 PM EDT): Needs to call [facility] and schedule mammo Tobacco dependence 03/19/2023 Assessment & Plan (03/26/2023 6:37 AM EDT): Quitting with patches She has strange dreams with them on at night, recommend daytime use only Encounters Date Type Department Care Team Description 06/02/2025 Orders Only [facility] External Provider, [facility] 06/02/2025 Refill [facility] [address] [place] [address] Emily Lang MD Anxiety 05/21/2025 Telephone [facility] [address] [place] [address] Emily Lang MD nov recall 05/06/2025 2:30 PM EDT Telemedicine [facility] [address] [place] [address] Bia Hopper RN Long-term current use of benzodiazepine 05/06/2025 Travel 05/05/2025 Refill [facility] [address] [place] [address] Emily Lang MD Anxiety 05/01/[address] [address] Emily Lang MD Appointment Request 04/21/2025 Telephone [facility] [address] [place] [address] Autumn Palafox PharmD 04/21/2025 Travel 04/01/2025 Refill [facility] [address] [place] [address] Emily Lang MD Anxiety 03/05/2025 Telephone [facility] [address] [place] [address] Domi Coto, [employer] Follow-up 03/04/2025 Refill [facility] [address] [place] [address] Tremayne Solis MD Anxiety from Last 3 Months Immunizations Immunization Administration [...] Info) Description 06/12/2025 9:00 AM EDT Telemedicine [facility] [address] [place] [address] Autumn Palafox, PharmD [address] [place] [address] 08/10/2025 9:00 AM EST Clinical Support [facility] [address] [place] [address] Bia Hopper, RN Health Maintenance Due Date [...] Diagnosis Comments HIGH SENSITIVITY TROPONIN I Routine 06/02/2025 2:53 PM EDT XR RIBS 3 VIEWS LEFT W CHEST Routine 06/02/2025 12:38 PM EDT from Last 3 Months Results * High Sensitivity Troponin I (06/02/2025 2:53 PM EDT) TROPONIN I HIGH SENSITIVITY <2.7 <3.5 - 17.0 ng/L [facility] Comment:The Maria high sens itivity Troponin-I results should beused in conjunction with other diagnostic information suchas ECG, clinical observations and information, and patientsymptoms to aid in the diagnosis of IA. 06/02/2025 2:53 PM EDT 06/02/2025 2:56 PM EDT us Generic External Data Provider LAB BLOOD ORDERAB LES Final Result [facility] [address] [place] [phone] * XR Ribs 3 Views Left w/ Chest (06/02/2025 12:38 PM EDT) Anatomical Region Laterality Modality Radiographic Nolvia ging 06/02/2025 12:3 8 PM EDT Narrative 06/02/2025 1:06 PM EDT [address] [address] XRay Report Signed Patient: Socorro Moran MR#: [id number] : 1970 Acct:[id number] Age/Sex: 54 / F ADM Date: 06/02/25 Loc: HO.ED Attending Dr: Ordering Physician: Arianna Weber MD Date of Service: 06/02/25 Procedure(s): XR ribs LT min 3V w CXR1V Accession Number(s): [id number] cc: Arianna Weber MD; Emily Lang Reason for Exam: Left chest wall pain EXAMINATION: XR RIBS 3 VIEWS MINIMUM WITH CHEST LEFT HISTORY: Left chest wall pain COMPARISON: Comparison is made with the prior examination of the chest dated 02/14/2025. FINDINGS: A single PA view of the chest and 3 views of the left ribs are submitted. The lungs are expanded and clear. There is no pleural effusion, pneumothorax, or pulmonary vascular congestion. The heart is normal in size. The left ribs are intact. No fracture is seen. XR/XR ribs LT min 3V w CXR1V IMPRESSION: No acute cardiopulmonary abnormality. No evidence of left rib fracture. Electronically signed by: Conrado Tejeda MD 06/02/2025 01:03 PM EDT Dictated By: Conrado Tejeda MD Signed By: <Electronically signed by Conrado Tejeda MD in OV> 06/02/25 1303 DD/ 1238 TD/TT: 06/02/25 1245 Rehabilitation Medicine Physician: Procedure Note Donotuseinterpreter, Image - 06/02/[address] [address] XRay Report Signed Patient: Socorro Moran LMR#: [id number] : 1970Acct:[id number] Age/Sex: 54 / FADM Date: 06/02/25 Loc: HO.ED Attending Dr: Ordering Physician: Arianna Weber MD Date of Service: 06/02/25 Procedure(s): XR ribs LT min 3V w CXR1V Accession Number(s): [id number] cc: Arianna Weber MD; Emily Lang Reason for Exam: Left chest wall pain EXAMINATION: XR RIBS 3 VIEWS MINIMUM WITH CHEST LEFT HISTORY: Left chest wall pain COMPARISON: Comparison is made with the prior examination of the chest dated 02/14/2025. FINDINGS: A single PA view of the chest and 3 views of the left ribs are submitted. The lungs are expanded and clear. There is no pleural effusion, pneumothorax, or pulmonary vascular congestion. The heart is normal in size. The left ribs are intact. No fracture is seen. XR/XR ribs LT min 3V w CXR1V IMPRESSION: No acute cardiopulmonary abnormality. No evidence of left rib fracture. Electronically signed by: Conrado Tejeda MD 06/02/2025 01:03 PM EDT RP Dictated By: Conrado Tejeda MD Signed By: <Electronically signed by Conrado Tejeda MD in OV> 06/02/25 1303 DD/ 1238 TD/TT: 06/02/25 1245 Rehabilitation Medicine Physician: [facility] External Provider IMG XR PROCEDURES Edited Result - Final from Last 3 Months Insurance [facility] C3 Care Teams Insurance Clerk Relationship Specialty Start Date End Date Emily Lang MD [address] [place] [address] PCP - General Family Medicine 03/23/23
--- OUTSIDE RECORDS SUMMARY | 2025-06-02 16:52 | XMS_ITS | Encounter Summary ---
Author Organization [employer] Address 75 [facility] 7t [place] [address] Care Team Providers Care Finish Specialist Name Role Phone Emily Lang MD Primary Care Provider [phone] Reason for Visit * Reason Onset Date Comments Med Refill 11/26/2023 Encounter Details Date Type Department Care Team ([facility] st Contact Info) Description 11/26/2023 Refill [facility] 230 [place] [address] Moises Thompson MD [address] [place] [address] Social History Tobacco Use Types Packs/Day Years [...] the past 12 months, has t he [employer], gas, oil or water company threatened to [...] Info) Description 06/12/2025 9:00 AM EDT Telemedicine [facility] [address] [place] [address] Autumn Palafox PharmD [address] [place] [address] 08/10/2025 9:00 AM EST Clinical Support [facility] [address] [place] [address] Bia Hopper, IRASEMA documented as of this encounter Visit Diagnoses Not on filedocumented in this encounter Care Teams Finish Specialist Relationship Specialty Start Date End Date Emily Lang MD [address] [place] [address] PCP - General Family Medicine 03/23/23 documented as of this encounter
--- OUTSIDE RECORDS SUMMARY | 2025-06-02 16:52 | XMS_ITS | Encounter Summary ---
Author Organization [employer] Address [address] [facility] [address] 7t [place] [address] Care Team Providers Care Professional Development Director Name Role Phone Emily Lang MD Primary Care Provider [phone] Encounter Details Date Type Department Care Team (Late st Contact Info) Description 06/02/2025 Orders Only [facility] External Provider, [facility] Social History Tobacco Use Types Packs/Day Years [...] the past 12 months, has t he [employer], [employer], oil or water [employer] threatened to shut off services in your [...] Info) Description 06/12/2025 9:00 AM EDT Telemedicine [facility] [address] [place] [address] Autumn Palafox PharmD [address] [place] [address] 08/10/2025 9:00 AM EST Clinical Support [address] [address] iBa Hopper RN documented as of this encounter Procedures Procedure Name Priority Date/Time Associated Diagnosis Comments HIGH SENSITIVITY TROPONIN I Routine 06/02/2025 2:53 PM EDT XR RIBS 3 VIEWS LEFT W CHEST Routine 06/02/2025 12:38 PM EDT documented in this encounter Results * High Sensitivity Troponin I (06/02/2025 2:53 PM EDT) TROPONIN I HIGH SENSITIVITY <2.7 <3.5 - 17.0 ng/L [facility] Comment:The Maria high sens itivity Troponin-I results should beused in conjunction with other diagnostic information suchas ECG, clinical observations and information, and patientsymptoms to aid in the diagnosis of VT. 06/02/2025 2:53 PM EDT 06/02/2025 2:56 PM EDT us Generic External Data Provider LAB BLOOD ORDERAB LES Final Result [facility] [address] [place] [phone] * XR Ribs 3 Views Left w/ Chest (06/02/2025 12:38 PM EDT) Anatomical Region Laterality Modality Radiographic Nolvia ging 06/02/2025 12:3 8 PM EDT Narrative 06/02/2025 1:06 PM EDT [address] [address] XRay Report Signed Patient: Socorro Moran MR#: [id number] : 1970 Acct:[id number] Age/Sex: 54 / F ADM Date: 06/02/25 Loc: .ED Attending Dr: Ordering Physician: Arianna Weber MD Date of Service: 06/02/25 Procedure(s): XR ribs LT min 3V w CXR1V Accession Number(s): [id number] cc: Arianna Weber MD; Emily Lang Reason [...] left rib fracture. Electronically signed by: Conrado Tejead MD 06/02/2025 01:03 PM EDT Dictated By: Conrado Tejeda MD Signed By: <Electronically signed by Conrado Tejeda MD in OV> 06/02/25 1303 DD/ 1238 TD/TT: 06/02/25 1245 Chicken Dresser: Procedure Note Donotuseinterpreter, Image - 06/02/[address] [place] [address] XRay Report Signed Patient: Socorro Moran LMR#: [id number] : 1970Acct:[id number] Age/Sex: 54 / FADM Date: 06/02/25 Loc: HO.ED Attending Dr: Ordering Physician: Arianna Weber MD Date of Service: 06/02/25 Procedure(s): XR ribs LT min 3V w CXR1V Accession Number(s): [id number] cc: Arianna Weber MD; Emily Lang Reason [...] 06/02/25 1303 DD/ 1238 TD/TT: 06/02/25 1245 Chicken Dresser: [facility] External Provider IMG XR PROCEDURES Edited Result - Final documented in this encounter Visit Diagnoses Not on filedocumented in this encounter Additional Health Concerns Assessment Noted Time PHQ-9 Depression Total Score: 17 04/30/ 024 9:55 AM EDT documented as of this encounter Care Teams Professional Development Director Relationship Specialty Start Date End Date Emily Lang MD [address] [place] [address] PCP - General Family Medicine 03/23/23 documented as of this encounter
--- OUTSIDE RECORDS SUMMARY | 2025-06-02 16:52 | XMS_ITS | Encounter Summary ---
Author Organization [employer] Address 75 [facility] 7t [place] [address] Care Team Providers Care Director Imaging Name Role Phone Emily Lang MD Primary Care Provider [phone] Reason for Visit * Reason Onset Date Comments Med Refill 09/04/2024 Encounter Details Date Type Department Care Team ([facility] st Contact Info) Description 09/04/2024 Refill [facility] [address] [place] [address] Emily Lang MD [address] [place] [address] Social History Tobacco Use Types Packs/Day Years [...] Info) Description 06/12/2025 9:00 AM EDT Telemedicine [facility] [address] [place] [address] Autumn Palafox, LindaD [address] [place] [address] 08/10/2025 9:00 AM EST Clinical Support [address] [address] Bia Hopper, RN documented as of this encounter Visit Diagnoses Not on filedocumented in this encounter Additional Health Concerns Assessment Noted Time PHQ-9 Depression Total Score: 17 024 9:55 AM EDT documented as of this encounter Care Teams Director Imaging Relationship Specialty Start Date End Date Emily Lang MD [address] [place] [address] PCP - General Family Medicine 03/23/23 documented as of this encounter
--- OUTSIDE RECORDS SUMMARY | 2025-06-02 16:52 | XMS_ITS | Encounter Summary ---
Author Organization [employer] Address 75 [facility] 7t [place] [address] Care Team Providers Care Microbiological Analyst Name Role Phone Emily Lang MD Primary Care Provider [phone] Reason for Visit * Reason Onset Date Comments Med Refill 10/22/2024 Encounter Details Date Type Department Care Team ([facility] st Contact Info) Description 10/22/[address] [facility] MED[facility]INE [address] [place] [address] Emily Lang MD 230 [place] [address] Social History Tobacco Use Types Packs/Day Years [...] Info) Description 06/12/2025 9:00 AM EDT Telemedicine [facility] MEDICINE [address] [place] [address] Autumn Palafox, LindaD [address] [place] [address] 08/10/2025 9:00 AM EST Clinical Support [address] [address] Bia Hpoper, RN documented as of this encounter Visit Diagnoses Not on filedocumented in this encounter Additional Health Concerns Assessment Noted Time PHQ-9 Depression Total Score: 17 024 9:55 AM EDT documented as of this encounter Care Teams Microbiological Analyst Relationship Specialty Start Date End Date Emily Lang MD [address] [place] [address] PCP - General Family Medicine 03/23/23 documented as of this encounter
--- OUTSIDE RECORDS SUMMARY | 2025-06-02 16:52 | XMS_ITS | Encounter Summary ---
Author Organization [employer] Address 75 [facility] 7t [place] [address] Care Team Providers Care Senior Sql Database Developer Name Role Phone Emily Lang MD Primary Care Provider Reason for Visit * Reason Onset Date Comments Med Refill 05/13/2024 Encounter Details Date Type Department Care Team ([facility] st Contact Info) Description 05/13/[address] [facility] MEDICINE [address] [place] [address] Emily Lang MD 230 [place] [address] Social History Tobacco Use Types Packs/Day Years [...] 9:00 AM EDT Telemedicine [facility] MEDICINE [address] [place] [address] Autumn Palafox, LindaD [address] [place] [address] 08/10/2025 9:00 AM EST Clinical Support [address] [address] Bia Hopper, RN documented as of this encounter Visit Diagnoses Not on filedocumented in this encounter Additional Health Concerns Assessment Noted Time PHQ-9 Depression Total Score: 17 024 9:55 AM EDT documented as of this encounter Care Teams Senior Sql Database Developer Relationship Specialty Start Date End Date Emily Lang MD [address] [place] [address] PCP - General Family Medicine 03/23/23 documented as of this encounter
--- OUTSIDE RECORDS SUMMARY | 2025-06-02 16:52 | XMS_ITS | Encounter Summary ---
Author Organization [employer] Address 75 [facility] 7t [place] [address] Care Team Providers Care Plant Control Aide Name Role Phone Emily Lang MD Primary Care Provider [phone] Reason for Visit * Reason Onset Date Comments Med Refill 06/02/2025 Encounter Details Date Type Department Care Team ([facility] st Contact Info) Description 06/02/2025 Refill [facility]INE 230 [place] [address] Emily Lang MD [address] [place] [address] Anxiety Social History Tobacco Use Types Packs/Day [...] Info) Description 06/12/2025 9:00 AM EDT Telemedicine [facility] [address] [place] [address] Autumn Palafox, LindaD [address] [place] [address] 08/10/2025 9:00 AM EST Clinical Support [address] [address] Bia Hopper, RN documented as of this encounter Visit Diagnoses Diagnosis Anxiety Anxiety state, unspecified documented in this encounter Additional Health Concerns Assessment Noted Time PHQ-9 Depression Total Score: 17 024 9:55 AM EDT documented as of this encounter Care Teams Plant Control Aide Relationship Specialty Start Date End Date Emily Lang MD [address] [place] [address] PCP - General Family Medicine 03/23/23 documented as of this encounter
--- OUTSIDE RECORDS SUMMARY | 2025-06-02 16:52 | XMS_ITS | Encounter Summary ---
Author Organization [employer] Address 75 [facility] 7t [place] [address] Care Team Providers Care Mediator Name Role Phone Emily Lang MD Primary Care Provider [phone] Reason for Visit * Reason Onset Date Comments Med Refill 10/22/2024 Encounter Details Date Type Department Care Team ([facility] st Contact Info) Description 10/22/2024 Refill [facility] MEDICINE [address] [place] [address] Emily Lang MD [address] [place] [address] Social History Tobacco Use Types Packs/Day Years [...] 06/12/2025 9:00 AM EDT Telemedicine [facility] MEDICINE [address] [place] [address] Autumn Palafox, LindaD [address] [place] [address] 08/10/2025 9:00 AM EST Clinical Support [address] [address] Bia Hopper, RN documented as of this encounter Visit Diagnoses Not on filedocumented in this encounter Additional Health Concerns Assessment Noted Time PHQ-9 Depression Total Score: 17 024 9:55 AM EDT documented as of this encounter Care Teams Mediator Relationship Specialty Start Date End Date Emily Lang MD [address] [place] [address] PCP - General Family Medicine 03/23/23 documented as of this encounter
--- OUTSIDE RECORDS SUMMARY | 2025-06-02 16:52 | XMS_ITS | Data Portability ---
Author Organization ID - [facility], Allergy Address [address] [address] Care Team Providers Care Supervisor Boarding Name Role Phone APOLONIA ANTON Referring Provider Assessment Encounter Date Assessment Date Assessment LastModified by Organization Details LastModified Time 06/12/2024 06/12/2024 Patient has a lesion of the parotid salivary gland. We have discussed treatment options including observation as well as surgical intervention to remove the lesion. Surgery is performed under general anesthesia at either [facility] or [facility]. The surgery is typically booked for [...] as of today. All questions were answered. [email or web address] Not available 10/10/2024 14:59:45 10/16/2024 10/16/2024 The [...] if no improvement in a few days. 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 KELSEY BURLESON MD [address] [place] [address], [address], [facility] - [facility] 4 17:11:15 Hearing loss 31809891 Active 2024 APOLONIA ETIENNE PA-C [address] [place] [address], [address], [facility] 5 15:08:17 Abnormal auditory perception 88834165 Active 2024 ZENAIDA SCHUSTER [address], [address], [facility] - [facility] 5 09:15:49 Bilateral referred otalgia of ears 7335083191553 106 Active 2024 AICHA ROSE PA-C [address] [place] [address], [place], [address], [facility] - [facility] 09:43:07 Bilateral temporomand ibular joint pain 5028183024326 9105 Active 2024 AICHA ROSE PA-C [address] [address], [place], [address], [facility] 09:43:17 Problem Notes None recorded. Procedures Surgical History Date Name Laterality Status Provider Name and Address Organization Details Recorded Time 12/05/19 25 Comp Audio with Tymps - 97675 & 31711 completed ZENAIDA SCHUSTER [address], [address], [facility] 12/04/2024 09:15:42 10/08/19 25 Excise parotid gland/lesion completed KELSEY BURLESON MD [address], [address], [facility] 10/08/2024 14:42:15 10/08/19 25 PAROTIDECTOMY (SURG) completed Rocky Nunn [facility] 10/13/2024 13:22:50 Imaging Results None recorded. Procedure Notes None recorded. Medical Equipment None Reported. Allergies Allergen ID Allergen Name Allergen Category Reaction Reaction Severity Criticality Documentation Date Start Date Code Code System Note Provider Name and Address Organization Details Recorded Time 888255 naproxen medicatio n Not available Not available Not available 11/03/2024 7258 RxNorm MELVIN singleton [facility] 15:37:27 Medications Name Sig Start Date Stop [...] Updated DateTime 10/10/2024 162.56 cm 33.3 kg/m2 98632.92 g Randi Dennison [place] - [facility] 10/10/2024 14:36:54 Date Recorded Body height Body mass index (BMI) Body weight Provider Name and Address Organization Details Last Updated DateTime 10/16/2024 162.56 cm 33.6 kg/m2 98577.1 g Randi Samuelkalebmaryana [place] - [facility] 10/16/2024 14:33:23 Date Recorded Body height Provider Name an d Address Organization Details Last Updated DateTime 11/03/2024 162.56 cm MELVIN COMI [place] - [facility] 11/03/2024 15:34:50 Date Recorded Body height Provider Name an d Address Organization Details Last Updated DateTime 12/04/2024 162.56 cm MELVIN COMI [place] - [facility] 12/04/2024 09:09:15 Date Recorded Body height Body mass index (BMI) Body weight Provider Name and Address Organization Details Last Updated DateTime 06/12/2024 162.56 cm 31.9 kg/m2 25872.18 g Skyla Irma [place] - [facility] 06/12/2024 11:10:37 Social History None recorded. Functional Status None recorded. Mental Status None recorded. Family History Nothing Reported. Medical History No medical history recorded. Gynecological HistoryNo gynecological history recorded. 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 Discussed higher risk to the zygomatic branch of the facial nerve as well as salivary duct given the anterior location of the 3 cm lesion [id number] ARBEN MCKEON PA-C [facility] [address] [address] 10/10/2024 14:27:50 10/13/2024 07:06:40 Benign neoplasm of parotid gland 75051765 D11.0 [id number] APOLONIA ETIENNE PA-C [facility] [address] [address] 10/16/2024 14:26:01 10/16/2024 14:57:24 Benign neoplasm of parotid gland 37757268 D11.0 Hearing loss 75074065 H9 1.91 [id number] KELSEY BURLESON MD [facility] [address] [address] 11/03/2024 14:33:29 11/03/2024 16:26:20 Benign neoplasm of parotid gland 40390000 D11.0 [id number] AICHA ROSE PA-C [facility] [address] [place] [address] 12/04/2024 09:04:41 12/04/2024 12:32:25 Abnormal auditory perception 62517386 H93.299 Right Ear:Normal hearing with excellent speech discrimina tion.Type As tympanogra m, rounded.Le ft Ear:Normal hearing with excellent speech discrimina tion.Type As tympanogra m, rounded. Bilateral temporomandibular joint pain 4971391899 3140427 M26.623 Health Concerns Section Related Observation LastModified by Organization Detai ls LastModified Time None Recorded Concern Status LastModified by Organization Details LastModified Time None Recorded Advance Directives Directive None Recorded Payers Insurance Date Sequence Insurance Name Policy Number Policy [place] Covered Member ID [place] Member ID Guarantor Name 12/25/2024 1 MEDICAID-ID: 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 She is sore but recovering well. Has had less than 10 cc of output on her VICENTE drain in the last 24 hours. KELSEY BURLESON MD 100 [facility],[address], [address], [facility] - [facility] 10/10/2024 16:37:40 10/16/2024 text/html ROS as noted [...] improving. Denies tinnitus. KELSEY BURLESON MD 100 [facility],[address], [address], [facility] - [facility] 10/16/2024 16:44:33 11/03/2024 text/html ROS as noted in the HPI 10/08/24 Gildardo MOSER, Right parotidectomy. 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 JHONNY LINCOLN MD 100 [facility],[address], [address], [facility] - [facility] 12/04/2024 10:29:10 OBGyn Episode No OBEpisode recorded.
--- OUTSIDE RECORDS SUMMARY | 2025-06-02 16:53 | XMS_ITS | Encounter Summary ---
Author Organization [employer] Address 75 [facility] 7t [place] [address] Care Team Providers Care Research Professional Name Role Phone Emily Lang MD Primary Care Provider [phone] Reason for Visit * Reason Comments Med Change Request Encounter Details Date Type Department Care Team (Late Contact Info) Description 03/26/2023 Refill [facility] MEDICINE [address] [place] [phone] Emily Lang MD 230 [place], [place] [phone] Neurogenic pruritus Social History Tobacco Use Types [...] Department Care Team (Late Contact Info) Description 06/12/2025 9:00 AM EDT Telemedicine [facility] MEDICINE [address] [place] [address] Autumn Palafox, PharmD [address] [place] [phone] 08/10/2025 9:00 AM EST Clinical Support [facility] MEDICINE 230 [place] [address] Bia Hopper, IRASEMA documented as of this encounter Visit Diagnoses Diagnosis Neurogenic pruritus documented in this encounter Care Teams Research Professional Relationship Specialty Start Date End Date Emily Lang MD [address] [place] [address] PCP - General Family Medicine 03/23/23 documented as of this encounter
--- OUTSIDE RECORDS SUMMARY | 2025-06-02 16:53 | XMS_ITS | Encounter Summary ---
Author Organization [employer] Address 75 [facility] 7t [place] [address] Care Team Providers Care Family Development Extension Specialist Name Role Phone Emily Lang MD Primary Care Provider [phone] Encounter Details Date Type Department Care Team (Late Contact Info) Description 04/06/2023 Orders Only [facility] MEDICINE [address] [place] [address] Emily Lang MD [address] [place] [address] [phone] Screening for colon cancer (Primary Dx) Social [...] 06/12/2025 9:00 AM EDT Telemedicine [facility] MEDICINE [address] [place] [address] Autumn Palafox PharmD [address] [place] [address] 08/10/2025 9:00 AM EST Clinical Support [facility] MEDICINE 230 [place] [address] Bia Hopper RN documented as of this encounter Procedures Procedure Name Priority Date/Time Associated Diagnosis Comments MR KNEE WO CONTRAST RIGHT Routine 04/17/2023 9:25 AM EDT documented in this encounter Results * MR Knee w/o Contrast Right (04/17/2023 9:25 AM EDT) Anatomical Region Laterality Modality Magnetic Resonan ce 04/17/2023 9:25 AM EDT Narrative 04/18/2023 12:57 PM EDT [facility] [address] [place] [address] Magnetic Resonance Report Signed Patient: Socorro Moran MR#: [id number] : 1970 Acct:[id number] Age/Sex: 52 / F ADM Date: 04/17/23 Loc: HO.MRI Attending Dr: Ricardo Root MD Ordering Physician: Ricardo Root MD Date of Service: 04/17/23 Procedure(s): MR knee RT wo con Accession Number(s): [id number] cc: Emily Lang; Ricardo Root MD EXAMINATION: [...] heterogeneity and surface irregularity with areas of dnci-iwov-ibfojmetn fissuring at the medial femoral condyle. 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 Tiny marginal osteophytes. Lateral Compartment: Intact articular cartilage. JOINT FLUID AND BURSAE: Trace joint effusion. MR/MR knee RT wo con IMPRESSION: 1. Minimal inner margin fraying of the lateral meniscal body. 2. Mild patellofemoral and medial compartment osteoarthritis. Trace joint effusion. 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
== END 2025-06-02 16:01 | disposition home or self-care (01) ==
PROVIDERS: Emergency Provider Emergency Medicine; PCP General Practice
DX: R07.89 Other chest pain (principal); I10 Essential (primary) hypertension; I48.0 Paroxysmal atrial fibrillation; Z79.899 Other long term (current) drug therapy; Z79.01 Long term (current) use of anticoagulants
CPT/HCPCS: 36415; 71101; 80048; 80076; 83690; 84484; 85025; 85379; 93005; 96365; 99284; 99285; J0131

== ENCOUNTER → 2025-06-02 12:03 | Outpatient (BNV) | payer MEDICAID, SELFPAY | PROVIDERS: Emergency Provider Emergency Medicine; Visit Provider Internal Medicine Cardiovascular Disease | DX: R07.89 Other chest pain (principal) | CPT/HCPCS: 93010 ==

== ENCOUNTER → 2025-06-02 12:17 | Outpatient (BNV) | payer MEDICAID, SELFPAY | PROVIDERS: Emergency Provider Emergency Medicine; PCP General Practice; Visit Provider Radiology Diagnostic Radiology | DX: R07.89 Other chest pain (principal) | CPT/HCPCS: 71101 ==

== ENCOUNTER 2025-07-21 18:26 | Outpatient (REF) | payer MEDICAID, SELFPAY ==
--- OUTSIDE RECORDS SUMMARY | 2025-07-21 09:15 | XMS_ITS | Encounter Summary ---
Author Organization [employer] Address [address] [facility] 7t [place] [address] Care Team Providers Care Reference Librarian Name Role Phone Emily Lang MD Primary Care Provider [phone] Autumn Palafox PharmD Unavailable [phone] Reason for Referral * Imaging (Routine) - Authorized Specialty Diagnoses / Procedures Referred By Contac t Referred To Contact Radiology Diagnoses Encounter for screening mammogram for malignant neoplasm of breast Procedures BI Mammogram Screening Tomosynthesis Bilateral Emily Lang MD [address] [place] [address] Phone: tel: fax: [facility] [address] [place] [phone] Phone: tel: fax: Referral ID Status Reason Start Date Expiration Date V isits Requested Visits Authorized [id number] Authorized 07/21/2025 07/21/2026 1 1 Reason for Visit * Reason Comments Annual Exam Encounter Details Date Type Department Care Team (Late st Contact Info) Description 07/21/2025 9:15 AM EST Office Visit [facility] [address] [place] [address] Emily Lang MD [address] [place] [address] [phone] Screening for colon cancer (Primary Dx); Paroxysmal atrial fibrillation (CMS/HCC) (HCC); Severe episode of recurrent major depressive disorder, without psychotic features (CMS/HCC) (HCC); Mild intermittent asthma without complication; Dietary counseling; Exercise counseling; Class 1 obesity with serious comorbidity and body mass index (BMI) of 32.0 to 32.9 in adult, unspecified obesity type; Anxiety; Long-term current use of benzodiazepine; Primary hypertension; MOISES (generalized anxiety disorder); Encounter for screening mammogram for malignant neoplasm of breast; Screening for cervical cancer Social History Tobacco Use Types Packs/Day Years Used Date Smoking Tobacco: Every Day Cigarettes 2 34.9 Started: 1990 Smokeless Tobacco: Never Alcohol Use Standard Drinks/Week Comments Never 0 (1 standard drink = 0.6 oz pur e alcohol) Depression Answer Date Recorded Patient Health Questionnaire-9 Score 17 07/21/2025 Patient Health Questionnaire-9 Score 17 07/21/2025 Last PHQ-9: Questionnaire Data Not on file 1 09/21/2024 Housing Stability Answer Date Recorded What is your housing situation today? I have margo freed 07/07/[address] you li ve. Do you have problems with any of the following? None of the above 07/07/2025 Food Insecurity Answer Date Recorded Within the past 12 months, y ou worried that your food would run out before you got money to buy more: Never True 07/07/2025 Within the past 12 months,th e food you bought just didn't last and you didn't have enough money to get more: Never True Transportation Answer Date Recorded In the past 12 months, has l ack of transportation kept you from medical appts, meetings, work or from getting things needed for daily living? No 07/07/2025 Utilities Answer Date Recorded In the past 12 months, has t he electric, gas, oil or water [employer] threatened to shut off services in your home? Yes 07/07/2025 Depression Answer Date Recorded Patient Health Questionnaire-2 Score 4 07/21/2025 Internet Access Answer Date Recorded Internet Access Q1 Yes 07/07/2025 Internet Access Q2 Not on file 07/07/2025 Comments Unknown Sex and Gender Information Value Date Recorded Sex Assigned at Female 03/19/2023 8:39 AM EDT Legal Sex Female 8:35 AM EDT Gender Identity Female 03/19/2023 8:39 AM EDT Sexual Orientation Lesbian 12/24/2023 8: 16 AM EDT documented as of this encounter Last Filed Vital Signs Vital Sign Reading Time Taken Comments Blood Pressure 160/90 07/21/2025 9:06 AM EST Pulse 65 07/21/2025 9:06 AM EST Temperature - - Respiratory Rate 20 07/21/2025 9:06 AM EST Oxygen Saturation 98% 07/21/2025 9:06 AM EST Inhaled Oxygen Concentration - - Weight 87.5 kg (193 lb) 07/21/2025 9:06 AM EST Height 162.6 cm (5' 4 ) 07/21/2025 9:06 AM EST Body Mass Index 33.13 07/21/2025 9:06 AM EST documented in this encounter Functional Status * Over the past 2 weeks, how often have you been bothered by any of the following problems? Question Answer Date of Assessment Author Patient Health Questionnaire -2 Score 4 07/21/2025 11:16 AM Verónica Kaye MA * Little interest or pleasure in doing things Answer Date of Assessment Author More than half the days 07/21/2025 11:16 AM Verónica Kaye MA * Feeling down, depressed, or hopeless Answer Date of Assessment Author More than half the days 07/21/2025 11:16 AM Verónica Kaye MA * Trouble falling or staying asleep, or sleeping too much Answer Date of Assessment Author More than half the days 07/21/2025 11:16 AM Verónica Kaye MA * Feeling tired or having little energy Answer Date of Assessment Author Nearly every day 07/21/2025 11:16 AM Verónica Kaye MA * Poor appetite or overeating Answer Date of Assessment Author More than half the days 07/21/2025 11:16 AM Verónica Kaye MA * Feeling bad about yourself - or that you are a failure or have let yourself or your family down Answer Date of Assessment Author Nearly every day 07/21/2025 11:16 AM Verónica Kaye MA * Trouble concentrating on things, such as reading the newspaper or watching television Answer Date of Assessment Author More than half the days 07/21/2025 11:16 AM Verónica Kaye MA * Moving or speaking so slowly that other people could have noticed? Or the opposite - being so fidgety or restless that you have been moving around a lot more than usual. Answer Date of Assessment Author Several days 07/21/2025 11:16 AM Verónica Kaye MA * Thoughts that you would be better off or hurting yourself in some way Answer Date of Assessment Author Not at all 07/21/2025 11:16 AM Verónica Kaye MA * Patient Health Questionnaire-9 Score Answer Date of Assessment Author 17 07/21/2025 11:16 AM Verónica Kaye MA * Over the last 2 weeks, how often have you been bothered by any of the following problems? Question Answer Date of Assessment Author Feeling nervous, anxious, or on edge 3 07/21/2025 9:08 AM Verónica Kaye MA Not being able to stop or co ntrol worrying 3 07/21/2025 9:08 AM Verónica Kaye MA Worrying too much about diff erent things 3 07/21/2025 9:08 AM Verónica Kaye MA Trouble relaxing 2 07/21/2025 9:08 AM Verónica Daniel MA Being so restless that it is hard to sit still 3 07/21/2025 9:08 AM Verónica Kaye MA Becoming easily annoyed or irritable 3 07/21/2025 9:08 AM Verónica Kaye MA Feeling afraid as if somethi ng awful might happen 3 07/21/2025 9:08 AM Verónica Kaye MA MOISES-7 Total Score 20 07/21/2025 9:08 AM Verónica Kaye MA * How difficult have these problems made it for you to do your work, take care of things at home, or get along with other people? Answer Date of Assessment Author Very difficult 07/21/2025 11:16 AM Verónica Kaye MA documented as of this encounter Progress Notes * Emily Lang MD - 07/21/2025 9:15 AM EST SUBJECTIVE: Socorro Moran is a 54 y.o. female who presents for chronic disease management. Denies recent illness, ER visit, or hospitalization. Acute Concerns: She is out of work per cardiology due to Afib, awaiting EP evaluation. Having episodes of possible fainting while eating and watching TV. Loses consciousness and wakes up minute later. Chronic Conditions and Plans: Afib with RVR -metoprolol for atrial fibrillation, HR is staying controlled, still with occasional pressure or palpitation sensation - Echocardiogram showed normal EF with no evidence of regional wall motion abnormalities. 01/02/25 cards f/u, Erica Conklin - Continue Eliquis for anticoagulation - No restrictions on air travel due to atrial fibrillation. 01/29/25 ER for atypical chest pain 02/14/25 blurred vision 1. Wide patency of the intracranial arterial circulation. 2. No intracranial aneurysm or AVM. 3. Unremarkable CT enhancement of the brain parenchyma. 4. 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 -cannot tolerate Topimax due to somnolence Anxiety - on Lexapro 20mg daily - prescribed Clonazepam 0.5mg, taking once daily MOISES-7 Total Score: 20 (07/21/2025 9:08 AM) Tobacco use - smokes 1/2 pack of cigarettes daily and has for > 30 years. - Denies illicit drug use and ETOH use. 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 Paroxysmal atrial fibrillation (CMS/HCC) (HCC) 04/30/2024 Mass of right parotid gland 04/30/2024 Migraine with aura and without status migrainosus, not intractable 04/30/2024 Caregiver stress 03/26/2023 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 Smoke 5 cigarettes/day. No EtOH. Smokes weed. No Illicit substances. Not employed. Review of Systems Constitutional: Negative. Respiratory: Negative. Cardiovascular: Positive for palpitations. Gastrointestinal: Negative. Musculoskeletal: Negative. Skin: Negative. Neurological: Positive for syncope. Psychiatric/Behavioral: Positive for decreased concentration and dysphoric mood. The patient is nervous/anxious. OBJECTIVE: Vitals: 07/21/25 0906 BP: (!) 160/90 BP Location: Left arm Patient Position: Sitting BP Cuff Size: Large adult Pulse: 65 Resp: 20 SpO2: 98% Weight: 193 lb (87.5 kg) Height: 5' 4 (1.626 m) Physical Exam Vitals reviewed. Constitutional: Appearance: Normal appearance. HENT: Head: Normocephalic and atraumatic. Cardiovascular: Rate and Rhythm: Regular rhythm. Bradycardia present. Pulses: Normal pulses. Heart sounds: Normal heart sounds. Comments: HR 55-60 Pulmonary: Effort: Pulmonary effort is normal. Breath sounds: Normal breath sounds. Skin: General: Skin is warm and dry. Neurological: General: No focal deficit present. Mental Status: She is alert and oriented to person, place, and time. Psychiatric: Mood and Affect: Mood normal. Behavior: Behavior normal. ASSESSMENT/PLAN Problem List Items Addressed This Visit HTN (hypertension) Relevant Orders Lipid Panel, Standard Comprehensive Metabolic Panel TSH W/Reflex to FT4 Severe episode of recurrent major depressive disorder, without psychotic features (CMS/HCC) (HCC) Relevant Medications clonazePAM (KlonoPIN) 0.5 MG tablet MOISES (generalized anxiety disorder) Relevant Medications clonazePAM (KlonoPIN) 0.5 MG tablet Mild intermittent asthma without complication Paroxysmal atrial fibrillation (CMS/[facility]) ([facility]) Overview D[place] [facility] [place] On Metoprolol BID with hold parameters for HR <60 and SBP <90 Relevant Medications Multaq 400 MG tablet Long-term current use of benzodiazepine Other Visit Diagnoses Screening for colon cancer - Primary Relevant Orders Cologuard?? colon cancer screening Dietary counseling Exercise counseling Class 1 obesity with serious comorbidity and body mass index (BMI) of 32.0 to 32.9 in adult, unspecified obesity type Anxiety Relevant Medications clonazePAM (KlonoPIN) 0.5 MG tablet Encounter for screening mammogram for malignant neoplasm of breast Relevant Orders BI Mammogram Screening Tomosynthesis Bilateral Screening for cervical cancer Relevant Orders HPV DNA (16, 18, Other High Risk), PCR, Vaginal Self-Collected Follow Up: 6 months or sooner prn Allergies[2] Current Medications[3] Azeri Translation: Patient is bilingual and declines translation services [1] History reviewed. No pertinent surgical history. [2] Allergies Allergen Reactions Naproxen Other Vomiting [3] Current Outpatient Medications: Multaq 400 MG tablet, , Disp: , Rfl: acetaminophen (Tylenol Extra Strength) 500 MG tablet, [...] EVERY MORNING, Disp: 90 capsule, Rfl: 3 clonazePAM (KlonoPIN) 0.5 MG tablet, Take 1 tablet (0.5 mg) by mouth if needed each day for anxiety., Disp: 28 tablet, Rfl: 0 escitalopram (Lexapro) 20 MG tablet, Take 1 tablet (20 mg) by mouth Once per day. TAKE 1 TABLET BY MOUTH DAILY IN THE MORNING, Disp: 90 tablet, Rfl: 3 lisinopril 20 MG tablet, TAKE 1 TABLET BY MOUTH EVERY MORNING, Disp: 90 tablet, Rfl: 3 metoprolol succinate XL (Toprol-XL) 25 MG 24 hr tablet, Take 25 mg by mouth., Disp: , Rfl: nicotine (Nicoderm, Step 2) 14 MG/24HR patch, Apply 1 patch, as directed, every 24 hours. May remove at bedtime if needed & replace the next morning. Rotate application site., Disp: 42 patch, Rfl: 0 nicotine (Nicoderm, Step 3) 7 MG/24HR patch, Apply 1 patch, as directed, every 24 hours. May removeat bedtime if needed & replace the next morning. Rotate application site. (Patient not taking: Reported on 07/13/2025), Disp: 14 patch, Rfl: 2 nicotine polacrilex (Nicorette) 4 MG gum, Chew 1 piece of gum, as directed, every 1-2 hours as needed for cravings. No more than 24 pieces in 24 hours., Disp: 1 each, Rfl: 5 nortriptyline (Pamelor) 25 MG capsule, Take 1 capsule (25 mg) by mouth at bedtime., Disp: 90 capsule, Rfl: 3 triamcinolone (Kenalog) 0.1 % cream, Apply topically if needed in the morning and at bedtime for rash (pain and swelling). Mix in with cerave and apply all together, Disp: 80 g, Rfl: 3 documented in this encounter Plan of Treatment Upcoming Encounters Date Type Department Care Team (Late st Contact Info) Description 08/10/2025 9:00 AM EST Clinical Support [address] [address] Bia Hopper RN 08/12/2025 9:30 AM EST Telemedicine [facility] [address] [place] [address] Autumn Palafox PharmD [address] [place] [address] Scheduled Orders Name Type Priority Associated Diagnoses Orde r Schedule Lipid Panel, Standard Lab Routine Primary hypertension Expected: 07/21/2025 (Approximate), Expires: 07/21/2026 Comprehensive Metabolic Panel Lab Routine Primary hypertension Expected: 07/21/2025 (Approximate), Expires: 07/21/2026 BI Mammogram Screening Tomosynthesis Bilateral Imaging Routine Encounter for screening mammogram for malignant neoplasm of breast Expected: 07/21/2025, Expires: 09/21/2026 TSH W/Reflex to FT4 Lab Routine Primary hypertension Expected: 07/21/2025 (Approximate), Expires: 07/21/2026 Cologuard colon cancer screening Lab Routine Screening for colon cancer Ordered: 07/21/2025 HPV DNA (16, 18, Other High Risk), PCR, Vaginal Self-Collected Lab Routine Screening for cervical cancer Expected: 07/21/2025 (Approximate), Expires: 07/21/2026 documented as of this encounter Visit Diagnoses Diagnosis Screening for colon cancer- Primary Special screening for malignant neoplasms, colon Paroxysmal atrial fibrillation (CMS/HCC) (HCC) Atrial fibrillation Severe episode of recurrent major depressive disorder, without psychotic features (CMS/HCC) (HCC) Mild intermittent asthma without complication Dietary counseling Dietary surveillance and counseling Exercise counseling Class 1 obesity with serious comorbidity and body mass index (BMI) of 32.0 to 32.9 in adult, unspecified obesity type Anxiety Anxiety state, unspecified Long-term current use of benzodiazepine Primary hypertension Unspecified essential hypertension MOISES (generalized anxiety disorder) Generalized anxiety disorder Encounter for screening mammogram for malignant neoplasm of breast Screening for cervical cancer Screening for malignant neoplasm of the cervix documented in this encounter Additional Health Concerns Assessment Noted Time PHQ-9 Depression Total Score: 17 025 11:16 AM EST documented as of this encounter Care Teams Reference Librarian Relationship Specialty Start Date End Date Emily Lang MD [address] [place] [address] PCP - General Family Medicine 03/23/23 Autumn Palafox, Ryan [address] [place] [address] Pharmacist Pharmacy 06/12/25 documented as of this encounter
--- OUTSIDE RECORDS SUMMARY | 2025-07-21 23:11 | XMS_ITS | Encounter Summary ---
Author Organization [employer] Address [address] [facility] 7t [place] [address] Care Team Providers Care Turbinated Bone Grinder Name Role Phone Emily Lang MD Primary Care Provider [phone] Autumn Palafox PharmD Unavailable [phone] Reason for Visit * Reason Onset Date Comments Med Refill 10/19/2024 Encounter Details Date Type Department Care Team (Late st Contact Info) Description 10/19/2024 Refill [facility] [address] [place] [address] Emily Lang MD [address] [place] [address] Social History Tobacco Use Types Packs/Day Years [...] Description 08/10/2025 9:00 AM EST Clinical Support [facility] MED[facility]INE [address] [place] [address] Bia Hopper RN 08/12/2025 9:30 AM EST Telemedicine [address] [address] Autumn Palafox PharmD [address] [place] [address] documented as of this encounter Visit Diagnoses Not on filedocumented in this encounter Additional Health Concerns Assessment Noted Time PHQ-9 Depression Total Score: 17 024 9:55 AM EDT documented as of this encounter Care Teams Turbinated Bone Grinder Relationship Specialty Start Date End Date Emily Lang MD [address] [place] [phone] PCP - General Family Medicine 03/23/23 Autumn Palafox PharmD [address] [place] [phone] Pharmacist Pharmacy 06/12/25 documented as of this encounter
--- OUTSIDE RECORDS SUMMARY | 2025-07-21 23:11 | XMS_ITS | Encounter Summary ---
Author Organization [employer] Address [address] [facility] 7t [place] [address] Care Team Providers Care Inverter And Clipper Name Role Phone Emily Lang MD Primary Care Provider [phone] Autumn Palafox PharmD Unavailable [phone] Reason for Visit * Reason Onset Date Comments Med Refill 11/26/2023 Encounter Details Date Type Department Care Team (Late st Contact Info) Description 11/26/[address] [facility] [address] [place] [address] Moises Thompson MD [address] [place] [address] Social History Tobacco Use Types Packs/Day Years [...] 08/10/2025 9:00 AM EST Clinical Support [facility] [address] [place] [phone] Bia Hopper RN 08/12/2025 9:30 AM EST Telemedicine [address] [address] Auutmn Palafox PharmD [address] [place] [address] documented as of this encounter Visit Diagnoses Not on filedocumented in this encounter Care Teams Inverter And Clipper Relationship Specialty Start Date End Date Emily Lang MD [address] [place] [address] PCP - General Family Medicine 03/23/23 Autumn Palafox PharmD [address] [place] [phone] Pharmacist Pharmacy 06/12/25 documented as of this encounter
--- OUTSIDE RECORDS SUMMARY | 2025-07-21 23:11 | XMS_ITS | Encounter Summary ---
Author Organization [employer] Address [address] [facility] 7t [place] [address] Care Team Providers Care Title Department Manager Name Role Phone Emily Lang MD Primary Care Provider [phone] Autumn Palafox PharmD Unavailable [phone] Reason for Visit * Reason Onset Date Comments Med Refill 09/04/2024 Encounter Details Date Type Department Care Team (Late st Contact Info) Description 09/04/2024 Refill [facility] MEDICINE [address] [place] [address] Emily Lang MD [address] [place] [address] Social History Tobacco Use Types Packs/Day Years [...] Description 08/10/2025 9:00 AM EST Clinical Support [facility] MEDICINE [address] [place] [address] Bia Hopper RN 08/12/2025 9:30 AM EST Telemedicine [address] [address] Autumn Palafox PharmD [address] [place] [phone] documented as of this encounter Visit Diagnoses Not on filedocumented in this encounter Additional Health Concerns Assessment Noted Time PHQ-9 Depression Total Score: 17 024 9:55 AM EDT documented as of this encounter Care Teams Title Department Manager Relationship Specialty Start Date End Date Emily Lang MD [address] [place] [address] PCP - General Family Medicine 03/23/23 Autumn Palafox PharmD [address] [place] [phone] Pharmacist Pharmacy 06/12/25 documented as of this encounter
--- OUTSIDE RECORDS SUMMARY | 2025-07-21 23:11 | XMS_ITS | Encounter Summary ---
Author Organization [employer] Address 75 [facility] 7t [place] [address] Care Team Providers Care International Sales Manager Name Role Phone Emily Lang MD Primary Care Provider [phone] Autumn Palafox PharmD Unavailable [phone] Reason for Visit * Reason Onset Date Comments Med Refill 05/13/2024 Encounter Details Date Type Department Care Team (Late st Contact Info) Description 05/13/2024 Refill [facility] [address] [place] [address] Emily Lang MD [address] [place] [address] Social History Tobacco Use Types Packs/Day Years [...] Description 08/10/2025 9:00 AM EST Clinical Support [facility] [address] [place] [address] Bia Hopper RN 08/12/2025 9:30 AM EST Telemedicine [address] [address] Autumn Palafox PharmD [address] [place] [phone] documented as of this encounter Visit Diagnoses Not on filedocumented in this encounter Additional Health Concerns Assessment Noted Time PHQ-9 Depression Total Score: 17 024 9:55 AM EDT documented as of this encounter Care Teams International Sales Manager Relationship Specialty Start Date End Date Emily Lang MD [address] [place] [phone] PCP - General Family Medicine 03/23/23 Autumn Palafox PharmD [address] [place] [phone] Pharmacist Pharmacy 06/12/25 documented as of this encounter
--- OUTSIDE RECORDS SUMMARY | 2025-07-21 23:11 | XMS_ITS | Encounter Summary ---
Author Organization [employer] Address 75 [facility] 7t [place] [address] Care Team Providers Care Toll Test Desk Worker Name Role Phone Emily Lang MD Primary Care Provider [phone] Autumn Palafox PharmD Unavailable [phone] Encounter Details Date Type Department Care Team (Latest Contact Info) Description 07/21/2025 Travel Social History Tobacco Use Types Packs/Day [...] Kaye [place] documented as of this encounter Plan of Treatment Upcoming Encounters Date Type Department Care Team (Late st Contact Info) Description 08/10/2025 9:00 AM EST Clinical Support [address] [address] Bia Hopper RN 08/12/2025 9:30 AM EST Telemedicine [facility] MEDICINE [address] [place] [address] Autumn Palafox PharmD [address] [place] [address] documented as of this encounter Visit Diagnoses Not on filedocumented in this encounter Additional Health Concerns Assessment Noted Time PHQ-9 Depression Total Score: 17 025 11:16 AM EST documented as of this encounter Care Teams Toll Test Desk Worker Relationship Specialty Start Date End Date Emily Lang MD [address] [place] [address] PCP - General Family Medicine 03/23/23 Auutmn Palafox, Ryan [address] [place] [address] Pharmacist Pharmacy 06/12/25 documented as of this encounter
--- OUTSIDE RECORDS SUMMARY | 2025-07-21 23:11 | XMS_ITS | Encounter Summary ---
Author Organization [employer] Address 75 [facility] 7t [place] [address] Care Team Providers Care Shoe Clerk Name Role Phone Emily Lang MD Primary Care Provider [phone] Autumn Palafox PharmD Unavailable [phone] Reason for Visit * Reason Onset Date Comments Med Refill 11/26/2023 Encounter Details Date Type Department Care Team (Late st Contact Info) Description 11/26/2023 Refill [facility] [address] [place] [address] Emily Lang MD [address] [place] [address] Social History Tobacco Use Types Packs/Day Years [...] 08/10/2025 9:00 AM EST Clinical Support [facility] [address] [place] [address] Bia Hopper RN 08/12/2025 9:30 AM EST Telemedicine [address] [address] Autumn Palafox, PharmD [address] [place] [address] documented as of this encounter Visit Diagnoses Not on filedocumented in this encounter Care Teams Shoe Clerk Relationship Specialty Start Date End Date Emily Lang MD [address] [place] [address] PCP - General Family Medicine 03/23/23 Autumn Palafox PharmD [address] [place] [address] Pharmacist Pharmacy 06/12/25 documented as of this encounter
--- OUTSIDE RECORDS SUMMARY | 2025-07-21 23:11 | XMS_ITS | Clinical Summary ---
Author Organization [employer] Address 75 [facility] 7t [place] [address] Care Team Providers Care Pasteurizer Name Role Phone Emily Lang MD Primary Care Provider [phone] Autumn Palafox PharmD Unavailable [phone] Allergies Active Allergy Reactions Criticality Noted Date [...] OR WHEEZING 18 g 11 024 Active nortriptyline (Pamelor) 25 MG capsule Take 1 capsule (25 mg) by mouth at bedtime. 90 capsule 3 024 Active cholecalciferol (Vitamin D-3) 50 MCG (2000 [...] tablet Take 5 mg by mouth. Active lisinopril 20 MG tablet TAKE 1 TABLET BY MOUTH EVERY MORNING 90 tablet 3 Active escitalopram (Lexapro) 20 MG tablet Take 1 tablet (20 mg) by mouth Once per day. TAKE 1 TABLET BY MOUTH DAILY IN THE MORNING 90 tablet 3 Active nicotine (Nicoderm, Step 2) 14 MG/24HR patchIndication s:Tobacco dependence Apply 1 patch, as directed, every 24 hours. May remove at bedtime if needed & replace the next morning. Rotate application site. 42 patch Active nicotine (Nicoderm, Step 3) 7 MG/24HR patchIndication s:Tobacco dependence Apply 1 patch, as directed, every 24 hours. May remove at bedtime if needed & replace the next morning. Rotate application site. 14 patch 2 Active Additional Information Patient not taking.Reason: HOLD - for step down therapy, Reported on 07/13/2025 nicotine polacrilex (Nicorette) 4 MG gumIndications: Tobacco dependence Chew 1 piece of gum, as directed, every 1-2 hours as needed for cravings. No more than 24 pieces in 24 hours. 1 each 5 Active Multaq 400 MG tablet Active clonazePAM (KlonoPIN) 0.5 MG tabletIndicatio ns:Anxiety Take 1 tablet (0.5 mg) by mouth if needed each day for anxiety. 28 tablet 025 2025 Active clonazePAM (KlonoPIN) 0.5 MG tabletIndicatio ns:Anxiety Take 1 tablet (0.5 mg) by mouth if needed each day for anxiety for up to 28 days. Do not start before June 09, 2025. 28 tablet 025 2024 Discontinued(R eorder (will not trigger notification to Pharmacy)) clonazePAM (KlonoPIN) 0.5 MG tabletIndicatio ns:Anxiety Take 1 tablet (0.5 mg) by mouth if needed each day for anxiety. 15 tablet 025 2024 Discontinued(R eorder (will not [...] Overview (04/30/2024): Dx during hospital stay at [facility] 04/21-04/23/2024 On Metoprolol BID with hold parameters [...] PM EDT): Refer to [facility] for biopsy Migraine with aura and witho ut status migrainosus, not intractable 04/30/2024 Overview (04/30/2024): Dx 04/2024 at [facility] during admission for stroke rule out Assessment [...] recurrent major depressive disorder, without psychotic features ([facility]) 03/19/2023 Assessment & Plan (03/30/2023 [...] Patient ready to address current needs Yes Strengths- Socorro has a supportive partner and is in the preparation stage of change. PLAN: 1. Follow up with [facility]: Recommended for follow-up: As needed 2. Patient goal is to work towards placing boundaries so that she can engage in therapy and explore coping mechanisms 3. Behavioral Recommendations a. [place] setting b. Lock door/do not disturb on phone c. OP therapy Assessment & Plan (03/26/2023 6:36 AM EDT): Continue Lexapro [facility] referral in place for OP therapy MOISES (generalized anxiety disorder) 03/19/2023 Assessment & Plan (04/30/2024 12:46 PM EDT): Will continue Klonopin 0.5mg at BID for the time being, reevaluate in one month Assessment & Plan (12/24/2023 2:14 PM EDT): Continue Klonopin 0.5mg daily prn Continue therapy at [facility] Assessment & Plan (03/30/2023 9:54 AM EDT): [...] Patient ready to address current needs Yes Strengths- Socorro has a supportive partner and is in the preparation stage of change. PLAN: 1. Follow up with [facility]: Recommended for follow-up: As needed 2. Patient goal is to work towards placing boundaries so that she can engage in therapy and explore coping mechanisms 3. Behavioral Recommendations a. [place] setting b. Lock door/do not disturb on phone c. OP therapy Assessment & Plan (03/26/2023 6:36 AM EDT): Continue Klonopin 0.5mg daily Goal is to wean this year, per pt Chronic pain of both knees 03/19/2023 Assessment & Plan (12/24/2023 2:12 PM EDT): PT referral Assessment & Plan (03/26/2023 6:36 AM EDT): Referral to [facility] Ortho in place Known meniscal tear from previous PCP Gastroesophageal reflux disease 03/19/2023 Assessment & Plan (03/26/2023 6:35 AM EDT): hold Prilosec for 2 weeks, take Famotadine H pylori testing Tobacco dependence 03/19/2023 Assessment & Plan (03/26/2023 6:37 AM EDT): Quitting with patches She has strange dreams with them on at night, recommend daytime use only Vitamin D deficiency 03/19/2023 Mild intermittent asthma [...] (12/24/2023 2:10 PM EDT): Needs to call [facility] and schedule mammo Encounters Date Type Department Care Team Description 07/21/2025 9:15 AM EST Office Visit [address] [address] Emily Lang MD Screening for colon cancer (Primary Dx); Paroxysmal [...] neoplasm of breast; Screening for cervical cancer 07/21/2025 Travel 07/20/[address] [address] Emily Lang MD Anxiety 07/20/[address] [address] Emily Lang MD chart prep 07/13/2025 1:00 PM EST Telemedicine [address] [address] Autumn Palafox PharmD Tobacco dependence (Primary Dx) 07/07/2025 Patient Outreach [address] [address] Emily Lang MD Pre-visit Planning ((SDOH screening negative tobacco screening positive)) 07/05/2025 Refill [facility] [address] [place] [address] Emily Lang MD Anxiety 06/26/2025 9:30 AM EST Telemedicine [facility] [address] [place] [address] Autumn Palafox PharmD Tobacco dependence (Primary Dx) 06/26/2025 Telephone [facility] [address] [place] [address] Emily Lang MD APPT REQUEST 06/19/2025 Refill [facility]INE [address] [place] [address] Emily Lang MD 06/16/2025 Telephone [facility] [address] [place] [address] Emily Lang MD APPT 06/12/2025 9:00 AM EDT Telemedicine [facility]INE [address] [place] [address] Autumn Palafox PharmNery Tobacco dependence (Primary Dx) 06/12/2025 Orders Only [facility] [address] [place] [address] Emily Lang MD Tobacco use (Primary Dx) 06/12/2025 Telephone [facility] [address] [place] [address] Autumn Palafox PharmD 06/09/2025 Travel 06/05/2025 Refill [facility] [address] [place] [address] Emily Lang MD 06/04/2025 Refill [facility] [address] [place] [address] Emily Lang MD Anxiety 06/02/2025 Orders Only [facility] External Provider, [facility] 06/02/2025 Refill [facility] [address] [place] [address] Emily Lang MD Anxiety 05/21/2025 Telephone [facility] [address] [place] [address] Emily Lang MD nov recall 05/06/2025 2:30 PM EDT Telemedicine [facility] [address] [place] [address] Bia Hopper RN Long-term current use of benzodiazepine 05/06/2025 Travel 05/05/2025 Refill [facility] [address] [place] [address] Emily Lang MD Anxiety 05/01/2025 Telephone [facility] [address] [place] [address] Emily Lang MD Appointment Request 04/21/2025 Telephone [facility] [address] [place] [address] Autumn Palafox PharmD 04/21/2025 Travel from Last 3 Months Immunizations Immunization Administration Dates Next Due Hep B, adult 03/23/2023 Influenza injectable quadrivalent preservative f ree 05/22/2023 Influenza, IIV3, injectable 08/15/2013 Influenza, seasonal, injectable, preservative fr ee 04/23/2016 Moderna Covid-19 Vaccine 6+ Bivalent 03/23/2023 Pfizer Covid-19 Vaccine 12+ 05/22/2023 Pneumococcal Conjugate PCV 13 09/09/2013 Pneumococcal Conjugate PCV 20 12/24/2023 Td (adult) 08/13/2018 Zoster, Recombinant 04/03/2024 Social History Tobacco Use Types Packs/Day Years Used Date Smoking Tobacco: Every Day Cigarettes 2 34.9 Started: 1990 Smokeless Tobacco: Never Tobacco Cessation:Ready to Q uit: Yes; Counseling Given: Yes Alcohol Use Standard Drinks/Week Comments Never 0 [...] Pulse 65 07/21/2025 9:06 AM EST Temperature 36.5 C (97.7 F) 04/30/2024 8:59 AM EDT Respiratory Rate 20 07/21/2025 9:06 AM EST Oxygen Saturation 98% 07/21/2025 9:06 AM EST Inhaled Oxygen Concentration - - Weight 87.5 kg (193 lb) 07/21/2025 9:06 AM EST Height 162.6 cm (5' 4 ) 07/21/2025 9:06 AM EST Body Mass Index 33.13 07/21/2025 9:06 AM EST Plan of Treatment Upcoming Encounters Date Type Department Care Team (Late st Contact Info) Description 08/10/2025 9:00 AM EST Clinical Support [facility]INE [address] [place] [address] Bia Hopper, RN 08/12/2025 9:30 AM EST Telemedicine [facility]INE [address] [place] [address] Autumn Palafox PharmD [address] [place] [address] Health Maintenance Due Date Last Done Comments CT Colonography 1971 Colonoscopy 1971 Colorectal Cancer Screening 1971 FIT DNA/Cologuard 1971 FIT 1971 FOBT 1971 HIV Screening 1971 Lipid Panel 1971 Sigmoidoscopy 1971 Alcohol/Substance Use Screening 1983 Hepatitis C Screening 11/28/1989 Pap Smear 11/28/1992 Cervical Cancer Screening 11/28/2001 HPV/Cotest 11/28/2001 Mammogram 2011 Lung Cancer Screening 11/28/2021 RSV Patients and Patients Aged 60 years or older (1 - Risk 50-74 years 1-dose series) 11/28/2021 Hepatitis B Vaccines (2 of 3 - 19+ 3-dose series) 04/20/2023 03/23/2023 Zoster Vaccines (2 of 2) 05/29/2024 04/03/2024 COVID-19 Vaccine (3 - 2024-2 6 season) 2025 05/22/2023, 03/23/2023 Influenza Vaccine (#1) 2025 , 04/23/2016, 08/15/2013 Depression Monitoring 01/19/2026 07/21/2025 , 07/21/2025 Disability Screening 04/21/2026 04/21/2025 SDOH Screening 07/07/2026 07/07/2025 Tobacco Screening 07/21/2026 07/21/2025 DTaP/Tdap/Td Vaccines (1 - Tdap) 08/13/2028 08/13/2018 Postponed from 08/14 (Other Medical Reasons) Pneumococcal Vaccine: 50+ Years Completed 12/24/2023, 09/09/2013 [...] HIGH SENSITIVITY <2.7 <3.5 - 17.0 ng/L [facility] Comment:The Maria high sens itivity Troponin-I results should beused in conjunction with other diagnostic information suchas ECG, clinical observations and information, and patientsymptoms to aid in the diagnosis of PA. 06/02/2025 2:53 PM EDT 06/02/2025 2:56 PM EDT us Generic External Data Provider LAB BLOOD ORDERAB LES Final Result [facility] [address] [place] [address] [id number] [phone] * XR Ribs 3 Views Left w/ Chest (06/02/2025 12:38 PM EDT) Anatomical Region Laterality Modality Radiographic Nolvia ging 06/02/2025 12:3 8 PM EDT Narrative 06/02/2025 1:06 PM EDT [address] [address] XRay Report Signed Patient: Socorro Moran MR#: [id number] : 1970 Acct:[id number] Age/Sex: 54 / F ADM Date: 06/02/25 Loc: HO.ED Attending Dr: Ordering Physician: Arianna Weber MD Date of Service: 06/02/25 Procedure(s): XR ribs LT min 3V w CXR1V Accession Number(s): [id number] cc: Arianna Weber MD; Emily Lang Reason [...] left rib fracture. Electronically signed by: Conrado eTjeda MD 06/02/2025 01:03 PM EDT RP Dictated By: Conrado Tejeda MD Signed By: <Electronically signed by Conrado Tejeda MD in OV> 06/02/25 1303 DD/ 1238 TD/TT: 06/02/25 1245 Special Services Director: Procedure Note Donotuseinterpreter, Image - 06/02/[address] [address] XRay Report Signed Patient: Socorro Moran LMR#: [id number] : 1970Acct:[id number] Age/Sex: 54 / FADM Date: 06/02/25 Loc: .ED Attending Dr: Ordering Physician: Arianna Weber MD Date of Service: 06/02/25 Procedure(s): XR ribs LT min 3V w CXR1V Accession Number(s): [id number] cc: Arianna Weber MD; Emily Lang Reason [...] 06/02/25 1303 DD/ 1238 TD/TT: 06/02/25 1245 Special Services Director: [facility] External Provider IMG XR PROCEDURES Edited Result - Final from Last 3 Months Insurance [employer] Care Teams Pasteurizer Relationship Specialty Start Date End Date Emily Lang MD [address] [place] [address] PCP - General Family Medicine 03/23/23 Autumn Palafox PharmD [address] [place] [address] Pharmacist Pharmacy 06/12/25
--- OUTSIDE RECORDS SUMMARY | 2025-07-21 23:11 | XMS_ITS | Encounter Summary ---
Author Organization [email or web address] Address 75 [facility] 7t [place] [address] Care Team Providers Care Tray Checker Name Role Phone Emily Lang MD Primary Care Provider [phone] Autumn Palafox PharmD Unavailable [phone] Reason for Visit * Reason Onset Date Comments Med Refill 07/23/2024 Encounter Details Date Type Department Care Team (Late st Contact Info) Description 07/23/2024 Refill [facility] [address] [place] [address] Emily Lang MD [address] [place] [address] Social History Tobacco Use Types Packs/Day Years [...] Description 08/10/2025 9:00 AM EST Clinical Support [facility] [address] [place] [address] Bia Hopper RN 08/12/2025 9:30 AM EST Telemedicine [address] [address] Autumn Palafox PharmD [address] [place] [address] documented as of this encounter Visit Diagnoses Not on filedocumented in this encounter Additional Health Concerns Assessment Noted Time PHQ-9 Depression Total Score: 17 024 9:55 AM EDT documented as of this encounter Care Teams Tray Checker Relationship Specialty Start Date End Date Emily Lang MD [address] [place] [address] PCP - General Family Medicine 03/23/23 Autumn Palafox PharmD [address] [place] [address] Pharmacist Pharmacy 06/12/25 documented as of this encounter
--- OUTSIDE RECORDS SUMMARY | 2025-07-21 23:11 | XMS_ITS | Encounter Summary ---
Author Organization [employer] Address 75 [facility] 7t [place] [address] Care Team Providers Care Wood Finisher Name Role Phone Emily Lang MD Primary Care Provider [phone] Autumn Palafox PharmD Unavailable [phone] Reason for Referral * Consultation (Routine) - Closed Specialty Diagnoses / Procedures Referred By Contac t Referred To Contact Pharmacy Diagnoses Tobacco dependence mEily Lang MD [address] [place] [address] Phone: tel: fax: Referral ID Status Reason Start Date Expiration Date V isits Requested Visits Authorized [id number] Closed Consult and Treat 06/16/2024 06/16/2025 6 6 Encounter Details Date Type Department Care Team (Late st Contact Info) Description 06/16/2024 Orders Only [facility] MEDICINE [address] [place] [address] Emily Lang MD [address] [place], [place] [phone] Tobacco dependence (Primary Dx) Social History Tobacco [...] 9:00 AM EST Clinical Support [facility] [address] [place] [address] Bia Hopper RN 08/12/2025 9:30 AM EST Telemedicine [facility] [address] [place] [address] Autumn Palafox, PharmD [address] [place] [address] Scheduled Referrals Name Type Priority Associated Diagnoses Orde r Schedule Referral to Pharmacy CDTM Outpatient Referral Routine Tobacco dependence Ordered: 06/16/2024 documented as of this encounter Visit Diagnoses Diagnosis Tobacco dependence- Primary Tobacco use disorder documented in this encounter Additional Health Concerns Assessment Noted Time PHQ-9 Depression Total Score: 17 024 9:55 AM EDT documented as of this encounter Care Teams Wood Finisher Relationship Specialty Start Date End Date Emily Lang MD [address] [place] [address] PCP - General Family Medicine 03/23/23 Autumn Palafox PharmD [address] [place] [address] Pharmacist Pharmacy 06/12/25 documented as of this encounter
--- OUTSIDE RECORDS SUMMARY | 2025-07-21 23:11 | XMS_ITS | Encounter Summary ---
Author Organization [employer] Address 75 [facility] 7t [place] [address] Care Team Providers Care Bar Gauger And Lubricator Tender Name Role Phone Emily Lang MD Primary Care Provider [phone] Autumn Palafox PharmD Unavailable [phone] Reason for Visit * Reason Onset Date Comments Med Refill 05/27/2024 Encounter Details Date Type Department Care Team (Late st Contact Info) Description 05/27/2024 Refill [facility] [address] [place] [address] Emily Lang MD [address] [place] [address] Social History Tobacco Use Types Packs/Day Years [...] Description 08/10/2025 9:00 AM EST Clinical Support [facility] [address] [place] [address] Bia Hopper RN 08/12/2025 9:30 AM EST Telemedicine [address] [address] Autumn Palafox PharmD [address] [place] [address] documented as of this encounter Visit Diagnoses Not on filedocumented in this encounter Additional Health Concerns Assessment Noted Time PHQ-9 Depression Total Score: 17 024 9:55 AM EDT documented as of this encounter Care Teams Bar Gauger And Lubricator Tender Relationship Specialty Start Date End Date Emily Lang MD [address] [place] [address] PCP - General Family Medicine 03/23/23 Autumn Palafox PharmD [address] [place] [phone] Pharmacist Pharmacy 06/12/25 documented as of this encounter
--- OUTSIDE RECORDS SUMMARY | 2025-07-21 23:11 | XMS_ITS | Encounter Summary ---
Author Organization [employer] Address 75 [facility] 7t [place] [address] Care Team Providers Care Soils Engineer Name Role Phone Emily Lang MD Primary Care Provider [phone] Autumn Palafox PharmD Unavailable [phone] Reason for Visit * Reason Onset Date Comments Med Refill 10/29/2024 Encounter Details Date Type Department Care Team (Late st Contact Info) Description 10/29/2024 Refill [facility] [address] [place] [address] Emily Lang MD [address] [place] [address] Anxiety Social History Tobacco Use Types Packs/Day [...] co ntrol worrying 2 10/29/2024 9:58 AM NURYST Bia Hopper RN Worrying too much about [...] awful might happen 1 10/29/2024 9:58 AM Bia Jimenez RN MOISES-7 Total Score 7 10/29/2024 9:58 AM Bia Jimenez, IRASEMA documented as of this encounter Plan of Treatment Upcoming Encounters Date Type Department Care Team (Late st Contact Info) Description 08/10/2025 9:00 AM EST Clinical Support [facility] [address] [place] [address] Bia Hopper RN 08/12/2025 9:30 AM EST Telemedicine [facility] [address] [place] [address] Autumn Palafox PharmD [address] [place] [address] documented as of this encounter Visit Diagnoses Diagnosis Anxiety Anxiety state, unspecified documented in this encounter Additional Health Concerns Assessment Noted Time PHQ-9 Depression Total Score: 17 024 9:55 AM EDT documented as of this encounter Care Teams Soils Engineer Relationship Specialty Start Date End Date Emily Lang MD [address] [place] [address] PCP - General Family Medicine 03/23/23 Autumn Palafox PharmD [address] [place] [address] Pharmacist Pharmacy 06/12/25 documented as of this encounter
--- OUTSIDE RECORDS SUMMARY | 2025-07-21 23:11 | XMS_ITS | Encounter Summary ---
Author Organization [employer] Address 75 [facility] 7t [place] [address] Care Team Providers Care Pediatric Social Worker Name Role Phone Emily Lang MD Primary Care Provider [phone] Autumn Palafox PharmD Unavailable [phone] Reason for Visit * Reason Onset Date Comments Med Refill 07/20/2025 Encounter Details Date Type Department Care Team (Late st Contact Info) Description 07/20/2025 Refill [facility] [address] [place] [address] Emily Lang MD [address] [place] [address] Anxiety Social History Tobacco Use Types Packs/Day [...] Telephone Encounter - Bia Hopper RN - 07/20/2025 1:34 PM EST Per [facility], patient last picked up Clonazepam on 07/06/25, for a 15 day supply. Refill due 07/21/25. Last PCP appointment was 04/30/24, scheduled next 07/21/25. PCP will address refill at the visit. documented in this encounter Plan of Treatment Upcoming Encounters Date Type Department Care Team (Late st Contact Info) Description 08/10/2025 9:00 AM EST Clinical Support [facility] [address] [place] [address] Bia Hopper RN 08/12/2025 9:30 AM EST Telemedicine [facility] [address] [place] [address] Autumn Palafox, PharmD [address] [place] [address] documented as of this encounter Visit Diagnoses Diagnosis Anxiety Anxiety state, unspecified documented in this encounter Additional Health Concerns Assessment Noted Time PHQ-9 Depression Total Score: 17 024 9:55 AM EDT documented as of this encounter Care Teams Pediatric Social Worker Relationship Specialty Start Date End Date Emily Lang MD [address] [place] [address] PCP - General Family Medicine 03/23/23 Autumn Palafox PharmD [address] [place] [address] Pharmacist Pharmacy 06/12/25 documented as of this encounter
--- OUTSIDE RECORDS SUMMARY | 2025-07-21 23:11 | XMS_ITS | Encounter Summary ---
Author Organization [employer] Address 75 [facility] 7t [place] [address] Care Team Providers Care Underwriting Sales Representative Name Role Phone Emily Lang MD Primary Care Provider [phone] Autumn Palafox PharmD Unavailable [phone] Reason for Visit * Reason Onset Date Comments Med Refill 09/04/2024 Encounter Details Date Type Department Care Team (Late st Contact Info) Description 09/04/2024 Refill [facility] MEDICINE 230 [place] [address] Emily Lang MD 230 [place] [address] Social History Tobacco Use Types Packs/Day Years [...] Description 08/10/2025 9:00 AM EST Clinical Support [facility] MEDICINE [address] [place] [address] Bia Hopper RN 08/12/2025 9:30 AM EST Telemedicine [address] [address] Autumn Palafox PharmD [address] [place] [address] documented as of this encounter Visit Diagnoses Not on filedocumented in this encounter Additional Health Concerns Assessment Noted Time PHQ-9 Depression Total Score: 17 024 9:55 AM EDT documented as of this encounter Care Teams Underwriting Sales Representative Relationship Specialty Start Date End Date Emily Lang MD [address] [place] [address] PCP - General Family Medicine 03/23/23 Autumn Palafox PharmD [address] [place] [address] Pharmacist Pharmacy 06/12/25 documented as of this encounter
--- OUTSIDE RECORDS SUMMARY | 2025-07-21 23:11 | XMS_ITS | Encounter Summary ---
Author Organization [employer] Address 75 [facility] 7t [place] [address] Care Team Providers Care Developer Advocate Name Role Phone Emily Lang MD Primary Care Provider [phone] Autumn Palafox PharmD Unavailable Reason for Visit * Reason Onset Date Comments Med Refill 05/19/2024 Encounter Details Date Type Department Care Team (Late st Contact Info) Description 05/19/2024 Refill [facility] MEDICINE 230 [place] [address] Emily Lang MD 230 [place] [address] Social History Tobacco Use Types Packs/Day Years [...] 9:00 AM EST Clinical Support [facility] MEDICINE [address] [place] [address] Bia Hopper RN 08/12/2025 9:30 AM EST Telemedicine [address] [address] Autumn Palafox PharmD [address] [place] [address] documented as of this encounter Visit Diagnoses Not on filedocumented in this encounter Additional Health Concerns Assessment Noted Time PHQ-9 Depression Total Score: 17 024 9:55 AM EDT documented as of this encounter Care Teams Developer Advocate Relationship Specialty Start Date End Date Emily Lang MD [address] [place] [address] PCP - General Family Medicine 03/23/23 Autumn Palafox PharmD [address] [place] [address] Pharmacist Pharmacy 06/12/25 documented as of this encounter
--- OUTSIDE RECORDS SUMMARY | 2025-07-21 23:11 | XMS_ITS | Encounter Summary ---
Author Organization [employer] Address 75 [facility] 7t [place] [address] Care Team Providers Care Bore Mill Operator Name Role Phone Emily Lang MD Primary Care Provider [phone] Autumn Palafox PharmD Unavailable [phone] Reason for Visit * Reason Onset Date Comments Med Refill 10/22/2024 Encounter Details Date Type Department Care Team (Late st Contact Info) Description 10/22/2024 Refill [facility] MEDICINE 230 [place] [address] Emily Lang MD 230 [place] [address] Social History Tobacco Use Types Packs/Day Years [...] Description 08/10/2025 9:00 AM EST Clinical Support [facility] MEDICINE [address] [place] [address] Bia Hopper RN 08/12/2025 9:30 AM EST Telemedicine [address] [address] Autumn Palafox PharmD [address] [place] [address] documented as of this encounter Visit Diagnoses Not on filedocumented in this encounter Additional Health Concerns Assessment Noted Time PHQ-9 Depression Total Score: 17 024 9:55 AM EDT documented as of this encounter Care Teams Bore Mill Operator Relationship Specialty Start Date End Date Emily Lang MD [address] [place] [address] PCP - General Family Medicine 03/23/23 Autumn Palafox PharmD [address] [place] [address] Pharmacist Pharmacy 06/12/25 documented as of this encounter
--- OUTSIDE RECORDS SUMMARY | 2025-07-21 23:11 | XMS_ITS | Encounter Summary ---
Author Organization [employer] Address 75 [facility] 7t [place] [address] Care Team Providers Care Airline Dispatcher Name Role Phone Emily Lang MD Primary Care Provider [phone] Autumn Palafox PharmD Unavailable [phone] Reason for Visit * Reason Onset Date Comments Med Refill 06/28/2024 Encounter Details Date Type Department Care Team (Late st Contact Info) Description 06/28/2024 Refill [facility] MEDICINE 230 [place] [address] Emily Lang MD 230 [place] [address] Social History Tobacco Use Types Packs/Day Years [...] Description 08/10/2025 9:00 AM EST Clinical Support [facility] MEDICINE [address] [place] [address] Bia Hopper RN 08/12/2025 9:30 AM EST Telemedicine [address] [address] Autumn Palafox PharmD [address] [place] [address] documented as of this encounter Visit Diagnoses Not on filedocumented in this encounter Additional Health Concerns Assessment Noted Time PHQ-9 Depression Total Score: 17 024 9:55 AM EDT documented as of this encounter Care Teams Airline Dispatcher Relationship Specialty Start Date End Date Emily Lang MD [address] [place] [address] PCP - General Family Medicine 03/23/23 Autumn Palafox PharmD [address] [place] [address] Pharmacist Pharmacy 06/12/25 documented as of this encounter
--- OUTSIDE RECORDS SUMMARY | 2025-07-21 23:11 | XMS_ITS | Data Portability ---
Author Organization [place] - [facility], [facility] Address [address] [address] Care Team Providers Care Market Research Executive Name Role Phone APOLONIA ANTON Referring Provider [phone] Assessment Encounter Date Assessment Date Assessment LastModified by Organization Details LastModified Time 06/12/2024 06/12/2024 Patient has a lesion of the parotid salivary gland. We have discussed treatment options including observation as well as surgical intervention to remove the lesion. Surgery is performed under general anesthesia at either [facility] or [facility]. The surgery is typically booked for [...] as of today. All questions were answered. [email or web address] Not available 10/10/2024 14:59:45 10/16/2024 10/16/2024 The patient continues to do well following parotidectomy. Pathology consistent with pleomorphic adenoma. Follow up 1 month post operatively for reevaluation, or sooner with concerns. Patient with right sided ear popping and hearing loss since surgery. Dried blood gently removed from right EAC. Right TM with dried bloody scab that was unable to be debrided. Lia lateralized to the left and Rinne AC>BC on the left and BC>AC on the right. Recommended audiometric testing today, which patient declined. Patient subjectively reports hearing felt improved following debridement. Patient will call back for audiometric testing if no improvement in a few days. [email or web address] Not available 10/16/2024 15:07:35 11/03/2024 11/03/2024 Patient [...] recorded. Surgeries parotidecto my (SURG) 2023 024 [email or web address] Not available 11:35:20 Imaging None recorded. 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 Active 2023 KELSEY BURLESON MD [address] [place] [address], [address], [facility] - [facility] 4 17:11:15 Hearing loss 23781143 Active 2024 APOLONIA ETIENNE PA-C [address] [place] [address], [address], [facility] 5 15:08:17 Abnormal auditory perception 32103277 Active 2024 ZENAIDA SCHUSTER [address], [address], [facility] - [facility] 5 09:15:49 Bilateral referred otalgia of ears 2611197914042 106 Active 2024 AICHA ROSE PA-C [address] [place] [address], [place], [address], [facility] - [facility] 09:43:07 Bilateral temporomand ibular joint pain 7700754775034 9105 Active 2024 AICHA ROSE PA-C [address] [address], [place], [address], [facility] 09:43:17 Problem Notes None recorded. Procedures Surgical History Date Name Laterality Status Provider Name and Address Organization Details Recorded Time 12/05/19 25 Comp Audio with Tymps - 02093 & 07571 completed ZENAIDA SCHUSTER [address], [address], [facility] 12/04/2024 09:15:42 10/08/19 25 Excise parotid gland/lesion completed KELSEY BURLESON MD [address], [address], [facility] 10/08/2024 14:42:15 10/08/19 25 PAROTIDECTOMY (SURG) completed Rocky Nunn [facility] 10/13/2024 13:22:50 Imaging Results None recorded. Procedure Notes None recorded. Medical Equipment None Reported. Allergies Allergen ID Allergen Name Allergen Category Reaction Reaction Severity Criticality Documentation Date Start Date Code Code System Note Provider Name and Address Organization Details Recorded Time 446375 naproxen medicatio n Not available Not available Not available 11/03/2024 7258 RxNorm MELVIN singleton [facility] 15:37:27 Medications Name Sig Start Date [...] Updated DateTime 10/10/2024 162.56 cm 33.3 kg/m2 12615.92 g Randi Dennison [place] - [facility] 10/10/2024 14:36:54 Date Recorded Body height Body mass index (BMI) Body weight Provider Name and Address Organization Details Last Updated DateTime 10/16/2024 162.56 cm 33.6 kg/m2 77309.1 g Randi Samuelkalebmaryana [place] - [facility] 10/16/2024 14:33:23 Date Recorded Body height Provider Name an d Address Organization Details Last Updated DateTime 11/03/2024 162.56 cm MELVIN COMI [place] - [facility] 11/03/2024 15:34:50 Date Recorded Body height Provider Name an d Address Organization Details Last Updated DateTime 12/04/2024 162.56 cm MELVIN COMI [place] - [facility] 12/04/2024 09:09:15 Date Recorded Body height Body mass index (BMI) Body weight Provider Name and Address Organization Details Last Updated DateTime 06/12/2024 162.56 cm 31.9 kg/m2 95760.18 g Skyla Irma [place] - [facility] 06/12/2024 11:10:37 Social History None recorded. Functional Status None recorded. Mental Status None recorded. Family History Nothing Reported. Medical History No medical history recorded. Gynecological HistoryNo gynecological history recorded. Obstetrics History GPAL:G 0 P 0 0 0 0 Past Encounters Encounter ID Performer Location Encounter Start Date Encounter Closed Date Diagnosis/Indication Diagnosis SNOMED-CT Code Diagnosis ICD10 Code Diagnosis IMO Codes Diagnosis Note [id number] KELSEY BURLESON MD [facility] [address] [address] 06/12/2024 10:28:16 06/12/2024 11:31:11 Benign neoplasm of parotid gland 25987779 D11.0 right accessory parotid mass, 28mm pleomorphi c adenoma. Discussed higher risk to the zygomatic branch of the facial nerve as well as salivary duct given the anterior location of the 3 cm lesion [id number] ARBEN MCKEON PA-C [facility] [address] [address] 10/10/2024 14:27:50 10/13/2024 07:06:40 Benign neoplasm of parotid gland 76277331 D11.0 [id number] APOLONIA ETIENNE PA-C [facility] [address] [address] 10/16/2024 14:26:01 10/16/2024 14:57:24 Benign neoplasm of parotid gland 27344036 D11.0 Hearing loss 29997068 H9 1.91 [id number] KELSEY BURLESON MD [facility] [address] [address] 11/03/2024 14:33:29 11/03/2024 16:26:20 Benign neoplasm of parotid gland 60558564 D11.0 [id number] AICHA ROSE PA-C [facility] [address] [place] [address] 12/04/2024 09:04:41 12/04/2024 12:32:25 Abnormal auditory perception 59184556 H93.299 Right Ear:Normal hearing with excellent speech discrimina tion.Type As tympanogra m, rounded.Le ft Ear:Normal hearing with excellent speech discrimina tion.Type As tympanogra m, rounded. Bilateral temporomandibular joint pain [id number] 9287128 M26.623 Health Concerns Section Related Observation LastModified by Organization Detai ls LastModified Time None Recorded Concern Status LastModified by Organization Details LastModified Time None Recorded Advance Directives Directive None Recorded Payers Insurance Date Sequence Insurance Name Policy Number Policy Gil[place] Covered Member ID [place] Member ID Guarantor Name 12/25/2024 1 [place]: [facility] PL[facility] Socorro L Moran [id number] Socorro L Moran Notes Date Note Type Note Provider Name and Address Organization Details Recorded Time 06/12/2024 text/html ROS as noted in the HPI right parotid masshas been present over 10 yrs with progressive enlargementtender when lays on that spottobacco - stopped last month 04/21/2024 CTA head with and without contrast at [facility] mm lobulated solid mass within right buccal soft tissue, accessory parotid tissue 05/14/2024 [facility], started on blood thinners 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 She is sore but recovering well. Has had less than 10 cc of output on her VICENTE drain in the last 24 hours. KELSEY BURLESON MD 100 [facility],[address], [address], [facility] - [facility] 10/10/2024 16:37:40 10/16/2024 text/html ROS as [...] improving. Denies tinnitus. KELSEY BURLESON MD 100 [facility],[address], [address], [facility] - [facility] 10/16/2024 16:44:33 11/03/2024 text/html ROS as noted in the HPI 10/08/24 Gildardo MOSER, Right parotidectomy. 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 JHONNY LINCOLN MD 100 [facility],[address], [address], [facility] - [facility] 12/04/2024 10:29:10 OBGyn Episode No OBEpisode recorded.
--- OUTSIDE RECORDS SUMMARY | 2025-07-21 23:11 | XMS_ITS | Encounter Summary ---
Author Organization [employer] Address 75 [facility] 7t [place] [address] Care Team Providers Care Grain Picker Name Role Phone Emily Lang MD Primary Care Provider [phone] Autumn Palafox PharmD Unavailable [phone] Reason for Visit * Reason Onset Date Comments chart prep 07/20/2025 Encounter Details Date Type Department Care Team ([facility] st Contact Info) Description 07/20/2025 Telephone [facility] MEDICINE 230 [place] [address] Emily Lang MD 230 [place] [address] chart prep Social History Tobacco Use Types Packs/Day Years [...] encounter Miscellaneous Notes * Telephone Encounter - Laurel Wong [place] - 07/20/2025 11:14 AM EST Chart Prep Labs: done Images: done Referrals: complete Vaccines due: Covid, Flu, Hep B, RSV, and Zoster Screenings: colonoscopy, mammogram, and pap smear Overdue care gaps: SBIRT, PHQ-9, and MOISES-7 documented in this encounter Plan of Treatment Upcoming Encounters Date Type Department Care Team (Late st Contact Info) Description 08/10/2025 9:00 AM EST Clinical Support [facility] MEDICINE [address] [place] [address] Bia Hopper, RN 08/12/2025 9:30 AM EST Telemedicine [facility] MEDICINE [address] [place] [address] Autumn Palafox, PharmD 230 [place] [address] documented as of this encounter Visit Diagnoses Not on filedocumented in this encounter Additional Health Concerns Assessment Noted Time PHQ-9 Depression Total Score: 17 024 9:55 AM EDT documented as of this encounter Care Teams Grain Picker Relationship Specialty Start Date End Date Emily Lang MD 230 [place], [place] [phone] PCP - General Family Medicine 03/23/23 Autumn Palafox PharmD 230 [place] [address] Pharmacist Pharmacy 06/12/25 documented as of this encounter
--- OUTSIDE RECORDS SUMMARY | 2025-07-21 23:11 | XMS_ITS | Encounter Summary ---
Author Organization [employer] Address 75 [facility] 7t [place] [address] Care Team Providers Care Strip Picker Name Role Phone Emily Lang MD Primary Care Provider [phone] Autumn Palafox PharmD Unavailable [phone] Reason for Visit * Reason Onset Date Comments Med Refill 10/22/2024 Encounter Details Date Type Department Care Team (Late st Contact Info) Description 10/22/[address] [facility] MEDICINE 230 [place] [address] Emily Lang MD 230 [place] [address] Social History Tobacco Use Types Packs/Day Years [...] 9:00 AM EST Clinical Support [facility] MEDICINE [address] [place] [address] Bia Hopper RN 08/12/2025 9:30 AM EST Telemedicine [address] [address] Autumn Palafox PharmD [address] [place] [address] documented as of this encounter Visit Diagnoses Not on filedocumented in this encounter Additional Health Concerns Assessment Noted Time PHQ-9 Depression Total Score: 17 024 9:55 AM EDT documented as of this encounter Care Teams Strip Picker Relationship Specialty Start Date End Date Emily Lang MD [address] [place] [address] PCP - General Family Medicine 03/23/23 Autumn Palafox PharmD [address] [place] [address] Pharmacist Pharmacy 06/12/25 documented as of this encounter
--- OUTSIDE RECORDS SUMMARY | 2025-07-21 23:11 | XMS_ITS | Encounter Summary ---
Author Organization [employer] Address 75 [facility] 7t [place] [address] Care Team Providers Care Food Safety Manager Name Role Phone Emily Lang MD Primary Care Provider [phone] Autumn Palafox PharmD Unavailable [phone] Reason for Visit * Reason Onset Date Comments Med Refill 10/19/2024 Encounter Details Date Type Department Care Team (Late st Contact Info) Description 10/19/[address] [facility] MEDICINE [address] [place] [address] Emily Lang MD 230 [place] [address] Social History Tobacco Use Types Packs/Day Years [...] Support [facility] MEDICINE [address] [place] [address] Bia Hopper RN 08/12/2025 9:30 AM EST Telemedicine [address] [address] Autumn Palafox PharmD [address] [place] [address] documented as of this encounter Visit Diagnoses Not on filedocumented in this encounter Additional Health Concerns Assessment Noted Time PHQ-9 Depression Total Score: 17 024 9:55 AM EDT documented as of this encounter Care Teams Food Safety Manager Relationship Specialty Start Date End Date Emily Lang MD [address] [place] [address] PCP - General Family Medicine 03/23/23 Autumn Palafox PharmD [address] [place] [address] Pharmacist Pharmacy 06/12/25 documented as of this encounter
--- OUTSIDE RECORDS SUMMARY | 2025-07-21 23:12 | XMS_ITS | Encounter Summary ---
Author Organization [employer] Address 75 [facility] 7t [place] [address] Care Team Providers Care Shellfish Weigher Name Role Phone Emily Lang MD Primary Care Provider [phone] Autumn Palafox PharmD Unavailable [phone] Reason for Visit * Reason Comments Med Refill Encounter Details Date Type Department Care Team ([facility] st Contact Info) Description 06/04/2025 Refill [facility] MEDICINE 230 [place] [address] Emily Lang MD 230 [place] [address] Anxiety Social History Tobacco Use Types Packs/Day [...] enough money to get more: Never True 10/ Transportation Answer Date Recorded In the past [...] Description 08/10/2025 9:00 AM EST Clinical Support [facility] MEDICINE [address] [place] [address] Bia Hopper RN 08/12/2025 9:30 AM EST Telemedicine [address] [address] Autumn Palafox PharmD [address] [place] [address] documented as of this encounter Visit Diagnoses Diagnosis Anxiety Anxiety state, unspecified documented in this encounter Additional Health Concerns Assessment Noted Time PHQ-9 Depression Total Score: 17 024 9:55 AM EDT documented as of this encounter Care Teams Shellfish Weigher Relationship Specialty Start Date End Date Emily Lang MD [address] [place] [address] PCP - General Family Medicine 03/23/23 Autumn Palafox PharmD [address] [place] [address] Pharmacist Pharmacy 06/12/25 documented as of this encounter
--- OUTSIDE RECORDS SUMMARY | 2025-07-21 23:12 | XMS_ITS | Encounter Summary ---
Author Organization [employer] Address [address] [facility] [address] 7t [place] [address] Care Team Providers Care Band Builder Name Role Phone Emily Lang MD Primary Care Provider [phone] Autumn Palafox PharmD Unavailable [phone] Encounter Details Date Type Department Care Team ([facility] st Contact Info) Description 06/20/2023 Orders Only [facility] MEDICINE 230 [place] [address] Emily Lang MD 230 [place] [address] Anxiety Social History Tobacco Use Types Packs/Day [...] Clinical Support [facility] MEDICINE [address] [place] [address] Bia Hopper RN 08/12/2025 9:30 AM EST Telemedicine [facility] MEDICINE [address] [place] [address] Autumn Palafox, PharmD [address] [place] [address] documented as of this encounter Visit Diagnoses Diagnosis Anxiety Anxiety state, unspecified documented in this encounter Care Teams Band Builder Relationship Specialty Start Date End Date Emily Lang MD [address] [place] [address] PCP - General Family Medicine 03/23/23 Autumn Palafox, PharmD [address] [place] [address] Pharmacist Pharmacy 06/12/25 documented as of this encounter
--- OUTSIDE RECORDS SUMMARY | 2025-07-21 23:12 | XMS_ITS | Encounter Summary ---
Author Organization [employer] Address 75 [facility] 7t [place] [address] Care Team Providers Care Deli Cutter Slicer Name Role Phone Emily Lang MD Primary Care Provider [phone] Autumn Palafox PharmD Unavailable [phone] Encounter Details Date Type Department Care Team (Late st Contact Info) Description 04/06/[address] [facility] [address] [place] [address] Emily Lang MD [address] [place] [address] Screening for colon cancer (Primary Dx) Social [...] Description 08/10/2025 9:00 AM EST Clinical Support [facility] [address] [place] [address] Bia Hopper RN 08/12/2025 9:30 AM EST Telemedicine [facility] [address] [place] [address] Autumn Palafox, PharmD [address] [place] [address] documented as of this encounter Procedures Procedure Name Priority Date/Time Associated Diagnosis Comments MR KNEE WO CONTRAST RIGHT Routine 04/17/2023 9:25 AM EDT documented in this encounter Results * MR Knee w/o Contrast Right (04/17/2023 9:25 AM EDT) Anatomical Region Laterality Modality Magnetic Resonan ce 04/17/2023 9:25 AM EDT Narrative 04/18/2023 12:57 PM EDT [facility] [address] [place] [address] Magnetic Resonance Report Signed Patient: Socorro Moran MR#: [id number] : 1970 Acct:[id number] Age/Sex: 52 / F ADM Date: 04/17/23 Loc: HO.MRI Attending Dr: Ricardo Root MD Ordering Physician: Ricardo Root MD Date of Service: 04/17/23 Procedure(s): MR knee RT wo con Accession Number(s): [id number] cc: Emily Lang; Ricardo Root MD EXAMINATION: [...] heterogeneity and surface irregularity with areas of njqc-afad-nokvgdbts fissuring at the medial femoral condyle. Tiny [...] Buchanan MD in OV> 04/18/23 1253 DD/ 0925 TD/TT: Knife Edger: SR Procedure Note Donotuseinterpreter, Image - 04/18/[address] [address] Magnetic Resonance Report Signed Patient: Socorro Moran LMR#: [id number] : 1970Acct:[id number] Age/Sex: 52 / FADM Date: 04/17/23 Loc: HO.MRI Attending Dr: Ricardo Root MD Ordering Physician: Ricardo Root MD Date of Service: 04/17/23 Procedure(s): MR knee RT wo con Accession Number(s): [id number] cc: Emily Lang; Ricardo Root MD EXAMINATION: [...] heterogeneity and surface irregularity with areas of wzbf-cqnq-rfmdgcfay fissuring at the medial femoral condyle. Tiny [...] in OV> 04/18/23 1253 DD/ 4 TD/TT: Knife Edger: [facility] External Provider IMG MRI PROCEDURES Final Result documented in this encounter Visit Diagnoses Diagnosis Screening for colon cancer- Primary Special screening for malignant neoplasms, colon documented in this encounter Care Teams Deli Cutter Slicer Relationship Specialty Start Date End Date Emily Lang MD [address] [place] [address] PCP - General Family Medicine 03/23/23 Autumn Palafox, Ryan [address] [place] [address] Pharmacist Pharmacy 06/12/25 documented as of this encounter
--- OUTSIDE RECORDS SUMMARY | 2025-07-21 23:12 | XMS_ITS | Encounter Summary ---
Author Organization [employer] Address 75 [facility] 7t [place] [address] Care Team Providers Care Manga Artist Name Role Phone Emily Lang MD Primary Care Provider [phone] Autumn Palafox PharmD Unavailable [phone] Reason for Visit * Reason Comments Med Change Request Encounter Details Date Type Department Care Team (Late Contact Info) Description 03/26/2023 Refill [facility] [address] [place] [address] Emily Lang MD [address] [place] [address] Neurogenic pruritus Social History Tobacco Use Types [...] Description 08/10/2025 9:00 AM EST Clinical Support [address] [address] Bia Hopper RN 08/12/2025 9:30 AM EST Telemedicine [address] [address] Autumn Palafox PharmD [address] [place] [address] documented as of this encounter Visit Diagnoses Diagnosis Neurogenic pruritus documented in this encounter Care Teams Manga Artist Relationship Specialty Start Date End Date Emily Lang MD [address] [place] [address] PCP - General Family Medicine 03/23/23 Autumn Palafox, Ryan [address] [place] [address] Pharmacist Pharmacy 06/12/25 documented as of this encounter
--- OUTSIDE RECORDS SUMMARY | 2025-07-21 23:12 | XMS_ITS | Encounter Summary ---
Author Organization [employer] Address 75 [facility] 7t [place] [address] Care Team Providers Care Needle Straightener Name Role Phone Emily Lang MD Primary Care Provider [phone] Autumn Palafox PharmD Unavailable [phone] Reason for Visit * Reason Comments Med Refill Encounter Details Date Type Department Care Team ([facility] st Contact Info) Description 06/19/2023 Refill [facility] [address] [place] [address] Emily Lang MD [address] [place] [address] Vitamin D deficiency; Anxiety Social History Tobacco [...] EST Clinical Support [facility] [address] [place] [address] Bia Hopper RN 08/12/2025 9:30 AM EST Telemedicine [facility] [address] [place] [address] Autumn Palafox PharmD [address] [place] [address] documented as of this encounter Visit Diagnoses Diagnosis Vitamin D deficiency Anxiety Anxiety state, unspecified documented in this encounter Care Teams Needle Straightener Relationship Specialty Start Date End Date Emily Lang MD [address] [place] [address] PCP - General Family Medicine 03/23/23 Autumn Palafox, PharmD [address] [place] [address] Pharmacist Pharmacy 06/12/25 documented as of this encounter
--- OUTSIDE RECORDS SUMMARY | 2025-07-21 23:12 | XMS_ITS | Encounter Summary ---
Author Organization [employer] Address 75 [facility] 7t [place] [address] Care Team Providers Care Personnel Associate Name Role Phone Emily Lang MD Primary Care Provider [phone] Autumn Palafox PharmD Unavailable [phone] Reason for Referral * Consultation (Routine) - Authorized Specialty Diagnoses / Procedures Referred By Contac t Referred To Contact Pharmacy Diagnoses Tobacco use Emily Lang MD [address] [place] [address] Phone: tel: fax: Referral ID Status Reason Start Date Expiration Date Visits Requested Visits Authorized [id number] Authorized Consult and Treat 06/12/2025 06/12/2026 6 6 Encounter Details Date Type Department Care Team ([facility] st Contact Info) Description 06/12/2025 Orders Only [facility] MED[facility] [address] [place] [address] Emily Lang MD [address] [place] [address] [phone] Tobacco use (Primary Dx) Social History Tobacco Use Types [...] Support [facility] [address] [place] [address] Bia Hopper RN 08/12/2025 9:30 AM EST Telemedicine [facility] [address] [place] [address] Autumn Palafox, Ryan [address] [place] [address] Scheduled Referrals Name Type Priority Associated Diagnoses Orde r Schedule Referral to Pharmacy CDTM Outpatient Referral Routine Tobacco use Ordered: 06/12/2025 documented as of this encounter Visit Diagnoses Diagnosis Tobacco use- Primary documented in this encounter Additional Health Concerns Assessment Noted Time PHQ-9 Depression Total Score: 17 024 9:55 AM EDT documented as of this encounter Care Teams Personnel Associate Relationship Specialty Start Date End Date Emily Lang MD [address] [place] [address] PCP - General Family Medicine 03/23/23 Autumn Palafox, Ryan [address] [place] [address] Pharmacist Pharmacy 06/12/25 documented as of this encounter
== END 2025-07-21 18:27 | disposition home or self-care (01) ==
LOC: HO.HHCLNP 18:26
PROVIDERS: Visit Provider General Practice
DX: Z12.4 Encounter for screening for malignant neoplasm of cervix (principal)
CPT/HCPCS: 87626

== ENCOUNTER 2025-08-10 17:38 | Outpatient (REF) | payer MEDICAID, SELFPAY ==
--- OUTSIDE RECORDS SUMMARY | 2025-08-10 09:00 | XMS_ITS | Encounter Summary ---
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 Pt was accompanied by her girlfriend. Socorro Moran does report adherence to Clonazepam (Klonopin) 0.5 mg, take 1 tablet every 24 hours PRN, last refilled 07/21/2025. The patient last took Clonazepam (Klonopin) on: 08/09/25 Medication effective: it seems to take longer to kick in Sleep habits: no issues Therapist: Yes Pt shared her aunt attempted to commit suicide, because of the family traumatic event her anxiety has increased. 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 Last PCP visit: 07/21/2025 MOISES-7 Total Score: 20 (07/21/2025 9:08 AM) Controlled substance agreement signed: Controlled Substance Agreement 10/29/2024 AIRCRAFT STRESS ANALYST Tier: 2 Current Medications[1] Smoking status: Yes, is back to smoking about 1/2 pack cigarettes daily ETOH use: Denies Illicit substances: Denies Marijuana use: Denies Lab Results Component Value Date POCTHC Positive (A) 08/10/2025 POCCOCAINEUR Negative 08/10/2025 POCOPIATEUR Negative 08/10/2025 DOAUR Negative 08/10/2025 POCAMPHETAMI Negative 08/10/2025 POCBENZODIUR Negative 08/10/2025 POCBARBSCRN Negative 08/10/2025 POCMETHADOUR Negative 08/10/2025 POCBUPSCRN Negative 08/10/2025 POCTCAUR Positive (A) 08/10/2025 POCMDMAUR Negative 08/10/2025 POCOXYCODONE Negative 08/10/2025 POCPHENCYCUR Negative 08/10/2025 PROPOXUR Negative 08/10/2025 FENTANYLURIN Negative 08/10/2025 ASSESSMENT: Encounter Diagnosis Name Primary? Long-term current use of benzodiazepine Yes PLAN: Information on acupuncture given: Previously discussed Narcan education provided: Previously discussed Narcan prescription: active Will update PCP with UTPX results. Socorro Moran will continue taking medication as prescribed and follow up at the next AIRCRAFT STRESS ANALYST visitor sooner if needed. Socorro Moran has verbalized understanding of care plan. Future Appointments Date Time Provider Department Center 08/12/2025 9:30 AM Autumn Palafox PharmD MEDICINE [facility] 10/29/2025 8:30 AM Bia Hopper, RN MEDICINE [facility] Bia Hopper RN [1] Current Outpatient Medications: clonazePAM (KlonoPIN) 0.5 MG tablet, Take 1 tablet (0.5 mg) by mouth if needed each day for anxiety., Disp: 28 tablet, Rfl: 0 acetaminophen (Tylenol [...] Rfl: 3 cholecalciferol (Vitamin D-3) 50 MCG (1999) capsule, TAKE 1 CAPSULE BY MOUTH EVERY MORNING, Disp: 90 capsule, Rfl: 3 escitalopram (Lexapro) 20 MG tablet, Take 1 tablet (20 mg) by mouth Once per day. TAKE 1 TABLET BY MOUTH DAILY IN THE MORNING, Disp: 90 tablet, Rfl: 3 lisinopril 20 MG tablet, TAKE 1 TABLET BY MOUTH EVERY MORNING, Disp: 90 tablet, Rfl: 3 metoprolol succinate XL (Toprol-XL) 25 MG 24 hr tablet, Take 25 mg by mouth., Disp: , Rfl: Multaq 400 MG tablet, , Disp: , Rfl: nicotine (Nicoderm, Step 2) [...] Rfl: 5 nortriptyline (Pamelor) 25 MG capsule, TAKE 1 CAPSULE BY MOUTH EVERY DAY AT BEDTIME, Disp: 90 capsule, Rfl: 3 triamcinolone (Kenalog) 0.1 % cream, Apply topically if needed in the morning and at bedtime for rash (pain and swelling). Mix in with cerave and apply all together, Disp: 80 g, Rfl: 3 documented in this encounter Plan of Treatment Upcoming Encounters Date Type Department Care Team (Late st Contact Info) Description 08/12/2025 9:30 AM EST Telemedicine [facility] [address] [place] [address] PuiaThaniasa, PharmD [address] [place] [address] 10/29/2025 8:30 AM EDT Clinical Support [facility] [address] [place] [address] Bia Hopper RN Scheduled Orders Name Type Priority Associated Diagnoses Orde r Schedule Drug Monitoring, Benzodiazepines, Quantitative, Urine Lab Routine Long-term current use of benzodiazepine Ordered: 08/10/2025 documented as of this encounter Procedures Procedure Name Priority Date/Time Associated Diagnosis Comments POCT ABIMBOLA-14 URINE DRUG SCREEN Routine 08/10/2025 9:13 AM EST Long-term current use of benzodiazepine documented in this encounter Results * (ABNORMAL) POCT ABIMBOLA-14 Urine Drug Screen (08/10/2025 9:13 AM EST) Pathologist [facility] Amphetamine Screen, Urine Negative Negative Barbiturate Screen, Urine Negative Negative Buprenophine Screen, Urine Negative Negative Benzodiazepines Screen, Urine Negative Negative Comment:AIRCRAFT STRESS ANALYST pt on Clonazepam Cocaine Screen, Urine Negative Negative Fentanyl, Urine Negative Negative MDMA Urine Negative Negative ng/mL Methamphetamine Screen Urine Negative Negative Opiate Screen, Urine Negative Negative Methadone Screen, Urine Negative Negative Oxycodone Screen, Urine Negative Negative Phencyclidine (PCP), Urine Negative Negative TCA, Urine Positive(A) Negative THC Positive(A) Negative Propoxyphene, Urine Negative Negative Urine Urine specimen obtained by clean catch procedure / Unknown 08/10/2025 9:13 AM EST Narrative Bia Hopper RN - 08/10/2025 9:13 AM EST UTOX cup Lot#[id number] Exp. 07/13/26 Internal Pass Control Emily Lang MD POINT OF CARE TEST ENTER/EDIT ORDERABLES Final Result documented in this encounter Visit Diagnoses Diagnosis Long-term current use of benzodiazepine- Primary documented in this encounter Additional Health Concerns Assessment Noted Time PHQ-9 Depression Total Score: 17 025 11:16 AM EST documented as of this encounter Care Teams Braider Operator Relationship Specialty Start Date End Date Emily Lang MD [address] [place], [place] [id number] PCP - General Family Medicine 03/23/23 Autumn Palafox, LindaD [address] [place] [address] Pharmacist Pharmacy 06/12/25 documented as of this encounter
--- OUTSIDE RECORDS SUMMARY | 2025-08-10 18:11 | XMS_ITS | Encounter Summary ---
Author Organization [employer] Address 75 [facility] 7t [place] [address] Care Team Providers Care Supervisor Laboratory Animal Facility Name Role Phone Emily Lang MD Primary Care Provider [phone] Autumn Palafox PharmD Unavailable [phone] Reason for Visit * Reason Onset Date Comments Med Refill 10/19/2024 Encounter Details Date Type Department Care Team (Late st Contact Info) Description 10/19/2024 Refill [facility] [address] [place] [address] Emily Lang MD [address] [place] [address] Social History Tobacco Use Types Packs/Day Years [...] Info) Description 08/12/2025 9:30 AM EST Telemedicine [facility] [address] [place] [address] Autumn Palafox PharmD [address] [place] [address] 10/29/2025 8:30 AM EDT Clinical Support [address] [address] Bia Hopper, IRASEMA documented as of this encounter Visit Diagnoses Not on filedocumented in this encounter Additional Health Concerns Assessment Noted Time PHQ-9 Depression Total Score: 17 024 9:55 AM EDT documented as of this encounter Care Teams Supervisor Laboratory Animal Facility Relationship Specialty Start Date End Date Emily Lang MD [address] [place] [address] PCP - General Family Medicine 03/23/23 Autumn Palafox PharmD [address] [place] [address] Pharmacist Pharmacy 06/12/25 documented as of this encounter
--- OUTSIDE RECORDS SUMMARY | 2025-08-10 18:11 | XMS_ITS | Encounter Summary ---
Author Organization [employer] Address 75 [facility] 7t [place] [address] Care Team Providers Care [place]field Program Coordinator Name Role Phone Emily Lang MD Primary Care Provider [phone] Autumn Palafox PharmD Unavailable [phone] Reason for Referral * Consultation (Routine) - Closed Specialty Diagnoses / Procedures Referred By Contac t Referred To Contact Pharmacy Diagnoses Tobacco dependence Emily Lang MD [address] [place] [address] Phone: tel: fax: Referral ID Status Reason Start Date Expiration Date V isits Requested Visits Authorized [id number] Closed Consult and Treat 06/16/2024 06/16/2025 6 6 Encounter Details Date Type Department Care Team (Late st Contact Info) Description 06/16/2024 Orders Only [facility] MEDICINE [address] [place] [address] Emily Lang MD [address] [place], [place] [phone] Tobacco dependence (Primary Dx) Social History Tobacco [...] Info) Description 08/12/2025 9:30 AM EST Telemedicine [facility] MED[facility] [address] [place] [address] Autumn Palafox, PharmD [address] [place] [address] 10/29/2025 8:30 AM EDT Clinical Support [facility] [address] [place] [address] iBa Hopper, RN Scheduled Referrals Name Type Priority Associated Diagnoses Orde r Schedule Referral to Pharmacy CDTM Outpatient Referral Routine Tobacco dependence Ordered: 06/16/2024 documented as of this encounter Visit Diagnoses Diagnosis Tobacco dependence- Primary Tobacco use disorder documented in this encounter Additional Health Concerns Assessment Noted Time PHQ-9 Depression Total Score: 17 024 9:55 AM EDT documented as of this encounter Care Teams [place] Program Coordinator Relationship Specialty Start Date End Date Emily Lang MD [address] [place] [address] PCP - General Family Medicine 03/23/23 Autumn Palafox, Ryan [address] [place] [address] Pharmacist Pharmacy 06/12/25 documented as of this encounter
--- OUTSIDE RECORDS SUMMARY | 2025-08-10 18:11 | XMS_ITS | Encounter Summary ---
Author Organization [employer] Address 75 [facility] 7t [place] [address] Care Team Providers Care Digital Retoucher Name Role Phone Emily Lang MD Primary Care Provider [phone] Autumn Palafox PharmD Unavailable [phone] Reason for Visit * Reason Onset Date Comments Med Refill 09/04/2024 Encounter Details Date Type Department Care Team (Late st Contact Info) Description 09/04/2024 Refill [facility]INE [address] [place] [address] Emily Lang MD [address] [place] [address] Social History Tobacco Use Types Packs/Day Years [...] Info) Description 08/12/2025 9:30 AM EST Telemedicine [facility]INE [address] [place] [address] Autumn Palafox PharmD [address] [place] [address] 10/29/2025 8:30 AM EDT Clinical Support [address] [address] Bia Hopper, IRASEMA documented as of this encounter Visit Diagnoses Not on filedocumented in this encounter Additional Health Concerns Assessment Noted Time PHQ-9 Depression Total Score: 17 024 9:55 AM EDT documented as of this encounter Care Teams Digital Retoucher Relationship Specialty Start Date End Date Emily Lang MD [address] [place] [address] PCP - General Family Medicine 03/23/23 Autumn Palafox PharmD [address] [place] [address] Pharmacist Pharmacy 06/12/25 documented as of this encounter
--- OUTSIDE RECORDS SUMMARY | 2025-08-10 18:11 | XMS_ITS | Encounter Summary ---
Author Organization [employer] Address 75 [facility] 7t [place] [address] Care Team Providers Care Map Compiler Name Role Phone Emily Lang MD Primary Care Provider [phone] Autumn Palafox PharmD Unavailable [phone] Reason for Visit * Reason Onset Date Comments Med Refill 07/23/2024 Encounter Details Date Type Department Care Team (Late st Contact Info) Description 07/23/2024 Refill [facility] MED[facility]INE [address] [place] [address] Emily Lang MD [address] [place] [address] Social History Tobacco Use Types Packs/Day Years [...] 08/12/2025 9:30 AM EST Telemedicine [facility] MED[facility]INE [address] [place] [address] Autumn Palafox PharmD [address] [place] [address] 10/29/2025 8:30 AM EDT Clinical Support [address] [address] Bia Hopper, IRASEMA documented as of this encounter Visit Diagnoses Not on filedocumented in this encounter Additional Health Concerns Assessment Noted Time PHQ-9 Depression Total Score: 17 024 9:55 AM EDT documented as of this encounter Care Teams Map Compiler Relationship Specialty Start Date End Date Emily Lang MD [address] [place] [address] PCP - General Family Medicine 03/23/23 Autumn Palafox PharmD [address] [place] [address] Pharmacist Pharmacy 06/12/25 documented as of this encounter
--- OUTSIDE RECORDS SUMMARY | 2025-08-10 18:11 | XMS_ITS | Encounter Summary ---
Author Organization [employer] Address 75 [facility] 7t [place] [address] Care Team Providers Care Microscopist Name Role Phone Emily Lang MD Primary Care Provider [phone] Autumn Palafox PharmD Unavailable [phone] Reason for Visit * Reason Onset Date Comments Med Refill 09/04/2024 Encounter Details Date Type Department Care Team (Late st Contact Info) Description 09/04/2024 Refill [facility] MED[facility]INE [address] [place] [address] Emily Lang MD [address] [place] [address] Social History Tobacco Use Types Packs/Day Years [...] Info) Description 08/12/2025 9:30 AM EST Telemedicine [facility] MEDICINE [address] [place] [address] Autumn Palafox PharmD [address] [place] [address] 10/29/2025 8:30 AM EDT Clinical Support [address] [address] Bia Hopper, IRASEMA documented as of this encounter Visit Diagnoses Not on filedocumented in this encounter Additional Health Concerns Assessment Noted Time PHQ-9 Depression Total Score: 17 024 9:55 AM EDT documented as of this encounter Care Teams Microscopist Relationship Specialty Start Date End Date Emily Lang MD [address] [place] [address] PCP - General Family Medicine 03/23/23 Autumn Palafox PharmD [address] [place] [address] Pharmacist Pharmacy 06/12/25 documented as of this encounter
--- OUTSIDE RECORDS SUMMARY | 2025-08-10 18:11 | XMS_ITS | Encounter Summary ---
Author Organization [employer] Address 75 [facility] 7t [place] [address] Care Team Providers Care Panel Installer Name Role Phone Emily Lang MD Primary Care Provider [phone] Autumn Palafox PharmD Unavailable [phone] Reason for Visit * Reason Onset Date Comments Med Refill 06/28/2024 Encounter Details Date Type Department Care Team (Late st Contact Info) Description 06/28/[address] [facility] MED[facility]INE [address] [place] [address] Emily Lang MD [address] [place] [address] Social History Tobacco Use Types Packs/Day Years [...] Info) Description 08/12/2025 9:[address] [facility] [address] [place] [address] Autumn Palafox PharmD [address] [place] [address] 10/29/2025 8:30 AM EDT Clinical Support [address] [address] Bia Hopper, IRASEMA documented as of this encounter Visit Diagnoses Not on filedocumented in this encounter Additional Health Concerns Assessment Noted Time PHQ-9 Depression Total Score: 17 024 9:55 AM EDT documented as of this encounter Care Teams Panel Installer Relationship Specialty Start Date End Date Emily Lang MD [address] [place] [address] PCP - General Family Medicine 03/23/23 Autumn Palafox PharmD [address] [place] [address] Pharmacist Pharmacy 06/12/25 documented as of this encounter
--- OUTSIDE RECORDS SUMMARY | 2025-08-10 18:11 | XMS_ITS | Encounter Summary ---
Author Organization [employer] Address [address] [facility] 7t [place] [address] Care Team Providers Care Global Recruiter Name Role Phone Emily Lang MD Primary Care Provider [phone] Autumn Palafox PharmD Unavailable [phone] Reason for Visit * Reason Onset Date Comments Med Refill 10/19/2024 Encounter Details Date Type Department Care Team (Late st Contact Info) Description 10/19/2024 Refill [facility] [address] [place] [address] Emily Lang MD [address] [place] [address] Social History Tobacco Use Types Packs/Day Years [...] Info) Description 08/12/2025 9:30 AM EST Telemedicine [facility] [address] [place] [address] Autumn Palafox PharmD [address] [place] [address] 10/29/2025 8:30 AM EDT Clinical Support [address] [address] Bia Hopper, IRASEMA documented as of this encounter Visit Diagnoses Not on filedocumented in this encounter Additional Health Concerns Assessment Noted Time PHQ-9 Depression Total Score: 17 024 9:55 AM EDT documented as of this encounter Care Teams Global Recruiter Relationship Specialty Start Date End Date Emily Lang MD [address] [place] [address] PCP - General Family Medicine 03/23/23 Autumn Palafox PharmD [address] [place] [address] Pharmacist Pharmacy 06/12/25 documented as of this encounter
--- OUTSIDE RECORDS SUMMARY | 2025-08-10 18:12 | XMS_ITS | Data Portability ---
Author Organization [place] - [facility], Allergy Address [address] [address] Care Team Providers Care Car Designer Name Role Phone APOLONIA ANTON Referring Provider Assessment Encounter Date Assessment Date Assessment LastModified by Organization Details LastModified Time 06/12/2024 06/12/2024 Patient has a lesion of the parotid salivary gland. We have discussed treatment options including observation as well as surgical intervention to remove the lesion. Surgery is performed under general anesthesia at either [facility] or [facility]. The surgery is typically booked [...] as of today. All questions were answered. [email or web address] Not available 10/10/2024 14:59:45 10/16/2024 10/16/2024 The [...] recorded. Surgeries parotidecto my (SURG) 2023 024 [email or web address] Not available 11:35:20 Imaging None recorded. [...] Details Recorded Time Neoplasm of parotid gland 183488755 Active 2023 KELSEY BURLESON MD [address] [place] [address], [place], [address], 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 - [facility] 4 17:11:15 Hearing loss 93554672 Active 2024 APOLONIA ETIENNE PA-C [address] [place] [address], [address], [facility] 5 15:08:17 Abnormal auditory perception 10222917 Active 2024 ZENAIDA SCHUSTER [address], [address], [facility] - [facility] 5 09:15:49 Bilateral referred otalgia of ears 3733366799927 106 Active 2024 AICHA ROSE PA-C [address] [place] [address], [place], [address], [facility] - [facility] 09:43:07 Bilateral temporomand ibular joint pain 9412126065728 9105 Active 2024 AICHA ORSE PA-C [address] [address], [place], [address], [facility] 09:43:17 Problem Notes None recorded. Procedures Surgical History Date Name Laterality Status Provider Name and Address Organization Details Recorded Time 12/05/19 25 Comp Audio with Tymps - 84730 & 80752 completed ZENAIDA SCHUSTER [address], [address], [facility] 12/04/2024 09:15:42 10/08/19 25 Excise parotid gland/lesion completed KELSEY BURLESON MD [address], [address], [facility] 10/08/2024 14:42:15 10/08/19 25 PAROTIDECTOMY (SURG) completed Rocky Nunn [facility] 10/13/2024 13:22:50 Imaging Results None recorded. Procedure Notes None recorded. Medical Equipment None Reported. Allergies Allergen ID Allergen Name Allergen Category Reaction Reaction Severity Criticality Documentation Date Start Date Code Code System Note Provider Name and Address Organization Details Recorded Time 579774 naproxen medicatio n Not available Not available Not available 11/03/2024 7258 RxNorm MELVIN singleton [facility] 15:37:27 Medications Name Sig Start Date [...] Updated DateTime 10/10/2024 162.56 cm 33.3 kg/m2 43320.92 g Randi Dennison [place] - [facility] 10/10/2024 14:36:54 Date Recorded Body height Body mass index (BMI) Body weight Provider Name and Address Organization Details Last Updated DateTime 10/16/2024 162.56 cm 33.6 kg/m2 49729.1 g Randi Samuelkalebmaryana [place] - [facility] 10/16/2024 14:33:23 Date Recorded Body height Provider Name an d Address Organization Details Last Updated DateTime 11/03/2024 162.56 cm MELVIN COMI [place] - [facility] 11/03/2024 15:34:50 Date Recorded Body height Provider Name an d Address Organization Details Last Updated DateTime 12/04/2024 162.56 cm MELVIN COMI [place] - [facility] 12/04/2024 09:09:15 Date Recorded Body height Body mass index (BMI) Body weight Provider Name and Address Organization Details Last Updated DateTime 06/12/2024 162.56 cm 31.9 kg/m2 71565.18 g Skyla Irma [place] - [facility] 06/12/2024 11:10:37 Social History None recorded. Functional Status None recorded. Mental Status None recorded. Family History Nothing Reported. Medical History No medical history recorded. Gynecological HistoryNo gynecological history recorded. 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 Discussed higher risk to the zygomatic branch of the facial nerve as well as salivary duct given the anterior location of the 3 cm lesion [id number] ARBEN MCKEON PA-C [facility] [address] [address] 10/10/2024 14:27:50 10/13/2024 07:06:40 Benign neoplasm of parotid gland 72058341 D11.0 [id number] APOLONIA ETIENNE PA-C [facility] [address] [address] 10/16/2024 14:26:01 10/16/2024 14:57:24 Benign neoplasm of parotid gland 31122430 D11.0 Hearing loss 60028690 H9 1.91 [id number] KELSEY BURLESON MD [facility] [address] [address] 11/03/2024 14:33:29 11/03/2024 16:26:20 Benign neoplasm of parotid gland 10736734 D11.0 [id number] AICHA ROSE PA-C [facility] [address] [place] [address] 12/04/2024 09:04:41 12/04/2024 12:32:25 Abnormal auditory perception 67424593 H93.299 Right Ear:Normal hearing with excellent speech discrimina tion.Type As tympanogra m, rounded.Le ft Ear:Normal hearing with excellent speech discrimina tion.Type As tympanogra m, rounded. Bilateral temporomandibular joint pain 9903604873 7955753 M26.623 Health Concerns Section Related Observation LastModified by Organization Detai ls LastModified Time None Recorded Concern Status LastModified by Organization Details LastModified Time None Recorded Advance Directives Directive None Recorded Payers Insurance Date Sequence Insurance Name Policy Number Policy Gillette Covered Member ID Gillette Member ID Guarantor Name 12/25/2024 1 MEDICAID-[place]: 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 She is sore but recovering well. Has had less than 10 cc of output on her VICENTE drain in the last 24 hours. KELSEY BURLESON MD [facility], [address], [facility] - [facility] 10/10/2024 16:37:40 10/16/2024 text/html ROS as [...] improving. Denies tinnitus. KELSEY BURLESON MD [facility], [address], [facility] - [facility] 10/16/2024 16:44:33 11/03/2024 text/html ROS as noted in the HPI 10/08/24 Gildardo MOSER, Right parotidectomy. 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 - [facility] 11/03/2024 15:44:27 12/04/2024 text/html ROS as [...] loud noise exposure. JHONNY LINCOLN MD [address] [facility], [address], [facility] - [facility] 12/04/2024 10:29:10 OBGyn Episode No OBEpisode recorded.
--- OUTSIDE RECORDS SUMMARY | 2025-08-10 18:12 | XMS_ITS | Encounter Summary ---
Author Organization [employer] Address [address] [facility] 7t [place] [address] Care Team Providers Care Occupational Health And Safety Manager Name Role Phone Emily Lang MD Primary Care Provider [phone] Autumn Palafox PharmD Unavailable [phone] Reason for Visit * Reason Onset Date Comments Med Refill 11/26/2023 Encounter Details Date Type Department Care Team (Late st Contact Info) Description 11/26/2023 Refill [facility] [address] [place] [address] Emily Lang MD [address] [place] [address] Social History Tobacco Use Types Packs/Day Years [...] Info) Description 08/12/2025 9:30 AM EST Telemedicine [facility] [address] [place] [address] Autumn Palafox PharmD [address] [place] [address] 10/29/2025 8:30 AM EDT Clinical Support [address] [address] Bia Hopper, IRASEMA documented as of this encounter Visit Diagnoses Not on filedocumented in this encounter Care Teams Occupational Health And Safety Manager Relationship Specialty Start Date End Date Emily Lang MD [address] [place] [address] PCP - General Family Medicine 03/23/23 Autumn Palafox PharmD [address] [place] [address] Pharmacist Pharmacy 06/12/25 documented as of this encounter
--- OUTSIDE RECORDS SUMMARY | 2025-08-10 18:12 | XMS_ITS | Encounter Summary ---
Author Organization [employer] Address 75 [facility] 7t [place] [address] Care Team Providers Care Associate Justice Name Role Phone Emily Lang MD Primary Care Provider [phone] Autumn Palafox PharmD Unavailable [phone] Reason for Visit * Reason Onset Date Comments Med Refill 10/22/2024 Encounter Details Date Type Department Care Team (Late st Contact Info) Description 10/22/2024 Refill [facility]INE 230 [place] [address] Emily Lang MD [address] [place] [address] Social History Tobacco Use Types Packs/Day Years [...] Info) Description 08/12/2025 9:30 AM EST Telemedicine [facility]INE [address] [place] [address] Autumn Palafox PharmD [address] [place] [address] 10/29/2025 8:30 AM EDT Clinical Support [address] [address] Bia Hopper, IRASEMA documented as of this encounter Visit Diagnoses Not on filedocumented in this encounter Additional Health Concerns Assessment Noted Time PHQ-9 Depression Total Score: 17 024 9:55 AM EDT documented as of this encounter Care Teams Associate Justice Relationship Specialty Start Date End Date Emily Lnag MD [address] [place] [address] PCP - General Family Medicine 03/23/23 Autumn Palafox PharmD [address] [place] [address] Pharmacist Pharmacy 06/12/25 documented as of this encounter
--- OUTSIDE RECORDS SUMMARY | 2025-08-10 18:12 | XMS_ITS | Encounter Summary ---
Author Organization [employer] Address 75 [facility] 7t [place] [address] Care Team Providers Care Cosmetician Apprentice Name Role Phone Emily Lang MD Primary Care Provider [phone] Autumn Palafox PharmD Unavailable [phone] Reason for Visit * Reason Onset Date Comments Med Refill 05/13/2024 Encounter Details Date Type Department Care Team (Late st Contact Info) Description 05/13/2024 Refill [facility] [address] [place] [address] Emily Lang MD [address] [place] [address] Social History Tobacco Use Types Packs/Day Years [...] Info) Description 08/12/2025 9:30 AM EST Telemedicine [facility] [address] [place] [address] Autumn Palafox PharmD [address] [place] [address] 10/29/2025 8:30 AM EDT Clinical Support [address] [address] Bia Hopper, IRASEMA documented as of this encounter Visit Diagnoses Not on filedocumented in this encounter Additional Health Concerns Assessment Noted Time PHQ-9 Depression Total Score: 17 024 9:55 AM EDT documented as of this encounter Care Teams Cosmetician Apprentice Relationship Specialty Start Date End Date Emily Lang MD [address] [place] [address] PCP - General Family Medicine 03/23/23 Autumn Palafox PharmD [address] [place] [address] Pharmacist Pharmacy 06/12/25 documented as of this encounter
--- OUTSIDE RECORDS SUMMARY | 2025-08-10 18:12 | XMS_ITS | Encounter Summary ---
Author Organization [employer] Address [address] [facility] [address] 7t [place] [address] Care Team Providers Care Shadowgraph Scale Operator Name Role Phone Emily Lang MD Primary Care Provider [phone] Autumn Palafox PharmD Unavailable [phone] Encounter Details Date Type Department Care Team ([facility] st Contact Info) Description 06/20/2023 Orders Only [facility] 230 [place] [address] Emily Lang MD 230 [place] [address] Anxiety Social History Tobacco Use Types Packs/Day [...] Info) Description 08/12/2025 9:30 AM EST Telemedicine [facility] [address] [place] [address] Autumn Palafox PharmD [address] [place] [address] 10/29/2025 8:30 AM EDT Clinical Support [address] [address] Bia Hopper, IRASEMA documented as of this encounter Visit Diagnoses Diagnosis Anxiety Anxiety state, unspecified documented in this encounter Care Teams Shadowgraph Scale Operator Relationship Specialty Start Date End Date Emily Lang MD [address] [place] [address] PCP - General Family Medicine 03/23/23 Autumn Palafox PharmD [address] [place] [address] Pharmacist Pharmacy 06/12/25 documented as of this encounter
--- OUTSIDE RECORDS SUMMARY | 2025-08-10 18:12 | XMS_ITS | Encounter Summary ---
Author Organization [employer] Address [address] [facility] [address] 7t [place] [address] Care Team Providers Care Skydiving Instructor Name Role Phone Emily Lang MD Primary Care Provider [phone] Autumn Palafox PharmD Unavailable [phone] Reason for Visit * Reason Onset Date Comments Abnormal UTOX 08/10/2025 Encounter Details Date Type Department Care Team ([facility] st Contact Info) Description 08/10/2025 Telephone [facility] MED[facility]INE 230 [place] [address] Bia Hopper RN Abnormal UTOX Social History Tobacco Use Types Packs/Day Years [...] Telephone Encounter - Bia Hopper RN - 08/10/2025 9:19 AM EST 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 UTOX was Neg BZO, sent out for confirmation documented in this encounter Plan of Treatment Upcoming Encounters Date Type Department Care Team (Late st Contact Info) Description 08/12/2025 9:30 AM EST Telemedicine [address] [address] Autumn Palafox PharmD [address] [place] [address] 10/29/2025 8:30 AM EDT Clinical Support [address] [address] Bia Hopper, RN documented as of this encounter Visit Diagnoses Not on filedocumented in this encounter Additional Health Concerns Assessment Noted Time PHQ-9 Depression Total Score: 17 025 11:16 AM EST documented as of this encounter Care Teams Skydiving Instructor Relationship Specialty Start Date End Date Emily Lang MD [address] [place] [address] PCP - General Family Medicine 03/23/23 Autumn Palafox, PharmD [address] [place] [address] Pharmacist Pharmacy 06/12/25 documented as of this encounter
--- OUTSIDE RECORDS SUMMARY | 2025-08-10 18:12 | XMS_ITS | Encounter Summary ---
Author Organization [employer] Address 75 [facility] 7t [place] [address] Care Team Providers Care Tearoom Hostess Name Role Phone Emily Lang MD Primary Care Provider [phone] Autumn Palafox PharmD Unavailable [phone] Reason for Referral * Consultation (Routine) - Authorized Specialty Diagnoses / Procedures Referred By Contac t Referred To Contact Pharmacy Diagnoses Tobacco use Emily Lang MD [address] [place] [address] Phone: tel: fax: Referral ID Status Reason Start Date Expiration Date Visits Requested Visits Authorized [id number] Authorized Consult and Treat 06/12/2025 06/12/2026 6 6 Encounter Details Date Type Department Care Team ([facility] st Contact Info) Description 06/12/2025 Orders Only [facility] [address] [place] [address] Emily Lang MD [address] [place] [phone] Tobacco use (Primary Dx) Social History Tobacco [...] Info) Description 08/12/2025 9:30 AM EST Telemedicine [facility] [address] [place] [address] Autumn Palafox, PharmD [address] [place] [address] 10/29/2025 8:30 AM EDT Clinical Support [facility] [address] [place] [address] Bia Hopper, IRASEMA Scheduled Referrals Name Type Priority Associated Diagnoses Orde r Schedule Referral to Pharmacy CDTM Outpatient Referral Routine Tobacco use Ordered: 06/12/2025 documented as of this encounter Visit Diagnoses Diagnosis Tobacco use- Primary documented in this encounter Additional Health Concerns Assessment Noted Time PHQ-9 Depression Total Score: 17 024 9:55 AM EDT documented as of this encounter Care Teams Tearoom Hostess Relationship Specialty Start Date End Date Emily Lang MD 230 [place] [address] PCP - General Family Medicine 03/23/23 Autumn Palafox, Ryan 230 [place] [address] Pharmacist Pharmacy 06/12/25 documented as of this encounter
--- OUTSIDE RECORDS SUMMARY | 2025-08-10 18:12 | XMS_ITS | Encounter Summary ---
Author Organization [employer] Address 75 [facility] 7t [place] [address] Care Team Providers Care Frog Or Oyster Farmworker Name Role Phone Emily Lang MD Primary Care Provider [phone] Autumn Palafox PharmD Unavailable [phone] Reason for Visit * Reason Comments Med Refill Encounter Details Date Type Department Care Team ([facility] st Contact Info) Description 06/19/2023 Refill [facility] 230 [place] [address] Emily Lang MD [address] [place] [address] Vitamin D deficiency; Anxiety Social History Tobacco [...] Info) Description 08/12/2025 9:30 AM EST Telemedicine [facility] [address] [place] [address] Autumn Palafox PharmD [address] [place] [address] 10/29/2025 8:30 AM EDT Clinical Support [facility] [address] [place] [address] Bia Hopper RN documented as of this encounter Visit Diagnoses Diagnosis Vitamin D deficiency Anxiety Anxiety state, unspecified documented in this encounter Care Teams Frog Or Oyster Farmworker Relationship Specialty Start Date End Date Emily Lang MD [address] [place] [address] PCP - General Family Medicine 03/23/23 Autumn Palafox, LindaD [address] [place] [address] Pharmacist Pharmacy 06/12/25 documented as of this encounter
--- OUTSIDE RECORDS SUMMARY | 2025-08-10 18:12 | XMS_ITS | Encounter Summary ---
Author Organization [employer] Address 75 [facility] 7t [place] [address] Care Team Providers Care Surveillance Systems Analyst Name Role Phone Emily Lang MD Primary Care Provider [phone] Autumn Palafox PharmD Unavailable [phone] Reason for Visit * Reason Comments Med Refill Encounter Details Date Type Department Care Team ([facility] st Contact Info) Description 06/04/2025 Refill [facility] 230 [place] [address] Emily Lang MD [address] [place] [address] Anxiety Social History Tobacco Use Types Packs/Day [...] Info) Description 08/12/2025 9:30 AM EST Telemedicine [facility] [address] [place] [address] Autumn Palafox PharmD [address] [place] [address] 10/29/2025 8:30 AM EDT Clinical Support [facility] [address] [place] [address] Bia Hopper, RN documented as of this encounter Visit Diagnoses Diagnosis Anxiety Anxiety state, unspecified documented in this encounter Additional Health Concerns Assessment Noted Time PHQ-9 Depression Total Score: 17 024 9:55 AM EDT documented as of this encounter Care Teams Surveillance Systems Analyst Relationship Specialty Start Date End Date Emily Lang MD [address] [place] [address] PCP - General Family Medicine 03/23/23 Autumn Palafox PharmD [address] [place] [address] Pharmacist Pharmacy 06/12/25 documented as of this encounter
--- OUTSIDE RECORDS SUMMARY | 2025-08-10 18:12 | XMS_ITS | Encounter Summary ---
Author Organization [employer] Address 75 [facility] 7t [place] [address] Care Team Providers Care Oracle Soa Developer Name Role Phone Emily Lang MD Primary Care Provider [phone] Autumn Palafox PharmD Unavailable [phone] Reason for Visit * Reason Onset Date Comments Med Refill 05/27/2024 Encounter Details Date Type Department Care Team (Late st Contact Info) Description 05/27/2024 Refill [facility] [address] [place] [address] Emily Lang MD 230 [place] [address] Social History Tobacco Use Types Packs/Day Years [...] Info) Description 08/12/2025 9:30 AM EST Telemedicine [facility] [address] [place] [address] Autumn Palafox PharmD [address] [place] [address] 10/29/2025 8:30 AM EDT Clinical Support [address] [address] Bia Hopper, IRASEMA documented as of this encounter Visit Diagnoses Not on filedocumented in this encounter Additional Health Concerns Assessment Noted Time PHQ-9 Depression Total Score: 17 024 9:55 AM EDT documented as of this encounter Care Teams Oracle Soa Developer Relationship Specialty Start Date End Date Emily Lang MD [address] [place] [address] PCP - General Family Medicine 03/23/23 Autumn Palafox PharmD [address] [place] [phone] Pharmacist Pharmacy 06/12/25 documented as of this encounter
--- OUTSIDE RECORDS SUMMARY | 2025-08-10 18:12 | XMS_ITS | Encounter Summary ---
Author Organization [employer] Address 75 [facility] 7t [place] [address] Care Team Providers Care Crayon Molding Machine Operator Name Role Phone Emily Lang MD Primary Care Provider [phone] Autumn Palafox PharmD Unavailable [phone] Reason for Visit * Reason Onset Date Comments Med Refill 05/19/2024 Encounter Details Date Type Department Care Team (Late st Contact Info) Description 05/19/[address] [facility] [address] [place] [address] Emily Lang MD 230 [place] [address] Social History Tobacco Use Types Packs/Day Years [...] Description 08/12/2025 9:[address] [facility] [address] [place] [address] Autumn Palafox PharmD [address] [place] [address] 10/29/2025 8:30 AM EDT Clinical Support [address] [address] Bia Hopper, IRASEMA documented as of this encounter Visit Diagnoses Not on filedocumented in this encounter Additional Health Concerns Assessment Noted Time PHQ-9 Depression Total Score: 17 024 9:55 AM EDT documented as of this encounter Care Teams Crayon Molding Machine Operator Relationship Specialty Start Date End Date Emily Lang MD [address] [place] [address] PCP - General Family Medicine 03/23/23 Autumn Palafox PharmD [address] [place] [address] Pharmacist Pharmacy 06/12/25 documented as of this encounter
--- OUTSIDE RECORDS SUMMARY | 2025-08-10 18:12 | XMS_ITS | Clinical Summary ---
Author Organization [employer] Address 75 [facility] 7t [place] [address] Care Team Providers Care Chlorine Plant Operator Name Role Phone Emily Lang MD Primary Care Provider [phone] Autumn Palafox PharmD Unavailable [phone] Allergies Active Allergy Reactions Criticality Noted [...] OR WHEEZING 18 g 11 024 Active cholecalciferol (Vitamin D-3) 50 MCG (2000 UT) capsule TAKE 1 CAPSULE BY MOUTH EVERY MORNING 90 capsule 3 025 Active acetaminophen (Tylenol Extra Strength) 500 MG tablet Take 1-2 tablets every 6 hours as needed for pain 90 tablet 04/22/2 025 Active metoprolol succinate XL (Toprol-XL) 25 [...] for anxiety. 28 tablet 025 2025 Active nortriptyline (Pamelor) 25 MG capsule TAKE 1 CAPSULE BY MOUTH EVERY DAY AT BEDTIME 90 capsule 3 Active flecainide (Tambocor) 100 MG tablet Take 50 mg by mouth 2 times daily. Active nortriptyline (Pamelor) 25 MG capsule Take 1 capsule (25 mg) by mouth at bedtime. 90 capsule 3 024 2024 Discontinued clonazePAM (KlonoPIN) 0.5 MG tabletIndicatio ns:Anxiety Take [...] Overview (04/30/2024): [place] [facility] [place]21-[place]23[place]24 On Metoprolol BID with hold [...] PM EDT): Refer to [facility] for biopsy Migraine with aura and witho ut status migrainosus, not intractable 04/30/2024 Overview (04/30/2024): Dx 04[place]2024 [place] [facility] [place] admission for stroke rule out Assessment [...] recurrent major depressive disorder, without psychotic features ([facility]) 03/19/2023 Assessment & Plan (03/30/2023 9:54 AM [...] of change. PLAN: 1. Follow up with [facility]: Recommended for follow-up: As needed 2. Patient goal is to work towards placing boundaries so that she can engage in therapy and explore coping mechanisms 3. Behavioral Recommendations a. [place] setting b. Lock door/do not disturb on phone c. OP therapy Assessment & Plan (03/26/2023 6:36 AM EDT): Continue Lexapro [facility] referral in place for OP therapy MOISES (generalized anxiety disorder) 03/19/2023 Assessment & Plan (04/30/2024 12:46 PM EDT): Will continue Klonopin 0.5mg at BID for the time being, reevaluate in one month Assessment & Plan (12/24/2023 2:14 PM EDT): Continue Klonopin 0.5mg daily prn Continue therapy at [facility] Assessment & Plan (03/30/2023 9:54 AM EDT): [...] of change. PLAN: 1. Follow up with [facility]: Recommended for follow-up: As needed 2. Patient goal is to work towards placing boundaries so that she can engage in therapy and explore coping mechanisms 3. Behavioral Recommendations a. [place] setting b. Lock door/do not disturb on phone c. OP therapy Assessment & Plan (03/26/2023 6:36 AM EDT): Continue Klonopin 0.5mg daily Goal is to wean this year, per pt Chronic pain of both knees 03/19/2023 Assessment & Plan (12/24/2023 2:12 PM EDT): PT referral Assessment & Plan (03/26/2023 6:36 AM EDT): [place] [facility] [place]o in place Known meniscal tear from [...] (12/24/2023 2:10 PM EDT): Needs to [place] [facility] and schedule mammo Encounters Date Type Department Care Team Description 08/10/2025 9:00 AM EST Clinical Support [address] [address] Bia Hopper RN Long-term current use of benzodiazepine (Primary Dx) 08/10/[address] [address] Bia Hopper RN Abnormal UTOX 08/10/2025 Travel 07/28/[address] [address] Emily Lang MD 07/21/2025 9:15 AM EST Office Visit [address] [address] Emily Lang MD Screening for colon cancer [...] for cervical cancer 07/21/2025 Travel 07/20/2025 Refill [facility] [address] [place] [address] Emily Lang MD Anxiety 07/20/[address] [place] [address] Emily Lang MD chart prep 07/13/2025 1:00 PM EST Telemedicine [facility] [address] [place] [address] Autumn Palafox PharmD Tobacco dependence (Primary Dx) 07/07/2025 Patient Outreach [facility] [address] [facility] [place] [address] Emily Lang MD Pre-visit Planning ((SDOH screening negative tobacco screening positive)) 07/05/2025 Refill [facility] [address] [facility] [place] [address] Emily Lang MD Anxiety 06/26/2025 9:30 AM EST Telemedicine [facility] [address] [facility] [place] [address] Autumn Palafox PharmNery Tobacco dependence (Primary Dx) 06/26/2025 Telephone [facility] [address] [place], [place] [address]ne [place] [address] Emily Lang MD APPT REQUEST 06/19/2025 Refill [facility] [address] [facility] [place] [address] Emily Lang MD 06/16/2025 Telephone [facility] [address] [place], [place] [address] [address] Emily Lang MD APPT 06/12/2025 9:00 AM EDT Telemedicine [facility] [place] [address] Autumn Palafox PharmNery Tobacco dependence (Primary Dx) 06/12/2025 Orders Only [facility] [place] [address] Emily Lang MD Tobacco use (Primary Dx) 06/12/2025 Telephone [facility] [address] [place], [place] [address] [address] Autumn Palafox PharmD 06/09/2025 Travel 06/05/2025 Refill [facility] [address] [place] [address] Emily Lang MD 06/04/2025 Refill [facility] [address] [place] [address] Emily Lang MD Anxiety 06/02/2025 Orders Only [facility] External Provider, [facility] 06/02/2025 Refill [facility] [address] [place] [address] Emily Lang MD Anxiety 05/21/2025 Telephone [facility] [address] [place], [place] [phone] Emily Lang MD nov recall from Last 3 Months Immunizations Immunization Administration [...] 2 35 Started: 1990 Smokeless Tobacco: Never Tobacco Cessation:Ready [...] housing situation today? I have margoalden freed 07/07/[address] you [...] Info) Description 08/12/2025 9:30 AM EST Telemedicine [facility] [address] [place] [address] Autumn Palafox, PharmD [address] [place] [address] 10/29/2025 8:30 AM EDT Clinical Support [facility] [address] [place] [address] Bia Hopper, RN Health Maintenance Due Date Last Done Comments CT Colonography 1970 Colonoscopy 1971 FIT 1971 HIV Screening 1970 Lipid Panel 1970 Sigmoidoscopy 1971 Alcohol/Substance Use Screening 1983 Hepatitis C Screening 11/28/1989 Mammogram 2011 Lung Cancer Screening 11/28/2021 RSV [...] Screening 07/07/2026 07/07/2025 Tobacco Screening 07/21/2026 07/21/2025 FOBT 07/28/2026 07/28/2025 Pap Smear 07/22/2028 07/22/2025 Colorectal Cancer Screening 07/28/2028 FIT DNA/Cologuard 07/28/2028 07/28/2025 DTaP/Tdap/Td Vaccines (1 - Tdap) 08/13/2028 08/13/2018 Postponed from 08/14 (Other Medical Reasons) Cervical Cancer Screening 07/22/2030 HPV/Cotest 07/22/2030 07/22/2025 Pneumococcal Vaccine: 50+ Years Completed 12/24/2023, 09/09/2013 [...] AM EST Long-term current use of benzodiazepine LAB COLOGUARD COLON CANCER SCREEN Routine 07/28/2025 11:00 AM EST Screening for colon cancer HPV DNA (16, 18, OTHER HIGH RISK), PCR, VAGINAL SELF-COL Routine 07/22/2025 12:00 AM EST Screening for cervical cancer HIGH SENSITIVITY TROPONIN I Routine 06/02/2025 2:53 PM EDT XR RIBS 3 VIEWS LEFT W CHEST Routine 06/02/2025 12:38 PM EDT from Last 3 Months Results * (ABNORMAL) POCT ABIMBOLA-14 Urine Drug Screen (08/10/2025 9:13 AM EST) Amphetamine Screen, Urine Negative Negative Barbiturate Screen, Urine Negative Negative Buprenophine Screen, Urine Negative Negative Benzodiazepines Screen, Urine Negative Negative 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 07/13/26 Internal Pass Control Emily Lang MD POINT OF CARE TEST ENTER/EDIT ORDERABLES Final Result * Cologuard?? colon cancer screening (07/28/2025 11:00 AM EST) Cologuard Result Negative Negative 08/04/20 7:21 AM EST [employer] (CLIA #:[id number]) Comment: The Cologuard (TM) test was performed on this specimen. NEGATIVE TEST RESULT. A negative Cologuard result indicates a low likelihood that a colorectal cancer (CRC) or advanced adenoma (adenomatous polyps with more advanced pre-malignant features) is present. The chance that a person with a negative Cologuard test has a colorectal cancer is less than 1 in 1500 (negative predictive value >99.9%) or has an advanced adenoma is less than 5.3% (negative predictive value 94.7%). These data are based on a prospective cross-sectional study of 10,000 individuals at average risk for colorectal cancer who were screened with both Cologuard and colonoscopy. (Melchor Donahue et al, N Engl J Med 2014;370(14):1286- 1297) The normal value (reference range) for this assay is negative. COLOGUARD RE-SCREENING RECOMMENDATION: Periodic colorectal cancer screening is an important part of preventive healthcare for asymptomatic individuals at average risk for colorectal cancer. Following a negative Cologuard result, the [place] Cancer Society and U.S. Multi-Society Task Force screening guidelines recommend a Cologuard re-screening interval of 3 years. References: [place] [employer] Guideline for Colorectal Cancer Screening: https://www.cancer.org/cancer/dlrlc-fpbkor-lkwgbc/gfzjdtfbc-cibvikkwz-kppdkhp/ac s-rec ommendations.html.; Sang C[place], Cleo CR, Glynn CamejoK, Colorectal Cancer Screening: Recommendations for Physicians and Patients from the U.S. Multi-Society Task Force on Colorectal Cancer Screening , Am J Gastroenterology 2017; 112:5551-0484. TEST DESCRIPTION: Composite algorithmic analysis of stool DNA-biomarkers with hemoglobin immunoassay. Quantitative values of individual biomarkers are not reportable and are not associated with individual biomarker result reference ranges. Cologuard is intended for colorectal cancer screening of adults of either sex, 45 years or older, who are at average-risk for colorectal cancer (CRC). Cologuard has been approved for use by the U.S. FDA. The performance of Cologuard was established in a cross sectional study of average-risk adults aged 50-84. Cologuard performance in patients ages 45 to 49 years was estimated by sub-group analysis of near-age groups. Colonoscopies performed for a positive result may find as the most clinically significant lesion: colorectal cancer [4.0%], advanced adenoma (including sessile serrated polyps greater than or equal to 1cm diameter) [20%] or non- advanced adenoma [31%]; or no colorectal neoplasia [45%]. These estimates are derived from a prospective cross-sectional screening study of 10,000 individuals at average risk for colorectal cancer who were screened with both Cologuard and colonoscopy. (Melchor Garcia. et al, N Engl J Med 2014;370(14):0857-8662.) Cologuard may produce a false negative or false positive result (no colorectal cancer or precancerous polyp present at colonoscopy follow up). A negative Cologuard test result does not guarantee the absence of CRC or advanced adenoma (pre-cancer). The current Cologuard screening interval is every 3 years. ([place] Cancer Society and U.S. Multi-Society Task Force). Cologuard performance data in a 10,000 patient pivotal study using colonoscopy as the reference method can be accessed at the following location: www.[employer]/results. Additional description of the Cologuard test process, warnings and precautions can be found at www.Tablooguard.com. Stool specimen (specimen) 07/28/2025 11:00 AM EST 07/30/2025 12:28 PM EST us Emily Lang MD LAB MOLECULAR DIAGNOSTICS [id number] Final Result [employer] [facility] (CLIA #:[id number]) [address] [place], [place] [address], * HPV DNA (16, 18, Other High Risk), PCR, Vaginal Self-Collected (07/22/2025 12:00 AM EST) HPV 16 DNA Not Detected Not Detected [facility] HPV 18 DNA Not Detected Not Detected [facility] HPV, Other Not Detected Not Detected [facility] Comment:Other HR HPV DNA inc ludes the following genotypes:31,33,35,39,45,51,52,56,58,59,66,68.Methodology: Polymerase Chain Reaction (PCR)THIS TEST WAS PERFORMED AT:[employer]/[id number] [place] [address]SMKTWLWPAO SANDY MD,PHD ThinPrep vial Vaginal structure / Unknown 07/22/2025 07/23/2025 7:23 AM EST Emily Lang MD LAB BODY FLUIDS AND STOOLS ORD ERABLES Final Result Performing Organization Address [facility] Co de Phone Number [facility] [address] [place] [phone] * High Sensitivity Troponin I (06/02/2025 2:53 PM EDT) Pathologist [facility] TROPONIN I HIGH SENSITIVITY <2.7 <3.5 - 17.0 ng/L [facility] Comment:The Maria high sens itivity Troponin-I results should beused in conjunction with other diagnostic information suchas ECG, clinical observations and information, and patientsymptoms to aid in the diagnosis of AR. 06/02/2025 2:53 PM EDT 06/02/2025 2:56 PM EDT us Generic External Data Provider LAB BLOOD ORDERAB LES Final Result Performing Organization Address [facility]/ZIP Co de Phone Number [facility] [address] [place] [address] [phone] * XR Ribs 3 Views Left w/ Chest (06/02/2025 12:38 PM EDT) Anatomical Region Laterality Modality Radiographic Nolvia ging 06/02/2025 12:3 8 PM EDT Narrative 06/02/2025 1:06 PM EDT [address] [address] XRay Report Signed Patient: Socorro Moran MR#: [id number] : 1970 Acct:[id number] Age/Sex: 54 / F ADM Date: 06/02/25 Loc: HO.ED Attending Dr: Ordering Physician: Arianna Weber MD Date of Service: 06/02/25 Procedure(s): XR ribs LT min 3V w CXR1V Accession Number(s): [id number] cc: Arianna Weber MD; Emily Lang Reason [...] 06/02/25 1303 DD/ 1238 TD/TT: 06/02/25 1245 Apron Operator: Procedure Note Donotuseinterpreter, Image - 06/02/[address] [address] XRay Report Signed Patient: Socorro Moran LMR#: [id number] : 1970Acct:[id number] Age/Sex: 54 / FADM Date: 06/02/25 Loc: HO.ED Attending Dr: Ordering Physician: Arianna Weber MD Date of Service: 06/02/25 Procedure(s): XR ribs LT min 3V w CXR1V Accession Number(s): [id number] cc: Arianna Weber MD; Emily Lang Reason [...] 06/02/25 1303 DD/ 1238 TD/TT: 06/02/25 1245 Apron Operator: [facility] External Provider IMG XR PROCEDURES Edited Result - Final from Last 3 Months Insurance [facility] C3 Care Teams Chlorine Plant Operator Relationship Specialty Start Date End Date Emily Lang MD [address] [place] [address] PCP - General Family Medicine 03/23/23 Autumn Palafox PharmD [address] [place] [address] Pharmacist Pharmacy 06/12/25
--- OUTSIDE RECORDS SUMMARY | 2025-08-10 18:12 | XMS_ITS | Encounter Summary ---
Author Organization [employer] Address 75 [facility] 7t [place] [address] Care Team Providers Care Rug Underlay Machine Operator Name Role Phone Emily Lang MD Primary Care Provider [phone] Autumn Palafox PharmD Unavailable [phone] Reason for Visit * Reason Comments Med Change Request Encounter Details Date Type Department Care Team ( Contact Info) Description 03/26/2023 Refill [facility] [address] [place] [phone] Emily Lang MD 230 [place], [place] [phone] Neurogenic pruritus Social History Tobacco Use Types [...] Department Care Team (Late Contact Info) Description 08/12/2025 9:30 AM EST Telemedicine [facility] 230 [place], [place] [phone] Autumn Palafox, PharmD 230 [place], [place] [phone] 10/29/2025 8:30 AM EDT Clinical Support [facility] [address] [place] [address] Bia Hopper RN documented as of this encounter Visit Diagnoses Diagnosis Neurogenic pruritus documented in this encounter Care Teams Rug Underlay Machine Operator Relationship Specialty Start Date End Date Emily Lang MD [address] [place] [address] PCP - General Family Medicine 03/23/23 Autumn Palafox PharmD [address] [place] [address] Pharmacist Pharmacy 06/12/25 documented as of this encounter
--- OUTSIDE RECORDS SUMMARY | 2025-08-10 18:12 | XMS_ITS | Encounter Summary ---
Author Organization [employer] Address 75 [facility] 7t [place] [address] Care Team Providers Care Technology Manager Name Role Phone Emily Lang MD Primary Care Provider [phone] Autumn Palafox PharmD Unavailable [phone] Encounter Details Date Type Department Care Team (Late st Contact Info) Description 04/06/2023 Orders Only [facility] [address] [place] [phone] Emily Lang MD [address] [place] [address] Screening for colon cancer (Primary Dx) Social [...] Info) Description 08/12/2025 9:30 AM EST Telemedicine [facility] [address] [place] [address] Autumn Palafox, PharmD [address] [place], [place] [phone] 10/29/2025 8:30 AM EDT Clinical Support [facility] [address] [place] [address] Bia Hopper RN documented as of this encounter Procedures Procedure Name Priority Date/Time Associated Diagnosis Comments MR KNEE WO CONTRAST RIGHT Routine 04/17/2023 9:25 AM EDT documented in this encounter Results * MR Knee w/o Contrast Right (04/17/2023 9:25 AM EDT) Anatomical Region Laterality Modality Magnetic Resonan ce 04/17/2023 9:25 AM EDT Narrative 04/18/2023 12:57 PM EDT [address] [address] Magnetic Resonance Report Signed Patient: Socorro Moran MR#: [id number] : 1970 Acct:[id number] Age/Sex: 52 / F ADM Date: 04/17/23 Loc: HO.MRI Attending Dr: Ricardo Root MD Ordering Physician: Ricardo Root MD Date of Service: 04/17/23 Procedure(s): MR knee RT wo con Accession Number(s): [id number] cc: Emily Lang; Ricardo Root MD EXAMINATION: [...] heterogeneity and surface irregularity with areas of kbfu-dybp-laxnkytdg fissuring at the medial femoral condyle. Tiny [...] in OV> 04/18/23 1253 DD/ 0925 TD/TT: Acid Regenerator: SR Procedure Note Donotuseinterpreter, Image - 04/18/[address] [address] Magnetic Resonance Report Signed Patient: Socorro Moran LMR#: [id number] : 1970Acct:[id number] Age/Sex: 52 / FADM Date: 04/17/23 Loc: HO.MRI Attending Dr: Ricardo Root MD Ordering Physician: Ricardo Root MD Date of Service: 04/17/23 Procedure(s): MR knee RT wo con Accession Number(s): [id number] cc: Emily Lang; Ricardo Root MD EXAMINATION: [...] heterogeneity and surface irregularity with areas of lqed-xutz-ijmelfpez fissuring at the medial femoral condyle. Tiny [...] in OV> 04/18/23 1253 DD/ 4 TD/TT: Acid Regenerator: [facility] External Provider IMG MRI PROCEDURES Final Result documented in this encounter Visit Diagnoses Diagnosis Screening for colon cancer- Primary Special screening for malignant neoplasms, colon documented in this encounter Care Teams Technology Manager Relationship Specialty Start Date End Date Emily Lang MD [address] [place] [address] PCP - General Family Medicine 03/23/23 Autumn Palafox PharmD [address] [place] [address] Pharmacist Pharmacy 06/12/25 documented as of this encounter
--- OUTSIDE RECORDS SUMMARY | 2025-08-10 18:12 | XMS_ITS | Encounter Summary ---
Author Organization [employer] Address [address] [facility] [address] [place] [address] Care Team Providers Care Longwall Shearer Operator Name Role Phone Emily Lang MD Primary Care Provider [phone] Autumn Palafox PharmD Unavailable [phone] Reason for Visit * Reason Onset Date Comments Med Refill 10/29/2024 Encounter Details Date Type Department Care Team (Late st Contact Info) Description 10/29/2024 Refill [facility] MED[facility]INE [address] [place] [address] Emily Lang MD [address] [place] [address] Anxiety Social History Tobacco Use Types Packs/Day [...] Info) Description 08/12/2025 9:30 AM EST Telemedicine [facility] MEDICINE [address] [place] [phone] Autumn Palafox PharmD [address] [place] [phone] 10/29/2025 8:30 AM EDT Clinical Support [address] [address] Bia Hopper, IRASEMA documented as of this encounter Visit Diagnoses Diagnosis Anxiety Anxiety state, unspecified documented in this encounter Additional Health Concerns Assessment Noted Time PHQ-9 Depression Total Score: 17 024 9:55 AM EDT documented as of this encounter Care Teams Longwall Shearer Operator Relationship Specialty Start Date End Date Emily Lang MD [address] [place] [phone] PCP - General Family Medicine 03/23/23 Autumn Palafox PharmD [address] [place] [phone] Pharmacist Pharmacy 06/12/25 documented as of this encounter
--- OUTSIDE RECORDS SUMMARY | 2025-08-10 18:12 | XMS_ITS | Encounter Summary ---
Author Organization [employer] Address [address] [facility] [address] [place] [address] Care Team Providers Care Media Marketing Director Name Role Phone Emily Lang MD Primary Care Provider Autumn Palafox PharmD Unavailable [phone] Encounter Details Date Type Department Care Team (Latest Contact Info) Description 08/10/2025 Travel Social History Tobacco Use Types Packs/Day [...] Info) Description 08/12/2025 9:30 AM EST Telemedicine [address] [address] Autumn Palafox PharmD [address] [place] [phone] 10/29/2025 8:30 AM EDT Clinical Support [address] [address] Bia Hopper, IRASEMA documented as of this encounter Visit Diagnoses Not on filedocumented in this encounter Additional Health Concerns Assessment Noted Time PHQ-9 Depression Total Score: 17 025 11:16 AM EST documented as of this encounter Care Teams Media Marketing Director Relationship Specialty Start Date End Date Emily Lang MD [address] [place] [phone] PCP - General Family Medicine 03/23/23 Autumn Palafox, LindaD [address] [place] [phone] Pharmacist Pharmacy 06/12/25 documented as of this encounter
--- OUTSIDE RECORDS SUMMARY | 2025-08-10 18:12 | XMS_ITS | Encounter Summary ---
Author Organization [employer] Address [address] [facility] 7t [place] [address] Care Team Providers Care Precision Inspector Name Role Phone Emily Lang MD Primary Care Provider [phone] Autumn Palafox PharmD Unavailable [phone] Reason for Visit * Reason Onset Date Comments Med Refill 11/26/2023 Encounter Details Date Type Department Care Team (Late st Contact Info) Description 11/26/2023 Refill [facility] MEDICINE [address] [place] [address] Moises Thompson MD [address] [place] [address] Social History Tobacco Use Types Packs/Day Years [...] AM EST Telemedicine [facility] [address] [place] [phone] Autumn Palafox PharmD [address] [place] [phone] 10/29/2025 8:30 AM EDT Clinical Support [address] [address] Bia Hopper, IRASEMA documented as of this encounter Visit Diagnoses Not on filedocumented in this encounter Care Teams Precision Inspector Relationship Specialty Start Date End Date Emily Lang MD [address] [place] [phone] PCP - General Family Medicine 03/23/23 Autumn Palafox PharmD [address] [place] [phone] Pharmacist Pharmacy 06/12/25 documented as of this encounter
--- OUTSIDE RECORDS SUMMARY | 2025-08-10 18:12 | XMS_ITS | Encounter Summary ---
Author Organization [employer] Address [address] [facility] [address] [place] [address] Care Team Providers Care Iron Assorter Name Role Phone Emily Lang MD Primary Care Provider [phone] Autumn Palafox PharmD Unavailable [phone] Reason for Visit * Reason Onset Date Comments Med Refill 10/22/2024 Encounter Details Date Type Department Care Team (Late st Contact Info) Description 10/22/2024 Refill [facility] MEDICINE [address] [place] [address] Emily Lang MD [address] [place] [address] Social History Tobacco Use Types Packs/Day Years [...] Info) Description 08/12/2025 9:30 AM EST Telemedicine [facility] [address] [place] [address] Autumn Palafox PharmD [address] [place] [phone] 10/29/2025 8:30 AM EDT Clinical Support [address] [address] Bia Hopper, IRASEMA documented as of this encounter Visit Diagnoses Not on filedocumented in this encounter Additional Health Concerns Assessment Noted Time PHQ-9 Depression Total Score: 17 024 9:55 AM EDT documented as of this encounter Care Teams Iron Assorter Relationship Specialty Start Date End Date Emily Lang MD [address] [place] [phone] PCP - General Family Medicine 03/23/23 Autumn Palafox PharmD [address] [place] [phone] Pharmacist Pharmacy 06/12/25 documented as of this encounter
== END 2025-08-10 17:39 ==
LOC: HO.LNP 17:38
PROVIDERS: Visit Provider General Practice
DX: Z79.899 Other long term (current) drug therapy (principal)
CPT/HCPCS: 80346